=== PATIENT | male | born 1945 | race Caucasian/White ===

== ENCOUNTER 2016-12-30 13:45 | Inpatient (IN) | payer MEDICARE, BC ==
[2016-12-30] MEDS ORDERED: DILTIAZEM 5 MG/ML 5 ML VIAL IVP STA (14:12)
--- NOTE | 2016-12-30 14:12 | ED ---
Arrhythmia/Palpitations HPI - General Chief Complaint: Arrhythmia/Palpitations Stated Complaint: Chest Pain Time Seen by Provider: 12/30/16 13:45 Source: patient, EMS, RN notes reviewed Mode of arrival: EMS Limitations: no limitations - History of Present Illness Initial Comments: This is a 71-year-old male who was brought in by aunt was from a local outpatient surgical center after being in diagnosed with a new onset atrial fibrillation. The patient was to have an endoscopy done is found have A. fib with RVR. He does state he gets occasionally dizzy he states he 69 for the past 3 weeks hence the scope. He does have history diabetes gout and hypertension. No prior history of A. fib history of [place]. No history of thyroid disorders no recent fevers chills nausea vomiting sweats or other symptoms. MD Complaint: rapid heart beat, palpitations - Related Data Home Medications Medication Instructions Recorded Confirmed Allopurinol [Zyloprim] 300 mg PO BID 11/27/15 12/30/16 Atenolol 25 mg PO DAILY 11/27/15 12/30/16 Carbidopa-Levodopa 25-100 mg 1 tab PO BID 11/27/15 12/30/16 [Sinemet 25-100 mg] Cholecalciferol [Vitamin D3] 1,000 units PO DAILY 11/27/15 12/30/16 Cyanocobalamin [Vitamin B-12] 1,000 mcg PO DAILY 11/27/15 12/30/16 Glimepiride [Amaryl] 8 mg PO DAILY 11/27/15 12/30/16 Hydrochlorothiazide 25 mg PO DAILY 11/27/15 12/30/16 sitaGLIPtin [Januvia] 12.5 mg PO BID 12/28/16 12/30/16 Omeprazole 20 mg PO DAILY 12/30/16 12/30/16 Triamcinolone 0.1% Lotion [Kenalog 1 applic TOPICAL BID PRN 12/30/16 12/30/16 0.1% Lotion] Allergies Allergy/AdvReac Type Severity Reaction Status Date / Time Penicillins Allergy Unknown Verified 12/30/16 14:16 Review of Systems ROS Statement: Those systems with pertinent positive or pertinent negative responses have been documented in the HPI. ROS Other: All systems not noted in ROS Statement are negative. Past Medical History Past Medical History: Diabetes Mellitus, GERD/Reflux, Hypertension, Renal Disease Additional Past Medical History / Comment(s): KIDNEY DISEASE- LEVEL 3 (DR WEST) , HAYFEVER, RLS, BACK PAIN , GOUT, FREQUENT DIARRHEA, PROBLEM SWALLOWING - CHOKES AND HAS NOT TAKEN ANY OF MEDS IN WEEKS. History of Any Multi-Drug Resistant Organisms: None Reported Past Surgical History: Hernia Repair Additional Past Surgical History / Comment(s): had lense replacement on B eyes, and cataract on B eyes Past Anesthesia/Blood Transfusion Reactions: No Reported Reaction Past Psychological History: No Psychological Hx Reported Smoking Status: Former smoker Past Alcohol Use History: Occasional Past Drug Use History: None Reported - Past Family History Mother Family Medical History: No Reported History General Exam - General Exam Comments Initial Comments: This is a well-developed well-nourished awake alert oriented 3 male Limitations: no limitations General appearance: alert, in no apparent distress Head exam: Present: atraumatic, normocephalic, normal inspection Eye exam: Present: normal appearance, PERRL, EOMI. Absent: scleral icterus, conjunctival injection, periorbital swelling ENT exam: Present: normal exam, mucous membranes moist Neck exam: Present: normal inspection. Absent: tenderness, meningismus, lymphadenopathy Respiratory exam: Present: normal lung sounds bilaterally. Absent: respiratory distress, wheezes, rales, rhonchi, stridor Cardiovascular Exam: Present: tachycardia, irregular rhythm. Absent: systolic murmur, diastolic murmur, rubs, gallop, clicks GI/Abdominal exam: Present: soft, normal bowel sounds. Absent: distended, tenderness, guarding, rebound, rigid Extremities exam: Present: normal inspection, full ROM, normal capillary refill. Absent: tenderness, pedal edema, joint swelling, calf tenderness Back exam: Present: normal inspection Neurological exam: Present: alert, oriented X3, CN II-XII intact Psychiatric exam: Present: normal affect, normal mood Skin exam: Present: warm, dry, intact, normal color. Absent: rash Course Vital Signs 12/30/16 12/30/16 12/30/16 13:51 13:59 14:46 Temperature 97.2 F L Pulse Rate 126 H 133 H Pulse Rate [ 126 H Inspector Outside Steam Distribution ] Respiratory 18 16 Rate Blood Pressure 123/63 129/63 O2 Sat by Pulse 100 100 Oximetry 12/30/16 12/30/16 12/30/16 14:52 15:17 15:34 Temperature Pulse Rate 112 H 106 H 108 H Pulse Rate [ Inspector Outside Steam Distribution ] Respiratory 16 16 16 Rate Blood Pressure 110/58 103/61 102/65 O2 Sat by Pulse 100 100 98 Oximetry 12/30/16 12/30/16 15:52 16:02 Temperature Pulse Rate 110 H 106 H Pulse Rate [ Inspector Outside Steam Distribution ] Respiratory 16 16 Rate Blood Pressure 101/61 112/70 O2 Sat by Pulse 98 100 Oximetry - Reevaluation(s) Reevaluation #1: 12/30/16 16:35 Reevaluation patient reveals the rate to be controlled better with the heart rate in the low 100s he still nature fibrillation. He will be admitted for evaluation by cardiology for new onset A. fib. 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 and minimal voltage criteria for LVH) Medical Decision Making - Lab Data Result diagrams: 12/30/16 14:10 12/30/16 14:10 Lab Results 12/30/16 12/30/16 12/30/16 Range/Units 14:10 14:10 14:10 WBC 13.1 H (3.8-10.6) k/uL RBC 4.37 (4.30-5.90) m/uL Hgb 14.2 (13.0-17.5) gm/dL Hct 41.2 (39.0-53.0) % MCV 94.3 (80.0-100.0) fL MCH 32.5 (25.0-35.0) pg MCHC 34.5 (31.0-37.0) g/dL RDW 14.6 (11.5-15.5) % Plt Count 335 (150-450) k/uL Neutrophils % 82 % Lymphocytes % 10 % Monocytes % 5 % Eosinophils % 1 % Basophils % 0 % Neutrophils # 10.7 H (1.3-7.7) k/uL Lymphocytes # 1.3 (1.0-4.8) k/uL Monocytes # 0.7 (0-1.0) k/uL Eosinophils # 0.2 (0-0.7) k/uL Basophils # 0.0 (0-0.2) k/uL Sodium 137 (137-145) mmol/L Potassium 4.2 (3.5-5.1) mmol/L Chloride 104 (98-107) mmol/L Carbon Dioxide 19 L (22-30) mmol/L Anion Gap 14 mmol/L BUN 61 H (9-20) mg/dL Creatinine 2.40 H (0.66-1.25) mg/dL Est GFR (MDRD) Af Amer 32 (>60 ml/min/1.73 sqM) Est GFR (MDRD) Non-Af 27 (>60 ml/min/1.73 sqM) Glucose 145 H (74-99) mg/dL Calcium 10.0 (8.4-10.2) mg/dL Magnesium 1.3 L (1.6-2.3) mg/dL Total Bilirubin 0.5 (0.2-1.3) mg/dL AST 18 (17-59) U/L ALT 32 (21-72) U/L Alkaline Phosphatase 78 (38-126) U/L Total Creatine Kinase 98 (55-170) U/L CK-MB (CK-2) 2.8 H* (0.0-2.4) ng/mL CK-MB (CK-2) Rel Index 2.9 Troponin I 0.023 (0.000-0.034) ng/mL Total Protein 6.5 (6.3-8.2) g/dL Albumin 4.1 (3.5-5.0) g/dL Critical Care Time Critical Care Time: Yes Critical Care Time: 31 minutes of critical care time which includes initial presentation with history physical labs x-rays reevaluation the patient response to therapy. Discussed with the patient and family regarding findings discussed with the main physician admission orders and documentation of the above Disposition Clinical Impression: Rapid atrial fibrillation Disposition: ADMITTED IP TO THIS [facility] Condition: Stable Referrals: Deloris Draper III, MD [Primary Care Provider] - 1-2 days
[2016-12-30 14:21] LABS: Basophils % (A) 0 %; CH 32.7; CHCM 34.9; Eosinophils # (A) 0.2 k/uL (0-0.7); Eosinophils % (A) 1 %; HCT 41.2 % (39.0-53.0); HDW 2.77; HGB 14.2 gm/dL (13.0-17.5); Luc # (Auto) 0.18; Luc % (Auto) 1; Lymphocytes # (A) 1.3 k/uL (1.0-4.8); Lymphocytes % (A) 10 %; MCH 32.5 pg (25.0-35.0); MCHC 34.5 g/dL (31.0-37.0); MCV 94.3 fL (80.0-100.0); Mean Platelet Volume 6.6; Monocytes # (A) 0.7 k/uL (0-1.0); Monocytes % (A) 5 %; Neutrophils # (A) 10.7 k/uL (1.3-7.7); Neutrophils % (A) 82 %; RBC 4.37 m/uL (4.30-5.90); RDW 14.6 % (11.5-15.5); WBC 13.1 k/uL (3.8-10.6); WBC (Perox) 13.27
[2016-12-30 14:34] LABS: Magnesium 1.3 mg/dL (1.6-2.3); Potassium 4.2 mmol/L (3.5-5.1); Total Bilirubin 0.5 mg/dL (0.2-1.3); Total Protein 6.5 g/dL (6.3-8.2)
[2016-12-30] MEDS: DILTIAZEM 125 MG in SODIUM CHLORIDE 0.9% 100 ML IV STA (14:40)
--- NOTE | 2016-12-30 14:48 | XR ---
EXAMINATION TYPE: XR chest 2V DATE OF EXAM: 12/30/2016 COMPARISON: NONE TECHNIQUE: PA and lateral views submitted. HISTORY: Dysrhythmia FINDINGS: The lungs are clear and there is no pneumothorax, pleural effusion, or focal pneumonia. Marked defo rmity of the left humeral head and neck appears chronic. Correlate for previous trauma. Hypertrophic change of the spine noted. IMPRESSION: 1. No acute process.
[2016-12-30 14:55] LABS: INR 1.1 (<1.1); Partial Thromboplastin Time 26.5 sec (22.0-30.0); Prothrombin Time 11.2 sec (9.0-12.0)
[2016-12-30 15:01] LABS: Troponin I 0.023 ng/mL (0.000-0.034)
[2016-12-30 15:06] LABS: Creatine Kinase MB 2.8 ng/mL (0.0-2.4)
[2016-12-30] MEDS ORDERED: MAGNESIUM SULFATE-D5W PMX 1 GM in DEXTROSE/WATER 1 100ML.BAG IVPB ONE (15:13)
[2016-12-30] MEDS ORDERED: NALOXONE 0.4 MG/ML 1 ML VIAL IV PRN (16:37)
[2016-12-30] MEDS ORDERED: TRIAMCINOLONE 0.1% CREAM 80 GM TUBE TOPICAL PRN (16:38)
[2016-12-30] MEDS ORDERED: SODIUM CHLORIDE 0.9% 1,000 ML IV SCH (16:45)
--- NOTE | 2016-12-30 17:30 | P.HPIM ---
History of Present Illness 71-year-old male who was brought in by aunt was from a local outpatient surgical center after being in diagnosed with a new onset atrial fibrillation. The patient was to have an endoscopy done is found have A. fib with RVR. Denied any lightheadedness, palpations, chest pain. Patient has dysphagia started about 3 weeks ago started with the solids for which patient is supposed to undergo upper GI endoscopy. Patient was started on Cardizem with fairly controlled heart rate now we are obtaining an echocardiogram patient will be admitted with be started on IV heparin patient is on atenolol at home which will be restarted back. He does have history diabetes gout and hypertension. No prior history of A. fib history of [place]. No history of thyroid disorders no recent fevers chills nausea vomiting sweats or other symptoms. Review of Systems REVIEW OF SYSTEMS: CONSTITUTIONAL: No fever, no malaise, no fatigue. HEENT: No recent visual problems or hearing problems. Denied any sore throat. CARDIOVASCULAR: No chest pain, orthopnea, PND, no palpitations, no syncope. PULMONARY: No shortness of breath, no cough, no hemoptysis. GASTROINTESTINAL: No diarrhea, no nausea, no vomiting, no abdominal pain. Normoactive bowel sounds. NEUROLOGICAL: No headaches, no weakness, no numbness. HEMATOLOGICAL: Denies any bleeding or petechiae. GENITOURINARY: Denies any burning micturition, frequency, or urgency. MUSCULOSKELETAL/RHEUMATOLOGICAL: Denies any joint pain, swelling, or any muscle pain. ENDOCRINE: Denies any polyuria or polydipsia. The rest of the 14-point review of systems is negative. Past Medical History Past Medical History: Diabetes Mellitus, GERD/Reflux, Hypertension, Renal Disease Additional Past Medical History / Comment(s): KIDNEY DISEASE- LEVEL 3 (DR WEST) , HAYFEVER, RLS, BACK PAIN , GOUT, FREQUENT DIARRHEA, PROBLEM SWALLOWING - CHOKES AND HAS NOT TAKEN ANY OF MEDS IN WEEKS. History of Any Multi-Drug Resistant Organisms: None Reported Past Surgical History: Hernia Repair Additional Past Surgical History / Comment(s): had lense replacement on B eyes, and cataract on B eyes Past Anesthesia/Blood Transfusion Reactions: No Reported Reaction Past Psychological History: No Psychological Hx Reported Smoking Status: Former smoker Past Alcohol Use History: Occasional Past Drug Use History: None Reported - Past Family History Mother Family Medical History: No Reported History Medications and Allergies Home Medications Medication Instructions Recorded Confirmed Type Allopurinol [Zyloprim] 300 mg PO BID 11/27/15 12/30/16 History Atenolol 25 mg PO DAILY 11/27/15 12/30/16 History Carbidopa-Levodopa 25-100 mg 1 tab PO BID 11/27/15 12/30/16 History [Sinemet 25-100 mg] Cholecalciferol [Vitamin D3] 1,000 units PO DAILY 11/27/15 12/30/16 History Cyanocobalamin [Vitamin B-12] 1,000 mcg PO DAILY 11/27/15 12/30/16 History Glimepiride [Amaryl] 8 mg PO DAILY 11/27/15 12/30/16 History Hydrochlorothiazide 25 mg PO DAILY 11/27/15 12/30/16 History sitaGLIPtin [Januvia] 12.5 mg PO BID 12/28/16 12/30/16 History Omeprazole 20 mg PO DAILY 12/30/16 12/30/16 History Triamcinolone 0.1% Lotion [Kenalog 1 applic TOPICAL BID PRN 12/30/16 12/30/16 History 0.1% Lotion] Allergies Allergy/AdvReac Type Severity Reaction Status Date / Time Penicillins Allergy Unknown Verified 12/30/16 14:16 Physical Exam Vitals: Vital Signs Temp Pulse Pulse Resp BP Pulse Ox 12/30/16 16:59 98 F 103 H 16 108/66 96 12/30/16 16:02 106 H 16 112/70 100 12/30/16 15:52 110 H 16 101/61 98 12/30/16 15:34 108 H 16 102/65 98 12/30/16 15:17 106 H 16 103/61 100 12/30/16 14:52 112 H 16 110/58 100 12/30/16 14:46 133 H 16 129/63 100 12/30/16 13:59 126 H 12/30/16 13:51 97.2 F L 126 H 18 123/63 100 Intake and Output 12/30/16 12/30/16 12/30/16 06:59 14:59 22:59 Other: Weight 99.79 kg Patient Weight 12/31/16 06:59 Weight 99.79 kg PHYSICAL EXAMINATION: GENERAL: The patient is alert and oriented x3, not in any acute distress. Well developed, well nourished. HEENT: Pupils are round and equally reacting to light. EOMI. No scleral icterus. No conjunctival pallor. Normocephalic, atraumatic. No pharyngeal erythema. No thyromegaly. CARDIOVASCULAR: S1 and S2 present. No murmurs, rubs, or gallops. PULMONARY: Chest is clear to auscultation, no wheezing or crackles. ABDOMEN: Soft, nontender, nondistended, normoactive bowel sounds. No palpable organomegaly. MUSCULOSKELETAL: No joint swelling or deformity. EXTREMITIES: No cyanosis, clubbing, or pedal edema. NEUROLOGICAL: Gross neurological examination did not reveal any focal deficits. SKIN: No rashes. Results CBC & Chem 7: 12/30/16 14:10 12/30/16 14:10 Labs: Abnormal Lab Results - Last 24 Hours (Table) 12/30/16 12/30/16 12/30/16 Range/Units 14:10 14:10 14:10 WBC 13.1 H (3.8-10.6) k/uL Neutrophils # 10.7 H (1.3-7.7) k/uL Carbon Dioxide 19 L (22-30) mmol/L BUN 61 H (9-20) mg/dL Creatinine 2.40 H (0.66-1.25) mg/dL Glucose 145 H (74-99) mg/dL Magnesium 1.3 L (1.6-2.3) mg/dL CK-MB (CK-2) 2.8 H* (0.0-2.4) ng/mL Assessment and Plan Plan: 1 atrial fibrillation with rapid ventricular rate new onset: Patient was started on Cardizem, patient will initiate back on metoprolol patient may benefit from metoprolol probably. mostly has diffuse tachycardia and A. fib from not taking atenolol due to his dysphagia. Patient was also started on IV heparin. 10 echocardiogram 2 dysphagia: Need to rule out esophageal cancer with his symptomatology, we'll consult gastroenterology to see if they can do upper GI endoscopy once his heart rate is controlled. 3 diabetes mellitus type 2 patient was started on sliding scale insulin, hold off oral hypoglycemic agents 4 hypertension #5 gastric esophageal reflux disease.
[2016-12-30] MEDS: INSULIN LISPRO (humaLOG) 300 UNIT/3 ML VIAL SQ SCH ×2 (18:15→21:10)
[2016-12-30 20:16] LABS: Hemoglobin A1C 6.5 % (4.2-6.1)
[2016-12-30] MEDS: SODIUM CHLORIDE 0.9% 1,000 ML IV SCH (21:04)
[2016-12-30 21:09] LABS: Glucose,Whole Blood 131 mg/dL (75-99)
[2016-12-30] MEDS: CARBIDOPA-LEVODOPA 25-100 MG 1 EACH TAB PO SCH (21:10)
[2016-12-30] MEDS: ALLOPURINOL 300 MG TAB PO SCH (21:10)
[2016-12-30] MEDS ORDERED: HEPARIN SODIUM,PORCINE 5,000 UNIT/ML 1 ML VIAL IV PRN (21:55)
[2016-12-30] MEDS ORDERED: HEPARIN SODIUM,PORCINE 5,000 UNIT/ML 1 ML VIAL IV ONE (21:55)
[2016-12-30] MEDS: HEPARIN SODIUM,PORCINE/D5W PMX 25,000 UNIT in DEXTROSE/WATER 1 500ML.BAG IV SCH (23:14)
[2016-12-31 06:05] LABS: Glucose,Whole Blood 123 mg/dL (75-99)
[2016-12-31] MEDS: PANTOPRAZOLE 40 MG TABLET PO SCH (06:10)
[2016-12-31] MEDS: INSULIN LISPRO (humaLOG) 300 UNIT/3 ML VIAL SQ SCH ×4 (06:10→22:12)
[2016-12-31 06:32] LABS: Basophils % (A) 0 %; CH 32.6; CHCM 34.7; Eosinophils # (A) 0.4 k/uL (0-0.7); Eosinophils % (A) 3 %; HCT 36.3 % (39.0-53.0); HDW 2.73; HGB 12.5 gm/dL (13.0-17.5); Luc # (Auto) 0.16; Luc % (Auto) 1; Lymphocytes # (A) 1.6 k/uL (1.0-4.8); Lymphocytes % (A) 12 %; MCH 32.7 pg (25.0-35.0); MCHC 34.5 g/dL (31.0-37.0); MCV 94.6 fL (80.0-100.0); Mean Platelet Volume 6.7; Monocytes # (A) 0.8 k/uL (0-1.0); Monocytes % (A) 6 %; Neutrophils # (A) 10.2 k/uL (1.3-7.7); Neutrophils % (A) 78 %; RBC 3.84 m/uL (4.30-5.90); RDW 14.9 % (11.5-15.5); WBC 13.1 k/uL (3.8-10.6); WBC (Perox) 13.32
[2016-12-31 06:51] LABS: Calcium 9.2 mg/dL (8.4-10.2); Potassium 4.2 mmol/L (3.5-5.1)
[2016-12-31] MEDS ORDERED: ATENOLOL 25 MG TAB PO SCH (09:00)
[2016-12-31] MEDS ORDERED: HYDROCHLOROTHIAZIDE 25 MG TAB PO SCH (09:00)
[2016-12-31] MEDS ORDERED: GLIMEPIRIDE 4 MG TAB PO SCH (09:00)
--- NOTE | 2016-12-31 09:36 | P.CRDCN ---
History of Present Illness Consult date: 12/31/16 Reason for Consult (text): New onset atrial fibrillation Chief complaint: Dysphagia History of present illness: This is a pleasant 71-year-old gentleman with a history of diabetes, hypertension, gout, GERD, renal failure, restless leg syndrome, ex-smoker. He presented to the emergency department with new onset atrial fibrillation. He was scheduled yesterday to undergo an EGD due to history of dysphagia since October and was found to be in atrial fibrillation with rapid ventricular response. EMS was called and patient was sent to the emergency department. Apparently patient has not been taking any medications for the last 3 weeks due to severe dysphagia and choking on anything except liquids. He was on atenolol 25 mg daily at home for hypertension. Denies history of atrial fibrillation. EKG shows patient to be in atrial fibrillation with rapid ventricular response. Patient was started on Cardizem IV and heparin drip. Lab x-ray values showed a BUN of 56 and creatinine 2.15, magnesium 1.5 and a troponin of 0.023. Patient denies any complaints of palpitations, feeling a rapid heart beat, shortness of breath, significant dizziness, chest discomfort or edema. Past Medical History Past Medical History: Diabetes Mellitus, GERD/Reflux, Hypertension, Renal Disease Additional Past Medical History / Comment(s): KIDNEY DISEASE- LEVEL 3 (DR MCKEON) , HAYFEVER, RLS, BACK PAIN , GOUT, FREQUENT DIARRHEA, PROBLEM SWALLOWING - CHOKES AND HAS NOT TAKEN ANY OF MEDS IN WEEKS. History of Any Multi-Drug Resistant Organisms: None Reported Past Surgical History: Hernia Repair Additional Past Surgical History / Comment(s): had lense replacement on B eyes, and cataract on B eyes Past Anesthesia/Blood Transfusion Reactions: No Reported Reaction Past Psychological History: No Psychological Hx Reported Smoking Status: Former smoker Past Alcohol Use History: Occasional Past Drug Use History: None Reported - Past Family History Mother Family Medical History: No Reported History Medications and Allergies Home Medications Medication Instructions Recorded Confirmed Type Allopurinol [Zyloprim] 300 mg PO BID 11/27/15 12/30/16 History Atenolol 25 mg PO DAILY 11/27/15 12/30/16 History Carbidopa-Levodopa 25-100 mg 1 tab PO BID 11/27/15 12/30/16 History [Sinemet 25-100 mg] Cholecalciferol [Vitamin D3] 1,000 units PO DAILY 11/27/15 12/30/16 History Cyanocobalamin [Vitamin B-12] 1,000 mcg PO DAILY 11/27/15 12/30/16 History Glimepiride [Amaryl] 8 mg PO DAILY 11/27/15 12/30/16 History Hydrochlorothiazide 25 mg PO DAILY 11/27/15 12/30/16 History sitaGLIPtin [Januvia] 12.5 mg PO BID 12/28/16 12/30/16 History Omeprazole 20 mg PO DAILY 12/30/16 12/30/16 History Triamcinolone 0.1% Lotion [Kenalog 1 applic TOPICAL BID PRN 12/30/16 12/30/16 History 0.1% Lotion] Allergies Allergy/AdvReac Type Severity Reaction Status Date / Time Penicillins Allergy Unknown Verified 12/30/16 14:16 Physical Exam Vitals: Vital Signs Temp Pulse Pulse Pulse Resp BP BP 12/31/16 04:00 81 16 104/57 12/30/16 23:40 100 84 17 108/56 12/30/16 20:00 96.3 F L 100 18 12/30/16 17:15 97.7 F 100 18 116/75 12/30/16 16:59 98 F 103 H 16 108/66 12/30/16 16:02 106 H 16 112/70 12/30/16 15:52 110 H 16 101/61 12/30/16 15:34 108 H 16 102/65 12/30/16 15:17 106 H 16 103/61 12/30/16 14:52 112 H 16 110/58 12/30/16 14:46 133 H 16 129/63 12/30/16 13:59 126 H 12/30/16 13:51 97.2 F L 126 H 18 123/63 Pulse Ox 12/31/16 04:00 98 12/30/16 23:40 99 12/30/16 20:00 12/30/16 17:15 100 12/30/16 16:59 96 12/30/16 16:02 100 12/30/16 15:52 98 12/30/16 15:34 98 12/30/16 15:17 100 12/30/16 14:52 100 12/30/16 14:46 100 12/30/16 13:59 12/30/16 13:51 100 Intake and Output 12/30/16 12/31/16 12/31/16 22:59 06:59 14:59 Intake Total 1260 372.58 Balance 1260 372.58 Intake: IV 60 Diltiazem 125 mg In 60 Sodium Chloride 0.9% 100 ml @ 5 MG/HR 5 mls/hr IV .Q24H STA Rx#:[id number] Intake, IV Titration 1200 172.58 Amount Heparin Sodium,Porcine/ 172.58 D5w Pmx 25,000 unit In Dextrose/Water 1 500ml. bag @ 9.85 UNITS/KG/HR 19 .99 mls/hr IV .Q24H RENÉE Rx#:[id number] Sodium Chloride 0.9% 1, 1200 000 ml @ 100 mls/hr IV . Q10H RENÉE Rx#:[id number] Oral 200 Other: # Voids 2 1 Weight 101.5 kg 100.9 kg PHYSICAL EXAMINATION: HEENT: Head is atraumatic, normocephalic. Pupils equal, round. Neck is supple. There is no elevated jugular venous pressure. HEART EXAMINATION: Heart sounds irregularly irregular, S1 and S2 normal. No murmur or gallop heard. CHEST EXAMINATION: Lungs are clear to auscultation and precussion. No chest wall tenderness is noted on palpation or with deep breathing. ABDOMEN: Soft, nontender. Bowel sounds are heard. No organomegaly noted. EXTREMITIES: 2+ peripheral pulses with no evidence of peripheral edema and no calf tenderness noted. NEUROLOGIC patient is awake, alert and oriented x3. . Results 12/31/16 05:52 12/31/16 05:52 Cardiac Enzymes 12/30/16 12/30/16 Range/Units 14:10 14:10 AST 18 (17-59) U/L CK-MB (CK-2) 2.8 H* (0.0-2.4) ng/mL Troponin I 0.023 (0.000-0.034) ng/mL Coagulation 12/30/16 12/31/16 Range/Units 14:10 05:52 PT 11.2 (9.0-12.0) sec APTT 26.5 65.4 H (22.0-30.0) sec CBC 12/30/16 12/31/16 Range/Units 14:10 05:52 WBC 13.1 H 13.1 H (3.8-10.6) k/uL RBC 4.37 3.84 L (4.30-5.90) m/uL Hgb 14.2 12.5 L (13.0-17.5) gm/dL Hct 41.2 36.3 L (39.0-53.0) % Plt Count 335 271 (150-450) k/uL Comprehensive Metabolic Panel 12/30/16 12/31/16 Range/Units 14:10 05:52 Sodium 137 135 L (137-145) mmol/L Potassium 4.2 4.2 (3.5-5.1) mmol/L Chloride 104 104 (98-107) mmol/L Carbon Dioxide 19 L 21 L (22-30) mmol/L BUN 61 H 56 H (9-20) mg/dL Creatinine 2.40 H 2.15 H (0.66-1.25) mg/dL Glucose 145 H 131 H (74-99) mg/dL Calcium 10.0 9.2 (8.4-10.2) mg/dL AST 18 (17-59) U/L ALT 32 (21-72) U/L Alkaline Phosphatase 78 (38-126) U/L Total Protein 6.5 (6.3-8.2) g/dL Albumin 4.1 (3.5-5.0) g/dL Current Medications Generic Name Dose Route Start Last Admin Trade Name Freq PRN Reason Stop Dose Admin Allopurinol 300 mg 12/30/16 21:00 12/30/16 21:10 Zyloprim PO Not Given BID [facility] Atenolol 25 mg 12/31/16 09:00 Tenormin PO DAILY [facility] Carbidopa/Levodopa 1 each 12/30/16 21:00 12/30/16 21:10 Sinemet 25-100 PO Not Given BID [facility] Cholecalciferol 1,000 unit 12/31/16 12:00 Vitamin D3 PO 1200 [facility] Heparin Sodium (Porcine) 0 unit 12/30/16 21:55 Heparin IV PER PROTOCOL PRN Low PTT Protocol Diltiazem HCl 125 mg/ Sodium 125 mls @ 5 mls/hr 12/30/16 14:08 12/30/16 14:40 Chloride IV 12/31/16 14:07 5 mg/hr .Q24H STA 5 mls/hr Protocol Administration 5 MG/HR Sodium Chloride 1,000 mls @ 20 mls/hr 12/30/16 16:45 12/30/16 17:02 Saline 0.9% IV 20 mls/hr .Q24H RENÉE Administration Sodium Chloride 1,000 mls @ 100 mls/hr 12/30/16 17:45 12/30/16 21:04 Saline 0.9% IV 100 mls/hr .Q10H RENÉE Administration Heparin Sodium/Dextrose 25,000 500 mls @ 19.99 mls/hr 12/30/16 22:00 07:52 unit/ IV Solution IV 12 units/kg/hr .Q24H RENÉE 24.36 mls/hr Protocol Titration 9.85 UNITS/KG/HR Insulin Human Lispro 0 unit 12/30/16 17:30 12/31/16 06:10 Humalog SQ Not Given ACHS [facility] Protocol Linagliptin 5 mg 12/31/16 09:00 Tradjenta PO DAILY [facility] Naloxone HCl 0.2 mg 12/30/16 16:37 Narcan IV Q2M PRN Opioid Reversal Pantoprazole Sodium 40 mg 12/31/16 07:30 12/31/16 06:10 Protonix PO Not Given AC-BRKFST [facility] Triamcinolone Acetonide 1 applic 12/30/16 16:38 Kenalog TOPICAL BID PRN Rash Intake and Output 12/30/16 12/31/16 12/31/16 22:59 06:59 14:59 Intake Total 1260 372.58 Balance 1260 372.58 Intake: IV 60 Diltiazem 125 mg In 60 Sodium Chloride 0.9% 100 ml @ 5 MG/HR 5 mls/hr IV .Q24H [facility] Rx#:[id number] Intake, IV Titration 1200 172.58 Amount Heparin Sodium,Porcine/ 172.58 D5w Pmx 25,000 unit In Dextrose/Water 1 500ml. bag @ 9.85 UNITS/KG/HR 19 .99 mls/hr IV .Q24H [facility] Rx#:[id number] Sodium Chloride 0.9% 1, 1200 000 ml @ 100 mls/hr IV . Q10H [facility]E Rx#:[id number] Oral 200 Other: # Voids 2 1 Weight 101.5 kg 100.9 kg 12/31/16 05:52 12/31/16 05:52 EKG Interpretations (text) Atrial fibrillation with rapid ventricular response and PVCs Assessment and Plan Plan: Assessment and plan #1 new onset atrial fibrillation with rapid ventricular response, duration unknown at this time #2 hypertension #3 severe dysphagia, awaiting EGD to rule out malignancy and/or stricture #4 diabetes #5 renal failure, follows with Dr. Mckeon #6 hypomagnesemia #7 GERD #8 restless leg syndrome, on Sinemet Cardiology's perspective, we'll obtain a 2-D echo with Doppler to assess LV function. We'll obtain TSH to rule out thyroid disorder. We will increase Cardizem drip to obtain better heart rate control. Continue IV heparin. From our stand point, patient may proceed with EGD tomorrow morning, hold heparin for 4 hours prior. We will address treatment for atrial fibrillation after EGD. Further recommendations to follow. HOME OFFICE CLAIM SPECIALIST note has been reviewed, I agree with a documented findings and plan of care. Patient was seen and examined.
--- NOTE | 2016-12-31 09:39 | P.CONS ---
History of Present Illness - Reason for Consult Consult date: 12/31/16 dysphagia Requesting physician: Breezy Aguilar - History of Present Illness 71-year-old male admitted with new onset atrial fibrillation. PMH diabetes rest of leg syndrome, chronic kidney disease, GERD, and hypertension. Reports history of upper esophageal dysphagia 2 months ( early October) with solids and medications but without liquids. Denies odynophagia. He was scheduled to have an outpatient EGD the other day and procedure was canceled secondary to arrhythmia. 20 pound weight loss over the last few months. Denies hematemesis hematochezia melena. No choking coughing or emesis. No fever. No history of dysphagia. History of long-standing GERD without EGD evaluation. No difficulty initiating a swallow. No drooling. No history of neuromuscular disorders. Currently receiving intravenous heparin. Hemoglobin 12.5. INR 1.1. PTT 65.4. BUN 56. Creatinine 2.1. Chest X-ray no acute process. Review of Systems Constitutional: Denies fever, chills, sweats, weight gain, or loss. HEENT: Negative for migraines, blurred vision or loss, earaches, drainage, tinnitus, oral mucosal lesions, dysphagia, or odynophagia. Cardiac: Hypertension. Negative for chest pain, arrhythmias, or palpitation. Respiratory: Negative for shortness of breath, hemoptysis, cough, or sputum production. Gastrointestinal: See HPI for pertinent findings. Genitourinary: Negative for hematuria, urgency, frequency, polyuria, dysuria, or penile discharge. Musculoskeletal: Negative for muscle aches, swelling, arthritis, and arthralgias. Neurologic: RLS. Negative for stroke or TIA. Endocrine: Diabetes. Negative for thyroid problems. Skin: Negative for rash or itching. Psychiatric: Negative history for depression and anxiety All systems: negative (See HPI) Past Medical History Past Medical History: Diabetes Mellitus, GERD/Reflux, Hypertension, Renal Disease Additional Past Medical History / Comment(s): KIDNEY DISEASE- LEVEL 3 (DR WEST) , HAYFEVER, RLS, BACK PAIN , GOUT, FREQUENT DIARRHEA, PROBLEM SWALLOWING - CHOKES AND HAS NOT TAKEN ANY OF MEDS IN WEEKS. History of Any Multi-Drug Resistant Organisms: None Reported Past Surgical History: Hernia Repair Additional Past Surgical History / Comment(s): had lense replacement on B eyes, and cataract on B eyes Past Anesthesia/Blood Transfusion Reactions: No Reported Reaction Past Psychological History: No Psychological Hx Reported Smoking Status: Former smoker Past Alcohol Use History: Occasional Past Drug Use History: None Reported - Past Family History Mother Family Medical History: No Reported History Medications and Allergies Home Medications Medication Instructions Recorded Confirmed Type Allopurinol [Zyloprim] 300 mg PO BID 11/27/15 12/30/16 History Atenolol 25 mg PO DAILY 11/27/15 12/30/16 History Carbidopa-Levodopa 25-100 mg 1 tab PO BID 11/27/15 12/30/16 History [Sinemet 25-100 mg] Cholecalciferol [Vitamin D3] 1,000 units PO DAILY 11/27/15 12/30/16 History Cyanocobalamin [Vitamin B-12] 1,000 mcg PO DAILY 11/27/15 12/30/16 History Glimepiride [Amaryl] 8 mg PO DAILY 11/27/15 12/30/16 History Hydrochlorothiazide 25 mg PO DAILY 11/27/15 12/30/16 History sitaGLIPtin [Januvia] 12.5 mg PO BID 12/28/16 12/30/16 History Omeprazole 20 mg PO DAILY 12/30/16 12/30/16 History Triamcinolone 0.1% Lotion [Kenalog 1 applic TOPICAL BID PRN 12/30/16 12/30/16 History 0.1% Lotion] Allergies Allergy/AdvReac Type Severity Reaction Status Date / Time Penicillins Allergy Unknown Verified 12/30/16 14:16 Physical Exam Vitals: Vital Signs Temp Pulse Pulse Pulse Resp BP BP 12/31/16 04:00 81 16 104/57 12/30/16 23:40 100 84 17 108/56 12/30/16 20:00 96.3 F L 100 18 12/30/16 17:15 97.7 F 100 18 116/75 12/30/16 16:59 98 F 103 H 16 108/66 12/30/16 16:02 106 H 16 112/70 12/30/16 15:52 110 H 16 101/61 12/30/16 15:34 108 H 16 102/65 12/30/16 15:17 106 H 16 103/61 12/30/16 14:52 112 H 16 110/58 12/30/16 14:46 133 H 16 129/63 12/30/16 13:59 126 H 12/30/16 13:51 97.2 F L 126 H 18 123/63 Pulse Ox 12/31/16 04:00 98 12/30/16 23:40 99 12/30/16 20:00 12/30/16 17:15 100 12/30/16 16:59 96 12/30/16 16:02 100 12/30/16 15:52 98 12/30/16 15:34 98 12/30/16 15:17 100 12/30/16 14:52 100 12/30/16 14:46 100 12/30/16 13:59 12/30/16 13:51 100 Intake and Output 12/30/16 12/31/16 12/31/16 22:59 06:59 14:59 Intake Total 1260 372.58 Balance 1260 372.58 Intake: IV 60 Diltiazem 125 mg In 60 Sodium Chloride 0.9% 100 ml @ 5 MG/HR 5 mls/hr IV .Q24H STA Rx#:[id number] Intake, IV Titration 1200 172.58 Amount Heparin Sodium,Porcine/ 172.58 D5w Pmx 25,000 unit In Dextrose/Water 1 500ml. bag @ 9.85 UNITS/KG/HR 19 .99 mls/hr IV .Q24H RENÉE Rx#:[id number] Sodium Chloride 0.9% 1, 1200 000 ml @ 100 mls/hr IV . Q10H RENÉE Rx#:[id number] Oral 200 Other: # Voids 2 1 Weight 101.5 kg 100.9 kg General appearance: The patient is alert, oriented, in no acute distress. HET: Head is normocephalic and atraumatic. Pupils are equal and reactive. Oropharynx is clear without lesions. Neck: Supple without lymphadenopathy. Trachea midline. Heart: S1 S2. Lungs: No crackles or wheezes are heard. Abdomen: Soft, nontender, nondistended with bowel sounds. No peritoneal signs. No palpable organomegaly or masses. Extremities: Normal skin color and turgor. No cyanosis, rash, ulceration, clubbing, or edema. Radial and pedal pulses are 2/4 bilaterally. Neurological: No focal deficits. Strength and sensation are grossly intact. Results CBC & Chem 7: 12/31/16 05:52 12/31/16 05:52 Labs: Abnormal Lab Results - Last 24 Hours (Table) 12/30/16 12/30/16 12/30/16 Range/Units 14:10 14:10 14:10 WBC 13.1 H (3.8-10.6) k/uL RBC (4.30-5.90) m/uL Hgb (13.0-17.5) gm/dL Hct (39.0-53.0) % Neutrophils # 10.7 H (1.3-7.7) k/uL APTT (22.0-30.0) sec Sodium (137-145) mmol/L Carbon Dioxide 19 L (22-30) mmol/L BUN 61 H (9-20) mg/dL Creatinine 2.40 H (0.66-1.25) mg/dL Glucose 145 H (74-99) mg/dL POC Glucose (mg/dL) (75-99) mg/dL Hemoglobin A1c (4.2-6.1) % Magnesium 1.3 L (1.6-2.3) mg/dL CK-MB (CK-2) 2.8 H* (0.0-2.4) ng/mL 12/30/16 12/30/16 12/31/16 Range/Units 14:10 21:07 05:52 WBC 13.1 H (3.8-10.6) k/uL RBC 3.84 L (4.30-5.90) m/uL Hgb 12.5 L (13.0-17.5) gm/dL Hct 36.3 L (39.0-53.0) % Neutrophils # 10.2 H (1.3-7.7) k/uL APTT (22.0-30.0) sec Sodium (137-145) mmol/L Carbon Dioxide (22-30) mmol/L BUN (9-20) mg/dL Creatinine (0.66-1.25) mg/dL Glucose (74-99) mg/dL POC Glucose (mg/dL) 131 H (75-99) mg/dL Hemoglobin A1c 6.5 H (4.2-6.1) % Magnesium (1.6-2.3) mg/dL CK-MB (CK-2) (0.0-2.4) ng/mL 12/31/16 12/31/16 12/31/16 Range/Units 05:52 05:52 05:52 WBC (3.8-10.6) k/uL RBC (4.30-5.90) m/uL Hgb (13.0-17.5) gm/dL Hct (39.0-53.0) % Neutrophils # (1.3-7.7) k/uL APTT 65.4 H (22.0-30.0) sec Sodium 135 L (137-145) mmol/L Carbon Dioxide 21 L (22-30) mmol/L BUN 56 H (9-20) mg/dL Creatinine 2.15 H (0.66-1.25) mg/dL Glucose 131 H (74-99) mg/dL POC Glucose (mg/dL) (75-99) mg/dL Hemoglobin A1c (4.2-6.1) % Magnesium 1.5 L (1.6-2.3) mg/dL CK-MB (CK-2) (0.0-2.4) ng/mL 12/31/16 Range/Units 06:04 WBC (3.8-10.6) k/uL RBC (4.30-5.90) m/uL Hgb (13.0-17.5) gm/dL Hct (39.0-53.0) % Neutrophils # (1.3-7.7) k/uL APTT (22.0-30.0) sec Sodium (137-145) mmol/L Carbon Dioxide (22-30) mmol/L BUN (9-20) mg/dL Creatinine (0.66-1.25) mg/dL Glucose (74-99) mg/dL POC Glucose (mg/dL) 123 H (75-99) mg/dL Hemoglobin A1c (4.2-6.1) % Magnesium (1.6-2.3) mg/dL CK-MB (CK-2) (0.0-2.4) ng/mL Assessment and Plan Plan: Impression: 1. Dysphagia upper esophageal region with solids and medications 2 months with unintentional weight loss. Possible stricture disease possible Zenker's diverticulum. 2. New onset atrial fibrillation. 3. History of restless leg syndrome. 4. History of GERD. 5. History of diabetes mellitus. Recommendations: 1. EGD evaluation once cleared by cardiology. Continue GI prophylaxis. Full liquid diet as tolerated. The supervisor tank storage has discussed the risks, benefits and alternative therapies for the above-mentioned procedure and for both sedation/analgesia as well as necessary blood product administration, if indicated, as they pertain to this patient. The patient has indicated understanding and acceptance of the risks and procedures discussed. Thank you for this kind referral and the opportunity to participate in the care of your patient. This consultation was discussed with Dr. Christianson. The impression and plan of care have been directed as dictated.
[2016-12-31] MEDS: DILTIAZEM 125 MG in SODIUM CHLORIDE 0.9% 100 ML IV STA (10:04)
[2016-12-31] MEDS: LINAGLIPTIN 5 MG TABLET PO SCH (10:10)
[2016-12-31] MEDS: CARBIDOPA-LEVODOPA 25-100 MG 1 EACH TAB PO SCH ×2 (10:10→22:11)
[2016-12-31] MEDS: SODIUM CHLORIDE 0.9% 1,000 ML IV SCH ×3 (10:10→17:32)
[2016-12-31] MEDS: ALLOPURINOL 300 MG TAB PO SCH ×2 (10:10→22:11)
[2016-12-31] MEDS: CHOLECALCIFEROL 1,000 UNIT TAB PO SCH (10:23)
[2016-12-31 11:54] LABS: Glucose,Whole Blood 140 mg/dL (75-99)
--- NOTE | 2016-12-31 12:31 | CDI ---
In responding to this query, please exercise your independent professional judgment. The [facility] Coding Staff and Clinical Documentation Specialists appreciate your assistance in clarifying documentation, maintaining compliance with coding guidelines, accurately documenting patients condition and capturing severity of illness. The fact that a question is asked does not imply that any particular answer is desired or expected. Communication forms are a method of clarifying documentation and are not made part of the Legal Health Record. Thank you in advance for your clarification. Last Revision, April 2015 Edgardo Acosta [address] [place] [address] Documentation Clarification Form Date: 12/31/2016 12:11:00 PM From: Mariluz Wong RN, CDS Admit Date: 12/30/2016 4:37:00 PM Patient Name: Coy Buitrago Visit Number: [id number] Dr. Radha Lainez, 71 year old patient admitted for new onset A-fib found when preparing for an outpatient endoscopy. Patients home medications, which are ordered but not given due to difficulty swallowing, include Sinemet 25-100 BID. Patient history/risk factors 71 year old, DM, Gout, CKD3, HTN Clinical Indicators:: Sinemet 25-100 home medication ordered but held due to difficulty swallowing, Falls risk score: 35, Stand by assist for activities of daily living Treatment: Sinemet 25-100 ordered, GI consult for EGD, swallow eval done In your professional opinion, can you please clarify which diagnosis, after study, accounted for home medication of Sinemet 25-100? - Parkinsons Disease - Other (please specify) - Unable to determine Please document in your progress notes and discharge summary in order to capture severity of illness and risk of mortality. Include clinical findings that support your diagnosis. FYI: Press F11 to launch patient chart. Place X here if this finding has no clinical significance, is not applicable or if you are not able to provide any additional documentation. MTDD
[2016-12-31] MEDS ORDERED: DILTIAZEM 5 MG/ML 5 ML VIAL IVP STA (12:51)
[2016-12-31] MEDS: MAGNESIUM SULFATE-D5W PMX 1 GM in DEXTROSE/WATER 1 100ML.BAG IVPB SCH ×2 (13:44→15:03)
[2016-12-31] MEDS: DILTIAZEM 125 MG in SODIUM CHLORIDE 0.9% 100 ML IV SCH (14:13)
[2016-12-31 16:51] LABS: Glucose,Whole Blood 128 mg/dL (75-99)
[2016-12-31] MEDS: HEPARIN SODIUM,PORCINE/D5W PMX 25,000 UNIT in DEXTROSE/WATER 1 500ML.BAG IV SCH (17:32)
--- NOTE | 2016-12-31 18:37 | P.PN ---
Subjective Date of service 12/31/2016. Progress note being dictated for Dr. Lainez. Interval history: This a 71-year-old gentleman admitted with new onset atrial fibrillation with RVR, dysphagia and multiple other medical issues. Maintained on heparin and Cardizem drips. Telemetry atrial fibrillation with controlled ventricular rate. Denies coughing, nausea, or emesis;denies hemoptysis.hemoglobin 12.5. Evaluated by GI and EGD scheduled for tomorrow pending cardiology clearance. Continues on IV fluid hydration with Renal function improving. Denies any chest pain, palpitations or increasing shortness of breath. Objective - Vital Signs Vital signs: Vital Signs Temp 97.7 F 12/31/16 16:00 Pulse 86 12/31/16 16:00 Resp 16 12/31/16 17:17 BP 121/76 12/31/16 16:00 Pulse Ox 99 12/31/16 16:00 Intake & Output 12/30/16 12/31/16 12/31/16 18:59 06:59 18:59 Intake Total 1260 1861.06 Balance 1260 1861.06 Weight 101.5 kg 100.9 kg Intake: IV 60 200 Diltiazem 125 mg In 60 40 Sodium Chloride 0.9% 100 ml @ 10 MG/HR 10 mls/hr IV .[id number] STA Rx#: [id number] Heparin Sodium,Porcine/ 160 D5w Pmx 25,000 unit In Dextrose/Water 1 500ml. bag @ 9.85 UNITS/KG/HR 19 .99 mls/hr IV .Q24H RENÉE Rx#:[id number] Intake, IV Titration 1200 705.06 Amount Diltiazem 125 mg In 97 Sodium Chloride 0.9% 100 ml @ 10 MG/HR 10 mls/hr IV .[id number] STA Rx#: [id number] Heparin Sodium,Porcine/ 408.06 D5w Pmx 25,000 unit In Dextrose/Water 1 500ml. bag @ 9.85 UNITS/KG/HR 19 .99 mls/hr IV .Q24H RENÉE Rx#:[id number] Magnesium Sulfate-D5w Pmx 200 1 gm In Dextrose/Water 1 100ml.bag @ 100 mls/hr IVPB Q1H RENÉE Rx#: [id number] Sodium Chloride 0.9% 1, 1200 000 ml @ 100 mls/hr IV . Q10H RENÉE Rx#:[id number] Oral 956 Other: # Voids 1 2 2 - Exam GENERAL: Sitting up in chair ,alert and oriented x3, no acute distress. Well developed, well nourished. HEENT: Pupils are round and equally reacting to light. EOMI. No scleral icterus. No conjunctival pallor. Normocephalic, atraumatic. No pharyngeal erythema. Trachea midline. CARDIOVASCULAR: S1 and S2 present. No murmurs, rubs, or gallops. PULMONARY: Chest is clear to auscultation, no wheezing or crackles. ABDOMEN: Soft, nontender, nondistended, normoactive bowel sounds. No palpable organomegaly. MUSCULOSKELETAL: No joint swelling or deformity. EXTREMITIES: No cyanosis, clubbing, or pedal edema. NEUROLOGICAL: Gross neurological examination did not reveal any focal deficits. SKIN: No rashes. - Labs CBC & Chem 7: 12/31/16 05:52 12/31/16 05:52 Labs: Abnormal Lab Results - Last 24 Hours (Table) 12/30/16 12/30/16 12/31/16 Range/Units 14:10 21:07 05:52 WBC 13.1 H (3.8-10.6) k/uL RBC 3.84 L (4.30-5.90) m/uL Hgb 12.5 L (13.0-17.5) gm/dL Hct 36.3 L (39.0-53.0) % Neutrophils # 10.2 H (1.3-7.7) k/uL APTT (22.0-30.0) sec Sodium (137-145) mmol/L Carbon Dioxide (22-30) mmol/L BUN (9-20) mg/dL Creatinine (0.66-1.25) mg/dL Glucose (74-99) mg/dL POC Glucose (mg/dL) 131 H (75-99) mg/dL Hemoglobin A1c 6.5 H (4.2-6.1) % Magnesium (1.6-2.3) mg/dL 12/31/16 12/31/16 12/31/16 Range/Units 05:52 05:52 05:52 WBC (3.8-10.6) k/uL RBC (4.30-5.90) m/uL Hgb (13.0-17.5) gm/dL Hct (39.0-53.0) % Neutrophils # (1.3-7.7) k/uL APTT 65.4 H (22.0-30.0) sec Sodium 135 L (137-145) mmol/L Carbon Dioxide 21 L (22-30) mmol/L BUN 56 H (9-20) mg/dL Creatinine 2.15 H (0.66-1.25) mg/dL Glucose 131 H (74-99) mg/dL POC Glucose (mg/dL) (75-99) mg/dL Hemoglobin A1c (4.2-6.1) % Magnesium 1.5 L (1.6-2.3) mg/dL 12/31/16 12/31/16 12/31/16 Range/Units 06:04 11:49 16:49 WBC (3.8-10.6) k/uL RBC (4.30-5.90) m/uL Hgb (13.0-17.5) gm/dL Hct (39.0-53.0) % Neutrophils # (1.3-7.7) k/uL APTT (22.0-30.0) sec Sodium (137-145) mmol/L Carbon Dioxide (22-30) mmol/L BUN (9-20) mg/dL Creatinine (0.66-1.25) mg/dL Glucose (74-99) mg/dL POC Glucose (mg/dL) 123 H 140 H 128 H (75-99) mg/dL Hemoglobin A1c (4.2-6.1) % Magnesium (1.6-2.3) mg/dL Assessment and Plan Plan: 1 new-onset atrial fibrillation with rapid ventricular rate, currently controlled ventricular rate 2 dysphagia, rule out esophageal cancer with his symptomatology, EGD pending 3 diabetes mellitus type 2 4 hypertension #5 gastric esophageal reflux disease. #6 acute renal failure, improving with IV fluid hydration Plan: Continue on current medication regime , PPI, beta filemon, monitoring and symptomatic treatment. Maintain on both heparin and Cardizem drips. Continue IV fluid hydration. As mentioned above scheduled for EGD in a.m. close monitoring of renal function, electrolytes and CBC with repeat labs ordered for a.m. further recommendations to follow. The impression and plan of care has been dictated as directed. : I performed a H&P examination of this patient and discussed the same with the dictator. I agree with the dictator's note. Any additional findings/opinions/ etc. will be noted.
[2016-12-31 21:33] LABS: Glucose,Whole Blood 144 mg/dL (75-99)
[2017-01-01] MEDS: DILTIAZEM 125 MG in SODIUM CHLORIDE 0.9% 100 ML IV SCH (02:45)
[2017-01-01 06:40] LABS: Glucose,Whole Blood 144 mg/dL (75-99)
[2017-01-01 06:57] LABS: Basophils % (A) 0 %; CH 32.4; CHCM 33.4; Eosinophils # (A) 0.4 k/uL (0-0.7); Eosinophils % (A) 3 %; HCT 37.7 % (39.0-53.0); HDW 2.67; HGB 12.4 gm/dL (13.0-17.5); Luc # (Auto) 0.17; Luc % (Auto) 1; Lymphocytes # (A) 1.7 k/uL (1.0-4.8); Lymphocytes % (A) 14 %; MCH 32.2 pg (25.0-35.0); MCV 97.5 fL (80.0-100.0); Mean Platelet Volume 6.8; Monocytes # (A) 0.6 k/uL (0-1.0); Monocytes % (A) 5 %; Neutrophils # (A) 9.3 k/uL (1.3-7.7); Neutrophils % (A) 76 %; RBC 3.87 m/uL (4.30-5.90); RDW 14.8 % (11.5-15.5); WBC 12.2 k/uL (3.8-10.6); WBC (Perox) 12.13
[2017-01-01 07:26] LABS: Calcium 8.9 mg/dL (8.4-10.2); Magnesium 1.7 mg/dL (1.6-2.3); Potassium 4.3 mmol/L (3.5-5.1)
[2017-01-01] MEDS ORDERED: PROPOFOL 10 MG/ML 20 ML VIAL IV ONE (08:06)
[2017-01-01] MEDS ORDERED: IV FLUID CONTINUATION 900 ML IV ONE (08:07)
--- NOTE | 2017-01-01 08:49 | P.PCN ---
Date of Procedure: 01/01/17 Preoperative Diagnosis: Postoperative Diagnosis: Procedure(s) Performed: Procedure: Esophagogastroduodenoscopy. Preoperative diagnosis: Dysphagia. Postoperative diagnosis hiatal hernia with no obvious esophagitis, obstructing stricture, mass or Brian's esophagus. Duodenitis with no spontaneous bleeding or gastric outlet obstruction. No biopsies were obtained. Preparation and sedation: Were provided by anesthesia. Brief clinical history: The patient is a 71-year-old male admitted with new onset atrial fibrillation. PMH diabetes, RLS, chronic kidney disease, GERD, and hypertension. He was scheduled to have an outpatient EGD with me on for dysphagia of 2 months duration but the procedure was canceled because of finding of arrhythmia which apparently was new and he was directed to the emergency room for evaluation. He gave history of esophageal dysphagia 2 months with solids and medications but not liquids liquids. Has stopped taking his medications, including ranitidine because of this difficulty. Denies odynophagia. He had 20 pound weight loss over the last few months. Denies hematemesis, hematochezia or melena. No choking, coughing or emesis. No fever. History of long-standing GERD without EGD evaluation. No difficulty initiating a swallow. No drooling. No history of neuromuscular disorders. The details are summarized in the history and physical and dictated consultation. Procedure: With the patient on his left lateral decubitus position and after informed consent and adequate sedation, I passed the Olympus-GIF 160 video upper endoscope through the cricopharyngeus down the esophagus. GE junction was around 41 cm from the incisors and there was a small sliding hiatal hernia. The distal esophagus did not show any definite erosions or ulcers and there were no masses or any complete obstructing strictures. There was the appearance of an early incomplete stricture but that did not interfere with the advancement of the endoscope. The stomach was insufflated with air and inspected in detail including the retroflex view in the cardia. No obvious abnormalities were seen. Pyloric channel did not show any ulcers. Duodenal bulb showed some mottling and erythema but no ulcers. Post bulbar area and descending duodenum showed several scattered erosions and superficial ulcerations with no spontaneous bleeding and there was surrounding edema and erythema of the mucosa consistent with duodenitis. No biopsies were obtained. The patient tolerated the procedure well. Plan: The patient was reassured. He would be started back on regular diet. His heparin can be resumed. We will continue H2 blockers or other acid suppressive therapy for his duodenitis. I will see him as outpatient in the future and consider esophageal motility study and further evaluation of his dysphagia especially if he continues to lose weight. Implants: Indications for Procedure: Operative Findings: Description of Procedure:
[2017-01-01] MEDS: INSULIN LISPRO (humaLOG) 300 UNIT/3 ML VIAL SQ SCH ×4 (08:54→22:26)
[2017-01-01 11:50] LABS: Glucose,Whole Blood 143 mg/dL (75-99)
[2017-01-01] MEDS: CHOLECALCIFEROL 1,000 UNIT TAB PO SCH (12:43)
[2017-01-01] MEDS: LINAGLIPTIN 5 MG TABLET PO SCH (12:43)
[2017-01-01] MEDS: PANTOPRAZOLE 40 MG TABLET PO SCH (12:43)
[2017-01-01] MEDS: CARBIDOPA-LEVODOPA 25-100 MG 1 EACH TAB PO SCH ×2 (12:44→22:26)
[2017-01-01] MEDS: ALLOPURINOL 300 MG TAB PO SCH ×2 (12:44→22:26)
[2017-01-01] MEDS: ATENOLOL 25 MG TAB PO SCH ×2 (12:45→22:26)
--- NOTE | 2017-01-01 12:58 | P.PN ---
Subjective This a 71-year-old gentleman admitted with new onset atrial fibrillation with RVR, dysphagia and multiple other medical issues. Maintained on heparin and Cardizem drips which was switched to beta filemon. Still been afebrile fairly controlled heart rate. Denies coughing, nausea, or emesis;denies hemoptysis.hemoglobin 12.5. EGD did not show any mass but did show gastritis and hiatal hernia. Continues on IV fluid hydration with Renal function improving. Denies any chest pain, palpitations or increasing shortness of breath. Objective - Vital Signs Vital signs: Vital Signs Temp 97.7 F 01/01/17 12:00 Pulse 74 01/01/17 12:00 Resp 16 01/01/17 12:00 BP 98/59 01/01/17 12:00 Pulse Ox 99 01/01/17 12:00 Intake & Output 12/31/16 01/01/17 01/01/17 18:59 06:59 18:59 Intake Total 1861.06 125 100 Balance 1861.06 125 100 Weight 103.5 kg Intake: IV 200 100 Diltiazem 125 mg In 40 Sodium Chloride 0.9% 100 ml @ 10 MG/HR 10 mls/hr IV .[id number] STA Rx#: [id number] Heparin Sodium,Porcine/ 160 D5w Pmx 25,000 unit In Dextrose/Water 1 500ml. bag @ 9.85 UNITS/KG/HR 19 .99 mls/hr IV .Q24H RENÉE Rx#:[id number] Intake, IV Titration 705.06 125 Amount Diltiazem 125 mg In 125 Sodium Chloride 0.9% 100 ml @ 10 MG/HR 10 mls/hr IV .[id number] RENÉE Rx#: [id number] Diltiazem 125 mg In 97 Sodium Chloride 0.9% 100 ml @ 10 MG/HR 10 mls/hr IV .[id number] STA Rx#: [id number] Heparin Sodium,Porcine/ 408.06 D5w Pmx 25,000 unit In Dextrose/Water 1 500ml. bag @ 9.85 UNITS/KG/HR 19 .99 mls/hr IV .Q24H RENÉE Rx#:[id number] Magnesium Sulfate-D5w Pmx 200 1 gm In Dextrose/Water 1 100ml.bag @ 100 mls/hr IVPB Q1H RENÉE Rx#: [id number] Oral 956 Other: Voiding Method Toilet # Voids 2 2 1 # Bowel Movements 3 - Exam PHYSICAL EXAMINATION: GENERAL: The patient is alert and oriented x3, not in any acute distress. Well developed, well nourished. HEENT: Pupils are round and equally reacting to light. EOMI. No scleral icterus. No conjunctival pallor. Normocephalic, atraumatic. No pharyngeal erythema. No thyromegaly. CARDIOVASCULAR: S1 and S2 present. No murmurs, rubs, or gallops. PULMONARY: Chest is clear to auscultation, no wheezing or crackles. ABDOMEN: Soft, nontender, nondistended, normoactive bowel sounds. No palpable organomegaly. MUSCULOSKELETAL: No joint swelling or deformity. EXTREMITIES: No cyanosis, clubbing, or pedal edema. NEUROLOGICAL: Gross neurological examination did not reveal any focal deficits. SKIN: No rashes. - Labs CBC & Chem 7: 01/01/17 06:00 01/01/17 06:00 Labs: Abnormal Lab Results - Last 24 Hours (Table) 12/31/16 12/31/16 01/01/17 Range/Units 16:49 21:29 06:00 WBC 12.2 H (3.8-10.6) k/uL RBC 3.87 L (4.30-5.90) m/uL Hgb 12.4 L (13.0-17.5) gm/dL Hct 37.7 L (39.0-53.0) % Neutrophils # 9.3 H (1.3-7.7) k/uL APTT (22.0-30.0) sec Sodium (137-145) mmol/L Carbon Dioxide (22-30) mmol/L BUN (9-20) mg/dL Creatinine (0.66-1.25) mg/dL Glucose (74-99) mg/dL POC Glucose (mg/dL) 128 H 144 H (75-99) mg/dL 01/01/17 01/01/17 01/01/17 Range/Units 06:00 06:00 06:31 WBC (3.8-10.6) k/uL RBC (4.30-5.90) m/uL Hgb (13.0-17.5) gm/dL Hct (39.0-53.0) % Neutrophils # (1.3-7.7) k/uL APTT 47.5 H (22.0-30.0) sec Sodium 135 L (137-145) mmol/L Carbon Dioxide 20 L (22-30) mmol/L BUN 40 H (9-20) mg/dL Creatinine 1.88 H (0.66-1.25) mg/dL Glucose 122 H (74-99) mg/dL POC Glucose (mg/dL) 144 H (75-99) mg/dL 01/01/17 Range/Units 11:48 WBC (3.8-10.6) k/uL RBC (4.30-5.90) m/uL Hgb (13.0-17.5) gm/dL Hct (39.0-53.0) % Neutrophils # (1.3-7.7) k/uL APTT (22.0-30.0) sec Sodium (137-145) mmol/L Carbon Dioxide (22-30) mmol/L BUN (9-20) mg/dL Creatinine (0.66-1.25) mg/dL Glucose (74-99) mg/dL POC Glucose (mg/dL) 143 H (75-99) mg/dL Assessment and Plan Plan: 1 new-onset atrial fibrillation with rapid ventricular rate, currently controlled ventricular rate 2 dysphagia, ruled out esophageal cancer, patient does have gastritis patient was started on proton ump inhibitor 3 diabetes mellitus type 2 4 hypertension #5 gastric esophageal reflux disease. #6 acute renal failure, improving with IV fluid hydration Plan: Continue on current medication regime , PPI, beta filemon, monitoring and symptomatic treatment. Maintain on both heparin and Cardizem drips will be switched to oral beta filemon. Continue IV fluid hydration. As mentioned above scheduled for EGD in a.m. close monitoring of renal function, electrolytes and CBC with repeat labs ordered for a.m.
--- NOTE | 2017-01-01 13:47 | PN ---
This gentleman has developed new onset atrial fibrillation, also had dysphagia. Dr. Christianson performed endoscopy which revealed no evidence of any explanation for dysphagia. He does not have any significant esophagitis or stricture. He has some duodenitis. He is now eating his food normally. He is in atrial fibrillation, has mild renal dysfunction. Creatine in the range of 1.8. I am recommending that we initiate him on Coumadin, resume atenolol 25 mg b.i.d. for rate control. We will do rate control, initiate anticoagulation and hope to discharge him in the next 24 to 48 hours. Vital signs are stable, S1, S2 heard normally with irregular rhythm. Lungs reveal improved air entry. Abdomen and lower extremity exam unchanged. I discussed my thoughts in detail with the patient. KEN
[2017-01-01] MEDS: SODIUM CHLORIDE 0.9% 1,000 ML IV SCH ×3 (16:15→17:55)
[2017-01-01 16:48] LABS: Glucose,Whole Blood 133 mg/dL (75-99)
[2017-01-01] MEDS ORDERED: WARFARIN 5 MG TAB PO SCH (18:00)
[2017-01-01 21:05] LABS: Glucose,Whole Blood 120 mg/dL (75-99)
[2017-01-02] MEDS: HEPARIN SODIUM,PORCINE/D5W PMX 25,000 UNIT in DEXTROSE/WATER 1 500ML.BAG IV SCH ×2 (00:49→16:07)
[2017-01-02 05:59] LABS: Glucose,Whole Blood 117 mg/dL (75-99)
[2017-01-02] MEDS: INSULIN LISPRO (humaLOG) 300 UNIT/3 ML VIAL SQ SCH ×4 (06:56→20:51)
[2017-01-02] MEDS: PANTOPRAZOLE 40 MG TABLET PO SCH (06:57)
[2017-01-02 07:36] LABS: Basophils % (A) 0 %; CH 32.6; CHCM 32.8; Eosinophils # (A) 0.4 k/uL (0-0.7); Eosinophils % (A) 3 %; HCT 36.6 % (39.0-53.0); HDW 2.64; HGB 11.7 gm/dL (13.0-17.5); Luc # (Auto) 0.15; Luc % (Auto) 1; Lymphocytes # (A) 1.4 k/uL (1.0-4.8); Lymphocytes % (A) 12 %; MCH 31.9 pg (25.0-35.0); MCHC 31.9 g/dL (31.0-37.0); Macrocytosis Slight; Mean Platelet Volume 6.5; Monocytes # (A) 0.6 k/uL (0-1.0); Monocytes % (A) 5 %; Neutrophils # (A) 9.1 k/uL (1.3-7.7); Neutrophils % (A) 78 %; RBC 3.66 m/uL (4.30-5.90); RDW 15.1 % (11.5-15.5); WBC 11.7 k/uL (3.8-10.6); WBC (Perox) 11.26
[2017-01-02 07:45] LABS: Calcium 8.8 mg/dL (8.4-10.2); Potassium 3.8 mmol/L (3.5-5.1)
[2017-01-02 07:54] LABS: INR 1.2 (<1.2); Partial Thromboplastin Time 81.9 sec (22.0-30.0); Prothrombin Time 11.8 sec (9.0-12.0)
[2017-01-02] MEDS: ATENOLOL 25 MG TAB PO SCH ×2 (08:09→20:53)
[2017-01-02] MEDS: CHOLECALCIFEROL 1,000 UNIT TAB PO SCH (08:09)
[2017-01-02] MEDS: LINAGLIPTIN 5 MG TABLET PO SCH (08:10)
[2017-01-02] MEDS: CARBIDOPA-LEVODOPA 25-100 MG 1 EACH TAB PO SCH ×2 (08:10→20:53)
[2017-01-02] MEDS: ALLOPURINOL 300 MG TAB PO SCH ×2 (08:10→20:53)
[2017-01-02] MEDS ORDERED: WARFARIN 7.5 MG TAB PO STA (10:36)
[2017-01-02 11:38] LABS: Glucose,Whole Blood 117 mg/dL (75-99)
--- NOTE | 2017-01-02 14:57 | P.PN ---
Subjective This a 71-year-old gentleman admitted with new onset atrial fibrillation with RVR, dysphagia and multiple other medical issues. Still been afebrile fairly controlled heart rate. Denies coughing, nausea, or emesis;denies hemoptysis.hemoglobin 12.5. EGD did not show any mass but did show gastritis and hiatal hernia. Continues on IV fluid hydration with Renal function improving. Denies any chest pain, palpitations or increasing shortness of breath. His rate controlled and is on atenolol but blood pressures on the low normal side. And the patient is subdermal taken INR because of its cardio ALLERGIES according bridging but patient is not approved for Lovenox because of which we will keep him here until tomorrow and cardiology is recommending to discharge the patient when his INR is above 1.5 on Coumadin. Objective - Vital Signs Vital signs: Vital Signs Temp 97.0 F L 01/02/17 11:19 Pulse 89 01/02/17 12:00 Resp 16 01/02/17 11:19 BP 86/50 01/02/17 11:19 Pulse Ox 98 01/02/17 11:19 Intake & Output 01/01/17 01/02/17 01/02/17 18:59 06:59 18:59 Intake Total 800 200 991.352 Balance 800 200 991.352 Weight 104.3 kg Intake: IV 100 79.96 Heparin Sodium,Porcine/ 79.96 D5w Pmx 25,000 unit In Dextrose/Water 1 500ml. bag @ 9.85 UNITS/KG/HR 19 .99 mls/hr IV .Q24H RENÉE Rx#:[id number] Intake, IV Titration 500 175.392 Amount Heparin Sodium,Porcine/ 500 175.392 D5w Pmx 25,000 unit In Dextrose/Water 1 500ml. bag @ 9.85 UNITS/KG/HR 19 .99 mls/hr IV .Q24H RENÉE Rx#:[id number] Oral 200 200 736 Other: Voiding Method Toilet # Voids 1 2 # Bowel Movements 3 - Exam PHYSICAL EXAMINATION: GENERAL: The patient is alert and oriented x3, not in any acute distress. Well developed, well nourished. HEENT: Pupils are round and equally reacting to light. EOMI. No scleral icterus. No conjunctival pallor. Normocephalic, atraumatic. No pharyngeal erythema. No thyromegaly. CARDIOVASCULAR: S1 and S2 present. No murmurs, rubs, or gallops. PULMONARY: Chest is clear to auscultation, no wheezing or crackles. ABDOMEN: Soft, nontender, nondistended, normoactive bowel sounds. No palpable organomegaly. MUSCULOSKELETAL: No joint swelling or deformity. EXTREMITIES: No cyanosis, clubbing, or pedal edema. NEUROLOGICAL: Gross neurological examination did not reveal any focal deficits. SKIN: No rashes. - Labs CBC & Chem 7: 01/02/17 06:45 01/02/17 06:45 Labs: Abnormal Lab Results - Last 24 Hours (Table) 01/01/17 01/01/17 01/01/17 Range/Units 16:15 16:45 21:02 WBC (3.8-10.6) k/uL RBC (4.30-5.90) m/uL Hgb (13.0-17.5) gm/dL Hct (39.0-53.0) % Neutrophils # (1.3-7.7) k/uL INR (<1.2) APTT 57.8 H (22.0-30.0) sec Sodium (137-145) mmol/L Chloride (98-107) mmol/L Carbon Dioxide (22-30) mmol/L BUN (9-20) mg/dL Creatinine (0.66-1.25) mg/dL Glucose (74-99) mg/dL POC Glucose (mg/dL) 133 H 120 H (75-99) mg/dL 01/02/17 01/02/17 01/02/17 Range/Units 05:52 06:45 06:45 WBC 11.7 H (3.8-10.6) k/uL RBC 3.66 L (4.30-5.90) m/uL Hgb 11.7 L (13.0-17.5) gm/dL Hct 36.6 L (39.0-53.0) % Neutrophils # 9.1 H (1.3-7.7) k/uL INR (<1.2) APTT (22.0-30.0) sec Sodium 135 L (137-145) mmol/L Chloride 108 H (98-107) mmol/L Carbon Dioxide 15 L (22-30) mmol/L BUN 31 H (9-20) mg/dL Creatinine 1.77 H (0.66-1.25) mg/dL Glucose 113 H (74-99) mg/dL POC Glucose (mg/dL) 117 H (75-99) mg/dL 01/02/17 01/02/17 01/02/17 Range/Units 06:45 11:32 14:20 WBC (3.8-10.6) k/uL RBC (4.30-5.90) m/uL Hgb (13.0-17.5) gm/dL Hct (39.0-53.0) % Neutrophils # (1.3-7.7) k/uL INR 1.2 H (<1.2) APTT 81.9 H 58.3 H (22.0-30.0) sec Sodium (137-145) mmol/L Chloride (98-107) mmol/L Carbon Dioxide (22-30) mmol/L BUN (9-20) mg/dL Creatinine (0.66-1.25) mg/dL Glucose (74-99) mg/dL POC Glucose (mg/dL) 117 H (75-99) mg/dL Assessment and Plan Plan: 1 new-onset atrial fibrillation with rapid ventricular rate, currently controlled ventricular rate, oral beta filemon, Coumadin and bridging heparin 2 dysphagia, ruled out esophageal cancer, patient does have gastritis patient is on on proton ump inhibitor significantly improved dysphagia 3 diabetes mellitus type 2 4 hypertension #5 gastric esophageal reflux disease. #6 acute renal failure, improving with IV fluid hydration Plan: Continue on current medication regime , PPI, beta filemon, monitoring and symptomatic treatment. Maintain on both heparin As mentioned above scheduled for EGD in a.m. close monitoring of renal function, electrolytes and CBC, INR with repeat labs ordered for a.m.
[2017-01-02 17:03] LABS: Glucose,Whole Blood 117 mg/dL (75-99)
[2017-01-02] MEDS: SODIUM CHLORIDE 0.9% 1,000 ML IV SCH (17:06)
--- NOTE | 2017-01-02 17:32 | PN ---
Mr. Buitrago remains in a. fib, rate control is fairly decent. Blood pressure is at the low end of normal. I am recommending that we increase oral fluids, continue atenolol. Await the INR to come up to at least 1.5 prior to discharge. Will give a 7.5 Coumadin now. S1/S2 are normal. Irregular rate and rhythm noted. Lungs reveal decent air entry. Abdomen and lower extremity exam is unchanged. I am recommending that we continue heparin, give additional Coumadin, continue atenolol, increase activity. Plan for discharge if INR is more than 1.5 tomorrow. MTDD
[2017-01-02 20:52] LABS: Glucose,Whole Blood 125 mg/dL (75-99)
[2017-01-03 05:49] LABS: Glucose,Whole Blood 111 mg/dL (75-99)
[2017-01-03] MEDS: INSULIN LISPRO (humaLOG) 300 UNIT/3 ML VIAL SQ SCH ×3 (06:06→17:17)
[2017-01-03 06:39] LABS: Basophils % (A) 0 %; CH 32.3; CHCM 32.5; Eosinophils # (A) 0.4 k/uL (0-0.7); Eosinophils % (A) 4 %; HCT 34.2 % (39.0-53.0); HDW 2.68; Luc # (Auto) 0.14; Luc % (Auto) 1; Lymphocytes # (A) 1.6 k/uL (1.0-4.8); Lymphocytes % (A) 16 %; MCH 32.1 pg (25.0-35.0); MCV 100.3 fL (80.0-100.0); Macrocytosis Slight; Mean Platelet Volume 6.5; Monocytes # (A) 0.6 k/uL (0-1.0); Monocytes % (A) 6 %; Neutrophils # (A) 7.1 k/uL (1.3-7.7); Neutrophils % (A) 72 %; RBC 3.41 m/uL (4.30-5.90); RDW 15.3 % (11.5-15.5); WBC 9.8 k/uL (3.8-10.6)
[2017-01-03] MEDS: PANTOPRAZOLE 40 MG TABLET PO SCH (06:44)
[2017-01-03 09:28] VITALS: BMI 38.8
[2017-01-03 09:34] LABS: INR 1.4 (<1.2); Prothrombin Time 13.9 sec (9.0-12.0)
[2017-01-03] MEDS: ALLOPURINOL 300 MG TAB PO SCH (09:37)
[2017-01-03] MEDS: LINAGLIPTIN 5 MG TABLET PO SCH (09:38)
[2017-01-03] MEDS: CARBIDOPA-LEVODOPA 25-100 MG 1 EACH TAB PO SCH (09:38)
[2017-01-03] MEDS: ATENOLOL 25 MG TAB PO SCH (09:39)
[2017-01-03] MEDS: CHOLECALCIFEROL 1,000 UNIT TAB PO SCH (09:39)
[2017-01-03 11:34] LABS: Glucose,Whole Blood 95 mg/dL (75-99)
--- NOTE | 2017-01-03 12:05 | ECHOF ---
Referral Reason:New onset a.fib MEASUREMENTS -------- HEIGHT: 165.1 cm WEIGHT: 100.7 kg BP: 104/57 RVIDd: 2.7 cm (< 3.3) IVSd: 1.3 cm (0.6 - 1.1) LVIDd: 4.1 cm (3.9 - 5.3) LVPWd: 1.3 cm (0.6 - 1.1) IVSs: 1.7 cm LVIDs: 2.8 cm LVPWs: 1.5 cm LA Diam: 3.4 cm (2.7 - 3.8) LAESV Index (A-L): 29.30 ml/m Ao Diam: 3.7 cm (2.0 - 3.7) AV Cusp: 2.2 cm (1.5 - 2.6) MV EXCURSION: 18.395 mm (> 18.000) MV EF SLOPE: 81 mm/s (70 - 150) EPSS: 0.3 cm RAP: 5.00 mmHg RVSP: 34.88 mmHg FINDINGS -------- Atrial fibrillation. This was a technically adequate study. The left ventricular size is normal. There is mild concentric left ventricular hypertrophy. Overall left ventricular systolic function is low-normal with, an EF between 50 - 55 %. The right ventricle is normal in size. LA is midly dilated 29-33ml/m2. The right atrium is normal in size. There is mild aortic valve sclerosis. The mitral valve leaflets are mildly thickened. Mild mitral annular calcification present. Mild mitral regurgitation is present. Mild tricuspid regurgitation present. There is mild pulmonary hypertension. The right ventricular systolic pressure, as measured by Doppler, is 34.88mmHg. There is no pulmonic regurgitation present. The aortic root is dilated measuring 3.7cm. Normal inferior vena cava with normal inspiratory collapse consistent with estimated right atrial pressure of 5 mmHg. There is no pericardial effusion. CONCLUSIONS -------- 1. Atrial fibrillation. 2. Mild tricuspid regurgitation present. 3. There is mild pulmonary hypertension. 4. There is no pulmonic regurgitation present. 5. The aortic root is dilated measuring 3.7cm. 6. Normal inferior vena cava with normal inspiratory collapse consistent with estimated right atrial pressure of 5 mmHg. 7. There is no pericardial effusion. 8. This was a technically adequate study. 9. There is mild concentric left ventricular hypertrophy. 10. Overall left ventricular systolic function is low-normal with, an EF between 50 - 55 %. 11. LA is midly dilated 29-33ml/m2. 12. There is mild aortic valve sclerosis. 13. The mitral valve leaflets are mildly thickened. 14. Mild mitral annular calcification present. 15. Mild mitral regurgitation is present. PRINT DEVELOPER: Mariella Garrison RDCS
[2017-01-03] MEDS ORDERED: WARFARIN 7.5 MG TAB PO ONE (13:30)
--- NOTE | 2017-01-03 14:55 | P.DS ---
Providers Date of admission: 12/30/16 16:37 Expected date of discharge: 01/03/17 Attending physician: Radha Lainez Consults: 12/30/16 16:37 Consult Physician Routine Consulting Provider: Rita Garcia Consult Reason/Comments: New-onset A. fib Do you want consulting provider notified?: Yes 12/30/16 17:05 Consult Physician Routine Consulting Provider: Marcelo Christianson Consult Reason/Comments: Dysphagia Do you want consulting provider notified?: Yes Primary care physician: Deloris Enrique [facility] Hospital Course: Final Diagnoses: 1 new-onset atrial fibrillation with rapid ventricular rate, currently controlled ventricular rate, 2 dysphagia, ruled out esophageal cancer; status post EGD- patient does have gastritis patient is on on proton ump inhibitor significantly improved dysphagia 3 diabetes mellitus type 2 4 hypertension #5 gastric esophageal reflux disease. #6 acute renal failure, improving with IV fluid hydration Hospital course:This a 71-year-old gentleman admitted with new onset atrial fibrillation with RVR, dysphagia and multiple other medical issues. Evaluated by both cardiology and GI. EGD did not show any mass but did show gastritis and hiatal hernia. Renal function improving on IV fluid hydration. Maintained on PPI, beta filemon and Coumadin. Mild hypotension-beta filemon being adjusted as per cardiology. Remains atrial fibrillation with controlled ventricular rate. Hemoglobin 11. Significant clinical improvement. Patient has been cleared by both consults. Patient is being discharged home in a stable condition with guarded prognosis. The impression and plan of care has been dictated as directed as a scribe. : I performed a H&P examination of this patient and discussed the same with the dictator. I agree with the dictator's note. Any additional findings/opinions/ etc. will be noted. Patient Condition at Discharge: Stable Plan - Discharge Summary New Discharge Prescriptions: New Warfarin Sodium [Coumadin] 4 mg PO DAILY #30 tablet Continue Cholecalciferol [Vitamin D3] 1,000 units PO DAILY Cyanocobalamin [Vitamin B-12 Injection] 1,000 mcg PO DAILY Hydrochlorothiazide 25 mg PO DAILY Carbidopa-Levodopa 25-100 mg [Sinemet 25-100 mg] 1 tab PO BID Allopurinol [Zyloprim] 300 mg PO BID sitaGLIPtin [Januvia] 12.5 mg PO BID Triamcinolone 0.1% Lotion [Kenalog 0.1% Lotion] 1 applic TOPICAL BID PRN PRN Reason: Rash Omeprazole 20 mg PO DAILY Discontinued Glimepiride [Amaryl] 8 mg PO DAILY Atenolol 25 mg PO DAILY Discharge Medication List Allopurinol [Zyloprim] 300 mg PO BID 11/27/15 [History] Carbidopa-Levodopa 25-100 mg [Sinemet 25-100 mg] 1 tab PO BID 11/27/15 [History] Cholecalciferol [Vitamin D3] 1,000 units PO DAILY 11/27/15 [History] Cyanocobalamin [Vitamin B-12 Injection] 1,000 mcg PO DAILY 11/27/15 [History] Hydrochlorothiazide 25 mg PO DAILY 11/27/15 [History] sitaGLIPtin [Januvia] 12.5 mg PO BID 12/28/16 [History] Omeprazole 20 mg PO DAILY 12/30/16 [History] Triamcinolone 0.1% Lotion [Kenalog 0.1% Lotion] 1 applic TOPICAL BID PRN [History] Warfarin Sodium [Coumadin] 4 mg PO DAILY #30 tablet 01/03/17 [Rx] Follow up Appointment(s)/Referral(s): Deloris Draper III, MD [Primary Care Provider] - 3 Days Ambulatory/Diagnostic Orders: Prothrombin Time INR [LAB.AMB] Time Frame: 01/06/17, Location: Determined By Patient Activity/Diet/Wound Care/Special Instructions: Beta filemon/DOse as per cardiology. Confirm cardiology follow-up appointment prior to discharge. Diet: Consistent carb, cardiac, Maintain log of Accu-Cheks before meals and at bedtime, take to follow-up visit with PCP for further recommendations. Activity: Limited till follow up Discharge Disposition: HOME WITH HOME HEALTH SERVICES
[2017-01-03 15:09] VITALS: BP 98/61
[2017-01-03 16:24] LABS: Glucose,Whole Blood 122 mg/dL (75-99)
[2017-01-03] MEDS ORDERED: ENOXAPARIN 100 MG/ML SYRINGE SQ ONE (17:00)
[2017-01-03 17:42] VITALS: PULSE 83; RESP 18; TEMP 97.5
--- NOTE | 2017-01-03 18:07 | PN ---
This is a gentleman with new onset atrial fibrillation. He remains in A. fib. Rate control is very good. He is on atenolol 25 mg b.i.d. PT/INR is 1.4. I am recommending that we hold IV heparin, give 7.5 mg of Coumadin now, at 5 p.m. give 100 mg of Lovenox, discharge him on 4 mg daily. I will check a PT/INR in the office this and see him in two weeks. He is resting comfortably without symptoms, denies any chest pains, swallowing issue is not there. Vital signs are stable. S1, S2 heard normally. Irregular rhythm noted. Lungs revealed diminished air entry. Abdomen and lower extremity exam is unremarkable. MTDD
[2017-01-04] MEDS ORDERED: WARFARIN 2 MG TAB PO SCH (18:00)
== END 2017-01-03 18:48 | disposition home health service (06) | DRG 309 ==
LOC: EC 13:45 → 6SEL 16:37
PROVIDERS: ADMIT Internal Medicine; ATTEND Internal Medicine
PROC: 0DJ08ZZ Inspection of Upper Intestinal Tract, Via Natural or Artificial Opening Endoscopic (ICD-10-PCS; principal; 2017-01-01 08:00)
DX: I48.91 Unspecified atrial fibrillation (principal); N17.9 Acute kidney failure, unspecified; E11.22 Type 2 diabetes mellitus with diabetic chronic kidney disease; I95.9 Hypotension, unspecified; E83.42 Hypomagnesemia; R13.10 Dysphagia, unspecified; N18.3 Chronic kidney disease, stage 3 (moderate); G25.81 Restless legs syndrome; I12.9 Hypertensive chronic kidney disease with stage 1 through stage 4 chronic kidney disease, or unspecified chronic kidney disease; K21.9 Gastro-esophageal reflux disease without esophagitis; K29.70 Gastritis, unspecified, without bleeding; K29.80 Duodenitis without bleeding; K44.9 Diaphragmatic hernia without obstruction or gangrene; M10.9 Gout, unspecified; Z79.84 Long term (current) use of oral hypoglycemic drugs; Z79.899 Other long term (current) drug therapy; Z87.891 Personal history of nicotine dependence; Z88.0 Allergy status to penicillin
CPT/HCPCS: 36415; 43235; 71020; 80048; 80053; 82550; 82553; 83036; 83605; 83735; 84443; 84484; 85025; 85610; 85730; 93005; 93306; 96365; 96366; 96367; 96376; 99291

== ENCOUNTER 2019-05-03 07:03 | Day surgery (SDC) | payer BC, MEDICARE ==
[2019-05-01 11:38] VITALS: BMI 42.5
[~2019-05-03 07:03] MED LIST: LACTATED RINGERS 1,000 ML IV SCH; LIDOCAINE 1% 20 ML VIAL (10MG/ML) FOR IV START INTRADERMA PRN
[2019-05-03 07:26] VITALS: TEMP 97.9
[2019-05-03] MEDS ORDERED: PROPOFOL 10 MG/ML 20 ML VIAL IV ONE (07:32)
[2019-05-03 07:46] LABS: Glucose,Whole Blood 185 mg/dL (75-99)
--- NOTE | 2019-05-03 08:13 | P.PCN ---
Date of Procedure: 05/03/19 Description of Procedure: BRIEF HISTORY: Patient is a 74-year-old pleasant male scheduled for an elective colonoscopy as a part of positive testing with colon guard. Denies any change in bowel habits, blood per rectum or abdominal pain. No family history of colon cancer. PROCEDURE PERFORMED: Colonoscopy with polypectomy. PREOPERATIVE DIAGNOSIS: Positive cologard, Last colonoscopy approximately 11 years. ESTIMATED BLOOD LOSS: Minimal. IV sedation per Anesthesia. PROCEDURE: After informed consent was obtained, the patient, was brought into the endoscopy unit. IV sedation was administered by Anesthesia under continuous monitoring. Digital rectal examination was normal. Initially the Olympus CF-190 flexible video colonoscope was then inserted in the rectum, gradually advanced into the cecum without any difficulty. Careful examination was performed as the scope was gradually being withdrawn. Ileocecal valve and the appendiceal orifice were visualized and appeared normal. Prep was excellent. Mucosa of the cecum, ascending colon, transverse colon, descending colon, sigmoid colon, and rectum appeared normal. Diminutive polyps measuring 2 mm from the ascending colon, 3 mm from the descending colon and 2 mm from the sigmoid colon removed with cold forcep polypectomy. Multiple small mouth diverticula noted in the left colon. Retroflexion was performed in the rectum and no lesions were seen, moderate internal hemorrhoids noted. The patient tolerated the procedure well. IMPRESSION: 3 diminutive polyps were removed from the ascending colon, descending colon and sigmoid colon with cold for polypectomy. Left-sided diverticulosis. Moderate internal hemorrhoids. RECOMMENDATIONS: Findings of this examination were discussed with the patient and his . Okay to resume diet. Okay to resume medications. Anticoagulation okay to resume today. Follow-up on pathology from polypectomies.
[2019-05-03 08:14] VITALS: RESP 16
[2019-05-03 08:44] VITALS: BP 146/72; PULSE 56
== END 2019-05-03 09:01 | disposition home or self-care (01) ==
LOC: ORWHC2ENDO 07:03
PROVIDERS: ATTEND Internal Medicine
DX: K63.5 Polyp of colon (principal); K57.30 Diverticulosis of large intestine without perforation or abscess without bleeding; K64.8 Other hemorrhoids; I48.91 Unspecified atrial fibrillation; I10 Essential (primary) hypertension; E78.5 Hyperlipidemia, unspecified; E11.9 Type 2 diabetes mellitus without complications; M10.9 Gout, unspecified; K21.9 Gastro-esophageal reflux disease without esophagitis; Z88.0 Allergy status to penicillin; Z79.01 Long term (current) use of anticoagulants; Z79.82 Long term (current) use of aspirin; Z79.84 Long term (current) use of oral hypoglycemic drugs; Z79.899 Other long term (current) drug therapy; Z87.891 Personal history of nicotine dependence; Z98.890 Other specified postprocedural states; Z98.41 Cataract extraction status, right eye; Z98.42 Cataract extraction status, left eye
CPT/HCPCS: 88305; 45380; J2704

== ENCOUNTER 2020-02-13 19:03 | Emergency (ER) | payer MEDICARE ==
[2020-02-13 19:12] VITALS: TEMP 98.3
[2020-02-13 19:54] LABS: Basophils % (A) 0 %; Eosinophils # (A) 0.4 k/uL (0-0.7); Eosinophils % (A) 2 %; HCT 40.7 % (39.0-53.0); HGB 13.1 gm/dL (13.0-17.5); Lymphocytes # (A) 1.1 k/uL (1.0-4.8); Lymphocytes % (A) 7 %; MCH 31.9 pg (25.0-35.0); MCHC 32.3 g/dL (31.0-37.0); MCV 98.8 fL (80.0-100.0); Macrocytosis Slight; Mean Platelet Volume 7.3; Monocytes # (A) 0.8 k/uL (0-1.0); Monocytes % (A) 5 %; Neutrophils # (A) 12.9 k/uL (1.3-7.7); Neutrophils % (A) 83 %; Platelet Count 199 k/uL (150-450); RBC 4.12 m/uL (4.30-5.90); RDW 14.7 % (11.5-15.5); WBC 15.5 k/uL (3.8-10.6)
[2020-02-13 20:06] LABS: Albumin 3.8 g/dL (3.5-5.0); Potassium 4.1 mmol/L (3.5-5.1); Total Bilirubin 0.7 mg/dL (0.2-1.3); Total Protein 6.6 g/dL (6.3-8.2)
--- NOTE | 2020-02-13 20:19 | XR ---
EXAMINATION TYPE: XR tibia fibula RT DATE OF EXAM: 02/13/2020 COMPARISON: None HISTORY: Lower extremity swelling TECHNIQUE: 2 view tibia and fibula. FINDINGS: No acute fractures or dislocations are evident. Vascular calcification is evident. Diffuse soft tissue swelling is present. No clear cutaneous air is identified. IMPRESSION: 1. Diffuse soft tissue swelling right subcutaneous air is not evident. 2. No acute osseous abnormality.
[2020-02-13] MEDS ORDERED: cefTRIAXone IN SWFI 1,000 MG/10 ML SYRINGE IVP STA (20:24)
--- NOTE | 2020-02-13 20:24 | ED ---
Extremity Problem HPI - General Chief complaint: Extremity Problem,Nontraumatic Stated complaint: leg redness/swelling Time Seen by Provider: 02/13/20 19:20 Source: patient Mode of arrival: ambulatory Limitations: no limitations - History of Present Illness Initial comments: Dina external male who's extensive past medical history currently on warfarin presenting to the emergency department today for chief complaint of right leg swelling more redness. Patient states that he has right leg swelling warmth and redness they noticed over the past 2 days. Patient denies any fever or chills general malaise he states he feels normal and has some slight discomfort of the extremity. Patient states he is compliant with his warfarin. He denies any bruising. patient denies blistering of the skin but states he does have dry skin of the leg with chronic swelling. Patient denies chest pain, SOB, or history of DVT. He states he has had cellulitis in the past and these symptoms feel identical. Patient endorses history of DM but no history of MRSA known to patient. Patietn appears well nontoxic in no distress on arrival. - Related Data Home Medications Medication Instructions Recorded Confirmed Carbidopa-Levodopa 25-100 mg 1 tab PO BID 11/27/15 05/03/19 [Sinemet 25-100 mg] Cholecalciferol [Vitamin D3 (25 1,000 units PO DAILY 11/27/15 05/03/19 Mcg = 1000 Iu)] allopurinoL [Zyloprim] 300 mg PO DAILY 11/27/15 05/03/19 Ascorbic Acid [Vitamin C] 500 mg PO DAILY 05/01/19 05/03/19 Aspirin [Adult Low Dose Aspirin EC] 81 mg PO DAILY 05/01/19 05/03/19 Atorvastatin [Lipitor] 20 mg PO DAILY 05/01/19 05/03/19 Escitalopram [Lexapro] 10 mg PO DAILY 05/01/19 05/03/19 Ferrous Sulfate [Iron] 325 mg PO DAILY 05/01/19 05/03/19 Glimepiride [Amaryl] 8 mg PO [id number] 05/01/19 05/03/19 Magnesium 400 mg PO DAILY 05/01/19 05/03/19 Warfarin Sodium 6 mg PO SUMOWEFR 05/01/19 05/03/19 Warfarin Sodium [Coumadin] 4 mg PO TUTHSA 05/01/19 05/03/19 atenoloL [Tenormin] 1.5 tab PO DAILY 05/01/19 05/03/19 calcitrioL [Calcitriol] 0.25 mcg PO TELLO 05/01/19 05/03/19 raNITIdine HCL [Zantac] 150 mg PO BID 05/01/19 05/03/19 sitaGLIPtin [Januvia] 50 mg PO DAILY 05/01/19 05/03/19 Previous Rx's Medication Instructions Recorded Cephalexin [Keflex] 500 mg PO Q6HR 7 Days #28 cap 02/13/20 Sulfamethox-Tmp 800-160Mg [Bactrim 1 tab PO Q12HR 7 Days #14 tab 02/13/20 DS 800-160 mg] Allergies Allergy/AdvReac Type Severity Reaction Status Date / Time Penicillins Allergy Unknown Verified 02/13/20 19:12 Review of Systems ROS Statement: Those systems with pertinent positive or pertinent negative responses have been documented in the HPI. ROS Other: All systems not noted in ROS Statement are negative. Past Medical History Past Medical History: Atrial Fibrillation, Diabetes Mellitus, GERD/Reflux, Hyperlipidemia, Hypertension, Renal Disease Additional Past Medical History / Comment(s): states positive cologaurd, KIDNEY DISEASE- GOUT, past hx PROBLEM SWALLOWING History of Any Multi-Drug Resistant Organisms: None Reported Past Surgical History: Hernia Repair Additional Past Surgical History / Comment(s): cataract kaila with lens implant Past Anesthesia/Blood Transfusion Reactions: No Reported Reaction Past Psychological History: Anxiety Smoking Status: Former smoker Past Alcohol Use History: Occasional Past Drug Use History: None Reported - Past Family History Mother Family Medical History: No Reported History General Exam - General Exam Comments Initial Comments: General: The patient is awake and alert, in no distress, and does not appear acutely ill. Eye: Pupils are equal, round and reactive to light, extra-ocular movements are intact. No nystagmus. There is normal conjunctiva bilaterally. No signs of icterus. Cardiovascular: There is a regular rate and rhythm. No murmur, rub or gallop is appreciated. Respiratory: Lungs are clear to auscultation, respirations are non-labored, breath sounds are equal. No wheezes, stridor, rales, or rhonchi. Musculoskeletal: Normal ROM, no tenderness. Strength 5/5. Sensation intact. DP pulses equal bilaterally 2+. Neurological: A&O x 3. CN II-XII intact, There are no obvious motor or sensory deficits. Coordination appears grossly intact. Speech is normal. Skin: Skin is warm and dry and no rashes. erythema of the right lower extremity that it extends towards the knee and end 5 inches below knee, mostly anterior no circumferential there is mild redness of the right foot with dry skin. no R vesicles are noted this to palpation of the skin mild pain to palpation no pain out of proportion.no calf pain both extremities appear equal in appearance sligh tly swollen. Psychiatric: Cooperative, appropriate mood & affect, normal judgment. Limitations: no limitations Course Vital Signs 02/13/20 02/13/20 19:10 20:49 Temperature 98.3 F Pulse Rate 91 85 Respiratory 20 18 Rate Blood Pressure 116/75 136/93 O2 Sat by Pulse 96 99 Oximetry Medical Decision Making - Medical Decision Making nontoxic-appearing diabetic presenting for right leg redness. Physical examinations consistent with a cellulitis. I feel most likely From a break in the skin from dryness. Patient is not currently on antibiotics. He does not appear septic. He does have leukocytosis. I discussed inpatient versus outpatient treatment he states he prefers to try outpatient oral antibiotics patient was given starter packs to initiate immediately in the emergency department. Patient is to follow up closely with his primary care provider return for extension outside the lines which were drawn around the area of redness. He is also to return for fevers or general malaise. Patient verbalized understanding of the importance of return parameters and follow-up. Patient case discussed with attending Dr. Akhtar who is agreeable to discharger and care plan. - Lab Data Result diagrams: 02/13/20 19:31 02/13/20 19:31 Lab Results 02/13/20 02/13/20 Range/Units 19:31 19:31 WBC 15.5 H (3.8-10.6) k/uL RBC 4.12 L (4.30-5.90) m/uL Hgb 13.1 (13.0-17.5) gm/dL Hct 40.7 (39.0-53.0) % MCV 98.8 (80.0-100.0) fL MCH 31.9 (25.0-35.0) pg MCHC 32.3 (31.0-37.0) g/dL RDW 14.7 (11.5-15.5) % Plt Count 199 (150-450) k/uL Neutrophils % 83 % Lymphocytes % 7 % Monocytes % 5 % Eosinophils % 2 % Basophils % 0 % Neutrophils # 12.9 H (1.3-7.7) k/uL Lymphocytes # 1.1 (1.0-4.8) k/uL Monocytes # 0.8 (0-1.0) k/uL Eosinophils # 0.4 (0-0.7) k/uL Basophils # 0.0 (0-0.2) k/uL Macrocytosis Slight Sodium 133 L (137-145) mmol/L Potassium 4.1 (3.5-5.1) mmol/L Chloride 100 (98-107) mmol/L Carbon Dioxide 24 (22-30) mmol/L Anion Gap 9 mmol/L BUN 37 H (9-20) mg/dL Creatinine 1.90 H (0.66-1.25) mg/dL Est GFR (CKD-EPI)AfAm 39 (>60 ml/min/1.73 sqM) Est GFR (CKD-EPI)NonAf 34 (>60 ml/min/1.73 sqM) Glucose 144 H (74-99) mg/dL Calcium 9.0 (8.4-10.2) mg/dL Total Bilirubin 0.7 (0.2-1.3) mg/dL AST 20 (17-59) U/L ALT 8 (4-49) U/L Alkaline Phosphatase 64 (38-126) U/L Total Protein 6.6 (6.3-8.2) g/dL Albumin 3.8 (3.5-5.0) g/dL Disposition Clinical Impression: Cellulitis of right leg, Leukocytosis Disposition: HOME SELF-CARE Condition: Good Additional Instructions: Please use medication as discussed. Please follow-up with family doctor in the next 2 days. Please return to emergency room if the symptoms increase or worsen or for any other concerns. Prescriptions: Sulfamethox-Tmp 800-160Mg [Bactrim DS 800-160 mg] 1 tab PO Q12HR 7 Days #14 tab Cephalexin [Keflex] 500 mg PO Q6HR 7 Days #28 cap Is patient prescribed a controlled substance at d/c from ED?: No Referrals: Deloris Draper III, MD [Primary Care Provider] - 1-2 days Time of Disposition: 20:24
[2020-02-13] MEDS ORDERED: SULFAMETH-TMP DS STARTER PACK 2 TAB BTL PO STA (20:28)
[2020-02-13] MEDS ORDERED: CEPHALEXIN 500MG STARTER PACK 4 CAP BTL PO STA (20:28)
[2020-02-13 20:50] VITALS: BP 136/93; PULSE 85; RESP 18
== END 2020-02-13 20:51 | disposition home or self-care (01) ==
LOC: EC 19:03
DX: L03.115 Cellulitis of right lower limb (principal); D72.829 Elevated white blood cell count, unspecified; I48.91 Unspecified atrial fibrillation; E11.9 Type 2 diabetes mellitus without complications; E78.5 Hyperlipidemia, unspecified; F41.9 Anxiety disorder, unspecified; I10 Essential (primary) hypertension; Z79.01 Long term (current) use of anticoagulants; Z79.82 Long term (current) use of aspirin; Z79.84 Long term (current) use of oral hypoglycemic drugs; Z79.899 Other long term (current) drug therapy; Z88.0 Allergy status to penicillin; Z87.891 Personal history of nicotine dependence; Z96.1 Presence of intraocular lens; Z98.42 Cataract extraction status, left eye; Z98.41 Cataract extraction status, right eye
CPT/HCPCS: 36415; 80053; 85025; 99283

== ENCOUNTER → 2021-08-06 | Outpatient (CLI) | payer MEDICARE ==
--- NOTE | 2021-08-06 09:56 | US ---
EXAMINATION TYPE: US kidneys/renal and bladder DATE OF EXAM: 08/06/2021 COMPARISON: NONE CLINICAL HISTORY: 76-year-old male N18.32 chronic kidney stage 3. CKD, HTN, DM TECHNIQUE: Multiple sonographic images of the kidneys and bladder are obtained. FINDINGS: EXAM MEASUREMENTS: Right Kidney: 10.4 x 5.5 x 4.6 cm Left Kidney: 11.6 x 5.4 x 5.3 cm Right Kidney: No hydronephrosis or masses seen Left Kidney: No hydronephrosis or masses seen Bladder: Not seen due to large body habitus Bilateral Jets seen: Not seen Aquatic Physiotherapist notes: Patient was unable to hold urine in bladder for exam IMPRESSION: No hydronephrosis. Unable to adequately visualize the bladder due to large body habitus and patient's inability to hold urine during the exam.
== END | disposition home or self-care (01) ==
LOC: RADUSWWP 08:54
PROVIDERS: ATTEND Internal Medicine Nephrology
DX: I12.9 Hypertensive chronic kidney disease with stage 1 through stage 4 chronic kidney disease, or unspecified chronic kidney disease (principal); N18.30 Chronic kidney disease, stage 3 unspecified; E11.9 Type 2 diabetes mellitus without complications
CPT/HCPCS: 76770

== ENCOUNTER 2022-09-23 22:14 | Inpatient (IN) | payer MEDICARE ==
[2022-09-23] MEDS ORDERED: FUROSEMIDE 10 MG/ML 4 ML VIAL IV STA (22:25)
--- NOTE | 2022-09-23 22:31 | ED ---
General Adult HPI - General Chief complaint: Shortness of Breath Stated complaint: SOB Time Seen by Provider: 09/23/22 22:15 Source: patient, EMS Mode of arrival: EMS Limitations: physical limitation - History of Present Illness Initial comments: Dictation was produced using [employer] dictation software. please excuse any grammatical, word or spelling errors. Chief Complaint: 77-year-old male multiple comorbid is presents to ER for one day shortness of breath History of Present Illness: Is 77-year-old male brought in by EMS from home. EMS was called for chief complaint of shortness of breath. EMS states that patient was tripoding. He is placed on BiPAP giving breathing treatment. His symptoms improved. Given updraft along with Solu-Medrol for suspected bronchoconstriction. They state that en route to the emergency department his symptoms improved. Patient denies any history of COPD. He however does have a history of smoking. Patient does have a history of H fibrillation and kidney disease. Denies any fever. No chest pain he does report having had suffered URI symptoms for several months. The ROS documented in this emergency department record has been reviewed and confirmed by me. Those systems with pertinent positive or negative responses have been documented in the HPI. All other systems are other negative and/or noncontributory. PHYSICAL EXAM: General Impression: Dyspneic, BiPAP in place HEENT: Normocephalic atraumatic, extra-ocular movements intact, pupils equal and reactive to light bilaterally, mucous membranes moist. Cardiovascular: Heart regular rate and rhythm Chest: Mild belly breathing, diffuse crackles Abdomen: abdomen soft, non-tender, non-distended, no organomegaly Musculoskeletal: Pulses present and equal in all extremities, 1+ pitting edema Motor: no focal deficits noted Neurological: CN II-XII grossly intact, no focal motor or sensory deficits noted Skin: Intact with no visualized rashes Psych: Normal affect and mood ED course: 77-year-old male brought to the emergency department for several hours of acute dyspnea. Patient has multiple cardiac pulmonary comorbidities. Ends upon arrival shows respiratory rate of 32, 90% on BiPAP. Blood pressures 122/99. Point of care ultrasound was performed showing findings to support diagnosis of heart failure with curly B lines artifacts in both upper lung walker. Patient has a chronic stable history of H fibrillation. Chart review was performed. Previous history physical and part results were reviewed showing patient was admitted several years ago for new onset atrial fibrillation. Nursing notes and chart review was performed EKG interpreted by me: Ventricular rate 92, A. fib, right bundle branch block, QRS 137, QTc 467. No IN prolongation, no QTC prolongation, no ST or T-wave changes noted. EKG compared to 12/30/2016 showing no changes. Overall, this EKG is unremarkable Was pt. sent in by a medical professional or institution (, PA, FAMILY AND CONSUMER SCIENCE PROFESSOR, urgent care, hospital, or skilled nursing...) When possible be specific @ -No Did you speak to anyone other than the patient for history (EMS, parent, family, police, friend...)? What history was obtained from this source @ -EMS Did you review nursing and triage notes (agree or disagree)? Why? @ -I reviewed and agree with nursing and triage notes Were old charts reviewed (outside hosp., previous admission, EMS record, old EKG, old radiological studies, urgent care reports/EKG's, skilled nursing records)? Report findings @ -Prior chart was reviewed including cardiology consultation echocardiogram from 2017. Patient at that time had normal systolic function. Cardiology consultation notes shows the patient had new-onset A. fib at that time. Differential Diagnosis (chest pain, altered mental status, abdominal pain women, abdominal pain men, vaginal bleeding, musculoskeletal, weakness, fever, dyspnea, syncope, headache, dizziness, GI bleed, back pain, seizure, CVA, palpatations, mental health)? @ -Differential Dyspnea: Coronary syndrome, arrhythmia, tamponade, asthma, COPD, pulmonary embolism, pneumonia, pneumothorax, pulmonary effusion, anaphylaxis, diabetic ketoacidosis, flailed chest, pulmonary contusion, diaphragmatic rupture, anemia, neur omuscular, this is not meant to be an all-inclusive list. EKG interpreted by me (3pts min.). @ -See above X-rays interpreted by me (1pt min.). @ -Nonacute CT interpreted by me (1pt min.). @ -None done U/S interpreted by me (1pt. min.). @ -None done What testing was considered but not performed or refused? (CT, X-rays, U/S, lab s)? Why? @ -None What meds were considered but not given or refused? Why? @ -None Did you discuss the management of the patient with other professionals (professionals i.e. , PA, FAMILY AND CONSUMER SCIENCE PROFESSOR, lab, RT, psych nurse, long term care social worker, barrel drainer, teacher, correctional officer chief, disease case manager)? Give summary @ -Discussed with [facility] for hospital admission Was smoking cessation discussed for >3mins.? @ -No Was critical care preformed (if so, how long)? @ -yes, 33 minutes Were there social determinants of health that impacted care today? How? (Homelessness, low income, unemployed, alcoholism, drug addiction, transportation, low edu. Level, literacy, decrease access to med. care, detention, rehab)? @ -No Was there de-escalation of care discussed even if they declined (Discuss DNR or withdrawal of care, Hospice)? DNR status @ -No What co-morbidities impacted this encounter? (DM, HTN, Smoking, COPD, CAD, Cancer, CVA, ARF, Chemo, Hep., AIDS, mental health diagnosis, sleep apnea, morbid obesity)? @ -Multiple cardio pulmonary comorbidities Was patient admitted / discharged? Hospital course, mention meds given and route, prescriptions, significant lab abnormalities, going to OR and other pertinent info. @ -77-year-old male with multiple comorbidities presents to this emergency Department for acute respiratory failure. Patient was given treatment by prehospital providers which largely improved his symptoms. Patient continued on BiPAP. Laboratory evaluation obtained. Leukocytosis 16.2 all-inclusive significance. Suspect that perhaps patient may have a underlying lung infection despite having normal x-ray. INR is 4.7. No concern for pulmonary embolism at this time given that patient is prophylactically anticoagulated. He does have elevated renal function which is slightly above his baseline. Prematurity peptide does not support the diagnosis of acute heart failure. Troponin is ne gative. While testing is negative. Patient reevaluated at bedside at 12:30 AM. He does appear to be improved from respiratory standpoint. We will trial patient with BiPAP discontinued. He will be admitted for medical monitoring and pulmonary evaluation. Undiagnosed new problem with uncertain prognosis? @ -No Drug Therapy requiring intensive monitoring for toxicity (Heparin, Nitro, Insulin, Cardizem)? @ -No Were any procedures done? @ -No Diagnosis/symptom? Acute, or Chronic, or Acute on Chronic? Uncomplicated (without systemic symptoms) or Complicated (systemic symptoms)? @ -1. Acute respiratory failure, no obvious source Side effects of treatment? @ -No Exacerbation, Progression, or Severe Exacerbation? @ -No Poses a threat to life or bodily function? How? (Chest pain, [place], [place], pneumonia, PE, COPD, DKA, ARF, appy, cholecystitis, CVA, Diverticulitis, Homicidal, Suicidal, threat to staff... and all critical care pts) @ -No - Related Data Home Medications Medication Instructions Recorded Confirmed Carbidopa-Levodopa 25-100 mg 1 tab PO BID 11/27/15 05/03/19 [Sinemet 25-100 mg] Cholecalciferol [Vitamin D3 (25 1,000 units PO DAILY 11/27/15 05/03/19 Mcg = 1000 Iu)] allopurinoL [Zyloprim] 300 mg PO DAILY 11/27/15 05/03/19 Ascorbic Acid [Vitamin C] 500 mg PO DAILY 05/01/19 05/03/19 Aspirin [Adult Low Dose Aspirin EC] 81 mg PO DAILY 05/01/19 05/03/19 Atorvastatin [Lipitor] 20 mg PO DAILY 05/01/19 05/03/19 Escitalopram [Lexapro] 10 mg PO DAILY 05/01/19 05/03/19 Ferrous Sulfate [Iron] 325 mg PO DAILY 05/01/19 05/03/19 Glimepiride [Amaryl] 8 mg PO AC-BRKFST 05/01/19 05/03/19 Magnesium 400 mg PO DAILY 05/01/19 05/03/19 Warfarin Sodium 6 mg PO SUMOWEFR 05/01/19 05/03/19 Warfarin Sodium [Coumadin] 4 mg PO TUTHSA 05/01/19 05/03/19 atenoloL [Tenormin] 1.5 tab PO DAILY 05/01/19 05/03/19 calcitrioL [Calcitriol] 0.25 mcg PO TELLO 05/01/19 05/03/19 raNITIdine HCL [Zantac] 150 mg PO BID 05/01/19 05/03/19 sitaGLIPtin [Januvia] 50 mg PO DAILY 05/01/19 05/03/19 Previous Rx's Medication Instructions Recorded Cephalexin [Keflex] 500 mg PO Q6HR 7 Days #28 cap 02/13/20 Sulfamethox-Tmp 800-160Mg [Bactrim 1 tab PO Q12HR 7 Days #14 tab 02/13/20 DS 800-160 mg] Allergies Allergy/AdvReac Type Severity Reaction Status Date / Time Penicillins Allergy Unknown Verified 09/23/22 22:20 Review of Systems ROS Statement: Those systems with pertinent positive or pertinent negative responses have been documented in the HPI. ROS Other: All systems not noted in ROS Statement are negative. Past Medical History Past Medical History: Atrial Fibrillation, Diabetes Mellitus, GERD/Reflux, Hyperlipidemia, Hypertension, Renal Disease Additional Past Medical History / Comment(s): states positive cologaurd, KIDNEY DISEASE- GOUT, past hx PROBLEM SWALLOWING History of Any Multi-Drug Resistant Organisms: None Reported Past Surgical History: Hernia Repair Additional Past Surgical History / Comment(s): cataract kaila with lens implant Past Anesthesia/Blood Transfusion Reactions: No Reported Reaction Past Psychological History: Anxiety Smoking Status: Former smoker Past Alcohol Use History: Occasional Past Drug Use History: None Reported - Past Family History Mother Family Medical History: No Reported History General Exam Limitations: physical limitation Course Vital Signs 09/23/22 09/23/22 09/23/22 22:16 22:46 22:54 Temperature 97.6 F Pulse Rate 82 89 Respiratory 32 H 30 H Rate Blood Pressure 122/99 145/126 O2 Sat by Pulse 90 L 100 Oximetry Fraction of 75 Inspired Oxygen (FIO2) 09/23/22 09/23/22 09/23/22 23:20 23:23 23:27 Temperature Pulse Rate 101 H Respiratory 28 H 32 H Rate Blood Pressure 147/87 O2 Sat by Pulse 100 Oximetry Fraction of 50 Inspired Oxygen (FIO2) 09/24/22 00:12 Temperature Pulse Rate 84 Respiratory 32 H Rate Blood Pressure 151/72 O2 Sat by Pulse 97 Oximetry Fraction of Inspired Oxygen (FIO2) Medical Decision Making - Lab Data Result diagrams: 09/23/22 22:28 09/23/22 22:28 Lab Results 09/23/22 09/23/22 09/23/22 Range/Units 22:28 22:28 22:28 WBC 16.2 H (3.8-10.6) k/uL RBC 4.81 (4.30-5.90) m/uL Hgb 14.5 (13.0-17.5) gm/dL Hct 46.4 (39.0-53.0) % MCV 96.6 (80.0-100.0) fL MCH 30.1 (25.0-35.0) pg MCHC 31.2 (31.0-37.0) g/dL RDW 14.4 (11.5-15.5) % Plt Count 375 (150-450) k/uL MPV 6.6 Neutrophils % 83 % Lymphocytes % 7 % Monocytes % 5 % Eosinophils % 4 % Basophils % 0 % Neutrophils # 13.5 H (1.3-7.7) k/uL Lymphocytes # 1.2 (1.0-4.8) k/uL Monocytes # 0.8 (0-1.0) k/uL Eosinophils # 0.6 (0-0.7) k/uL Basophils # 0.0 (0-0.2) k/uL PT 45.9 H (9.0-12.0) sec INR 4.7 H (<1.2) APTT 44.1 H (22.0-30.0) sec Sodium 138 (137-145) mmol/L Potassium 4.6 (3.5-5.1) mmol/L Chloride 100 (98-107) mmol/L Carbon Dioxide 30 (22-30) mmol/L Anion Gap 8 mmol/L BUN 29 H (9-20) mg/dL Creatinine 2.20 H (0.66-1.25) mg/dL Est GFR (CKD-EPI)AfAm 32 (>60 ml/min/1.73 sqM) Est GFR (CKD-EPI)NonAf 28 (>60 ml/min/1.73 sqM) Glucose 196 H (74-99) mg/dL Plasma Lactic Acid Jasper (0.7-2.0) mmol/L Calcium 8.8 (8.4-10.2) mg/dL Magnesium 1.4 L (1.6-2.3) mg/dL Total Bilirubin 0.8 (0.2-1.3) mg/dL AST 18 (17-59) U/L ALT 9 (4-49) U/L Alkaline Phosphatase 84 (38-126) U/L Troponin I (0.000-0.034) ng/mL NT-Pro-B Natriuret Pep pg/mL Total Protein 7.3 (6.3-8.2) g/dL Albumin 4.0 (3.5-5.0) g/dL Influenza Type A (PCR) (Not Detectd) Influenza Type B (PCR) (Not Detectd) RSV (PCR) (Not Detectd) SARS-CoV-2 (PCR) (Not Detectd) 09/23/22 09/23/22 09/23/22 Range/Units 22:28 22:28 22:28 WBC (3.8-10.6) k/uL RBC (4.30-5.90) m/uL Hgb (13.0-17.5) gm/dL Hct (39.0-53.0) % MCV (80.0-100.0) fL MCH (25.0-35.0) pg MCHC (31.0-37.0) g/dL RDW (11.5-15.5) % Plt Count (150-450) k/uL MPV Neutrophils % % Lymphocytes % % Monocytes % % Eosinophils % % Basophils % % Neutrophils # (1.3-7.7) k/uL Lymphocytes # (1.0-4.8) k/uL Monocytes # (0-1.0) k/uL Eosinophils # (0-0.7) k/uL Basophils # (0-0.2) k/uL PT (9.0-12.0) sec INR (<1.2) APTT (22.0-30.0) sec Sodium (137-145) mmol/L Potassium (3.5-5.1) mmol/L Chloride (98-107) mmol/L Carbon Dioxide (22-30) mmol/L Anion Gap mmol/L BUN (9-20) mg/dL Creatinine (0.66-1.25) mg/dL Est GFR (CKD-EPI)AfAm (>60 ml/min/1.73 sqM) Est GFR (CKD-EPI)NonAf (>60 ml/min/1.73 sqM) Glucose (74-99) mg/dL Plasma Lactic Acid Jasper 1.2 (0.7-2.0) mmol/L Calcium (8.4-10.2) mg/dL Magnesium (1.6-2.3) mg/dL Total Bilirubin (0.2-1.3) mg/dL AST (17-59) U/L ALT (4-49) U/L Alkaline Phosphatase (38-126) U/L Troponin I <0.012 (0.000-0.034) ng/mL NT-Pro-B Natriuret Pep 776 pg/mL Total Protein (6.3-8.2) g/dL Albumin (3.5-5.0) g/dL Influenza Type A (PCR) (Not Detectd) Influenza Type B (PCR) (Not Detectd) RSV (PCR) (Not Detectd) SARS-CoV-2 (PCR) (Not Detectd) 09/23/22 Range/Units 22:32 WBC (3.8-10.6) k/uL RBC (4.30-5.90) m/uL Hgb (13.0-17.5) gm/dL Hct (39.0-53.0) % MCV (80.0-100.0) fL MCH (25.0-35.0) pg MCHC (31.0-37.0) g/dL RDW (11.5-15.5) % Plt Count (150-450) k/uL MPV Neutrophils % % Lymphocytes % % Monocytes % % Eosinophils % % Basophils % % Neutrophils # (1.3-7.7) k/uL Lymphocytes # (1.0-4.8) k/uL Monocytes # (0-1.0) k/uL Eosinophils # (0-0.7) k/uL Basophils # (0-0.2) k/uL PT (9.0-12.0) sec INR (<1.2) APTT (22.0-30.0) sec Sodium (137-145) mmol/L Potassium (3.5-5.1) mmol/L Chloride (98-107) mmol/L Carbon Dioxide (22-30) mmol/L Anion Gap mmol/L BUN (9-20) mg/dL Creatinine (0.66-1.25) mg/dL Est GFR (CKD-EPI)AfAm (>60 ml/min/1.73 sqM) Est GFR (CKD-EPI)NonAf (>60 ml/min/1.73 sqM) Glucose (74-99) mg/dL Plasma Lactic Acid Jasper (0.7-2.0) mmol/L Calcium (8.4-10.2) mg/dL Magnesium (1.6-2.3) mg/dL Total Bilirubin (0.2-1.3) mg/dL AST (17-59) U/L ALT (4-49) U/L Alkaline Phosphatase (38-126) U/L Troponin I (0.000-0.034) ng/mL NT-Pro-B Natriuret Pep pg/mL Total Protein (6.3-8.2) g/dL Albumin (3.5-5.0) g/dL Influenza Type A (PCR) Not Detected (Not Detectd) Influenza Type B (PCR) Not Detected (Not Detectd) RSV (PCR) Not Detected (Not Detectd) SARS-CoV-2 (PCR) Not Detected (Not Detectd) Disposition Clinical Impression: Respiratory failure Disposition: ADMITTED IP TO THIS HOSP Condition: Fair Referrals: None,Stated [REFERRING] - 1-2 days Decision Time: 00:20
[2022-09-23 22:39] LABS: Basophils % (A) 0 %; Eosinophils # (A) 0.6 k/uL (0-0.7); Eosinophils % (A) 4 %; HCT 46.4 % (39.0-53.0); HGB 14.5 gm/dL (13.0-17.5); Lymphocytes # (A) 1.2 k/uL (1.0-4.8); Lymphocytes % (A) 7 %; MCH 30.1 pg (25.0-35.0); MCHC 31.2 g/dL (31.0-37.0); MCV 96.6 fL (80.0-100.0); Mean Platelet Volume 6.6; Monocytes # (A) 0.8 k/uL (0-1.0); Monocytes % (A) 5 %; Neutrophils # (A) 13.5 k/uL (1.3-7.7); Neutrophils % (A) 83 %; Platelet Count 375 k/uL (150-450); RBC 4.81 m/uL (4.30-5.90); RDW 14.4 % (11.5-15.5); WBC 16.2 k/uL (3.8-10.6)
[2022-09-23 22:45] LABS: INR 4.7 (<1.2); Partial Thromboplastin Time 44.1 sec (22.0-30.0); Prothrombin Time 45.9 sec (9.0-12.0)
[2022-09-23 22:50] LABS: Calcium 8.8 mg/dL (8.4-10.2); Potassium 4.6 mmol/L (3.5-5.1); Total Bilirubin 0.8 mg/dL (0.2-1.3); Total Protein 7.3 g/dL (6.3-8.2)
[2022-09-23 23:05] LABS: Magnesium 1.4 mg/dL (1.6-2.3)
--- NOTE | 2022-09-24 00:10 | XR ---
EXAM: XR Chest, 1 View CLINICAL HISTORY: ITS.REASON XR Reason: dyspnea TECHNIQUE: Frontal view of the chest. COMPARISON: No relevant prior studies available. FINDINGS: Lungs: Unremarkable. No consolidation. Pleural space: Unremarkable. No pneumothorax. Heart: Mild cardiomegaly. Mediastinum: Unremarkable. Bones/joints: Unremarkable. IMPRESSION: No acute findings in the chest.
[2022-09-24] MEDS ORDERED: DEXAMETHASONE SOD PHOSPHATE 10 MG/ML 1 ML VIAL IV STA (00:17)
[2022-09-24] MEDS ORDERED: IPRATROPIUM-ALBUTEROL 3 ML NEB INHALATION STA (00:18)
[2022-09-24] MEDS ORDERED: NALOXONE 0.4 MG/ML 1 ML VIAL IV PRN (00:22)
[2022-09-24] MEDS: SODIUM CHLORIDE 0.9% 1,000 ML IV SCH (00:57)
[2022-09-24] MEDS ORDERED: ALBUTEROL NEBULIZED 2.5 MG/3 ML INHALATION PRN (10:15)
[2022-09-24] MEDS ORDERED: NON FORMULARY DRUG (Warfarin Sodium [Coumadin] 4 MG Tablet) PO SCH (10:15)
[2022-09-24] MEDS ORDERED: FAMOTIDINE 20 MG TAB PO PRN (10:15)
[2022-09-24] MEDS ORDERED: IPRATROPIUM 0.5 MG/2.5 ML NEBU INHALATION PRN (10:31)
--- NOTE | 2022-09-24 11:55 | P.CRDCN ---
History of Present Illness Consult date: 09/24/22 Consult reason: congestive heart failure History of present illness: History of present illness: This is a 77 year old male patient of Dr. Ivette Morley with past medical history of persistent atrial fibrillation on warfarin, diabetes mellitus, hypertension, hyperlipidemia, chronic kidney disease, obesity, remote history of tobacco use. Patient presented to the hospital due to shortness of breath sudden onset. Patient presented to the emergency center and was given updraft, IV Lasix and IV Solu-Medrol with improvement of his symptoms. Patient denies having any chest pain, no fever or chills. EKG atrial fibrillation Chest x-ray: No acute findings on chest x-ray WBC 16.2, hemoglobin 14.5, platelet count 375. INR 4.7. Electrolytes are normal, BUN 29 creatinine 2.2. Blood sugar 196. Magnesium 1.4. Liver function tests are normal. Troponin negative 1. ProBNP negative at 776. Influenza A, influenza B, RSV, Covid 19 not detected Home cardiac medications: Atenolol 25 mg daily, atorvastatin 20 mg at bedtime, magnesium 500 mg at bedtime, Coumadin 4 mg Tuesday through Tuesday and 6 mg on Tuesday. Echocardiogram 02/2022 revealed EF 55%, mild to moderate MR and TR, RVSP 54 Lexiscan stress test 08/2020 EF 60%, no ischemia Review Of Systems: At the time of my evaluation: Constitutional: No fever, no chills. No weakness, fatigue or lethargy. EENT: No headache. No dizziness. Lungs: Reported shortness of breath, cough, no sputum production. No wheezing. Cardiovascular: No chest pain, no lower extremity edema. No palpitations. No paroxysmal nocturnal dyspnea. No orthopnea. No lightheadedness or dizziness. No syncopal episodes. Abdominal: No abdominal pain. No nausea, vomiting. No diarrhea. No constipation. No bloody or tarry stools. Genitourinary: No dysuria.. No urinary retention. Musculoskeletal: No myalgias. No muscle weakness, no frequent falls. No back pain. No neck pain. Integumentary: No wounds. No rash. No unusual bruising. Neurologic: No aphasia. No facial droop. No change in mentation. No head injury. No headache. Physical examination: Gen: This is a 77-year-old obese male. He is resting in bed and appears to be comfortable and in no acute distress VS: reviewed HEENT: Head is atraumatic, normocephalic. Pupils equal, round. Sclerae is anicteric. NECK: Supple. No JVD. . LUNGS: Diminished breath sounds No intercostal retractions. HEART: Regular rate and rhythm. No murmur. ABDOMEN: Soft No tenderness. EXTREMITIES: Trace bilateral pedal edema. No calf tenderness. NEUROLOGICAL: Patient is awake, alert and oriented x3. Assessment: Chronic diastolic dysfunction without heart failure, proBNP within normal limits and negative chest x-ray for heart failure Hypercoagulopathy secondary to Coumadin COPD exacerbation Diabetes Coronary artery disease Pulmonary hypertension Hypertension Dyslipidemia Plan: Continue patient on Lasix 40 mg IV 2 and then switched to oral starting tomorrow Obtain BMP tomorrow morning Hold Coumadin today and recheck INR, pharmacy dosing Further recommendations to follow based upon clinical course Thank you kindly for this consultation. Nurse practitioner note has been reviewed, I agree with documented findings and plan of care. Patient was seen and examined. Past Medical History Past Medical History: Atrial Fibrillation, Diabetes Mellitus, GERD/Reflux, Hyperlipidemia, Hypertension, Renal Disease Additional Past Medical History / Comment(s): states positive cologaurd, KIDNEY DISEASE- GOUT, past hx PROBLEM SWALLOWING History of Any Multi-Drug Resistant Organisms: None Reported Past Surgical History: Hernia Repair Additional Past Surgical History / Comment(s): cataract kaila with lens implant Past Anesthesia/Blood Transfusion Reactions: No Reported Reaction Past Psychological History: Anxiety Smoking Status: Former smoker Past Alcohol Use History: Occasional Past Drug Use History: None Reported - Past Family History Mother Family Medical History: No Reported History Medications and Allergies Home Medications Medication Instructions Recorded Confirmed Type Carbidopa-Levodopa 25-100 mg 1 tab PO QAM 11/27/15 09/24/22 History [Sinemet 25-100 mg] allopurinoL [Zyloprim] 300 mg PO HS 11/27/15 09/24/22 History Atorvastatin [Lipitor] 20 mg PO HS 05/01/19 09/24/22 History Escitalopram [Lexapro] 10 mg PO DAILY 05/01/19 09/24/22 History Glimepiride [Amaryl] 8 mg PO AC-BRKFST 05/01/19 09/24/22 History Warfarin Sodium 6 mg PO TU 05/01/19 09/24/22 History Warfarin Sodium [Coumadin] 4 mg PO SUMOWETHFR05/01/19 09/24/22 History atenoloL [Tenormin] 25 tab PO DAILY 05/01/19 09/24/22 History calcitrioL [Calcitriol] 0.25 mcg PO TU 05/01/19 09/24/22 History sitaGLIPtin [Januvia] 50 mg PO 05/01/19 09/24/22 History Carbidopa-Levodopa 25-100 mg 1 tab PO HS 09/24/22 09/24/22 History [Sinemet 25-100] Cholecalciferol (Vitamin D3) 75 mcg PO DAILY 09/24/22 09/24/22 History [Vitamin D3 (3000 Iu)] Famotidine [Pepcid] 20 mg PO PRN 09/24/22 09/24/22 History Magnesium Oxide [Magnesium] 500 mg PO HS 09/24/22 09/24/22 History Allergies Allergy/AdvReac Type Severity Reaction Status Date / Time Penicillins Allergy Unknown Verified 09/24/22 08:07 Physical Exam Vitals: Vital Signs Temp Pulse Pulse Resp BP BP Pulse Ox 09/24/22 08:27 97.9 F 73 22 154/78 98 09/24/22 08:11 83 16 138/83 97 09/24/22 07:35 99 09/24/22 06:17 76 22 138/92 99 09/24/22 05:17 75 26 H 143/91 98 09/24/22 03:20 80 24 148/95 99 09/24/22 02:28 86 26 H 130/88 97 09/24/22 01:35 89 28 H 160/99 97 09/24/22 01:00 81 26 H 146/108 95 09/24/22 00:56 78 09/24/22 00:47 77 09/24/22 00:12 84 32 H 151/72 97 09/23/22 23:27 09/23/22 23:23 32 H 09/23/22 23:20 101 H 28 H 147/87 100 09/23/22 22:54 09/23/22 22:46 89 30 H 145/126 100 09/23/22 22:16 97.6 F 82 32 H 122/99 90 L FiO2 09/24/22 08:27 09/24/22 08:11 09/24/22 07:35 09/24/22 06:17 09/24/22 05:17 09/24/22 03:20 09/24/22 02:28 09/24/22 01:35 09/24/22 01:00 09/24/22 00:56 09/24/22 00:47 09/24/22 00:12 09/23/22 23:27 50 09/23/22 23:23 09/23/22 23:20 09/23/22 22:54 75 09/23/22 22:46 09/23/22 22:16 Intake and Output 09/23/22 09/24/22 09/24/22 22:59 06:59 14:59 Other: Weight 113.398 kg Results 09/23/22 22:28 09/23/22 22:28 Cardiac Enzymes 09/23/22 09/23/22 Range/Units 22:28 22:28 AST 18 (17-59) U/L Troponin I <0.012 (0.000-0.034) ng/mL Coagulation 09/23/22 Range/Units 22:28 PT 45.9 H (9.0-12.0) sec APTT 44.1 H (22.0-30.0) sec CBC 09/23/22 Range/Units 22:28 WBC 16.2 H (3.8-10.6) k/uL RBC 4.81 (4.30-5.90) m/uL Hgb 14.5 (13.0-17.5) gm/dL Hct 46.4 (39.0-53.0) % Plt Count 375 (150-450) k/uL Comprehensive Metabolic Panel 09/23/22 Range/Units 22:28 Sodium 138 (137-145) mmol/L Potassium 4.6 (3.5-5.1) mmol/L Chloride 100 (98-107) mmol/L Carbon Dioxide 30 (22-30) mmol/L BUN 29 H (9-20) mg/dL Creatinine 2.20 H (0.66-1.25) mg/dL Glucose 196 H (74-99) mg/dL Calcium 8.8 (8.4-10.2) mg/dL AST 18 (17-59) U/L ALT 9 (4-49) U/L Alkaline Phosphatase 84 (38-126) U/L Total Protein 7.3 (6.3-8.2) g/dL Albumin 4.0 (3.5-5.0) g/dL Current Medications Generic Name Dose Route Start Last Admin Trade Name Freq PRN Reason Stop Dose Admin Budesonide/Formoterol Fumarate 2 puff 09/24/22 20:00 Symbicort 160-4.5 Mcg Inhaler INHALATION RT-BID RENÉE Sodium Chloride 1,000 mls @ 20 mls/hr 09/24/22 00:30 09/24/22 00:57 Saline 0.9% IV 20 mls/hr .Q24H RENÉE Administration Naloxone HCl 0.2 mg 09/24/22 00:22 Naloxone 0.4 Mg/Ml 1 Ml Vial IV Q2M PRN Opioid Reversal Intake and Output 09/23/22 09/24/22 09/24/22 22:59 06:59 14:59 Other: Weight 113.398 kg 09/23/22 22:28 09/23/22 22:28
[2022-09-24] MEDS: FUROSEMIDE 10 MG/ML 4 ML VIAL IV SCH ×2 (12:01→21:09)
[2022-09-24 12:06] LABS: Glucose,Whole Blood 213 mg/dL (70-110)
[2022-09-24] MEDS: ALBUTEROL NEBULIZED 2.5 MG/3 ML INHALATION SCH ×2 (12:20→19:53)
[2022-09-24] MEDS: IPRATROPIUM 0.5 MG/2.5 ML NEBU INHALATION SCH ×2 (12:20→19:54)
[2022-09-24 12:36] LABS: INR 4.8 (<1.2); Prothrombin Time 47.7 sec (9.0-12.0)
--- NOTE | 2022-09-24 12:59 | P.CNPUL ---
History of Present Illness Consult date: 09/24/22 Requesting physician: Breezy Aguilar Reason for consult: dyspnea, COPD Chief complaint: Shortness of breath, cough, congestion History of present illness: This a pleasant 77-year-old male patient with a history of hypertension, hyperlipidemia, diabetes mellitus, atrial fibrillation anticoagulated with warfarin, depression, gout, chronic kidney disease, former smoker and quit 40 years ago. He is not on oxygen at home. He is not on inhalers at home. He a 3 month history of cold like symptoms with shortness of breath, cough, congestion and yellow phlegm. Stating it started in his sinuses and went to his lungs. He had not been seen by his PCP feeling that it would just resolve on its own. He presented here to the emergency room yesterday for the same. He initially required BiPAP support / and 75% FiO2 and was transitioned to 4 L nasal cannula. He is seen today in consultation on the regular medical floor. He is a 30 feeling quite a bit better. No worsening shortness of breath. He has a loose congested cough. No fever or chills. Chest x-ray reveals no acute pulmonary process. White count 16.2. Hemoglobin 14.5. INR 4.8. Sodium 138. Potassium 4.6. Bicarb 30. BUN 29. Creatinine 2.20. Glucose 196. ProBNP 776. Troponin negative 1. Influenza screen negative. RSV screen negative. COVID- 19 screen negative. His been initiated on Symbicort, albuterol, IV diuretics. Normal saline at KVO. Review of Systems REVIEW OF SYSTEMS: CONSTITUTIONAL: Denies any recent significant weight loss or weight gain. EYES: Denies change in vision. EARS, NOSE, MOUTH, THROAT: Denies headaches, denies sore throat. CARDIOVASCULAR: Denies chest pain, palpitations or syncopal episodes. RESPIRATORY: Positive for shortness of breath, cough, congestion no hemoptysis. GASTROINTESTINAL: Denies change in appetite, denies abdominal pain GENITOURINARY: Denies hematuria, denies infections. MUSKULOSKELETAL: Denies pain, denies swelling. INTEGUMENTARY: Denies rash, denies eczema. NEUROLOGICAL: Denies recent memory loss, no recent seizure activity. PSYCHIATRIC: Denies anxiety, denies depression. HEMATOLOGIC/LYMPHATIC: Denies anemia, denies enlarged lymph nodes. Past Medical History Past Medical History: Atrial Fibrillation, Diabetes Mellitus, GERD/Reflux, Hyperlipidemia, Hypertension, Renal Disease Additional Past Medical History / Comment(s): states positive cologaurd, KIDNEY DISEASE- GOUT, past hx PROBLEM SWALLOWING History of Any Multi-Drug Resistant Organisms: None Reported Past Surgical History: Hernia Repair Additional Past Surgical History / Comment(s): cataract kaila with lens implant Past Anesthesia/Blood Transfusion Reactions: No Reported Reaction Past Psychological History: Anxiety Smoking Status: Former smoker Past Alcohol Use History: Occasional Past Drug Use History: None Reported - Past Family History Mother Family Medical History: No Reported History Medications and Allergies Home Medications Medication Instructions Recorded Confirmed Type Carbidopa-Levodopa 25-100 mg 1 tab PO QAM 11/27/15 09/24/22 History [Sinemet 25-100 mg] allopurinoL [Zyloprim] 300 mg PO HS 11/27/15 09/24/22 History Atorvastatin [Lipitor] 20 mg PO 05/01/19 09/24/22 History Escitalopram [Lexapro] 10 mg PO DAILY 05/01/19 09/24/22 History Glimepiride [Amaryl] 8 mg PO [id number] 05/01/19 09/24/22 History Warfarin Sodium 6 mg PO TU 05/01/19 09/24/22 History [facility]farin S[facility]] [facility] 09/24/22 History atenoloL [Tenormin] 25 tab PO DAILY 05/01/19 09/24/22 History calcitrioL [Calcitriol] 0.25 mcg PO TUSA 05/01/19 09/24/22 History sitaGLIPtin [Januvia] 50 mg PO 05/01/19 09/24/22 History Carbidopa-Levodopa 25-100 mg 1 tab PO HS 09/24/22 09/24/22 History [Sinemet 25-100] Cholecalciferol (Vitamin D3) 75 mcg PO DAILY 09/24/22 09/24/22 History [Vitamin D3 (3000 Iu)] Famotidine [Pepcid] 20 mg PO HS PRN 09/24/22 09/24/22 History Magnesium Oxide [Magnesium] 500 mg PO HS 09/24/22 09/24/22 History Allergies Allergy/AdvReac Type Severity Reaction Status Date / Time Penicillins Allergy Unknown Verified 09/24/22 08:07 Physical Exam Vitals: Vital Signs Temp Pulse Pulse Resp BP BP Pulse Ox 09/24/22 12:35 76 09/24/22 12:22 75 09/24/22 11:44 97.7 F 81 20 135/75 98 09/24/22 08:27 97.9 F 73 22 154/78 98 09/24/22 08:11 83 16 138/83 97 09/24/22 07:35 99 09/24/22 06:17 76 22 138/92 99 09/24/22 05:17 75 26 H 143/91 98 09/24/22 03:20 80 24 148/95 99 09/24/22 02:28 86 26 H 130/88 97 09/24/22 01:35 89 28 H 160/99 97 09/24/22 01:00 81 26 H 146/108 95 09/24/22 00:56 78 09/24/22 00:47 77 09/24/22 00:12 84 32 H 151/72 97 09/23/22 23:27 09/23/22 23:23 32 H 09/23/22 23:20 101 H 28 H 147/87 100 09/23/22 22:54 09/23/22 22:46 89 30 H 145/126 100 09/23/22 22:16 97.6 F 82 32 H 122/99 90 L FiO2 09/24/22 12:35 09/24/22 12:22 09/24/22 11:44 09/24/22 08:27 09/24/22 08:11 09/24/22 07:35 09/24/22 06:17 09/24/22 05:17 09/24/22 03:20 09/24/22 02:28 09/24/22 01:35 09/24/22 01:00 09/24/22 00:56 09/24/22 00:47 09/24/22 00:12 09/23/22 23:27 50 09/23/22 23:23 09/23/22 23:20 09/23/22 22:54 75 09/23/22 22:46 09/23/22 22:16 Intake and Output 09/23/22 09/24/22 09/24/22 22:59 06:59 14:59 Other: Voiding Method Indwelling Catheter Weight 113.398 kg 113.398 kg GENERAL EXAM: Alert, pleasant 77-year-old male, on 4 L nasal cannula, comfortable in no apparent distress. HEAD: Normocephalic. EYES: Normal reaction of pupils, equal size. NOSE: Clear with pink turbinates. THROAT: No erythema or exudates. NECK: No masses, no JVD. CHEST: No chest wall deformity. LUNGS: Equal air entry with no crackles, wheeze, rhonchi or dullness. CVS: S1 and S2 normal with no audible murmur, regular rhythm. ABDOMEN: No hepatosplenomegaly, normal bowel sounds, no guarding or rigidity. SPINE: No scoliosis or deformity SKIN: No rashes CENTRAL NERVOUS SYSTEM: No focal deficits, tone is normal in all 4 extremities. EXTREMITIES: There is no peripheral edema. No clubbing, no cyanosis. Peripheral pulses are intact. Results - Laboratory Findings CBC and BMP: 09/23/22 22:28 09/23/22 22:28 PT/INR, D-dimer PT 47.7 sec (9.0-12.0) H 09/24/22 11:41 INR 4.8 (<1.2) H 09/24/22 11:41 Abnormal lab findings: Abnormal Labs 09/23/22 09/23/22 09/23/22 22:28 22:28 22:28 WBC 16.2 H Neutrophils # 13.5 H PT 45.9 H INR 4.7 H APTT 44.1 H BUN 29 H Creatinine 2.20 H Glucose 196 H POC Glucose (mg/dL) Magnesium 1.4 L 09/24/22 09/24/22 11:41 12:05 WBC Neutrophils # PT 47.7 H INR 4.8 H APTT BUN Creatinine Glucose POC Glucose (mg/dL) 213 H Magnesium - Diagnostic Findings Chest x-ray: image reviewed Assessment and Plan Assessment: Acute hypoxemic respiratory failure suspect secondary to diastolic versus systolic congestive heart failure. Chest x-ray shows no acute pulmonary process. Pro-calcitonin pending. Echocardiogram pending. Former smoker however quit 40 years ago. On no inhalers or oxygen at home History of atrial fibrillation anticoagulated with warfarin, supra therapeutic Acute on chronic kidney disease Diabetes mellitus Hypertension Hyperlipidemia History of gout Plan: The patient was seen and evaluated Chest x-ray, labs and medications reviewed Titrate down the FiO2 as tolerated Continue diuretics Continue bronchodilators Echocardiogram pending Progress toward impending We will continue to follow and make further recommendations based on his clinical status I have personally seen and examined the patient, performed the documentation and the assessment and plan as written. Number of minutes spent on the visit: 20.
--- NOTE | 2022-09-24 14:04 | HP ---
HISTORY AND PHYSICAL CHIEF COMPLAINT: Shortness of breath. HISTORY OF PRESENT ILLNESS: This is a 77-year-old gentleman with a past medical history of atrial fibrillation, diabetes mellitus, hypertension, hyperlipidemia, presents with significant shortness of breath. The patient does not have any documented COPD. The patient is a former smoker. Chest x-ray showed minimal increased perihilar markings. There is no history of any fever, rigors, or chills at this time. PAST MEDICAL HISTORY: Atrial fibrillation, diabetes, rest of the history and rest of the chart is also reviewed. HOME MEDICATIONS: Reviewed include vitamin D3, doses and rest of medications noted. ALLERGIES: Penicillin. FAMILY HISTORY: No history of heart disease or strokes in the family. SOCIAL HISTORY: Previous history of smoking. REVIEW OF SYSTEMS: A 14-point review is negative except as mentioned earlier. PHYSICAL EXAMINATION: VITAL SIGNS: Pulse 83, blood pressure 130/80, respirations 16. HEENT: Conjunctivae normal. NECK: No jugular venous distention. CARDIOVASCULAR: S1, S2 muffled. RESPIRATIONS: Few bilateral scattered rhonchi and crackles. ABDOMEN: Soft. LEGS: No edema, no swelling. NERVOUS SYSTEM: No focal deficits. SKIN: No ulcer, rash, bleeding. JOINTS: No active deforming arthropathy. LABORATORY DATA: Reviewed. ASSESSMENT: 1. Chronic obstructive pulmonary disease acute exacerbation. 2. Rule out congestive heart failure. 3. Chronic kidney disease, stage 3. 4. Atrial fibrillation. 5. Diabetes mellitus, type 2. 6. Hypertension. 7. Hyperlipidemia. RECOMMENDATIONS: Recommended to continue current management, continue symptomatic treatment. Otherwise at this time, I would also recommend D-dimer and if it is positive, a V/Q scan, otherwise follow with Pulmonary and bronchodilators. Cardiology consultation. BNP and troponins are acceptable. Guarded prognosis. Further recommendations to follow. MMODL / IJN: [id number] /
[2022-09-24 17:18] LABS: Glucose,Whole Blood 239 mg/dL (70-110)
[2022-09-24] MEDS ORDERED: DEXTROSE 50% SYRINGE 50 ML IVP PRN ×2 (17:46)
[2022-09-24] MEDS ORDERED: WARFARIN 0.5 MG TAB PO ONE (18:00)
[2022-09-24] MEDS: INSULIN ASPART (NovoLOG) 100 UNIT/ML VIAL SQ SCH ×2 (18:05→21:10)
[2022-09-24] MEDS: SYMBICORT 160-4.5 MCG INHALER INHALATION SCH (19:54)
[2022-09-24 20:46] LABS: Glucose,Whole Blood 186 mg/dL (70-110)
[2022-09-24] MEDS: allopurinoL 300 MG TAB PO SCH (21:09)
[2022-09-24] MEDS: ATORVASTATIN 20 MG TAB PO SCH (21:09)
[2022-09-24] MEDS: MAGNESIUM OXIDE 400 MG TAB PO SCH (21:09)
[2022-09-24] MEDS: LINAGLIPTIN 5 MG TABLET PO SCH (21:09)
[2022-09-24] MEDS: CARBIDOPA-LEVODOPA 25-100 MG 1 EACH TAB PO SCH (21:09)
[2022-09-25] MEDS: SODIUM CHLORIDE 0.9% 1,000 ML IV SCH (04:14)
[2022-09-25 07:05] LABS: INR 3.8 (<1.2); Prothrombin Time 36.9 sec (9.0-12.0)
[2022-09-25 07:07] LABS: Glucose,Whole Blood 143 mg/dL (70-110)
[2022-09-25] MEDS: SYMBICORT 160-4.5 MCG INHALER INHALATION SCH ×2 (08:32→20:36)
[2022-09-25] MEDS: ALBUTEROL NEBULIZED 2.5 MG/3 ML INHALATION SCH ×3 (08:32→20:36)
[2022-09-25] MEDS: IPRATROPIUM 0.5 MG/2.5 ML NEBU INHALATION SCH ×3 (08:32→20:36)
[2022-09-25] MEDS: INSULIN ASPART (NovoLOG) 100 UNIT/ML VIAL SQ SCH ×4 (09:53→20:27)
[2022-09-25] MEDS: CHOLECALCIFEROL 25 MCG (1000 IU) TABLET PO SCH (09:56)
[2022-09-25] MEDS: CARBIDOPA-LEVODOPA 25-100 MG 1 EACH TAB PO SCH ×2 (09:56→20:27)
[2022-09-25] MEDS: atenoloL 25 MG TAB PO SCH (09:56)
[2022-09-25] MEDS: FUROSEMIDE 40 MG TAB PO SCH (09:56)
[2022-09-25] MEDS: ESCITALOPRAM 10 MG TAB PO SCH (09:57)
[2022-09-25] MEDS: GLIMEPIRIDE 4 MG TAB PO SCH (09:57)
--- NOTE | 2022-09-25 11:50 | P.PN ---
Subjective Progress Note Date: 09/25/22 Patient seen today resting comfortably in the bedside chair in no signs of acute distress. Patient is on 2-3 L of oxygen nasal cannula states he does not wear oxygen at home. He denies increased shortness of breath or chest pain. He remains in atrial fibrillation on the monitor with a controlled ventricular rate in the 80s. He is on Coumadin for anticoagulation which is currently on hold INR today was 3.8, pharmacy is dosing. BNP did increase from 776 to 3190. Awaiting BMP results. BUN was 29 creatinine was 2.2 yesterday. Lasix has been transitioned to oral. Will continue to follow kidney function and BNP. Objective - Vital Signs Vital signs: Vital Signs Temp 98.1 F 09/25/22 07:11 Pulse 84 09/25/22 08:55 Resp 19 09/25/22 08:00 BP 113/77 09/25/22 07:11 Pulse Ox 94 L 09/25/22 08:32 FiO2 50 09/23/22 23:27 Intake & Output 09/24/22 09/25/22 09/25/22 18:59 06:59 18:59 Output Total 300 Balance -300 Weight 113.398 kg 103.646 kg Output: Urine 300 Other: Voiding Method Indwelling Catheter Indwelling Catheter Indwelling Catheter # Voids 6 2 # Bowel Movements 1 - Exam Gen: This is a 77-year-old obese male. He is resting in bed and appears to be comfortable and in no acute distress VS: reviewed HEENT: Head is atraumatic, normocephalic. Pupils equal, round. Sclerae is anicteric. NECK: Supple. No JVD. . LUNGS: Diminished breath sounds No intercostal retractions. HEART: Regular rate and rhythm. No murmur. ABDOMEN: Soft No tenderness. EXTREMITIES: Trace bilateral pedal edema. No calf tenderness. NEUROLOGICAL: Patient is awake, alert and oriented x3. - Labs CBC & Chem 7: 09/23/22 22:28 09/23/22 22:28 Labs: Abnormal Lab Results - Last 24 Hours (Table) 09/24/22 09/24/22 09/24/22 Range/Units 09:19 11:41 11:41 PT 47.7 H (9.0-12.0) sec INR 4.8 H (<1.2) POC Glucose (mg/dL) (70-110) mg/dL Hemoglobin A1c 7.0 H (0.0-6.0) % Procalcitonin 0.53 H (0.02-0.09) ng/mL 09/24/22 09/24/22 09/24/22 Range/Units 12:05 17:08 20:44 PT (9.0-12.0) sec INR (<1.2) POC Glucose (mg/dL) 213 H 239 H 186 H (70-110) mg/dL Hemoglobin A1c (0.0-6.0) % Procalcitonin (0.02-0.09) ng/mL 09/25/22 09/25/22 Range/Units 05:49 07:06 PT 36.9 H (9.0-12.0) sec INR 3.8 H (<1.2) POC Glucose (mg/dL) 143 H (70-110) mg/dL Hemoglobin A1c (0.0-6.0) % Procalcitonin (0.02-0.09) ng/mL Assessment and Plan Assessment: Chronic diastolic dysfunction without heart failure, proBNP within normal limits and negative chest x-ray for heart failure Hypercoagulopathy secondary to Coumadin Atrial fibrillation COPD exacerbation Diabetes Coronary artery disease Pulmonary hypertension Hypertension Dyslipidemia Plan: Titrate oxygen down as tolerated Continue with oral Lasix BMP pending today Obtain BMP tomorrow morning Hold Coumadin today and recheck INR, pharmacy dosing Continue with telemetry monitoring Further recommendations to follow based upon clinical course Thank you kindly for this consultation. Nurse practitioner note has been reviewed, I agree with documented findings and plan of care. Patient was seen and examined.
--- NOTE | 2022-09-25 12:21 | CA ---
Transthoracic Echo Report Name: Coy Buitrago Age: 77 Gender: M : 1945 Exam Date: 09/24/2022 16:32 Exam Location: [place] [facility] Ht (in): 67 Wt (lb): 250 Ordering Physician: Mariluz Pineda Attending/Referring Phys: Edwin Mcgraw;[id number] [employer] Mariella Garrison RDCS Procedure CPT: Indications: chf Cardiac Hx: Technical Quality: Good Contrast 1: Total Dose (mL): Contrast 2: Total Dose (mL): MEASUREMENTS (Male / Female) Normal Values 2D ECHO LV Diastolic Diameter PLAX 4.7 cm 4.2 - 5.9 / 3.9 - 5.3 cm LV Systolic Diameter PLAX 3.3 cm IVS Diastolic Thickness 1.6 cm 0.6 - 1.0 / 0.6 - 0.9 cm LVPW Diastolic Thickness 1.6 cm 0.6 - 1.0 / 0.6 - 0.9 cm LV Relative Wall Thickness 0.7 RV Internal Dim ED PLAX 3.3 cm LVOT Diameter 2.3 cm LA Systolic Diameter LX 3.7 cm 3.0 - 4.0 / 2.7 - 3.8 cm LV Diastolic Volume MOD BP 58.9 cm??? 67 - 155 / 56 - 104 cm??? LV Systolic Volume MOD BP 35.5 cm??? 22 - 58 / 19 - 49 cm??? LV Ejection Fraction MOD BP 39.7 % >= 55 % LV Diastolic Volume MOD 4C 77.0 cm??? LV Systolic Volume MOD 4C 44.2 cm??? LV Ejection Fraction MOD 4C 42.6 % LV Diastolic Length 4C 7.3 cm LV Systolic Length 4C 6.1 cm LV Diastolic Volume MOD 2C 44.7 cm??? LV Systolic Volume MOD 2C 28.1 cm??? LV Ejection Fraction MOD 2C 37.1 % LV Diastolic Length 2C 6.9 cm LV Systolic Length 2C 5.7 cm LA Volume 63.7 cm??? 18 - 58 / 22 - 52 cm??? M-MODE Aortic Root Diameter MM 3.9 cm MV E Point Septal Separation 1.1 cm AV Cusp Separation MM 1.4 cm DOPPLER AV Peak Velocity 232.6 cm/s AV Peak Gradient 21.6 mmHg AV Mean Velocity 160.6 cm/s AV Mean Gradient 11.6 mmHg AV Velocity Time Integral 46.3 cm LVOT Peak Velocity 108.1 cm/s LVOT Peak Gradient 4.7 mmHg AV Area Cont Eq pk 1.9 cm??? MV Area PHT 4.3 cm??? MV Deceleration Time 199.6 ms TR Peak Velocity 296.7 cm/s TR Peak Gradient 35.2 mmHg Right Ventricular Systolic Press 39.7 mmHg FINDINGS Left Ventricle Left ventricular ejection fraction is estimated at 40-45 %. Moderately increased septal wall thickness. Moderately decreased left ventricular ejection fraction. Moderate concentric left ventricular hypertrophy. Right Ventricle Mild right ventricular dilatation. Mild pulmonary hypertension. Mildly reduced right ventricular global systolic function. Right Atrium Normal right atrial size. Left Atrium Mildly increased left atrial volume. Mildly increased left atrial area. Mitral Valve Mitral valve thickened. Mild mitral annular calcification. Aortic Valve Trileaflet aortic valve. Aortic valve sclerosis. Mild aortic stenosis with a peak gradient of 22 mmHg and a mean gradient of 11 mmHg. Tricuspid Valve Structurally normal tricuspid valve. Mild tricuspid regurgitation. Pulmonic Valve Structurally normal pulmonic valve. No pulmonic regurgitation. Pericardium Normal pericardium. No pericardial effusion. Aorta Mild aortic dilatation at the level of the sinuses of valsalva 39 mm CONCLUSIONS LV systolic dysfunction with an ejection fraction of 45% Mild aortic stenosis Dilated aortic root measuring 3.9 cm Previewed by: Dr. Luis M Stoddard MD (Electronically Signed) Final Date: 25 September 2022 12:20
[2022-09-25 12:37] LABS: African American GFR (CKD) 32 (>60 ml/min/1.73 sqM); Anion Gap 11 mmol/L; Blood Urea Nitrogen 43 mg/dL (9-20); Calcium 9.1 mg/dL (8.4-10.2); Carbon Dioxide 30 mmol/L (22-30); Chloride 95 mmol/L (98-107); Glucose 225 mg/dL (74-99); Non-African American GFR(CKD) 28 (>60 ml/min/1.73 sqM); Potassium 3.9 mmol/L (3.5-5.1); Sodium 136 mmol/L (137-145)
[2022-09-25 12:38] LABS: Glucose,Whole Blood 205 mg/dL (70-110)
--- NOTE | 2022-09-25 12:51 | P.PN ---
Subjective Progress Note Date: 09/25/22 This a pleasant 77-year-old male patient with a history of hypertension, hyperlipidemia, diabetes mellitus, atrial fibrillation anticoagulated with warfarin, depression, gout, chronic kidney disease, former smoker and quit 40 years ago. He is not on oxygen at home. He is not on inhalers at home. He a 3 month history of cold like symptoms with shortness of breath, cough, congestion and yellow phlegm. Stating it started in his sinuses and went to his lungs. He had not been seen by his PCP feeling that it would just resolve on its own. He presented here to the emergency room yesterday for the same. He initially required BiPAP support / and 75% FiO2 and was transitioned to 4 L nasal cannula. He is seen today in consultation on the regular medical floor. He is a 30 feeling quite a bit better. No worsening shortness of breath. He has a loose congested cough. No fever or chills. Chest x-ray reveals no acute pulmonary process. White count 16.2. Hemoglobin 14.5. INR 4.8. Sodium 138. Potassium 4.6. Bicarb 30. BUN 29. Creatinine 2.20. Glucose 196. ProBNP 776. Troponin negative 1. Influenza screen negative. RSV screen negative. COVID- 19 screen negative. His been initiated on Symbicort, albuterol, IV diuretics. Normal saline at [facility]. The patient is seen today 09/25/2022 in follow-up on the regular medical floor. He is currently in a chair at the bedside. Awake and alert in no acute distress. He is breathing easier today compared to yesterday. Still some faint crackles in the posterior bases. Maintaining O2 saturations in the 90s on 3 L/m per nasal cannula. Afebrile. Hemodynamically stable. Echocardiogram reveals impaired left ventricular systolic function with ejection fraction 40-45%. Mild aortic stenosis. He is continued on oral diuretics. Anticoagulated with warfarin. Sodium 136. Potassium 3.9. Bicarb 30. BUN 43. Creatinine 2.20. INR 3.8. ProBNP 3190. Objective - Vital Signs Vital signs: Vital Signs Temp 98.1 F 09/25/22 07:11 Pulse 84 09/25/22 08:55 Resp 19 09/25/22 08:00 BP 113/77 09/25/22 07:11 Pulse Ox 94 L 09/25/22 08:32 FiO2 50 09/23/22 23:27 Intake & Output 09/24/22 09/25/22 09/25/22 18:59 06:59 18:59 Output Total 300 Balance -300 Weight 113.398 kg 103.646 kg Output: Urine 300 Other: Voiding Method Indwelling Catheter Indwelling Catheter Indwelling Catheter # Voids 6 2 # Bowel Movements 1 - Exam GENERAL EXAM: Alert, pleasant 77-year-old male, up in a chair at the bedside, on 3 L nasal cannula, comfortable in no apparent distress. HEAD: Normocephalic. EYES: Normal reaction of pupils, equal size. NOSE: Clear with pink turbinates. THROAT: No erythema or exudates. NECK: No masses, no JVD. CHEST: No chest wall deformity. LUNGS: Equal air entry with crackles in the posterior bases. CVS: S1 and S2 normal with no audible murmur, regular rhythm. ABDOMEN: No hepatosplenomegaly, normal bowel sounds, no guarding or rigidity. SPINE: No scoliosis or deformity SKIN: No rashes CENTRAL NERVOUS SYSTEM: No focal deficits, tone is normal in all 4 extremities. EXTREMITIES: There is no peripheral edema. No clubbing, no cyanosis. Peripheral pulses are intact. - Labs CBC & Chem 7: 09/23/22 22:28 09/25/22 11:52 Labs: Abnormal Lab Results - Last 24 Hours (Table) 09/24/22 09/24/22 09/24/22 Range/Units 09:19 11:41 11:41 PT 47.7 H (9.0-12.0) sec INR 4.8 H (<1.2) Sodium (137-145) mmol/L Chloride (98-107) mmol/L BUN (9-20) mg/dL Creatinine (0.66-1.25) mg/dL Glucose (74-99) mg/dL POC Glucose (mg/dL) (70-110) mg/dL Hemoglobin A1c 7.0 H (0.0-6.0) % Procalcitonin 0.53 H (0.02-0.09) ng/mL 09/24/22 09/24/22 09/25/22 Range/Units 17:08 20:44 05:49 PT 36.9 H (9.0-12.0) sec INR 3.8 H (<1.2) Sodium (137-145) mmol/L Chloride (98-107) mmol/L BUN (9-20) mg/dL Creatinine (0.66-1.25) mg/dL Glucose (74-99) mg/dL POC Glucose (mg/dL) 239 H 186 H (70-110) mg/dL Hemoglobin A1c (0.0-6.0) % Procalcitonin (0.02-0.09) ng/mL 09/25/22 09/25/22 09/25/22 Range/Units 07:06 11:52 12:37 PT (9.0-12.0) sec INR (<1.2) Sodium 136 L (137-145) mmol/L Chloride 95 L (98-107) mmol/L BUN 43 H (9-20) mg/dL Creatinine 2.20 H (0.66-1.25) mg/dL Glucose 225 H (74-99) mg/dL POC Glucose (mg/dL) 143 H 205 H (70-110) mg/dL Hemoglobin A1c (0.0-6.0) % Procalcitonin (0.02-0.09) ng/mL Assessment and Plan Assessment: Acute hypoxemic respiratory failure secondary to systolic congestive heart failure. Echocardiogram reveals impaired left ventricular systolic function with ejection fraction 40-45% Former smoker however quit 40 years ago. On no inhalers or oxygen at home History of atrial fibrillation anticoagulated with warfarin, supra therapeutic Acute on chronic kidney disease Diabetes mellitus Hypertension Hyperlipidemia History of gout Plan: The patient was seen and evaluated Echocardiogram, labs and medications reviewed Titrate down the FiO2 as tolerated Continue diuretics Continue bronchodilators Home once cleared by cardiology I have personally seen and examined the patient, performed the documentation and the assessment and plan as written. Number of minutes spent on the visit: 10.
--- NOTE | 2022-09-25 13:04 | XR ---
EXAMINATION TYPE: XR chest 1V portable DATE OF EXAM: 09/25/2022 COMPARISON: 09/23/2022 HISTORY: CHF. TECHNIQUE: Single frontal view of the chest is obtained. FINDINGS: There is no focal air space opacity, pleural effusion, or pneumothorax seen. The cardiac silhouette size is within normal limits. The osseous structures are intact. IMPRESSION: No acute process.
--- NOTE | 2022-09-25 14:26 | PN ---
PROGRESS NOTE DATE OF SERVICE: 09/25/2022 SUBJECTIVE: This 77-year-old gentleman was admitted with COPD exacerbation, also being evaluated for CHF. The patient was closely monitored, the patient on bronchodilators and INR 3.8, and blood sugar is also being monitored. PAST MEDICAL HISTORY: Reviewed. REVIEW OF SYSTEMS: A 14-point review is negative except as mentioned earlier. OBJECTIVE: VITAL SIGNS: Pulse is 72, blood pressure 130/70, respirations 19. HEENT: Conjunctivae normal. CARDIOVASCULAR: S1, S2. RESPIRATIONS: Few scattered rhonchi. ABDOMEN: Soft. NERVOUS SYSTEM: No focal deficits. LABORATORY DATA: Noted. Chest x-ray reviewed personally. ASSESSMENT: 1. Chronic obstructive pulmonary disease acute exacerbation. 2. Possible congestive heart failure acute exacerbation. 3. Chronic kidney disease stage 3. 4. Atrial fibrillation. 5. Diabetes mellitus, type 2. 6. Multiple medical issues. RECOMMENDATIONS: Recommended to continue current management, continue symptomatic treatment, continue with bronchodilators. The patient has also received Lasix. The overall prognosis is extremely guarded. The patient is on intensive bronchodilator treatment. Please change to full admit because the patient will require intensive treatment for more than 24 hours in the hospital. Prognosis guarded. See orders for further details. We will repeat a chest x-ray today. MMODL / IJN: [id number] /
[2022-09-25 17:22] LABS: Glucose,Whole Blood 71 mg/dL (70-110)
[2022-09-25] MEDS ORDERED: WARFARIN 0.5 MG TAB PO ONE (18:00)
[2022-09-25 20:03] LABS: Glucose,Whole Blood 97 mg/dL (70-110)
[2022-09-25] MEDS: ATORVASTATIN 20 MG TAB PO SCH (20:27)
[2022-09-25] MEDS: LINAGLIPTIN 5 MG TABLET PO SCH (20:27)
[2022-09-25] MEDS: allopurinoL 300 MG TAB PO SCH (20:27)
[2022-09-25] MEDS: MAGNESIUM OXIDE 400 MG TAB PO SCH (20:27)
[2022-09-26] MEDS: SODIUM CHLORIDE 0.9% 1,000 ML IV SCH ×2 (04:35→20:30)
[2022-09-26 06:34] LABS: INR 2.9 (<1.2); Prothrombin Time 28.1 sec (9.0-12.0)
[2022-09-26 07:35] LABS: Glucose,Whole Blood 64 mg/dL (70-110)
[2022-09-26 07:40] LABS: Glucose,Whole Blood 76 mg/dL (70-110)
[2022-09-26] MEDS: INSULIN ASPART (NovoLOG) 100 UNIT/ML VIAL SQ SCH ×4 (07:47→20:25)
[2022-09-26] MEDS: ALBUTEROL NEBULIZED 2.5 MG/3 ML INHALATION SCH ×3 (08:13→19:55)
[2022-09-26] MEDS: IPRATROPIUM 0.5 MG/2.5 ML NEBU INHALATION SCH ×3 (08:14→19:56)
[2022-09-26] MEDS: SYMBICORT 160-4.5 MCG INHALER INHALATION SCH ×2 (08:14→19:56)
[2022-09-26] MEDS: CHOLECALCIFEROL 25 MCG (1000 IU) TABLET PO SCH (08:22)
[2022-09-26] MEDS: FUROSEMIDE 40 MG TAB PO SCH (08:23)
[2022-09-26] MEDS: CARBIDOPA-LEVODOPA 25-100 MG 1 EACH TAB PO SCH ×2 (08:23→20:29)
[2022-09-26] MEDS: GLIMEPIRIDE 4 MG TAB PO SCH (08:23)
[2022-09-26] MEDS: ESCITALOPRAM 10 MG TAB PO SCH (08:23)
[2022-09-26] MEDS: atenoloL 25 MG TAB PO SCH (08:23)
--- NOTE | 2022-09-26 10:57 | P.PN ---
Subjective Progress Note Date: 09/26/22 This a pleasant 77-year-old male patient with a history of hypertension, hyperlipidemia, diabetes mellitus, atrial fibrillation anticoagulated with warfarin, depression, gout, chronic kidney disease, former smoker and quit 40 years ago. He is not on oxygen at home. He is not on inhalers at home. He a 3 month history of cold like symptoms with shortness of breath, cough, congestion and yellow phlegm. Stating it started in his sinuses and went to his lungs. He had not been seen by his PCP feeling that it would just resolve on its own. He presented here to the emergency room yesterday for the same. He initially required BiPAP support / and 75% FiO2 and was transitioned to 4 L nasal cannula. He is seen today in consultation on the regular medical floor. He is a 30 feeling quite a bit better. No worsening shortness of breath. He has a loose congested cough. No fever or chills. Chest x-ray reveals no acute pulmonary process. White count 16.2. Hemoglobin 14.5. INR 4.8. Sodium 138. Potassium 4.6. Bicarb 30. BUN 29. Creatinine 2.20. Glucose 196. ProBNP 776. Troponin negative 1. Influenza screen negative. RSV screen negative. COVID- 19 screen negative. His been initiated on Symbicort, albuterol, IV diuretics. Normal saline at [facility]. The patient is seen today 09/25/2022 in follow-up on the regular medical floor. He is currently in a chair at the bedside. Awake and alert in no acute distress. He is breathing easier today compared to yesterday. Still some faint crackles in the posterior bases. Maintaining O2 saturations in the 90s on 3 L/m per nasal cannula. Afebrile. Hemodynamically stable. Echocardiogram reveals impaired left ventricular systolic function with ejection fraction 40-45%. Mild aortic stenosis. He is continued on oral diuretics. Anticoagulated with warfarin. Sodium 136. Potassium 3.9. Bicarb 30. BUN 43. Creatinine 2.20. INR 3.8. ProBNP 3190. Medication seen today 09/26/2022 in follow-up on the regular medical floor. Currently sitting up in chair at the bedside. Awake and alert in no acute distress. He is feeling better today compared to yesterday. Continue O2 saturations up to 99% on 2 L nasal cannula. Afebrile. Follow-up chest x-ray reveals no acute process. INR 2.9. Glucose 76. He remains on Symbicort, a lbuterol, Atrovent. Warfarin per pharmacy dosing. He remains on oral diuretics. Objective - Vital Signs Vital signs: Vital Signs Temp 97.5 F L 09/26/22 07:16 Pulse 70 09/26/22 07:16 Resp 16 09/26/22 07:16 BP 143/88 09/26/22 07:16 Pulse Ox 99 09/26/22 08:14 FiO2 50 09/23/22 23:27 Intake & Output 09/25/22 09/26/22 09/26/22 18:59 06:59 18:59 Output Total 300 Balance -300 Weight 103.476 kg Output: Urine 300 Other: Voiding Method Indwelling Catheter Indwelling Catheter # Voids 3 3 - Exam GENERAL EXAM: Alert, pleasant 77-year-old male, up in a chair, on 2 L nasal cannula, comfortable in no apparent distress. HEAD: Normocephalic. EYES: Normal reaction of pupils, equal size. NOSE: Clear with pink turbinates. THROAT: No erythema or exudates. NECK: No masses, no JVD. CHEST: No chest wall deformity. LUNGS: Equal air entry with no crackles, wheeze or rhonchi. CVS: S1 and S2 normal with no audible murmur, regular rhythm. ABDOMEN: No hepatosplenomegaly, normal bowel sounds, no guarding or rigidity. SPINE: No scoliosis or deformity SKIN: No rashes CENTRAL NERVOUS SYSTEM: No focal deficits, tone is normal in all 4 extremities. EXTREMITIES: There is no peripheral edema. No clubbing, no cyanosis. Peripheral pulses are intact. - Labs CBC & Chem 7: 09/23/22 22:28 09/25/22 11:52 Labs: Abnormal Lab Results - Last 24 Hours (Table) 09/25/22 09/25/22 09/26/22 Range/Units 11:52 12:37 06:00 PT 28.1 H (9.0-12.0) sec INR 2.9 H (<1.2) Sodium 136 L (137-145) mmol/L Chloride 95 L (98-107) mmol/L BUN 43 H (9-20) mg/dL Creatinine 2.20 H (0.66-1.25) mg/dL Glucose 225 H (74-99) mg/dL POC Glucose (mg/dL) 205 H (70-110) mg/dL 09/26/22 Range/Units 07:14 PT (9.0-12.0) sec INR (<1.2) Sodium (137-145) mmol/L Chloride (98-107) mmol/L BUN (9-20) mg/dL Creatinine (0.66-1.25) mg/dL Glucose (74-99) mg/dL POC Glucose (mg/dL) 64 L (70-110) mg/dL Assessment and Plan Assessment: Acute hypoxemic respiratory failure secondary to systolic congestive heart failure. Echocardiogram reveals impaired left ventricular systolic function with ejection fraction 40-45% Former smoker however quit 40 years ago. On no inhalers or oxygen at home History of atrial fibrillation anticoagulated with warfarin, supra therapeutic INR, improved and currently 2.9 Acute on chronic kidney disease Diabetes mellitus Hypertension Hyperlipidemia History of gout Plan: The patient was seen and evaluated Labs and medications reviewed Titrate down the FiO2 as tolerated Evaluate for possible home oxygen Continue diuretics Continue bronchodilators Home once cleared by cardiology I have personally seen and examined the patient, performed the documentation and the assessment and plan as written. Number of minutes spent on the visit: 10.
--- NOTE | 2022-09-26 12:03 | P.PN ---
Subjective Progress Note Date: 09/26/22 This pleasant 77-year-old man is seen today resting comfortably in the chair in no signs of acute distress. He denies increased shortness of breath or chest pain/pressure. He remains on 2 L oxygen nasal cannula and does not wear any oxygen at home. He is again titrated down on his oxygen. Hopefully he'll be transitioned to room air today. He remains in atrial fibrillation on the monitor. INR was 2.9. He is on Coumadin. Pharmacy is dosing. Anticipating possible discharge in the next 24 hours. Objective - Vital Signs Vital signs: Vital Signs Temp 97.5 F L 09/26/22 07:16 Pulse 70 09/26/22 07:16 Resp 16 09/26/22 07:16 BP 143/88 09/26/22 07:16 Pulse Ox 99 09/26/22 08:14 FiO2 50 09/23/22 23:27 Intake & Output 09/25/22 09/26/22 09/26/22 18:59 06:59 18:59 Output Total 300 Balance -300 Weight 103.476 kg Output: Urine 300 Other: Voiding Method Indwelling Catheter Indwelling Catheter # Voids 3 3 - Exam Gen: This is a 77-year-old obese male. He is resting in bed and appears to be comfortable and in no acute distress VS: reviewed HEENT: Head is atraumatic, normocephalic. Pupils equal, round. Sclerae is an icteric. NECK: Supple. No JVD. . LUNGS: Diminished breath sounds No intercostal retractions. HEART: Regular rate and rhythm. No murmur. ABDOMEN: Soft No tenderness. EXTREMITIES: Trace bilateral pedal edema. No calf tenderness. NEUROLOGICAL: Patient is awake, alert and oriented x3. - Labs CBC & Chem 7: 09/23/22 22:28 09/25/22 11:52 Labs: Abnormal Lab Results - Last 24 Hours (Table) 09/25/22 09/25/22 09/26/22 Range/Units 11:52 12:37 06:00 PT 28.1 H (9.0-12.0) sec INR 2.9 H (<1.2) Sodium 136 L (137-145) mmol/L Chloride 95 L (98-107) mmol/L BUN 43 H (9-20) mg/dL Creatinine 2.20 H (0.66-1.25) mg/dL Glucose 225 H (74-99) mg/dL POC Glucose (mg/dL) 205 H (70-110) mg/dL 09/26/22 Range/Units 07:14 PT (9.0-12.0) sec INR (<1.2) Sodium (137-145) mmol/L Chloride (98-107) mmol/L BUN (9-20) mg/dL Creatinine (0.66-1.25) mg/dL Glucose (74-99) mg/dL POC Glucose (mg/dL) 64 L (70-110) mg/dL Assessment and Plan Assessment: Chronic diastolic dysfunction without heart failure, proBNP within normal limits and negative chest x-ray for heart failure Hypercoagulopathy secondary to Coumadin Atrial fibrillation COPD exacerbation Diabetes Coronary artery disease Pulmonary hypertension Hypertension Dyslipidemia Plan: Titrate oxygen down as tolerated to room air Continue with oral Lasix On Coumadin, pharmacy dosing Continue with telemetry monitoring Possible discharge in the next 24 hours Further recommendations to follow based upon clinical course Thank you kindly for this consultation. Nurse practitioner note has been reviewed, I agree with documented findings and plan of care. Patient was seen and examined.
[2022-09-26 12:13] LABS: Glucose,Whole Blood 134 mg/dL (70-110)
[2022-09-26 17:27] LABS: Glucose,Whole Blood 160 mg/dL (70-110)
[2022-09-26] MEDS ORDERED: WARFARIN 3 MG TAB PO ONE (18:00)
[2022-09-26 20:18] LABS: Glucose,Whole Blood 147 mg/dL (70-110)
[2022-09-26] MEDS: ATORVASTATIN 20 MG TAB PO SCH (20:26)
[2022-09-26] MEDS: allopurinoL 300 MG TAB PO SCH (20:26)
[2022-09-26] MEDS: MAGNESIUM OXIDE 400 MG TAB PO SCH (20:26)
[2022-09-26] MEDS: LINAGLIPTIN 5 MG TABLET PO SCH (20:26)
--- NOTE | 2022-09-27 03:15 | PN ---
PROGRESS NOTE DATE OF SERVICE: 09/25/2022 SUBJECTIVE: This is a 77-year-old gentleman, who was admitted with COPD acute exacerbation as well as possible CHF acute exacerbation, is being closely monitored at this time. The most recent chest x-ray was reviewed personally by me. No chest pain. No palpitation. OBJECTIVE: VITAL SIGNS: Pulse 70, blood pressure 143/80, respirations 16. CHEST: A few scattered rhonchi. ABDOMEN: Soft. NERVOUS SYSTEM: Nonfocal. LABORATORY DATA: Reviewed. ASSESSMENT: 1. Chronic obstructive pulmonary disease acute exacerbation. 2. Possible congestive heart failure acute exacerbation. 3. Chronic kidney disease, stage 3. 4. Atrial fibrillation. 5. Diabetes mellitus, type 2. 6. Multiple medical issues. RECOMMENDATIONS: In this 77-year-old gentleman who presented with multiple complex medical issues. Continue the current medications, continue with intensive bronchodilator treatment and as well as continue with diuretics. Repeat labs. This patient needs more than 2 days hospitalization to optimize medical treatment. I put order for inpatient admission yesterday. At some point, the patient is still in observation, please note. MMODL / IJN: [id number] /
[2022-09-27 06:51] LABS: INR 2.2 (<1.2); Prothrombin Time 21.1 sec (9.0-12.0)
[2022-09-27 07:05] LABS: Glucose,Whole Blood 62 mg/dL (70-110)
[2022-09-27 07:20] VITALS: RESP 18
[2022-09-27] MEDS: INSULIN ASPART (NovoLOG) 100 UNIT/ML VIAL SQ SCH ×2 (07:24→12:31)
[2022-09-27 07:27] LABS: Glucose,Whole Blood 56 mg/dL (70-110)
[2022-09-27] MEDS: IPRATROPIUM 0.5 MG/2.5 ML NEBU INHALATION SCH ×2 (07:52→11:03)
[2022-09-27] MEDS: ALBUTEROL NEBULIZED 2.5 MG/3 ML INHALATION SCH ×2 (07:54→11:03)
[2022-09-27 07:55] LABS: Glucose,Whole Blood 66 mg/dL (70-110)
[2022-09-27] MEDS: SYMBICORT 160-4.5 MCG INHALER INHALATION SCH (08:03)
[2022-09-27 08:12] LABS: Glucose,Whole Blood 78 mg/dL (70-110)
[2022-09-27] MEDS: atenoloL 25 MG TAB PO SCH (08:57)
[2022-09-27] MEDS: CARBIDOPA-LEVODOPA 25-100 MG 1 EACH TAB PO SCH (08:57)
[2022-09-27] MEDS: GLIMEPIRIDE 4 MG TAB PO SCH (08:57)
[2022-09-27] MEDS: FUROSEMIDE 40 MG TAB PO SCH (08:57)
[2022-09-27] MEDS: ESCITALOPRAM 10 MG TAB PO SCH (08:57)
[2022-09-27] MEDS: CHOLECALCIFEROL 25 MCG (1000 IU) TABLET PO SCH (08:57)
--- NOTE | 2022-09-27 09:06 | P.PN ---
Subjective Progress Note Date: 09/27/22 HISTORY OF PRESENT ILLNESS: Patient examined this morning. Patient is sitting up in the chair. Patient denies chest pain or pressure. He denies shortness of breath. He remains on oral Lasix. INR is therapeutic. PHYSICAL EXAM: VITAL SIGNS: Reviewed. GENERAL: Well-developed in no acute distress. NECK: Supple. No JVD or thyromegaly LUNGS: Respirations even and unlabored. Lungs essentially clear to auscultation bilaterally. HEART: Irregular rate and rhythm. S1 and S2 heard. EXTREMITIES: Normal range of motion. No clubbing or cyanosis. Peripheral pul ses intact. No lower extremity edema ASSESSMENT: Chronic heart failure with preserved ejection fraction, currently euvolemic Coumadin coagulopathy, resolved Persistent atrial fibrillation, rate controlled Acute COPD exacerbation Coronary artery disease Pulmonary hypertension Hypertension Hyperlipidemia Diabetes PLAN: Continue current cardiac medications Continue anticoagulation with Coumadin Discontinue telemetry monitoring Patient is stable from a cardiac standpoint He is to follow up on an outpatient basis with Dr. Wilson We will sign off. Please reconsult if needed. Nurse practitioner note has been reviewed by physician. Signing provider agrees with the documented findings, assessment, and plan of care. Objective - Vital Signs Vital signs: Vital Signs Temp 97.5 F L 09/27/22 07:00 Pulse 64 09/27/22 07:00 Resp 18 09/27/22 07:00 BP 113/74 09/27/22 07:00 Pulse Ox 97 09/27/22 07:56 FiO2 21 09/27/22 07:56 Intake & Output 09/26/22 09/27/22 09/27/22 18:59 06:59 18:59 Intake Total 710 Balance 710 Weight 106.5 kg Intake: Oral 710 Other: Voiding Method Indwelling Catheter Indwelling Catheter # Voids 2 1 - Labs CBC & Chem 7: 09/23/22 22:28 09/25/22 11:52 Labs: Abnormal Lab Results - Last 24 Hours (Table) 09/26/22 09/26/22 09/26/22 Range/Units 12:12 17:25 20:17 PT (9.0-12.0) sec INR (<1.2) POC Glucose (mg/dL) 134 H 160 H 147 H (70-110) mg/dL 09/27/22 09/27/22 09/27/22 Range/Units 05:47 07:04 07:26 PT 21.1 H (9.0-12.0) sec INR 2.2 H (<1.2) POC Glucose (mg/dL) 62 L 56 L (70-110) mg/dL 09/27/22 Range/Units 07:53 PT (9.0-12.0) sec INR (<1.2) POC Glucose (mg/dL) 66 L (70-110) mg/dL
[2022-09-27 11:04] LABS: Glucose,Whole Blood 166 mg/dL (70-110)
--- NOTE | 2022-09-27 11:45 | P.PN ---
Subjective Progress Note Date: 09/27/22 This a pleasant 77-year-old male patient with a history of hypertension, hyperlipidemia, diabetes mellitus, atrial fibrillation anticoagulated with warfarin, depression, gout, chronic kidney disease, former smoker and quit 40 years ago. He is not on oxygen at home. He is not on inhalers at home. He a 3 month history of cold like symptoms with shortness of breath, cough, congestion and yellow phlegm. Stating it started in his sinuses and went to his lungs. He had not been seen by his PCP feeling that it would just resolve on its own. He presented here to the emergency room yesterday for the same. He initially required BiPAP support / and 75% FiO2 and was transitioned to 4 L nasal cannula. He is seen today in consultation on the regular medical floor. He is a 30 feeling quite a bit better. No worsening shortness of breath. He has a loose congested cough. No fever or chills. Chest x-ray reveals no acute pulmonary process. White count 16.2. Hemoglobin 14.5. INR 4.8. Sodium 138. Potassium 4.6. Bicarb 30. BUN 29. Creatinine 2.20. Glucose 196. ProBNP 776. Troponin negative 1. Influenza screen negative. RSV screen negative. COVID- 19 screen negative. His been initiated on Symbicort, albuterol, IV diuretics. Normal saline at [facility]. The patient is seen today 09/25/2022 in follow-up on the regular medical floor. He is currently in a chair at the bedside. Awake and alert in no acute distress. He is breathing easier today compared to yesterday. Still some faint crackles in the posterior bases. Maintaining O2 saturations in the 90s on 3 L/m per nasal cannula. Afebrile. Hemodynamically stable. Echocardiogram reveals impaired left ventricular systolic function with ejection fraction 40-45%. Mild aortic stenosis. He is continued on oral diuretics. Anticoagulated with warfarin. Sodium 136. Potassium 3.9. Bicarb 30. BUN 43. Creatinine 2.20. INR 3.8. ProBNP 3190. Medication seen today 09/26/2022 in follow-up on the regular medical floor. Currently sitting up in chair at the bedside. Awake and alert in no acute distress. He is feeling better today compared to yesterday. Continue O2 saturations up to 99% on 2 L nasal cannula. Afebrile. Follow-up chest x-ray reveals no acute process. INR 2.9. Glucose 76. He remains on Symbicort, a lbuterol, Atrovent. Warfarin per pharmacy dosing. He remains on oral diuretics. The patient is seen today 09/27/2022 in follow-up on the regular medical floor. Sitting up in the chair having breakfast. Awake and alert in no acute distress. Maintaining good O2 saturations in the 90s on room air. No IV fluids. He is continued on Symbicort, albuterol, Atrovent. Anticoagulated with warfarin. Remains on oral diuretics. Blood sugar 166. Objective - Vital Signs Vital signs: Vital Signs Temp 97.5 F L 09/27/22 07:00 Pulse 76 09/27/22 11:16 Resp 18 09/27/22 07:00 BP 113/74 09/27/22 07:00 Pulse Ox 96 09/27/22 10:21 FiO2 21 09/27/22 07:56 Intake & Output 09/26/22 09/27/22 09/27/22 18:59 06:59 18:59 Intake Total 710 Balance 710 Weight 106.5 kg Intake: Oral 710 Other: Voiding Method Indwelling Catheter Indwelling Catheter # Voids 2 1 - Exam GENERAL EXAM: Alert, pleasant 77-year-old male, up in a chair, on room air, comfortable in no apparent distress. HEAD: Normocephalic. EYES: Normal reaction of pupils, equal size. NOSE: Clear with pink turbinates. THROAT: No erythema or exudates. NECK: No masses, no JVD. CHEST: No chest wall deformity. LUNGS: Equal air entry with no crackles, wheeze or rhonchi. CVS: S1 and S2 normal with no audible murmur, regular rhythm. ABDOMEN: No hepatosplenomegaly, normal bowel sounds, no guarding or rigidity. SPINE: No scoliosis or deformity SKIN: No rashes CENTRAL NERVOUS SYSTEM: No focal deficits, tone is normal in all 4 extremities. EXTREMITIES: There is no peripheral edema. No clubbing, no cyanosis. Peripheral pulses are intact. - Labs CBC & Chem 7: 09/23/22 22:28 09/25/22 11:52 Labs: Abnormal Lab Results - Last 24 Hours (Table) 09/26/22 09/26/22 09/26/22 Range/Units 12:12 17:25 20:17 PT (9.0-12.0) sec INR (<1.2) POC Glucose (mg/dL) 134 H 160 H 147 H (70-110) mg/dL 09/27/22 09/27/22 09/27/22 Range/Units 05:47 07:04 07:26 PT 21.1 H (9.0-12.0) sec INR 2.2 H (<1.2) POC Glucose (mg/dL) 62 L 56 L (70-110) mg/dL 09/27/22 09/27/22 Range/Units 07:53 11:02 PT (9.0-12.0) sec INR (<1.2) POC Glucose (mg/dL) 66 L 166 H (70-110) mg/dL Assessment and Plan Assessment: Acute hypoxemic respiratory failure secondary to systolic congestive heart failure. Echocardiogram reveals impaired left ventricular systolic function with ejection fraction 40-45% Former smoker however quit 40 years ago. On no inhalers or oxygen at home History of atrial fibrillation anticoagulated with warfarin, supra therapeutic INR, improved and currently 2.2 Acute on chronic kidney disease Diabetes mellitus Hypertension Hyperlipidemia History of gout Plan: The patient was seen and evaluated Labs and medications reviewed Stable and on room air Continue diuretics Continue bronchodilators Home once cleared by cardiology I have personally seen and examined the patient, performed the documentation and the assessment and plan as written. Number of minutes spent on the visit: 10.
[2022-09-27 11:59] VITALS: BP 100/69; PULSE 67; TEMP 97.6
[2022-09-27] MEDS ORDERED: WARFARIN 3 MG TAB PO ONE (18:00)
[2022-09-28] MEDS ORDERED: NON FORMULARY DRUG (Warfarin Sodium [Warfarin Sodium] 4 MG Tablet) PO SCH (10:15)
--- NOTE | 2022-10-01 19:15 | P.DS ---
Providers Date of admission: 09/24/22 00:23 Expected date of discharge: 09/27/22 Attending physician: Breezy Aguilar Consults: 09/24/22 00:22 Consult Physician Routine Consulting Provider: Antonio Hudson Consult Reason/Comments: respiratory failure Do you want consulting provider notified?: Yes Primary care physician: Deloris Draper [facility] Course: Final diagnosis Chronic obstructive pulmonary disease acute exacerbation Acute hypoxic respiratory failure secondary to above Chronic congestive heart failure acute exacerbation Chronic kidney disease, stage III persistent Atrial fibrillation Diabetes mellitus, type II Obesity with a BMI of 36.8 Discharge disposition Patient is being discharged in a stable condition with guarded prognosis to home. Patient will follow-up with Dr. Draper in the outpatient setting upon discharge. Patient is to follow-up with pulmonary and cardiology in the outpatient setting as scheduled. Total time taken is greater than 35 minutes. Hospital course This is a 77-year-old male who was recently admitted with shortness of breath with acute exacerbation of COPD and being closely monitored with pulmonary and cardiology. Adjustments to medications have been made and patient will also be requiring 2 L of oxygen on discharge to manage his COPD. Patient has been cleared by consultations for discharge and will need close outpatient follow-up. Please refer to consultation notes for further HPI. Currently no reports of chest pain, shortness of breath, or palpitations. Patient is afebrile. No reports of nausea or vomiting and patient is tolerating diet. Patient will be discharged home today. Guarded prognosis. Physical exam: Gen: This is 77-year-old male who is awake, alert and oriented 3, well- developed, well-nourished, obese HEENT: Head is atraumatic, normocephalic. Pupils equal, round. Sclerae is anicteric. NECK: Supple. No JVD. No lymphadenopathy. No thyromegaly. LUNGS: Diminished breath sounds bilaterally with some faint crackles and rhonchi noted. No intercostal retractions. HEART: S1, S2 are muffled, irregular ABDOMEN: Soft. Bowel sounds are present. No masses. No tenderness. EXTREMITIES: No pedal edema. No calf tenderness. NEUROLOGICAL: Patient is awake, alert and oriented x3. Cranial nerves 2 through 12 are grossly intact. Please refer to medication reconciliation sheet for a list of medications. The impression and plan of care has been dictated by Henna Burden, Nurse Practitioner as directed. Dr. Emerson MD I have performed a history and examination and MDM of this patient, discussed the same with the dictator, and agree with the dictator's assessment and plan as written ,documented as a scribe. Based on total visit time, I have performed more than 50% of the visit. Patient Condition at Discharge: Fair Plan - Discharge Summary Discharge Rx Participant: Yes New Discharge Prescriptions: New Furosemide [Lasix] 40 mg PO DAILY #30 tab Ipratropium Nebulized [Atrovent Nebulized 0.2 MG/ML] 0.5 mg INHALATION RT-TID #90 each Ipratropium Nebulized [Atrovent Nebulized 0.2 MG/ML] 0.5 mg INHALATION RT-TID PRN ml PRN Reason: Shortness Of Breath Or Wheezing Budesonide-Formot 160-4.5 Mcg [Symbicort 160-4.5 Mcg Inhaler] 2 puff INHALATION RT-BID #1 each Albuterol Nebulized [Ventolin Nebulized] 2.5 mg INHALATION RT-TID PRN #60 each PRN Reason: Shortness Of Breath Or Wheezing Continue Carbidopa-Levodopa 25-100 mg [Sinemet 25-100 mg] 1 tab PO QAM allopurinoL [Zyloprim] 300 mg PO HS Glimepiride [Amaryl] 8 mg PO AC-BRKFST Escitalopram [Lexapro] 10 mg PO DAILY Atorvastatin [Lipitor] 20 mg PO HS sitaGLIPtin [Januvia] 50 mg PO HS Warfarin Sodium [Coumadin] 4 mg PO SUMOWETHFRSA Warfarin Sodium 6 mg PO TU calcitrioL [Calcitriol] 0.25 mcg PO TUSA atenoloL [Tenormin] 25 tab PO DAILY Magnesium Oxide [Magnesium] 500 mg PO HS Famotidine [Pepcid] 20 mg PO HS PRN PRN Reason: gerd Carbidopa-Levodopa 25-100 mg [Sinemet 25-100 mg] 1 tab PO HS Cholecalciferol (Vitamin D3) [Vitamin D3 (3000 Iu)] 75 mcg PO DAILY Discharge Medication List Carbidopa-Levodopa 25-100 mg [Sinemet 25-100 mg] 1 tab PO QAM 11/27/15 [History] allopurinoL [Zyloprim] 300 mg PO HS 11/27/15 [History] Atorvastatin [Lipitor] 20 mg PO HS 11/12/19 [History] Escitalopram [Lexapro] 10 mg PO DAILY 05/01/19 [History] Glimepiride [Amaryl] 8 mg PO AC-BRKFST 05/01/19 [History] Warfarin Sodium 6 mg PO TU 05/01/19 [History] Warfarin Sodium [Coumadin] 4 mg PO SUMOWE05/01/19 [History] atenoloL [Tenormin] 25 tab PO DAILY 05/01/19 [History] calcitrioL [Calcitriol] 0.25 mcg PO 05/01/19 [History] sitaGLIPtin [Januvia] 50 mg PO HS 05/01/19 [History] Carbidopa-Levodopa 25-100 mg [Sinemet 25-100 mg] 1 tab PO HS 09/24/22 [History] Cholecalciferol (Vitamin D3) [Vitamin D3 (3000 Iu)] 75 mcg PO DAILY 09/24/22 [History] Famotidine [Pepcid] 20 mg PO HS PRN 09/24/22 [History] Magnesium Oxide [Magnesium] 500 mg PO HS 09/24/22 [History] Albuterol Nebulized [Ventolin Nebulized] 2.5 mg INHALATION RT-TID PRN #60 each 09/27/22 [Rx] Budesonide-Formot 160-4.5 Mcg [Symbicort 160-4.5 Mcg Inhaler] 2 puff INHALATION RT-BID #1 each 09/27/22 [Rx] Furosemide [Lasix] 40 mg PO DAILY #30 tab 09/27/22 [Rx] Ipratropium Nebulized [Atrovent Nebulized 0.2 MG/ML] 0.5 mg INHALATION RT-TID #90 each 09/27/22 [Rx] Ipratropium Nebulized [Atrovent Nebulized 0.2 MG/ML] 0.5 mg INHALATION RT-TID PRN ml 09/27/22 [Rx] Follow up Appointment(s)/Referral(s): Antonio Hudson MD [STAFF PHYSICIAN] - 10/20/22 9:00 am () Edna Wilson MD [STAFF PHYSICIAN] - 10/05/22 2:00 pm (You will be seen at the [facility] on [address] Deloris Draper III, MD [Primary Care Provider] - 1 Week Ambulatory/Diagnostic Orders: Basic Metabolic Panel [LAB.AMB] Time Frame: 3 Days, Location: None Selected Patient Instructions/Handouts: Furosemide (By mouth), Albuterol (By breathing), Budesonide/Formoterol (By breathing), COPD (Chronic Obstructive Pulmonary Disease) (DC) Activity/Diet/Wound Care/Special Instructions: Activity is limited until follow-up Follow-up with pulmonary outpatient Follow-up with maintenance service dispatcher outpatient in 1-2 weeks Continue taking medications as prescribed Recommend repeat labs in the next few days Discharge Disposition: HOME SELF-CARE
== END 2022-09-27 14:03 | disposition home or self-care (01) | DRG 291 ==
LOC: EC 22:14 → 3SCARD 09-24 00:23 → OBSVTOIN 09-24 00:23 → 5NMEDONC 09-24 07:40
PROVIDERS: ADMIT Hospitalist; ATTEND Hospitalist
PROC: 5A09357 Assistance with Respiratory Ventilation, Less than 24 Consecutive Hours, Continuous Positive Airway Pressure (ICD-10-PCS; principal; 2022-09-24)
DX: I13.0 Hypertensive heart and chronic kidney disease with heart failure and stage 1 through stage 4 chronic kidney disease, or unspecified chronic kidney disease (principal); J96.01 Acute respiratory failure with hypoxia; I48.19 Other persistent atrial fibrillation; I50.42 Chronic combined systolic (congestive) and diastolic (congestive) heart failure; N17.9 Acute kidney failure, unspecified; J44.1 Chronic obstructive pulmonary disease with (acute) exacerbation; F41.9 Anxiety disorder, unspecified; M10.9 Gout, unspecified; I27.20 Pulmonary hypertension, unspecified; I45.10 Unspecified right bundle-branch block; E11.22 Type 2 diabetes mellitus with diabetic chronic kidney disease; I25.10 Atherosclerotic heart disease of native coronary artery without angina pectoris; N18.30 Chronic kidney disease, stage 3 unspecified; Z20.822 Contact with and (suspected) exposure to COVID-19; T45.515A Adverse effect of anticoagulants, initial encounter; R79.1 Abnormal coagulation profile; Z79.01 Long term (current) use of anticoagulants; Z79.82 Long term (current) use of aspirin; Z79.84 Long term (current) use of oral hypoglycemic drugs; Z79.899 Other long term (current) drug therapy; Z87.891 Personal history of nicotine dependence; Z88.0 Allergy status to penicillin
CPT/HCPCS: 36415; 71045; 80048; 80053; 83036; 83605; 83735; 83880; 84145; 84484; 85025; 85379; 85610; 85730; 87636; 93005; 93306; 94640; 94660; 94760; 96374; 96375; 99291

== ENCOUNTER 2022-10-08 02:31 | Observation (INO) | payer MEDICARE ==
[2022-10-08 02:37] LABS: Glucose,Whole Blood 72 mg/dL (70-110)
[2022-10-08 03:32] LABS: Basophils % (A) 0 %; Eosinophils # (A) 0.2 k/uL (0-0.7); Eosinophils % (A) 1 %; HCT 44.5 % (39.0-53.0); HGB 14.1 gm/dL (13.0-17.5); Lymphocytes # (A) 0.6 k/uL (1.0-4.8); Lymphocytes % (A) 5 %; MCH 30.1 pg (25.0-35.0); MCHC 31.8 g/dL (31.0-37.0); MCV 94.5 fL (80.0-100.0); Mean Platelet Volume 6.7; Monocytes # (A) 0.5 k/uL (0-1.0); Monocytes % (A) 4 %; Neutrophils # (A) 10.3 k/uL (1.3-7.7); Neutrophils % (A) 88 %; Platelet Count 401 k/uL (150-450); RDW 14.7 % (11.5-15.5); WBC 11.6 k/uL (3.8-10.6)
--- NOTE | 2022-10-08 03:35 | ED ---
General Adult HPI - General Chief complaint: Fall Stated complaint: Hypoglycemia Time Seen by Provider: 10/08/22 02:33 Source: patient, RN notes reviewed, old records reviewed Mode of arrival: EMS Limitations: no limitations - History of Present Illness Initial comments: Patient is a 77-year-old male with past medical history remarkable for diabetes, congestive heart failure, A. fib on Coumadin, hypertension who presents to the emergency department after being found down at home. Apparently patient rolled out of bed last night. Recently did stop taking Coumadin. Was found on the ground with a blood sugar in the 30s. EMS initially attempted to administer oral glucose but then they placed in IO in the left humerus as they were unable to obtain IV access. The patient with an amp of D50 and patient did improve in terms of his mental status. He is now alert and oriented 4. States he remembers going to bed last night but nothing else. His no other acute complaints at this time. Denies headache, blurry vision, shortness of breath, chest pain, abdominal pain, nausea, vomiting. Presents for further evaluation at this time. - Related Data Home Medications Medication Instructions Recorded Confirmed Carbidopa-Levodopa 25-100 mg 1 tab PO QAM 11/27/15 10/08/22 [Sinemet 25-100 mg] allopurinoL [Zyloprim] 300 mg PO HS 11/27/15 10/08/22 Atorvastatin [Lipitor] 20 mg PO HS 05/01/19 10/08/22 Escitalopram [Lexapro] 10 mg PO DAILY 05/01/19 10/08/22 Glimepiride [Amaryl] 8 mg PO AC-BRKFST 05/01/19 10/08/22 calcitrioL [Calcitriol] 0.25 mcg PO TUSA 05/01/19 10/08/22 sitaGLIPtin [Januvia] 50 mg PO HS 05/01/19 10/08/22 Carbidopa-Levodopa 25-100 mg 1 tab PO HS 09/24/22 10/08/22 [Sinemet 25-100 mg] Cholecalciferol (Vitamin D3) 75 mcg PO DAILY 09/24/22 10/08/22 [Vitamin D3 (3000 Iu)] Famotidine [Pepcid] 20 mg PO HS PRN 09/24/22 10/08/22 Magnesium Oxide [Magnesium] 500 mg PO HS 09/24/22 10/08/22 Amiodarone [Cordarone] 200 mg PO DAILY 10/08/22 10/08/22 Metoprolol Tartrate [Lopressor] 50 mg PO BID 10/08/22 10/08/22 Rivaroxaban [Xarelto] 20 mg PO DAILY 10/08/22 10/08/22 Previous Rx's Medication Instructions Recorded Albuterol Nebulized [Ventolin 2.5 mg INHALATION RT-TID PRN #60 09/27/22 Nebulized] each Budesonide-Formot 160-4.5 Mcg 2 puff INHALATION RT-BID #1 each 09/27/22 [Symbicort 160-4.5 Mcg Inhaler] Furosemide [Lasix] 40 mg PO DAILY #30 tab 09/27/22 Ipratropium Nebulized [Atrovent 0.5 mg INHALATION RT-TID #90 each 09/27/22 Nebulized 0.2 MG/ML] Ipratropium Nebulized [Atrovent 0.5 mg INHALATION RT-TID PRN ml 09/27/22 Nebulized 0.2 MG/ML] Allergies Allergy/AdvReac Type Severity Reaction Status Date / Time Penicillins Allergy Unknown Verified 10/08/22 03:01 Review of Systems ROS Statement: Those systems with pertinent positive or pertinent negative responses have been documented in the HPI. Review of Systems: CONST: Denies fever EYES: Denies blurry vision ENT: Denies nasal congestion C/V: Denies Chest pain RESP: Denies shortness of breath GI: Denies abdominal pain : Denies dysuria SKIN: Denies rash. MSK: Denies joint pain. NEURO: Denies headache ROS Other: All systems not noted in ROS Statement are negative. Past Medical History Past Medical History: Atrial Fibrillation, Diabetes Mellitus, GERD/Reflux, Hyperlipidemia, Hypertension, Renal Disease Additional Past Medical History / Comment(s): states positive cologaurd, KIDNEY DISEASE- GOUT, past hx PROBLEM SWALLOWING History of Any Multi-Drug Resistant Organisms: None Reported Past Surgical History: No Surgical Hx Reported, Hernia Repair Additional Past Surgical History / Comment(s): cataract kaila with lens implant Past Anesthesia/Blood Transfusion Reactions: No Reported Reaction Past Psychological History: Anxiety Smoking Status: Former smoker Past Alcohol Use History: Occasional Past Drug Use History: None Reported - Past Family History Mother Family Medical History: No Reported History General Exam - General Exam Comments Initial Comments: General: Appears in no acute distress. HEAD: Normal with no signs of head trauma. Negative negrete sign. Negative raccoon eyes. EYES: PERRLA, EOMI, conjunctiva normal, no discharge. Pupils are 3 mm equal bilaterally. ENT: Hearing grossly intact, normal oropharynx. RESPIRATORY: Clear breath sounds bilaterally. No wheezes, rales, or rhonchi. C/V: Regular rate and rhythm. S1 and S2 auscultated, mild bilateral lower extremity pitting edema which is significantly improved per patient., peripheral pulses 2+ and intact throughout ABD: Abd is soft, nontender, nondistended EXT: Normal range of motion, no obvious deformity. Pelvis is stable. No midline cervical, thoracic, lumbar spine tenderness to palpation. SKIN: Patient has a left humeral IO line. NEURO: Alert and oriented x 4. Cranial nerves II-XII intact. No focal sensory or strength deficits. Limitations: no limitations Course Vital Signs 10/08/22 10/08/22 10/08/22 02:40 05:00 07:00 Temperature 96.8 F L Pulse Rate 86 73 80 Respiratory 16 16 16 Rate Blood Pressure 122/75 121/82 114/82 O2 Sat by Pulse 93 L 95 97 Oximetry 10/08/22 07:52 Temperature Pulse Rate 77 Respiratory 18 Rate Blood Pressure 111/75 O2 Sat by Pulse 98 Oximetry Medical Decision Making - Medical Decision Making Was pt. sent in by a medical professional or institution (, PA, WAIT STAFF, urgent care, hospital, or shelter...) When possible be specific @ -No Did you speak to anyone other than the patient for history (EMS, parent, family, police, friend...)? What history was obtained from this source @ -No Did you review nursing and triage notes (agree or disagree)? Why? @ -I reviewed and agree with nursing and triage notes Were old charts reviewed (outside hosp., previous admission, EMS record, old EKG, old radiological studies, urgent care reports/EKG's, shelter records)? Report findings @ -Old charts, EKG reviewed from September 2022 Differential Diagnosis (chest pain, altered mental status, abdominal pain women, abdominal pain men, vaginal bleeding, weakness, fever, dyspnea, syncope, headache, dizziness, GI bleed, back pain, seizure, CVA, palpatations, mental health, musculoskeletal)? @ -Differential Altered Mental Status: Hypoglycemia, DKA, hypercapnia, ETOH, overdose, CO poisoning, trauma, myxedema coma, HTN encephalopathy, infection, encephalitis, psychosis, intercranial hemorrhage, hepatic encephalopathy, meningitis, CVA, this is not meant to be an all-inclusive list EKG interpreted by me (3pts min.). @ -As above X-rays interpreted by me (1pt min.). @ -Chest x-ray reveals no obvious acute pulmonary process. CT interpreted by me (1pt min.). @ -CT brain reveals no obvious acute intracranial injury. U/S interpreted by me (1pt. min.). @ -None done What testing was considered but not performed or refused? (CT, X-rays, U/S, labs)? Why? @ -None What meds were considered but not given or refused? Why? @ -None Did you discuss the management of the patient with other professionals (professionals i.e. , PA, WAIT STAFF, lab, RT, psych nurse, director social welfare, car sales consultant, teacher, electorate officer, casework supervisor)? Give summary @ -Discussed with ZACHARY Pugh of [facility] who accepted the patient. Was smoking cessation discussed for >3mins.? @ -No Was critical care preformed (if so, how long)? @ -No Were there social determinants of health that impacted care today? How? (H omelessness, low income, unemployed, alcoholism, drug addiction, transportation, low edu. Level, literacy, decrease access to med. care, nursing home, rehab)? @ -No Was there de-escalation of care discussed even if they declined (Discuss DNR or withdrawal of care, Hospice)? DNR status @ -No What co-morbidities impacted this encounter? (DM, HTN, Smoking, COPD, CAD, Cancer, CVA, ARF, Chemo, Hep., AIDS, mental health diagnosis, sleep apnea, morbid obesity)? @ -Diabetes Was patient admitted / discharged? Hospital course, mention meds given and route, prescriptions, significant lab abnormalities, going to OR and other pertinent info. @ -Based on the patient's presentation and physical exam, appears he had a altered mental status episode at home as well as a fall potentially on thinners. Altered mental status likely secondary to hypoglycemic episode. Patient is not on sulfonylureas. Did recover once given an amp of D50. We will obtain altered mental status labs, monitor his blood sugar, as well as obtain a CT brain, a cardiac screening labs including EKG, chest x-ray. He was in agreement with this plan. Vital signs within acceptable limits. Patient does not meet criteria for trauma activation as he was not a fall above ground-level with questionable blood thinners. Altered mental status was secondary to the hypoglycemia which is now resolved. Patient's imaging is unremarkable. EKG within acceptable limits. Patient has a supratherapeutic INR of 6.9. Mild leukocytosis of 11.6. History of CK D within his normal baseline range. Repeat Accu-Chek show adequate blood glucose levels. Remainder of the workup is unremarkable. At this time I did discuss the findings with the patient. He is feeling improved. Remains alert and oriented. I believe it is best to admit him to the hospital, considering he is on blood thinners with a supratherapeutic INR and is a fall risk considering he had the hypoglycemic episode at home. He was in agreement this plan. Patient currently has no evidence of bleeding at this time and therefore we'll not treat his supratherapeutic INR. We will hold his Coumadin. I did speak with the admitting team, Lexy STERN accepted the patient. Patient admitted in stable condition. Undiagnosed new problem with uncertain prognosis? @ -No Drug Therapy requiring intensive monitoring for toxicity (Heparin, Nitro, Insulin, Cardizem)? @ -No Were any procedures done? @ -No Diagnosis/symptom? @ -Hypoglycemic episode, supratherapeutic INR in the setting of Coumadin use Acute, or Chronic, or Acute on Chronic? @ -Acute Uncomplicated (without systemic symptoms) or Complicated (systemic symptoms)? @ -Uncomplicated Side effects of treatment? @ -none Exacerbation, Progression, or Severe Exacerbation] @ -no Poses a threat to life or bodily function? @ -Potentially Diagnosis/symptom? @ -Fall secondary to hypoglycemia Acute, or Chronic, or Acute on Chronic? @ -Acute Uncomplicated (without systemic symptoms) or Complicated (systemic symptoms)? @ -Uncomplicated Side effects of treatment? @ -none Exacerbation, Progression, or Severe Exacerbation] @ -no Poses a threat to life or bodily function? @ -no - Lab Data Result diagrams: 10/08/22 01:30 10/08/22 01:30 Lab Results 10/08/22 10/08/22 10/08/22 Range/Units 01:30 01:30 01:30 WBC 11.6 H (3.8-10.6) k/uL RBC 4.70 (4.30-5.90) m/uL Hgb 14.1 (13.0-17.5) gm/dL Hct 44.5 (39.0-53.0) % MCV 94.5 (80.0-100.0) fL MCH 30.1 (25.0-35.0) pg MCHC 31.8 (31.0-37.0) g/dL RDW 14.7 (11.5-15.5) % Plt Count 401 (150-450) k/uL MPV 6.7 Neutrophils % 88 % Lymphocytes % 5 % Monocytes % 4 % Eosinophils % 1 % Basophils % 0 % Neutrophils # 10.3 H (1.3-7.7) k/uL Lymphocytes # 0.6 L (1.0-4.8) k/uL Monocytes # 0.5 (0-1.0) k/uL Eosinophils # 0.2 (0-0.7) k/uL Basophils # 0.0 (0-0.2) k/uL PT 68.8 H (9.0-12.0) sec INR 6.9 H* (<1.2) APTT 61.4 H (22.0-30.0) sec Sodium 140 (137-145) mmol/L Potassium 3.8 (3.5-5.1) mmol/L Chloride 101 (98-107) mmol/L Carbon Dioxide 29 (22-30) mmol/L Anion Gap 10 mmol/L BUN 40 H (9-20) mg/dL Creatinine 2.11 H (0.66-1.25) mg/dL Est GFR (CKD-EPI)AfAm 33 (>60 ml/min/1.73 sqM) Est GFR (CKD-EPI)NonAf 29 (>60 ml/min/1.73 sqM) Glucose 87 (74-99) mg/dL POC Glucose (mg/dL) (70-110) mg/dL POC Glu [employer] ID Calcium 8.9 (8.4-10.2) mg/dL Total Bilirubin 0.9 (0.2-1.3) mg/dL AST 22 (17-59) U/L ALT 8 (4-49) U/L Alkaline Phosphatase 122 (38-126) U/L Troponin I (0.000-0.034) ng/mL Total Protein 7.1 (6.3-8.2) g/dL Albumin 3.6 (3.5-5.0) g/dL 10/08/22 10/08/22 10/08/22 Range/Units 01:30 02:35 05:18 WBC (3.8-10.6) k/uL RBC (4.30-5.90) m/uL Hgb (13.0-17.5) gm/dL Hct (39.0-53.0) % MCV (80.0-100.0) fL MCH (25.0-35.0) pg MCHC (31.0-37.0) g/dL RDW (11.5-15.5) % Plt Count (150-450) k/uL MPV Neutrophils % % Lymphocytes % % Monocytes % % Eosinophils % % Basophils % % Neutrophils # (1.3-7.7) k/uL Lymphocytes # (1.0-4.8) k/uL Monocytes # (0-1.0) k/uL Eosinophils # (0-0.7) k/uL Basophils # (0-0.2) k/uL PT (9.0-12.0) sec INR (<1.2) APTT (22.0-30.0) sec Sodium (137-145) mmol/L Potassium (3.5-5.1) mmol/L Chloride (98-107) mmol/L Carbon Dioxide (22-30) mmol/L Anion Gap mmol/L BUN (9-20) mg/dL Creatinine (0.66-1.25) mg/dL Est GFR (CKD-EPI)AfAm (>60 ml/min/1.73 sqM) Est GFR (CKD-EPI)NonAf (>60 ml/min/1.73 sqM) Glucose (74-99) mg/dL POC Glucose (mg/dL) 72 104 (70-110) mg/dL POC Glu [employer] ID [facility] [place] Angela Calcium (8.4-10.2) mg/dL Total Bilirubin (0.2-1.3) mg/dL AST (17-59) U/L ALT (4-49) U/L Alkaline Phosphatase (38-126) U/L Troponin I <0.012 (0.000-0.034) ng/mL Total Protein (6.3-8.2) g/dL Albumin (3.5-5.0) g/dL - EKG Data -: EKG Interpreted by Me EKG Comments: 12-lead Electrocardiogram Interpretation Note EKG was reviewed and interpreted by myself. 12-lead ECG performed at 0342 is interpreted by me as revealing atrial fibrillation at a rate of 85 beats per minute. Left axis deviation. QRS duration is 146 ms, QTc is 488 ms.. There were no ST or T wave abnormalities to suggest myocardial ischemia or injury. R wave progression across the precordium was delayed. By my interpretation this EKG is non-diagnostic for acute ischemia. When compared with EKG from September 23, 2022, no significant change Disposition Clinical Impression: Fall, Hypoglycemia, Supratherapeutic INR Disposition: ADMITTED IP TO THIS HOSP Condition: Stable Time of Disposition: 05:25
[2022-10-08 03:43] LABS: Prothrombin Time 68.8 sec (9.0-12.0)
[2022-10-08 03:44] LABS: Albumin 3.6 g/dL (3.5-5.0)
[2022-10-08 04:08] LABS: INR 6.9 (<1.2); Partial Thromboplastin Time 61.4 sec (22.0-30.0)
[2022-10-08 04:13] LABS: Calcium 8.9 mg/dL (8.4-10.2); Potassium 3.8 mmol/L (3.5-5.1); Total Bilirubin 0.9 mg/dL (0.2-1.3); Total Protein 7.1 g/dL (6.3-8.2)
--- NOTE | 2022-10-08 04:44 | CT ---
EXAM: CT Head Without Intravenous Contrast CLINICAL HISTORY: ITS.REASON CT Reason: Altered mental status TECHNIQUE: Axial computed tomography images of the head/brain without intravenous contrast. CTDI is 49.1 mGy and DLP is 1166.4 mGy-cm. This CT exam was performed using one or more of the following dose reduction techniques: automated exposure control, adjustment of the mA and/or kV according to patient size, and/or use of iterative reconstruction technique. COMPARISON: No relevant prior studies available. FINDINGS: Brain: No hemorrhage or mass effect. Ventricles: No hydrocephalus. Bones/joints: Unremarkable. Soft tissues: Unremarkable. Sinuses: No air fluid level. Mastoid air cells: Clear. IMPRESSION: No acute hemorrhage, hydrocephalus, or mass effect.
[2022-10-08 05:19] LABS: Glucose,Whole Blood 104 mg/dL (70-110)
[2022-10-08] MEDS ORDERED: NALOXONE 0.4 MG/ML 1 ML VIAL IV PRN (05:51)
[2022-10-08] MEDS ORDERED: ACETAMINOPHEN TAB 325 MG TAB PO PRN (05:51)
[2022-10-08] MEDS ORDERED: ONDANSETRON 4 MG/2 ML VIAL IVP PRN (05:51)
--- NOTE | 2022-10-08 06:09 | XR ---
EXAMINATION TYPE: XR chest 2V DATE OF EXAM: 10/08/2022 COMPARISON: Chest x-ray September 25, 2022 HISTORY: Altered mental status and weakness. TECHNIQUE: Frontal and lateral views of the chest are obtained. FINDINGS: There is patchy left basilar opacity. Right lung is clear. The cardiac silhouette size re keily enlarged. The osseous structures are intact. IMPRESSION: Cardiomegaly with patchy left basilar opacity favoring atelectasis.
[2022-10-08] MEDS ORDERED: ALBUTEROL NEBULIZED 2.5 MG/3 ML INHALATION PRN (07:16)
[2022-10-08] MEDS ORDERED: FAMOTIDINE 20 MG TAB PO PRN (07:16)
[2022-10-08 07:52] LABS: Glucose,Whole Blood 59 mg/dL (70-110)
[2022-10-08 08:08] LABS: Glucose,Whole Blood 68 mg/dL (70-110)
[2022-10-08] MEDS: SYMBICORT 160-4.5 MCG INHALER INHALATION SCH ×2 (08:31→21:04)
[2022-10-08] MEDS ORDERED: atenoloL 25 MG TAB PO SCH (09:00)
[2022-10-08 10:07] LABS: Glucose,Whole Blood 118 mg/dL (70-110)
[2022-10-08] MEDS: CARBIDOPA-LEVODOPA 25-100 MG 1 EACH TAB PO SCH (10:47)
[2022-10-08] MEDS: METOPROLOL TARTRATE 50 MG TAB PO SCH ×2 (10:47→20:09)
[2022-10-08] MEDS: FUROSEMIDE 40 MG TAB PO SCH (10:47)
[2022-10-08] MEDS: ESCITALOPRAM 10 MG TAB PO SCH (10:47)
[2022-10-08] MEDS: CHOLECALCIFEROL 25 MCG (1000 IU) TABLET PO SCH (10:53)
[2022-10-08 11:37] LABS: Glucose,Whole Blood 128 mg/dL (70-110)
[2022-10-08] MEDS ORDERED: IPRATROPIUM 0.5 MG/2.5 ML NEBU INHALATION PRN (12:03)
--- NOTE | 2022-10-08 12:15 | P.HPIM ---
History of Present Illness Patient is a pleasant 68-year-old male came in with syncopal episode patient does have history of atrial fibrillation but also found to have extremely low blood sugars which was believed to the cause of syncope. Patient was recently hospitalized here and was discharged on September 27. Patient has history of condition or failure systolic function of around 40-45% along with diastolic dysfunction, atrial fibrillation was on Coumadin with sputum and cannot was recently switched resolved in spite of which his INR stayed at around 6.9. Patient doesn't have any blood in the stools dark stools or any other bleeding including hematuria. Patient doesn't have any fever chills patient lightheadedness resolved at this time. Patient blood pressure is slightly on the low side on admission with systolics 90s positive orthostatic vitals although patient clinically appears to be euvolemic patient's creatinine is around 2.1 which is his baseline. Patient's blood sugars are better at this time. REVIEW OF SYSTEMS: CONSTITUTIONAL: No fever, no malaise, no fatigue. HEENT: No recent visual problems or hearing problems. Denied any sore throat. CARDIOVASCULAR: No chest pain, orthopnea, PND, no palpitations. PULMONARY: No shortness of breath, no cough, no hemoptysis. GASTROINTESTINAL: No diarrhea, no nausea, no vomiting, no abdominal pain. NEUROLOGICAL: No headaches, no weakness, no numbness. HEMATOLOGICAL: Denies any bleeding or petechiae. GENITOURINARY: Denies any burning micturition, frequency, or urgency. MUSCULOSKELETAL/RHEUMATOLOGICAL: Denies any joint pain, swelling, or any muscle pain. ENDOCRINE: Denies any polyuria or polydipsia. The rest of the 14-point review of systems is negative. PHYSICAL EXAMINATION: GENERAL: The patient is alert and oriented x3, not in any acute distress. Well developed, well nourished. HEENT: Pupils are round and equally reacting to light. EOMI. No scleral icterus. No conjunctival pallor. Normocephalic, atraumatic. No pharyngeal erythema. No thyromegaly. CARDIOVASCULAR: S1 and S2 present. No murmurs, rubs, or gallops. PULMONARY: Chest is clear to auscultation, no wheezing or crackles. ABDOMEN: Soft, nontender, nondistended, normoactive bowel sounds. No palpable organomegaly. MUSCULOSKELETAL: No joint swelling or deformity. EXTREMITIES: No cyanosis, clubbing, or pedal edema. NEUROLOGICAL: Gross neurological examination did not reveal any focal deficits. SKIN: No rashes. Assessment and plan -Syncope most probably secondary to hyperglycemia rather than hypervolemia. Hold off for his diabetic medications monitor the blood sugars. -Congestive heart failure chronic systolic as well as diastolic dysfunction without any acute exacerbation patient will be resumed on Lasix patient blood pressure is fair at this time. -Chronic atrial fibrillation patient is presently rate controlled was will be resumed on metoprolol holding of anti-correlation because of suprapubic cannot of 6.9. Patient will be started on L echo was upon discharge. -Hyperlipidemia -Hypertension -Chronic kidney disease stage IV patient says and creatinine is at his baseline -COPD with mild acute exacerbation, patient was started on inhaled steroids inhalational treatments -Leukocytosis reactive in nature -Generalized deconditioning due to multiple medical problems physical therapy therapy evaluation DVT prophylaxis: Patient's INR is Past Medical History Past Medical History: Atrial Fibrillation, Diabetes Mellitus, GERD/Reflux, Hyp erlipidemia, Hypertension, Renal Disease Additional Past Medical History / Comment(s): states positive cologaurd, KIDNEY DISEASE- GOUT, past hx PROBLEM SWALLOWING History of Any Multi-Drug Resistant Organisms: None Reported Past Surgical History: No Surgical Hx Reported, Hernia Repair Additional Past Surgical History / Comment(s): cataract kaila with lens implant Past Anesthesia/Blood Transfusion Reactions: No Reported Reaction Past Psychological History: Anxiety Smoking Status: Former smoker Past Alcohol Use History: Occasional Past Drug Use History: None Reported - Past Family History Mother Family Medical History: No Reported History Medications and Allergies Home Medications Medication Instructions Recorded Confirmed Type Carbidopa-Levodopa 25-100 mg 1 tab PO QAM 11/27/15 10/08/22 History [Sinemet 25-100 mg] allopurinoL [Zyloprim] 300 mg PO HS 11/27/15 10/08/22 History Atorvastatin [Lipitor] 20 mg PO HS 05/01/19 10/08/22 History Escitalopram [Lexapro] 10 mg PO DAILY 05/01/19 10/08/22 History Glimepiride [Amaryl] 8 mg PO AC-BRKFST 05/01/19 10/08/22 History calcitrioL [Calcitriol] 0.25 mcg PO TUSA 05/01/19 10/08/22 History sitaGLIPtin [Januvia] 50 mg PO HS 05/01/19 10/08/22 History Carbidopa-Levodopa 25-100 mg 1 tab PO HS 09/24/22 10/08/22 History [Sinemet 25-100 mg] Cholecalciferol (Vitamin D3) 75 mcg PO DAILY 09/24/22 10/08/22 History [Vitamin D3 (3000 Iu)] Famotidine [Pepcid] 20 mg PO HS PRN 09/24/22 10/08/22 History Magnesium Oxide [Magnesium] 500 mg PO HS 09/24/22 10/08/22 History Albuterol Nebulized [Ventolin 2.5 mg INHALATION RT-TID PRN #60 09/27/22 10/08/22 Rx Nebulized] each Budesonide-Formot 160-4.5 Mcg 2 puff INHALATION RT-BID #1 each 09/27/22 10/08/22 Rx [Symbicort 160-4.5 Mcg Inhaler] Furosemide [Lasix] 40 mg PO DAILY #30 tab 09/27/22 10/08/22 Rx Ipratropium Nebulized [Atrovent 0.5 mg INHALATION RT-TID #90 each 09/27/22 10/08/22 Rx Nebulized 0.2 MG/ML] Ipratropium Nebulized [Atrovent 0.5 mg INHALATION RT-TID PRN ml 09/27/22 10/08/22 Rx Nebulized 0.2 MG/ML] Amiodarone [Cordarone] 200 mg PO DAILY 10/08/22 10/08/22 History Metoprolol Tartrate [Lopressor] 50 mg PO BID 10/08/22 10/08/22 History Rivaroxaban [Xarelto] 20 mg PO DAILY 10/08/22 10/08/22 History Allergies Allergy/AdvReac Type Severity Reaction Status Date / Time Penicillins Allergy Unknown Verified 10/08/22 03:01 Physical Exam Vitals: Vital Signs Temp Pulse Pulse Resp BP BP Pulse Ox 10/08/22 09:00 97.6 F 81 22 94/63 90 L 10/08/22 08:47 82 10/08/22 08:33 76 100 10/08/22 07:52 77 18 111/75 98 10/08/22 07:00 80 16 114/82 97 10/08/22 05:00 73 16 121/82 95 10/08/22 02:40 96.8 F L 86 16 122/75 93 L Intake and Output 10/07/22 10/08/22 10/08/22 22:59 06:59 14:59 Other: Weight 105.687 kg Results CBC & Chem 7: 10/08/22 01:30 10/08/22 01:30 Labs: Abnormal Lab Results - Last 24 Hours (Table) 10/08/22 10/08/22 10/08/22 Range/Units 01:30 01:30 01:30 WBC 11.6 H (3.8-10.6) k/uL Neutrophils # 10.3 H (1.3-7.7) k/uL Lymphocytes # 0.6 L (1.0-4.8) k/uL PT 68.8 H (9.0-12.0) sec INR 6.9 H* (<1.2) APTT 61.4 H (22.0-30.0) sec BUN 40 H (9-20) mg/dL Creatinine 2.11 H (0.66-1.25) mg/dL POC Glucose (mg/dL) (70-110) mg/dL 10/08/22 10/08/22 10/08/22 Range/Units 07:46 08:07 10:05 WBC (3.8-10.6) k/uL Neutrophils # (1.3-7.7) k/uL Lymphocytes # (1.0-4.8) k/uL PT (9.0-12.0) sec INR (<1.2) APTT (22.0-30.0) sec BUN (9-20) mg/dL Creatinine (0.66-1.25) mg/dL POC Glucose (mg/dL) 59 L 68 L 118 H (70-110) mg/dL 10/08/22 Range/Units 11:35 WBC (3.8-10.6) k/uL Neutrophils # (1.3-7.7) k/uL Lymphocytes # (1.0-4.8) k/uL PT (9.0-12.0) sec INR (<1.2) APTT (22.0-30.0) sec BUN (9-20) mg/dL Creatinine (0.66-1.25) mg/dL POC Glucose (mg/dL) 128 H (70-110) mg/dL Thrombosis Risk Factor Assmnt - Choose All That Apply Each Risk Factor Represents 3 Points: Age 75 years or older Thrombosis Risk Factor Assessment Total Risk Factor Score: 3 Thrombosis Risk Factor Assessment Level: Moderate Risk
[2022-10-08 16:24] LABS: Glucose,Whole Blood 120 mg/dL (70-110)
[2022-10-08 20:20] LABS: Glucose,Whole Blood 137 mg/dL (70-110)
[2022-10-08] MEDS ORDERED: CARBIDOPA-LEVODOPA 25-100 MG 1 EACH TAB PO SCH (21:00)
[2022-10-08] MEDS ORDERED: ATORVASTATIN 20 MG TAB PO SCH (21:00)
[2022-10-08] MEDS ORDERED: allopurinoL 300 MG TAB PO SCH (21:00)
[2022-10-09 02:32] LABS: Glucose,Whole Blood 92 mg/dL (70-110)
[2022-10-09 06:27] LABS: Glucose,Whole Blood 102 mg/dL (70-110)
[2022-10-09 08:48] LABS: Basophils % (A) 0 %; Eosinophils # (A) 0.3 k/uL (0-0.7); Eosinophils % (A) 3 %; HCT 41.5 % (39.0-53.0); Lymphocytes # (A) 1.2 k/uL (1.0-4.8); Lymphocytes % (A) 13 %; MCH 30.2 pg (25.0-35.0); MCHC 31.2 g/dL (31.0-37.0); MCV 96.7 fL (80.0-100.0); Mean Platelet Volume 6.7; Monocytes # (A) 0.6 k/uL (0-1.0); Monocytes % (A) 6 %; Neutrophils # (A) 7.4 k/uL (1.3-7.7); Neutrophils % (A) 77 %; Platelet Count 401 k/uL (150-450); RDW 14.6 % (11.5-15.5); WBC 9.6 k/uL (3.8-10.6)
[2022-10-09] MEDS: SYMBICORT 160-4.5 MCG INHALER INHALATION SCH (08:48)
[2022-10-09] MEDS: FUROSEMIDE 40 MG TAB PO SCH (08:57)
[2022-10-09] MEDS: CARBIDOPA-LEVODOPA 25-100 MG 1 EACH TAB PO SCH (08:57)
[2022-10-09] MEDS: CHOLECALCIFEROL 25 MCG (1000 IU) TABLET PO SCH (08:57)
[2022-10-09] MEDS: METOPROLOL TARTRATE 50 MG TAB PO SCH (08:57)
[2022-10-09] MEDS: ESCITALOPRAM 10 MG TAB PO SCH (08:57)
[2022-10-09] MEDS ORDERED: AMIODARONE 200 MG TAB PO SCH (09:00)
[2022-10-09 09:01] LABS: Prothrombin Time 70.2 sec (9.0-12.0)
[2022-10-09 11:35] LABS: Glucose,Whole Blood 202 mg/dL (70-110)
[2022-10-09 12:20] VITALS: BP 122/80; PULSE 71; RESP 18; TEMP 98.2
[2022-10-09] MEDS ORDERED: PHYTONADIONE ORAL 5 MG/5 ML ORAL.SYRG PO STA ×2 (12:52→12:53)
[2022-10-09 13:57] LABS: Calcium 8.6 mg/dL (8.4-10.2); Magnesium 1.5 mg/dL (1.6-2.3); Potassium 4.3 mmol/L (3.5-5.1)
--- NOTE | 2022-10-10 23:28 | P.DS ---
Providers Date of admission: 10/08/22 05:53 Attending physician: Breezy Aguilar Primary care physician: Deloris Enrique [facility] Course: Final Diagnosis -Syncope most probably secondary to hypoglycemia rather than hypovolemia. -Congestive heart failure chronic systolic as well as diastolic dysfunction without any acute exacerbation -Chronic atrial fibrillation patient is presently rate controlled -Supratherapeutic INR 6.9 on admission patient is anticoagulated with warfarin. -Hyperlipidemia -Hypertension -Chronic kidney disease stage IV patient creatinine is at his baseline -COPD with mild acute exacerbation, patient was started on inhaled steroids inhalational treatments -Leukocytosis reactive in nature -Generalized deconditioning due to multiple medical problems Full Code Discharge Disposition Patient is stable for discharge. Patient received 10 mg of vitamin K prior to discharge. He is instructed to not begin xarelto secondary to his renal function. Patient instructed to check INR Tuesday and if less than 2 resume anticoagulation. He has been started on eliquis twice a day which has been renal dose adjusted to 2.5 mg PO BID. Follow up with cardiology closely recommend to see Dr. MADISON Wilson within the week. Continue to check blood glucose and monitor for hypoglycemia. Amaryl has been discontinued and januvia has been decreased to 25 mg daily. Hospital Course Patient is a pleasant 68-year-old male came in with syncopal episode patient does have history of atrial fibrillation but also found to have extremely low blood sugars which was believed to the cause of syncope. Patient was recently hospitalized here and was discharged on September 27. Patient has history of congestive failure systolic function of around 40-45% along with diastolic dysfunction, atrial fibrillation was on Coumadin and was recently changed to xarelto by his experimental physicist. INR found to be 6.9 on admission. Patient doesn't have any blood in the stools dark stools or any other bleeding including hematuria. Patient doesn't have any fever chills patient lightheadedness resolved at this time. Patient blood pressure is slightly on the low side on admission with systolics 90s. Patient did have initial positive orthostatic vitals although patient clinically appears to be euvolemic. Patient's creatinine is around 2.1 which is his baseline. Patient's blood sugars are better at this time. Medications were adjusted as above and blood glucose in the 100s. Creatinine is down to 1.73. Magnesium 1.5 patient received IV magnesium. Patient given vitamin K 10 mg instructed to check his INR tuesday. IF less than 2 recommend to begin 2.5 mg of eliquis twice a day. Patient verbalizes understanding. He is cleared for discharge he has been ambulating in the hallway no further reports of dizziness or lightheadedness. Blood pressure 122/80. Please see medication reconciliation for a list of current medication. Thank you for allowing us to participate in the care of this patient. The impression and plan of care has been dictated by Kendra Edwards, Nurse Practitioner as directed. Dr. Migel MD I have performed a history and physical examination and medical decision making of this patient, discussed the same with the dictator, and agree with the dictators assessment and plan as written, documented as a scribe. Based on total visit time, I have performed more than 50% of this visit. Patient Condition at Discharge: Stable Plan - Discharge Summary New Discharge Prescriptions: New Apixaban [Eliquis] 2.5 mg PO BID #60 tab sitaGLIPtin [Januvia] 25 mg PO DAILY #30 tablet Continue Carbidopa-Levodopa 25-100 mg [Sinemet 25-100 mg] 1 tab PO QAM allopurinoL [Zyloprim] 300 mg PO HS Escitalopram [Lexapro] 10 mg PO DAILY Atorvastatin [Lipitor] 20 mg PO HS calcitrioL [Calcitriol] 0.25 mcg PO TUSA Magnesium Oxide [Magnesium] 500 mg PO HS Famotidine [Pepcid] 20 mg PO HS PRN PRN Reason: gerd Furosemide [Lasix] 40 mg PO DAILY #30 tab Metoprolol Tartrate [Lopressor] 50 mg PO BID Amiodarone [Cordarone] 200 mg PO DAILY Carbidopa-Levodopa 25-100 mg [Sinemet 25-100 mg] 1 tab PO HS Cholecalciferol (Vitamin D3) [Vitamin D3 (3000 Iu)] 75 mcg PO DAILY Ipratropium Nebulized [Atrovent Nebulized 0.2 MG/ML] 0.5 mg INHALATION RT-TID #90 each Ipratropium Nebulized [Atrovent Nebulized 0.2 MG/ML] 0.5 mg INHALATION RT-TID PRN ml PRN Reason: Shortness Of Breath Or Wheezing Budesonide-Formot 160-4.5 Mcg [Symbicort 160-4.5 Mcg Inhaler] 2 puff INHALATION RT-BID #1 each Albuterol Nebulized [Ventolin Nebulized] 2.5 mg INHALATION RT-TID PRN #60 each PRN Reason: Shortness Of Breath Or Wheezing Discontinued Glimepiride [Amaryl] 8 mg PO AC-BRKFST sitaGLIPtin [Januvia] 50 mg PO HS Rivaroxaban [Xarelto] 20 mg PO DAILY Discharge Medication List Carbidopa-Levodopa 25-100 mg [Sinemet 25-100 mg] 1 tab PO QAM 11/27/15 [History] allopurinoL [Zyloprim] 300 mg PO HS 11/27/15 [History] Atorvastatin [Lipitor] 20 mg PO HS 05/01/19 [History] Escitalopram [Lexapro] 10 mg PO DAILY 05/01/19 [History] calcitrioL [Calcitriol] 0.25 mcg PO TUSA 05/01/19 [History] Carbidopa-Levodopa 25-100 mg [Sinemet 25-100 mg] 1 tab PO HS 09/24/22 [History] Cholecalciferol (Vitamin D3) [Vitamin D3 (3000 Iu)] 75 mcg PO DAILY 09/24/22 [History] Famotidine [Pepcid] 20 mg PO HS PRN 09/24/22 [History] Magnesium Oxide [Magnesium] 500 mg PO HS 09/24/22 [History] Albuterol Nebulized [Ventolin Nebulized] 2.5 mg INHALATION RT-TID PRN #60 each 09/27/22 [Rx] Budesonide-Formot 160-4.5 Mcg [Symbicort 160-4.5 Mcg Inhaler] 2 puff INHALATION RT-BID #1 each 09/27/22 [Rx] Furosemide [Lasix] 40 mg PO DAILY #30 tab 09/27/22 [Rx] Ipratropium Nebulized [Atrovent Nebulized 0.2 MG/ML] 0.5 mg INHALATION RT-TID #90 each 09/27/22 [Rx] Ipratropium Nebulized [Atrovent Nebulized 0.2 MG/ML] 0.5 mg INHALATION RT-TID PRN ml 09/27/22 [Rx] Amiodarone [Cordarone] 200 mg PO DAILY 10/08/22 [History] Metoprolol Tartrate [Lopressor] 50 mg PO BID 10/08/22 [History] Apixaban [Eliquis] 2.5 mg PO BID #60 tab 10/09/22 [Rx] sitaGLIPtin [Januvia] 25 mg PO DAILY #30 tablet 10/09/22 [Rx] Follow up Appointment(s)/Referral(s): Edna Wilson MD [STAFF PHYSICIAN] - 10/11/22 10:00 am (Keep your original appointment scheduled for Wednesday 10/11 ) Deloris Draper III, MD [Primary Care Provider] - 1-2 days (Office is closed. Please call to schedule follow up appointment. ) [facility], [NON-STAFF] - 1-2 Days Ambulatory/Diagnostic Orders: Prothrombin Time INR [LAB.AMB] Time Frame: 10/11/22, Location: None Selected Patient Instructions/Handouts: A-fib (Atrial Fibrillation) (DC), Safe Use of Anticoagulants (DC) Activity/Diet/Wound Care/Special Instructions: Check INR Tuesday and if less than 2 resume anticoagulation. Do not begin taking Xarelto, Begin eliquis 2.5 mg twice a day. Follow up with your PCP in 1 to 2 days. Follow up with cardiology closely recommend to see Dr. MADISON Wilson within the week. Continue to check blood glucose and monitor for hypoglycemia. Discharge Disposition: HOME WITH HOME HEALTH SERVICES
== END 2022-10-09 15:51 | disposition home health service (06) ==
LOC: EC 02:31 → 3SCARD 05:53
PROVIDERS: ADMIT Hospitalist; ATTEND Hospitalist
DX: R55 Syncope and collapse (principal); E11.649 Type 2 diabetes mellitus with hypoglycemia without coma; R79.1 Abnormal coagulation profile; J44.1 Chronic obstructive pulmonary disease with (acute) exacerbation; I13.0 Hypertensive heart and chronic kidney disease with heart failure and stage 1 through stage 4 chronic kidney disease, or unspecified chronic kidney disease; I50.42 Chronic combined systolic (congestive) and diastolic (congestive) heart failure; I48.20 Chronic atrial fibrillation, unspecified; N18.4 Chronic kidney disease, stage 4 (severe); E11.22 Type 2 diabetes mellitus with diabetic chronic kidney disease; D72.829 Elevated white blood cell count, unspecified; E78.5 Hyperlipidemia, unspecified; K21.9 Gastro-esophageal reflux disease without esophagitis; M10.9 Gout, unspecified; F41.9 Anxiety disorder, unspecified; W06.XXXA Fall from bed, initial encounter; Y92.009 Unspecified place in unspecified non-institutional (private) residence as the place of occurrence of the external cause; Z79.51 Long term (current) use of inhaled steroids; Z79.01 Long term (current) use of anticoagulants; Z79.84 Long term (current) use of oral hypoglycemic drugs; Z79.899 Other long term (current) drug therapy; Z88.0 Allergy status to penicillin; Z98.42 Cataract extraction status, left eye; Z98.41 Cataract extraction status, right eye; Z96.1 Presence of intraocular lens; Z98.890 Other specified postprocedural states; Z87.891 Personal history of nicotine dependence
CPT/HCPCS: 99285; 36415; 94640 ×3; 94760 ×2; 93005; 97162; 97166; 80053; 80048; 83735 ×2; 84484; 85025 ×2; 85610 ×2; 85730; 71046; 70450; G0378 ×2

== ENCOUNTER → 2022-10-11 | Outpatient (CLI) | payer MEDICARE ==
[2022-10-11 15:46] LABS: INR 1.19 (0.90-1.11); Prothrombin Time 13.4 sec (9.9-11.9)
== END | disposition home or self-care (01) ==
LOC: LABWHC1 09:19
PROVIDERS: ATTEND Nurse Practitioner Family
DX: Z51.81 Encounter for therapeutic drug level monitoring (principal); Z79.01 Long term (current) use of anticoagulants; R79.1 Abnormal coagulation profile
CPT/HCPCS: 36415; 85610

== ENCOUNTER 2022-11-16 09:58 | Day surgery (SDC) | payer MEDICARE ==
[2022-11-16 10:51] VITALS: TEMP 97
[2022-11-16] MEDS ORDERED: LACTATED RINGERS 1,000 ML IV ONE (11:03)
[2022-11-16 11:16] LABS: Glucose,Whole Blood 99 mg/dL (70-110)
[2022-11-16] MEDS ORDERED: PROPOFOL 10 MG/ML 20 ML VIAL IV ONE (11:28)
[2022-11-16 12:49] VITALS: RESP 16
[2022-11-16 13:23] VITALS: BP 147/86
[2022-11-16 13:25] VITALS: PULSE 55
--- NOTE | 2022-11-16 15:01 | CE ---
CARDIAC ELECTROPHYSIOLOGY REPORT DATE OF SERVICE: 11/16/2022. PROCEDURE PERFORMED: Electrical cardioversion. INDICATION: Persistent atrial fibrillation. CLINICAL INFORMATION: Mr. Buitrago is a gentleman with 77 years of age with recent onset but persistent atrial fibrillation, unresponsive to pharmacological efforts. He was brought in for elective cardioversion after placing him on Eliquis 5 mg b.i.d. PROCEDURE NOTE: Under the influence of [id number] intravenous anesthetic agent with the attendance of the anesthesiologist, a single shock was delivered to the chest wall with anterior and posterior patches of 120 joules. The patient converted to sinus rhythm and remained hemodynamically stable and neurologically intact. He was slightly bradycardic. I will reduce the metoprolol to 50 mg b.i.d., continue amiodarone and Eliquis as before. Once he is awake, alert, ambulatory, and has eaten something, he will be discharged. Details were discussed with the patient's friend who was here with him and who brought him to the hospital. MMODL / LILLIEN: [id number] /
== END 2022-11-16 13:55 | disposition home or self-care (01) ==
LOC: OR 09:58
PROVIDERS: ATTEND Internal Medicine Interventional Cardiology
DX: I48.19 Other persistent atrial fibrillation (principal); E78.5 Hyperlipidemia, unspecified; I12.9 Hypertensive chronic kidney disease with stage 1 through stage 4 chronic kidney disease, or unspecified chronic kidney disease; E11.22 Type 2 diabetes mellitus with diabetic chronic kidney disease; N18.9 Chronic kidney disease, unspecified; F41.9 Anxiety disorder, unspecified; G20 Parkinson's disease; K21.9 Gastro-esophageal reflux disease without esophagitis; Z87.891 Personal history of nicotine dependence; Z88.0 Allergy status to penicillin; Z79.84 Long term (current) use of oral hypoglycemic drugs; Z79.899 Other long term (current) drug therapy
CPT/HCPCS: 93005; 92960; J2704

== ENCOUNTER 2024-09-10 14:55 | Inpatient (IN) | payer MEDICARE, OTHER ==
--- NOTE | 2024-09-10 15:32 | ED ---
General Adult HPI - General Source: patient, RN notes reviewed Mode of arrival: ambulatory Limitations: no limitations <Porsha Juares - Last Filed: 09/10/24 15:31> - General Source: patient, RN notes reviewed, old records reviewed Mode of arrival: ambulatory Limitations: no limitations - History of Present Illness -: days(s) Consistency: constant Improves with: none Associated Symptoms: syncope Treatments Prior to Arrival: none <Ralph Glass - Last Filed: 09/17/24 16:07> - General Chief complaint: Shortness of Breath Stated complaint: MAURO Time Seen by Provider: 09/10/24 15:10 - History of Present Illness Initial comments: Quick [id number] male presenting to emergency department for complaint of difficulty breathing over the past few days. Endorses URI symptoms with associated congestion, rhinorrhea, cough, congestion. Denies chest pain. (Porsha Juares) This is a 79-year-old male to the ER for evaluation of severe shortness of breath cannot catch his breath without chest pain. Patient is having congestion runny nose cough without fever. Increasing shortness of breath especially with exertion (Ralph lGass) - Related Data Home Medications Medication Instructions Recorded Confirmed allopurinoL [Zyloprim] 300 mg PO HS 11/27/15 09/11/24 Atorvastatin [Lipitor] 20 mg PO HS 05/01/19 09/11/24 calcitrioL 0.25 mcg PO MOWEFR 05/01/19 09/11/24 Magnesium Oxide [Magnesium] 400 mg PO HS 09/24/22 09/11/24 Cholecalciferol [Vitamin D3 (25 25 mcg PO DAILY 11/12/22 09/11/24 Mcg = 1000 Iu)] Ascorbic Acid [Vitamin C] 500 mg PO DAILY 09/11/24 09/11/24 Escitalopram [Lexapro] 20 mg PO DAILY 09/11/24 09/11/24 Famotidine [Pepcid] 20 mg PO DAILY 09/11/24 09/11/24 Metoprolol Tartrate [Lopressor] 50 mg PO BID-W/MEALS 09/11/24 09/11/24 Warfarin [Coumadin] 2.5 mg PO SUMOWETHSA 09/11/24 09/11/24 Warfarin [Coumadin] 5 mg PO TUFR 09/11/24 09/11/24 rOPINIRole HCL [Requip] 1 mg PO TID PRN 09/11/24 09/11/24 sitaGLIPtin [Januvia] 50 mg PO DAILY 09/11/24 09/11/24 Previous Rx's Medication Instructions Recorded Furosemide [Lasix] 40 mg PO BID@0900,1600 30 Days #60 09/14/24 tab Allergies Allergy/AdvReac Type Severity Reaction Status Date / Time Penicillins Allergy Unknown Verified 09/11/24 11:05 Review of Systems ROS Other: All systems not noted in ROS Statement are negative. <Porsha Juares - Last Filed: 09/10/24 15:31> ROS Other: All systems not noted in ROS Statement are negative. <Ralph Glass - Last Filed: 09/17/24 16:07> ROS Statement: Those systems with pertinent positive or pertinent negative responses have been documented in the HPI. Past Medical History Past Medical History: Atrial Fibrillation, Cancer, Diabetes Mellitus, GERD/Reflux, Hyperlipidemia, Hypertension, Osteoarthritis (OA), Renal Disease Additional Past Medical History / Comment(s): KIDNEY DISEASE stage 3, GOUT, past hx PROBLEM SWALLOWING , low Blood sugar admit 10/08/22resp failure admit 09/24/22. skin cancer, restless leg syndrome, rash on rt leg for years . History of Any Multi-Drug Resistant Organisms: None Reported Past Surgical History: Hernia Repair Additional Past Surgical History / Comment(s): cataract kaila with lens implant, colonoscopy, inguinal hernia repair, skin cancer removed Past Anesthesia/Blood Transfusion Reactions: No Reported Reaction Past Psychological History: Anxiety Smoking Status: Former smoker Past Alcohol Use History: None Reported Past Drug Use History: None Reported - Past Family History Mother Family Medical History: No Reported History <Porsha Juares - Last Filed: 09/10/24 15:31> General Exam Limitations: no limitations <Porsha Juares - Last Filed: 09/10/24 15:31> General appearance: alert, in no apparent distress, anxious Head exam: Present: atraumatic, normocephalic, normal inspection Eye exam: Present: normal appearance, PERRL, EOMI. Absent: scleral icterus, conjunctival injection, periorbital swelling ENT exam: Present: normal exam, mucous membranes moist Neck exam: Present: normal inspection. Absent: tenderness, meningismus, lymphadenopathy Respiratory exam: Present: respiratory distress, wheezes, accessory muscle use, decreased breath sounds, prolonged expiratory. Absent: rales, rhonchi, stridor Cardiovascular Exam: Present: regular rate, normal rhythm, normal heart sounds. Absent: systolic murmur, diastolic murmur, rubs, gallop, clicks GI/Abdominal exam: Present: soft, normal bowel sounds. Absent: distended, tenderness, guarding, rebound, rigid Extremities exam: Present: normal inspection, full ROM, normal capillary refill. Absent: tenderness, pedal edema, joint swelling, calf tenderness Back exam: Present: normal inspection Neurological exam: Present: alert, oriented X3, CN II-XII intact Psychiatric exam: Present: normal affect, normal mood Skin exam: Present: warm, dry, intact, normal color. Absent: rash <Ralph Glass - Last Filed: 09/17/24 16:07> - General Exam Comments Initial Comments: Visual Physical Exam Vital signs reviewed General: Well-appearing, nontoxic, no acute distress. Head: Normocephalic, atraumatic Eyes: PERRLA, EOMI ENT: Airway patent Chest: Nonlabored breathing Skin: No visual rash, normal skin tone Neuro: Alert and oriented 3 Musculoskeletal: No gross abnormalities (Stieler,Porsha) Course <Ralph Glass - Last Filed: 09/17/24 16:07> Vital Signs 09/10/24 09/10/24 09/10/24 15:27 19:57 23:17 Temperature 97.4 F L 97.5 F L Pulse Rate 75 75 76 Respiratory 20 20 18 Rate Blood Pressure 160/85 171/91 158/94 O2 Sat by Pulse 91 L 100 97 Oximetry 09/11/24 09/11/24 09/11/24 02:39 06:00 08:55 Temperature 98 F Pulse Rate 79 76 76 Respiratory 18 16 18 Rate Blood Pressure 149/95 145/83 152/68 O2 Sat by Pulse 97 100 100 Oximetry 09/11/24 09/11/24 09:02 12:45 Temperature Pulse Rate 76 Respiratory 18 Rate Blood Pressure 149/99 O2 Sat by Pulse 99 98 Oximetry - Reevaluation(s) Reevaluation #1: 09/11/24 00:35 Medical records reviewed (Ralph Glass) Reevaluation #2: 09/11/24 00:36 Patient symptoms unimproved here in the ER (Ralph Glass) Reevaluation #3: 09/11/24 00:36 Patient informed of results questions answered (Ralph Glass) Reevaluation #4: Was pt. sent in by a medical professional or institution (, [facility], DISPLAY ARTIST, urgent care, hospital, or alf...) When possible be specific @ -no Did you speak to anyone other than the patient for history (EMS, parent, family, police, friend...)? What history was obtained from this source @ -no Did you review nursing and triage notes (agree or disagree)? Why? @ -agree Are old charts reviewed (outside hosp., previous admission, EMS record, old EKG, old radiological studies, urgent care reports/EKG's, alf records)? Report findings @ -yes Differential Diagnosis (chest pain, altered mental status, abdominal pain women, abdominal pain men, vaginal bleeding, weakness, fever, dyspnea, syncope, headache, dizziness, GI bleed, back pain, seizure, CVA, palpatations, mental health, musculoskeletal)? @ -prior EKG interpreted by me (3pts min.). @ -yes X-rays interpreted by me (1pt min.). @ -yes positive for CHF CT interpreted by me (1pt min.). @ -no U/S interpreted by me (1pt. min.). @ -no What testing was considered but not performed or refused? (CT, X-rays, U/S, labs)? Why? @ -none What meds were considered but not given or refused? Why? @ -none Did you discuss the management of the patient with other professionals (professionals i.e. VAL[facility] Neil, DISPLAY ARTIST, lab, RT, psych nurse, elementary school social worker, tightening machine operator, teacher, engineering officer, caseworker protective services)? Give summary @ -no Was smoking cessation discussed for >3mins.? @ -no Was critical care preformed (if so, how long)? @ -yes31 Were there social determinants of health that impacted care today? How? (Homelessness, low income, unemployed, alcoholism, drug addiction, transportation, low edu. Level, literacy, decrease access to med. care, [place] [facility], rehab)? @ -none Was there de-escalation of care discussed even if they declined (Discuss DNR or withdrawal of care, Hospice)? DNR status @ -no What co-morbidities impacted this encounter? (DM, HTN, Smoking, COPD, CAD, Cancer, CVA, ARF, Chemo, Hep., AIDS, mental health diagnosis, sleep apnea, morbid obesity)? @ -none Was patient admitted / discharged? Hospital course, mention meds given and route, prescriptions, significant lab abnormalities, going to OR and other pertinent info. @ - 79 male to ER for COPD bronchitis exacerbation with CHF and elevated troponin non-ST elevated NH will admit for cardiology evaluation Admitted Undiagnosed new problem with uncertain prognosis? @ -no Drug Therapy requiring intensive monitoring for toxicity (Heparin, Nitro, Insulin, Cardizem)? @ -no Were any procedures done? @ -no Diagnosis/symptom? @ -CHF COPD non-STEMI Acute, or Chronic, or Acute on Chronic? @ -Acute Uncomplicated (without systemic symptoms) or Complicated (systemic symptoms)? @ -Complicated Side effects of treatment? @ -no Exacerbation, Progression, or Severe Exacerbation? @ -exacerbation Poses a threat to life or bodily function? How? (Chest pain, USA, NH, pneumonia, PE, COPD, DKA, ARF, appy, cholecystitis, CVA, Diverticulitis, Homicidal, Suicidal, threat to staff... and all critical care pts) @ -yes for respiratory failure (Ralph Glass) Reevaluation #5: Differential Dyspnea: Coronary syndrome, arrhythmia, tamponade, asthma, COPD, pulmonary embolism, pneumonia, pneumothorax, pulmonary effusion, anaphylaxis, diabetic ketoacidosis, flailed chest, pulmonary contusion, diaphragmatic rupture, anemia, neuromuscular, this is not meant to be an all-inclusive list. (Ralph Glass) - Consultations Consultation #1: Spoke with [facility] who agrees to admit this patient (Ralph Glass) EKG Findings - EKG Comments: EKG Findings:: EKG is a flutter with 74 QRS 144 QTc 467 - EKG Results: EKG: interpreted by ERMD EKG shows: atrial fibrillation <Ralph Glass - Last Filed: 09/17/24 16:07> Medical Decision Making <Porsha Juares - Last Filed: 09/10/24 15:31> - Lab Data Result diagrams: 09/14/24 07:01 09/14/24 07:01 - Radiology Data Radiology results: report reviewed (Chest x-ray is negative for acute disease), image reviewed <Ralph Glass - Last Filed: 09/17/24 16:07> - Medical Decision Making I completed the quick note portion of this chart signed Porsha Juares PA-C (Porsha Juares) 79 male to ER for COPD bronchitis exacerbation with CHF and elevated troponin non-ST elevated NH will admit for cardiology evaluation (Ralph Glass) - Lab Data Lab Results 09/10/24 09/10/24 09/10/24 Range/Units 18:27 18:27 18:27 WBC 18.0 H (3.8-10.6) k/uL RBC 4.86 (4.30-5.90) m/uL Hgb 15.6 (13.0-17.5) gm/dL Hct 49.9 (39.0-53.0) % MCV 102.7 H (80.0-100.0) fL MCH 32.1 (25.0-35.0) pg MCHC 31.3 (31.0-37.0) g/dL RDW 15.2 (11.5-15.5) % Plt Count 239 (150-450) k/uL MPV 7.4 Neutrophils % 84 % Lymphocytes % 6 % Monocytes % 3 % Eosinophils % 5 % Basophils % 0 % Neutrophils # 15.1 H (1.3-7.7) k/uL Lymphocytes # 1.1 (1.0-4.8) k/uL Monocytes # 0.6 (0-1.0) k/uL Eosinophils # 1.0 H (0-0.7) k/uL Basophils # 0.0 (0-0.2) k/uL Macrocytosis Slight PT 23.0 H (10.0-12.5) sec INR 2.3 H (<1.2) APTT 34.8 H (22.0-30.0) sec Sodium 138 (137-145) mmol/L Potassium 4.7 (3.5-5.1) mmol/L Chloride 100 (98-107) mmol/L Carbon Dioxide 28 (22-30) mmol/L Anion Gap 10 mmol/L BUN 33 H (9-20) mg/dL Creatinine 1.89 H (0.66-1.25) mg/dL Est GFR (CKD-EPI)AfAm 38 (>60 ml/min/1.73 sqM) Est GFR (CKD-EPI)NonAf 33 (>60 ml/min/1.73 sqM) Glucose 129 H (74-99) mg/dL Calcium 9.5 (8.4-10.2) mg/dL Magnesium 1.5 L (1.6-2.3) mg/dL Total Bilirubin 0.8 (0.2-1.3) mg/dL AST 26 (17-59) U/L ALT 22 (4-49) U/L Alkaline Phosphatase 106 (38-126) U/L Troponin I (0.000-0.034) ng/mL NT-Pro-B Natriuret Pep 890 pg/mL Total Protein 7.7 (6.3-8.2) g/dL Albumin 4.3 (3.5-5.0) g/dL Influenza Type A (PCR) (Not Detectd) Influenza Type B (PCR) (Not Detectd) RSV (PCR) (Not Detectd) SARS-CoV-2 (PCR) (Not Detectd) 09/10/24 09/10/24 Range/Units 18:27 18:27 WBC (3.8-10.6) k/uL RBC (4.30-5.90) m/uL Hgb (13.0-17.5) gm/dL Hct (39.0-53.0) % MCV (80.0-100.0) fL MCH (25.0-35.0) pg MCHC (31.0-37.0) g/dL RDW (11.5-15.5) % Plt Count (150-450) k/uL MPV Neutrophils % % Lymphocytes % % Monocytes % % Eosinophils % % Basophils % % Neutrophils # (1.3-7.7) k/uL Lymphocytes # (1.0-4.8) k/uL Monocytes # (0-1.0) k/uL Eosinophils # (0-0.7) k/uL Basophils # (0-0.2) k/uL Macrocytosis PT (10.0-12.5) sec INR (<1.2) APTT (22.0-30.0) sec Sodium (137-145) mmol/L Potassium (3.5-5.1) mmol/L Chloride (98-107) mmol/L Carbon Dioxide (22-30) mmol/L Anion Gap mmol/L BUN (9-20) mg/dL Creatinine (0.66-1.25) mg/dL Est GFR (CKD-EPI)AfAm (>60 ml/min/1.73 sqM) Est GFR (CKD-EPI)NonAf (>60 ml/min/1.73 sqM) Glucose (74-99) mg/dL Calcium (8.4-10.2) mg/dL Magnesium (1.6-2.3) mg/dL Total Bilirubin (0.2-1.3) mg/dL AST (17-59) U/L ALT (4-49) U/L Alkaline Phosphatase (38-126) U/L Troponin I 0.043 H* (0.000-0.034) ng/mL NT-Pro-B Natriuret Pep pg/mL Total Protein (6.3-8.2) g/dL Albumin (3.5-5.0) g/dL Influenza Type A (PCR) Not Detected (Not Detectd) Influenza Type B (PCR) Not Detected (Not Detectd) RSV (PCR) Not Detected (Not Detectd) SARS-CoV-2 (PCR) Not Detected (Not Detectd) Critical Care Time Critical Care Time: Yes Total Critical Care Time: 31 <Ralph Glass - Last Filed: 09/17/24 16:07> Disposition <Porsha Juares - Last Filed: 09/10/24 15:31> Is patient prescribed a controlled substance at d/c from ED?: No Time of Disposition: 21:00 <Ralph Glass - Last Filed: 09/17/24 16:07> Clinical Impression: COPD exacerbation, Asthma with acute exacerbation, NSTEMI (non-ST elevated myocardial infarction), Dyspnea, Hypertension Disposition: ADMITTED IP TO THIS HOSP Condition: Stable
--- NOTE | 2024-09-10 16:53 | XR ---
EXAMINATION TYPE: XR chest 2V DATE OF EXAM: 09/10/2024 4:43 PM COMPARISON: Chest radiographs from 10/08/2022 CLINICAL INDICATION: Male, 79 years old with history of difficulty breathing; [facility] TECHNIQUE: XR chest 2V Frontal and lateral views of the chest. FINDINGS: Lungs/Pleura: There is no evidence of pleural effusion, focal consolidation, or pneumothorax. Pulmonary vascularity: Unremarkable. Heart/mediastinum: Cardiomediastinal silhouette is unremarkable. Musculoskeletal: No acute osseous pathology. Other findings: None IMPRESSION: No acute cardiopulmonary disease/process. [facility], , 09/10/2024 4:51 PM
[2024-09-10 18:42] LABS: Basophils % (A) 0 %; Eosinophils % (A) 5 %; HCT 49.9 % (39.0-53.0); HGB 15.6 gm/dL (13.0-17.5); Lymphocytes # (A) 1.1 k/uL (1.0-4.8); Lymphocytes % (A) 6 %; MCH 32.1 pg (25.0-35.0); MCHC 31.3 g/dL (31.0-37.0); MCV 102.7 fL (80.0-100.0); Macrocytosis Slight; Mean Platelet Volume 7.4; Monocytes # (A) 0.6 k/uL (0-1.0); Monocytes % (A) 3 %; Neutrophils # (A) 15.1 k/uL (1.3-7.7); Neutrophils % (A) 84 %; Platelet Count 239 k/uL (150-450); RBC 4.86 m/uL (4.30-5.90); RDW 15.2 % (11.5-15.5)
[2024-09-10 18:55] LABS: ALT 22 U/L (4-49); AST 26 U/L (17-59); African American GFR (CKD) 38 (>60 ml/min/1.73 sqM); Albumin 4.3 g/dL (3.5-5.0); Alkaline Phosphatase 106 U/L (38-126); Anion Gap 10 mmol/L; Blood Urea Nitrogen 33 mg/dL (9-20); Calcium 9.5 mg/dL (8.4-10.2); Carbon Dioxide 28 mmol/L (22-30); Chloride 100 mmol/L (98-107); Glucose 129 mg/dL (74-99); Magnesium 1.5 mg/dL (1.6-2.3); Non-African American GFR(CKD) 33 (>60 ml/min/1.73 sqM); Potassium 4.7 mmol/L (3.5-5.1); Sodium 138 mmol/L (137-145); Total Bilirubin 0.8 mg/dL (0.2-1.3); Total Protein 7.7 g/dL (6.3-8.2)
[2024-09-10 19:02] LABS: NT-Pro-B-Type Natriuretic Pept 890 pg/mL
[2024-09-10 19:15] LABS: Influenza A Not Detected (Not Detectd); Influenza B Not Detected (Not Detectd); RSV Not Detected (Not Detectd)
[2024-09-10 19:51] LABS: INR 2.3 (<1.2); Partial Thromboplastin Time 34.8 sec (22.0-30.0)
[2024-09-10] MEDS: MAGNESIUM OXIDE 400 MG TAB PO STA ×2 (20:41)
[2024-09-10] MEDS ORDERED: NALOXONE 0.4 MG/ML 1 ML VIAL IV PRN (21:20)
[2024-09-10] MEDS ORDERED: ONDANSETRON 4 MG/2 ML VIAL IVP PRN (21:20)
[2024-09-10] MEDS ORDERED: MORPHINE SULFATE 4 MG/ML SYRINGE IV PRN (21:20)
[2024-09-10] MEDS: SODIUM CHLORIDE 0.9% 1,000 ML IV SCH (21:54)
[2024-09-11] MEDS ORDERED: HEPARIN SODIUM 1,000 UN/ML (10ML VL) IV PRN (08:24)
--- NOTE | 2024-09-11 08:25 | P.CRDCN ---
History of Present Illness Consult date: 09/11/24 History of present illness: The patient is a pleasant 79-year-old gentleman with a past medical history significant for permanent atrial fibrillation as well as overweight and heart failure and cardiomyopathy as well as multiple comorbid conditions. He presented to the emergency department with progressive exertional dyspnea associated with weight gain and bilateral lower extremities edema but no symptoms of chest pain or chest discomfort or dizziness or lightheadedness or any feeling of heart racing or fluttering or presyncope or syncope. He underwent further workup including EKG showing atrial fibrillation with diffuse nonspecific ST and T wave abnormalities and also chest x-ray showed finding consistent with heart failure as well as NT proBNP came to be around 900. Troponin came to be also mildly elevated.. The patient was on Coumadin as an outpatient and currently he is off Coumadin. INR was 2.2 when he presented to the hospital. The physical examination is remarkable for irregular rhythm with a systolic murmur at the right upper sternal border with diminished breathing sounds bilaterally and bilateral lower extremities edema noted Assessment Heart failure secondary to HFrEF Evidence of myocardial injury with no evidence of ischemia History of cardiomyopathy Permanent atrial fibrillation with controlled heart rate Multiple comorbid conditions Plan Continue hold the Coumadin at this point Start the patient on heparin IV Obtain an echocardiogram with Doppler Restart the patient on the home medications Start the patient on Lasix IV Follow-up with the patient Past Medical History Past Medical History: Atrial Fibrillation, Cancer, Diabetes Mellitus, GERD/Reflux, Hyperlipidemia, Hypertension, Osteoarthritis (OA), Renal Disease Additional Past Medical History / Comment(s): KIDNEY DISEASE stage 3, GOUT, past hx PROBLEM SWALLOWING , low Blood sugar admit 10/08/22resp failure admit 09/24/22. skin cancer, restless leg syndrome, rash on rt leg for years . History of Any Multi-Drug Resistant Organisms: None Reported Past Surgical History: Hernia Repair Additional Past Surgical History / Comment(s): cataract kaila with lens implant, colonoscopy, inguinal hernia repair, skin cancer removed Past Anesthesia/Blood Transfusion Reactions: No Reported Reaction Past Psychological History: Anxiety Smoking Status: Former smoker Past Alcohol Use History: None Reported Past Drug Use History: None Reported - Past Family History Mother Family Medical History: No Reported History Medications and Allergies Home Medications Medication Instructions Recorded Confirmed Type Carbidopa-Levodopa 25-100 mg 1 tab PO QAM 11/27/15 11/16/22 History [Sinemet 25-100 mg] allopurinoL [Zyloprim] 300 mg PO HS 11/27/15 11/16/22 History Atorvastatin [Lipitor] 20 mg PO HS 05/01/19 11/16/22 History Escitalopram [Lexapro] 10 mg PO DAILY 05/01/19 11/16/22 History calcitrioL 0.25 mcg PO TUSA 05/01/19 11/16/22 History Carbidopa-Levodopa 25-100 mg 2 tab PO HS 09/24/22 11/16/22 History [Sinemet 25-100 mg] Magnesium Oxide [Magnesium] 400 mg PO HS 09/24/22 11/16/22 History Furosemide [Lasix] 40 mg PO DAILY #30 tab 09/27/22 11/16/22 Rx Amiodarone [Cordarone] 200 mg PO DAILY 10/08/22 11/16/22 History Metoprolol Tartrate [Lopressor] 50 mg PO TID 10/08/22 11/16/22 History Cholecalciferol [Vitamin D3 (25 25 mcg PO DAILY 11/12/22 11/16/22 History Mcg = 1000 Iu)] Glimepiride [Amaryl] 8 mg PO [id number] 11/12/22 11/16/22 History Rivaroxaban [Xarelto] 20 mg PO HS 11/12/22 11/16/22 History Warfarin Sodium 4 mg PO [id number] 11/12/22 11/16/22 History Warfarin Sodium 6 mg PO MO 11/12/22 11/16/22 History sitaGLIPtin [Januvia] 50 mg PO DAILY 11/12/22 11/16/22 History Allergies Allergy/AdvReac Type Severity Reaction Status Date / Time Penicillins Allergy Unknown Verified 09/10/24 15:30 Physical Exam Vitals: Vital Signs Temp Pulse Resp BP Pulse Ox 09/11/24 06:00 76 16 145/83 100 09/11/24 02:39 79 18 149/95 97 09/10/24 23:17 76 18 158/94 97 09/10/24 19:57 97.5 F L 75 20 171/91 100 09/10/24 15:27 97.4 F L 75 20 160/85 91 L Intake and Output 09/10/24 09/11/24 09/11/24 22:59 06:59 14:59 Other: Weight 113.398 kg Results 09/10/24 18:27 09/10/24 18:27 Cardiac Enzymes 09/10/24 09/10/24 09/11/24 Range/Units 18:27 18:27 01:12 AST 26 (17-59) U/L Troponin I 0.043 H* 0.055 H* (0.000-0.034) ng/mL Coagulation 09/10/24 Range/Units 18:27 PT 23.0 H (10.0-12.5) sec APTT 34.8 H (22.0-30.0) sec CBC 09/10/24 Range/Units 18:27 WBC 18.0 H (3.8-10.6) k/uL RBC 4.86 (4.30-5.90) m/uL Hgb 15.6 (13.0-17.5) gm/dL Hct 49.9 (39.0-53.0) % Plt Count 239 (150-450) k/uL Comprehensive Metabolic Panel 09/10/24 Range/Units 18:27 Sodium 138 (137-145) mmol/L Potassium 4.7 (3.5-5.1) mmol/L Chloride 100 (98-107) mmol/L Carbon Dioxide 28 (22-30) mmol/L BUN 33 H (9-20) mg/dL Creatinine 1.89 H (0.66-1.25) mg/dL Glucose 129 H (74-99) mg/dL Calcium 9.5 (8.4-10.2) mg/dL AST 26 (17-59) U/L ALT 22 (4-49) U/L Alkaline Phosphatase 106 (38-126) U/L Total Protein 7.7 (6.3-8.2) g/dL Albumin 4.3 (3.5-5.0) g/dL Current Medications Generic Name Dose Route Start Last Admin Trade Name Freq PRN Reason Stop Dose Admin Sodium Chloride 1,000 mls @ 75 mls/hr 09/10/24 21:30 09/10/24 21:54 Saline 0.9% IV 75 mls/hr .[id number] RENÉE Administration Morphine Sulfate 4 mg 09/10/24 21:20 Morphine Sulfate 4 Mg/Ml Syringe IV Q4HR PRN Severe Pain (Scale 7 to 10) Naloxone HCl 0.2 mg 09/10/24 21:20 Naloxone 0.4 Mg/Ml 1 Ml Vial IV Q2M PRN Opioid Reversal Ondansetron HCl 4 mg 09/10/24 21:20 Ondansetron 4 Mg/2 Ml Vial IVP Q8HR PRN Nausea And Vomiting Intake and Output 09/10/24 09/11/24 09/11/24 22:59 06:59 14:59 Other: Weight 113.398 kg 09/10/24 18:27 09/10/24 18:27
[2024-09-11 08:42] LABS: Basophils % (A) 0 %; Eosinophils # (A) 1.2 k/uL (0-0.7); Eosinophils % (A) 8 %; HCT 45.3 % (39.0-53.0); Hypochromasia Slight; Lymphocytes # (A) 1.3 k/uL (1.0-4.8); Lymphocytes % (A) 8 %; MCH 31.3 pg (25.0-35.0); MCV 101.1 fL (80.0-100.0); Macrocytosis Slight; Mean Platelet Volume 7.4; Monocytes # (A) 0.6 k/uL (0-1.0); Monocytes % (A) 4 %; Neutrophils # (A) 12.4 k/uL (1.3-7.7); Neutrophils % (A) 80 %; Platelet Count 246 k/uL (150-450); RBC 4.48 m/uL (4.30-5.90); RDW 14.9 % (11.5-15.5); WBC 15.6 k/uL (3.8-10.6)
[2024-09-11] MEDS: FUROSEMIDE 10 MG/ML 2 ML VIAL IV SCH (08:48)
[2024-09-11 09:06] LABS: ALT 19 U/L (4-49); AST 24 U/L (17-59); African American GFR (CKD) 42 (>60 ml/min/1.73 sqM); Albumin 3.9 g/dL (3.5-5.0); Alkaline Phosphatase 83 U/L (38-126); Anion Gap 8 mmol/L; Blood Urea Nitrogen 32 mg/dL (9-20); Calcium 9.1 mg/dL (8.4-10.2); Carbon Dioxide 29 mmol/L (22-30); Chloride 102 mmol/L (98-107); Glucose 152 mg/dL (74-99); INR 2.7 (<1.2); Magnesium 1.7 mg/dL (1.6-2.3); Non-African American GFR(CKD) 36 (>60 ml/min/1.73 sqM); Partial Thromboplastin Time 38.9 sec (22.0-30.0); Phosphorus 3.9 mg/dL (2.5-4.5); Potassium 4.7 mmol/L (3.5-5.1); Prothrombin Time 26.5 sec (10.0-12.5); Sodium 139 mmol/L (137-145); Total Bilirubin 0.9 mg/dL (0.2-1.3)
[2024-09-11] MEDS ORDERED: DEXTROSE 50% SYRINGE 50 ML IVP PRN ×2 (09:10)
[2024-09-11] MEDS: HEPARIN SOD,PORK IN 0.45% NACL 25,000 UNIT in 0.45% NACL 1 250ML.BAG IV SCH (10:34)
[2024-09-11] MEDS: HEPARIN SODIUM 1,000 UN/ML (10ML VL) MISCELLANE ONE (10:36)
--- NOTE | 2024-09-11 11:44 | CA ---
Transthoracic Echo Report Name: Coy Buitrago Age: 79 Gender: M : 1945 Exam Date: 09/11/2024 09:04 Exam Location: [facility] Ht (in): 67 Wt (lb): 250 Ordering Physician: Derrick Devries MD ([id number]) Attending/Referring Phys: Swing Manager Mariella Garrison RDCS Procedure CPT: Indications: Heart failure Cardiac Hx: Technical Quality: Technically difficult study Contrast 1: Definity Total Dose (mL): 2 Contrast 2: Total Dose (mL): MEASUREMENTS (Male / Female) Normal Values 2D ECHO LV Diastolic Diameter PLAX 4.7 cm 4.2 - 5.9 / 3.9 - 5.3 cm LV Systolic Diameter PLAX 3.1 cm IVS Diastolic Thickness 1.3 cm 0.6 - 1.0 / 0.6 - 0.9 cm LVPW Diastolic Thickness 1.1 cm 0.6 - 1.0 / 0.6 - 0.9 cm LV Relative Wall Thickness 0.5 RV Internal Dim ED PLAX 3.8 cm LVOT Diameter 2.5 cm LA Systolic Diameter LX 4.0 cm 3.0 - 4.0 / 2.7 - 3.8 cm LV Diastolic Volume MOD BP 81.4 cm??? 67 - 155 / 56 - 104 cm??? LV Systolic Volume MOD BP 38.3 cm??? 22 - 58 / 19 - 49 cm??? LV Ejection Fraction MOD BP 53.0 % >= 55 % LV Cardiac Index MOD BP 1438.7 cm???/min???m??? LV Diastolic Volume MOD 4C 78.9 cm??? LV Systolic Volume MOD 4C 30.0 cm??? LV Ejection Fraction MOD 4C 62.0 % LV Cardiac Index MOD 4C 1631.9 cm???/min???m??? LV Diastolic Length 4C 7.1 cm LV Systolic Length 4C 6.0 cm LV Diastolic Volume MOD 2C 84.1 cm??? LV Systolic Volume MOD 2C 45.2 cm??? LV Ejection Fraction MOD 2C 46.2 % LV Cardiac Index MOD 2C 1296.1 cm???/min???m??? LV Diastolic Length 2C 7.1 cm LV Systolic Length 2C 6.6 cm M-MODE Aortic Root Diameter MM 3.8 cm DOPPLER AV Peak Velocity 230.8 cm/s AV Peak Gradient 21.3 mmHg AV Mean Velocity 157.8 cm/s AV Mean Gradient 11.3 mmHg AV Velocity Time Integral 49.5 cm LVOT Peak Velocity 73.3 cm/s LVOT Peak Gradient 2.2 mmHg LVOT Velocity Time Integral 16.3 cm LVOT Stroke Volume 83.4 cm??? LVOT Stroke Volume Index 37.5 ml/m??? LVOT Cardiac Index 2782.0 cm???/min???m??? AV Area Cont Eq vti 1.7 cm??? AV Area Cont Eq pk 1.6 cm??? TR Peak Velocity 314.7 cm/s TR Peak Gradient 39.6 mmHg Right Ventricular Systolic Press 49.6 mmHg FINDINGS Left Ventricle Left ventricular ejection fraction is estimated at 40-45 %. Left ventricular cavity size normal. Mildly increased septal wall thickness. Mildly decreased left ventricular ejection fraction. Right Ventricle Moderate right ventricular dilatation. Moderate pulmonary hypertension. Right ventricular systolic pressure estimated at 50 mm hg. Right Atrium Severe right atrial dilatation. Left Atrium Mild left atrial dilatation. No left atrial thrombus or mass present. Mitral Valve Mitral valve thickened. Mitral annular calcification. Mild mitral regurgitation. Aortic Valve Aortic valve sclerosis. Mild aortic stenosis with a peak gradient of 21 mmHg and a mean gradient of 11 mmHg. Tricuspid Valve Structurally normal tricuspid valve. Mild tricuspid regurgitation. Pulmonic Valve Pulmonic valve not well visualized. Pericardium No pericardial effusion. Aorta Mild aortic dilatation at the level of the sinuses of valsalva 38 mm CONCLUSIONS Moderate LV systolic dysfunction with an ejection fraction of 40 to 45% Moderate pulmonary hypertension with moderate dilatation of the right ventricle Mild aortic stenosis Mild mitral and tricuspid regurgitation Previewed by: Dr. Luis M Stoddard MD (Electronically Signed) Final Date: 11 September 2024 11:43
[2024-09-11] MEDS ORDERED: ACETAMINOPHEN TAB 500 MG TAB PO PRN (11:47)
--- NOTE | 2024-09-11 11:47 | P.HPIM ---
History of Present Illness H&P Date: 09/11/24 Coy Buitrago is a 79-year-old male patient of Dr. Segura who presented with complaints of shortness of breath that has been increasing over the past few days. Patient also complaining of upper respiratory symptoms including congestion and cough. Patient has a past medical history of atrial fibrillation in which she is maintained on Coumadin, diabetes mellitus, GERD, hyperlipidemia, chronic kidney disease stage III, essential hypertension and diabetes mellitus. Chest x-ray completed showing no acute cardiopulmonary disease. Lab work completed showing white blood cell 18.0, hemoglobin 15.6, INR 2.3, creatinine 1.89 bun 33 this does appear patient's baseline. Troponins positive at 0.043, 0.055 and 0.053. Patient negative for influenza RSV and COVID-19. BNP 890. Cardiology services have been consulted patient started on heparin drip and IV Lasix. 2D echocardiogram has been ordered. At this time patient reports improvement with shortness of breath. Patient denies chest pain. Patient denies nausea vomiting or diarrhea. Patient denies any urinary burning or frequency. Current vital signs temp 98.2, heart rate 76, respiratory rate 18, blood pressure 152/68 with a pulse ox of 100% on 3 L. Review of Systems Please refer to HPI otherwise unremarkable Past Medical History Past Medical History: Atrial Fibrillation, Cancer, Diabetes Mellitus, GERD/Reflux, Hyperlipidemia, Hypertension, Osteoarthritis (OA), Renal Disease Additional Past Medical History / Comment(s): KIDNEY DISEASE stage 3, GOUT, past hx PROBLEM SWALLOWING , low Blood sugar admit 10/08/22resp failure admit . skin cancer, restless leg syndrome, rash on rt leg for years . History of Any Multi-Drug Resistant Organisms: None Reported Past Surgical History: Hernia Repair Additional Past Surgical History / Comment(s): cataract kaila with lens implant, colonoscopy, inguinal hernia repair, skin cancer removed Past Anesthesia/Blood Transfusion Reactions: No Reported Reaction Past Psychological History: Anxiety Smoking Status: Former smoker Past Alcohol Use History: None Reported Past Drug Use History: None Reported - Past Family History Mother Family Medical History: No Reported History Medications and Allergies Home Medications Medication Instructions Recorded Confirmed Type RX: allopurinoL [Zyloprim] 300 mg PO HS 11/27/15 09/11/24 History RX: Atorvastatin [Lipitor] 20 mg PO HS 05/01/19 09/11/24 History RX: calcitrioL 0.25 mcg PO MOWEFR 05/01/19 09/11/24 History RX: Magnesium Oxide [Magnesium] 400 mg PO HS 09/24/22 09/11/24 History RX: Furosemide [Lasix] 40 mg PO DAILY #30 tab 09/27/22 09/11/24 Rx Cholecalciferol [Vitamin D3 (25 25 mcg PO DAILY 11/12/22 09/11/24 History Mcg = 1000 Iu)] Ascorbic Acid [Vitamin C] 500 mg PO DAILY 09/11/24 09/11/24 History Escitalopram [Lexapro] 20 mg PO DAILY 09/11/24 09/11/24 History Famotidine [Pepcid] 20 mg PO DAILY 09/11/24 09/11/24 History Metoprolol Tartrate [Lopressor] 50 mg PO BID-W/MEALS 09/11/24 09/11/24 History Warfarin [Coumadin] 2.5 mg PO SUMOWETHSA 09/11/24 09/11/24 History Warfarin [Coumadin] 5 mg PO TUFR 09/11/24 09/11/24 History rOPINIRole HCL [Requip] 1 mg PO TID PRN 09/11/24 09/11/24 History sitaGLIPtin [Januvia] 50 mg PO DAILY 09/11/24 09/11/24 History Allergies Allergy/AdvReac Type Severity Reaction Status Date / Time Penicillins Allergy Unknown Verified 09/11/24 11:05 Physical Exam Vitals: Vital Signs Temp Pulse Resp BP Pulse Ox 09/11/24 09:02 99 09/11/24 08:55 98 F 76 18 152/68 100 09/11/24 06:00 76 16 145/83 100 09/11/24 02:39 79 18 149/95 97 09/10/24 23:17 76 18 158/94 97 09/10/24 19:57 97.5 F L 75 20 171/91 100 09/10/24 15:27 97.4 F L 75 20 160/85 91 L Intake and Output 09/10/24 09/11/24 09/11/24 22:59 06:59 14:59 Other: Weight 113.398 kg Head normocephalic Neck supple Lungs clear to auscultation bilaterally no wheezing or crackles Heart regular rate and rhythm S1-S2, no rub or gallop Abdomen is soft nontender nondistended positive bowel sounds no hepatosplenomegaly Extremities no edema Neuro alert and orientated to 3 Results CBC & Chem 7: 09/11/24 08:30 09/11/24 08:30 Labs: Abnormal Lab Results - Last 24 Hours (Table) 09/10/24 09/10/24 09/10/24 Range/Units 18:27 18:27 18:27 WBC 18.0 H (3.8-10.6) k/uL MCV 102.7 H (80.0-100.0) fL Neutrophils # 15.1 H (1.3-7.7) k/uL Eosinophils # 1.0 H (0-0.7) k/uL PT 23.0 H (10.0-12.5) sec INR 2.3 H (<1.2) APTT 34.8 H (22.0-30.0) sec BUN 33 H (9-20) mg/dL Creatinine 1.89 H (0.66-1.25) mg/dL Glucose 129 H (74-99) mg/dL Magnesium 1.5 L (1.6-2.3) mg/dL Troponin I (0.000-0.034) ng/mL 09/10/24 09/11/24 09/11/24 Range/Units 18:27 01:12 08:30 WBC (3.8-10.6) k/uL MCV (80.0-100.0) fL Neutrophils # (1.3-7.7) k/uL Eosinophils # (0-0.7) k/uL PT (10.0-12.5) sec INR (<1.2) APTT (22.0-30.0) sec BUN (9-20) mg/dL Creatinine (0.66-1.25) mg/dL Glucose (74-99) mg/dL Magnesium (1.6-2.3) mg/dL Troponin I 0.043 H* 0.055 H* 0.053 H* (0.000-0.034) ng/mL 09/11/24 09/11/24 09/11/24 Range/Units 08:30 08:30 08:30 WBC 15.6 H (3.8-10.6) k/uL MCV 101.1 H (80.0-100.0) fL Neutrophils # 12.4 H (1.3-7.7) k/uL Eosinophils # 1.2 H (0-0.7) k/uL PT 26.5 H (10.0-12.5) sec INR 2.7 H (<1.2) APTT 38.9 H (22.0-30.0) sec BUN 32 H (9-20) mg/dL Creatinine 1.74 H (0.66-1.25) mg/dL Glucose 152 H (74-99) mg/dL Magnesium (1.6-2.3) mg/dL Troponin I (0.000-0.034) ng/mL Assessment and Plan Assessment: 1. Acute on chronic diastolic congestive heart failure. Patient started on IV Lasix 2. Elevated troponins patient started on IV heparin 3. Chronic kidney disease stage III patient at baseline 4. Recent upper respiratory infection 5. Chronic atrial fibrillation patient maintained on Coumadin. Coumadin currently on hold patient on IV heparin drip 6. History of diabetes mellitus type 2 sliding scale coverage ordered 7. History of hyperlipidemia 8. History of essential hypertension DVT prophylaxis heparin drip. GI prophylaxis Pepcid Cardiology services consulted Patient maintained on IV heparin drip Patient maintained on IV Lasix 2D echo ordered Repeat labs ordered Time with Patient: Greater than 30 (Greater than 60% of the total time spent in counseling and coordination of care)
[2024-09-11 12:04] LABS: Glucose,Whole Blood 122 mg/dL (70-110)
[2024-09-11] MEDS: INSULIN LISPRO (HumaLOG) 100 UNIT/ML 10 mL VL SQ SCH (12:20)
[2024-09-11 15:38] LABS: Glucose,Whole Blood 116 mg/dL (70-110)
[2024-09-11] MEDS: METOPROLOL TARTRATE 50 MG TAB PO SCH (18:07)
[2024-09-11 20:09] LABS: Glucose,Whole Blood 153 mg/dL (70-110)
[2024-09-11] MEDS: ATORVASTATIN 20 MG TAB PO SCH (20:48)
[2024-09-11] MEDS: MAGNESIUM OXIDE 400 MG TAB PO SCH (20:48)
[2024-09-11] MEDS: allopurinoL 300 MG TAB PO SCH (22:11)
[2024-09-12 06:06] LABS: Basophils % (A) 0 %; Eosinophils # (A) 1.9 k/uL (0-0.7); Eosinophils % (A) 19 %; HCT 43.9 % (39.0-53.0); HGB 13.9 gm/dL (13.0-17.5); Hypochromasia Slight; Lymphocytes # (A) 1.8 k/uL (1.0-4.8); Lymphocytes % (A) 19 %; MCHC 31.6 g/dL (31.0-37.0); MCV 101.2 fL (80.0-100.0); Macrocytosis Slight; Mean Platelet Volume 7.2; Monocytes # (A) 0.6 k/uL (0-1.0); Monocytes % (A) 6 %; Neutrophils # (A) 5.1 k/uL (1.3-7.7); Neutrophils % (A) 53 %; Platelet Count 225 k/uL (150-450); RBC 4.34 m/uL (4.30-5.90); WBC 9.5 k/uL (3.8-10.6)
[2024-09-12 06:20] LABS: ALT 18 U/L (4-49); AST 27 U/L (17-59); African American GFR (CKD) 42 (>60 ml/min/1.73 sqM); Albumin 3.4 g/dL (3.5-5.0); Alkaline Phosphatase 88 U/L (38-126); Anion Gap 6 mmol/L; Blood Urea Nitrogen 32 mg/dL (9-20); Calcium 8.8 mg/dL (8.4-10.2); Carbon Dioxide 29 mmol/L (22-30); Chloride 98 mmol/L (98-107); Glucose 127 mg/dL (74-99); Non-African American GFR(CKD) 37 (>60 ml/min/1.73 sqM); Sodium 133 mmol/L (137-145); Total Bilirubin 0.7 mg/dL (0.2-1.3); Total Protein 6.2 g/dL (6.3-8.2)
--- NOTE | 2024-09-12 06:48 | P.PN ---
Subjective Progress Note Date: 09/12/24 The patient is a pleasant 79-year-old gentleman with a past medical history significant for permanent atrial fibrillation as well as overweight and heart failure and cardiomyopathy as well as multiple comorbid conditions. He presented to the emergency department with progressive exertional dyspnea associ ated with weight gain and bilateral lower extremities edema but no symptoms of chest pain or chest discomfort or dizziness or lightheadedness or any feeling of heart racing or fluttering or presyncope or syncope. He underwent further workup including EKG showing atrial fibrillation with diffuse nonspecific ST and T wave abnormalities and also chest x-ray showed finding consistent with heart failure as well as NT proBNP came to be around 900. Troponin came to be also mildly elevated.. The patient was on Coumadin as an outpatient and currently he is off Coumadin. INR was 2.2 when he presented to the hospital. The physical examination is remarkable for irregular rhythm with a systolic murmur at the right upper sternal border with diminished breathing sounds bilaterally and bilateral lower extremities edema noted September 12, 2024 The patient was seen and evaluated this morning. He is feeling slightly better in terms of shortness of breath but he still have wheezing on examination. No symptoms of chest pain or chest discomfort. The echo showed impaired LV function with EF between 40 to 45% with mild aortic stenosis and moderate pulmonary hypertension. I will obtain a copy of the previous echocardiogram from the office to compare the previous echo to the recent echo. Troponin is mildly elevated but appears to be flat across the board. Kidney function is stable. He has been tolerating the current dose of Lasix IV and has been diuresing well on it. The physical examination is remarkable for irregular rhythm with a systolic murmur at the right upper sternal and left upper sternal border with bilateral expiratory wheezing and bilateral lower extremities edema Assessment Heart failure secondary to HFrEF Evidence of myocardial injury with no evidence of ischemia History of cardiomyopathy Permanent atrial fibrillation with controlled heart rate Multiple comorbid conditions Chronic kidney disease Plan Continue the current medical regimen including heparin till we make a decision regarding coronary angiogram Obtain a copy of the last echocardiogram from the office Continue the current dose of Lasix IV for additional 24 hours Continue monitor the kidney function and electrolytes Follow-up with the patient Objective - Vital Signs Vital signs: Vital Signs Temp 98.4 F 09/12/24 04:00 Pulse 69 09/12/24 04:00 Resp 18 09/12/24 04:00 BP 136/88 09/12/24 04:00 Pulse Ox 96 09/12/24 04:00 FiO2 Intake & Output 09/11/24 09/11/24 09/12/24 06:59 18:59 06:59 Intake Total 197.5 Output Total 1000 Balance -802.5 Weight 113.398 kg 114.3 kg Intake: Intake, IV Titration 197.5 Amount Heparin Sod,Pork in 0.45% 197.5 NaCl 25,000 unit In 0.45 % NaCl 1 250ml.bag @ 8. 8185 UNITS/KG/HR 10 mls/ hr IV .Q24H [facility] Rx#: [id number] Output: Urine 1000 Other: Voiding Method External Catheter External Catheter - Labs CBC & Chem 7: 09/12/24 05:26 09/12/24 05:26 Labs: Abnormal Lab Results - Last 24 Hours (Table) 09/11/24 09/11/24 09/11/24 Range/Units 08:30 08:30 08:30 WBC 15.6 H (3.8-10.6) k/uL MCV 101.1 H (80.0-100.0) fL Neutrophils # 12.4 H (1.3-7.7) k/uL Eosinophils # 1.2 H (0-0.7) k/uL PT (10.0-12.5) sec INR (<1.2) APTT (22.0-30.0) sec Sodium (137-145) mmol/L BUN 32 H (9-20) mg/dL Creatinine 1.74 H (0.66-1.25) mg/dL Glucose 152 H (74-99) mg/dL POC Glucose (mg/dL) (70-110) mg/dL Troponin I 0.053 H* (0.000-0.034) ng/mL Total Protein (6.3-8.2) g/dL Albumin (3.5-5.0) g/dL 09/11/24 09/11/24 09/11/24 Range/Units 08:30 12:03 15:36 WBC (3.8-10.6) k/uL MCV (80.0-100.0) fL Neutrophils # (1.3-7.7) k/uL Eosinophils # (0-0.7) k/uL PT 26.5 H (10.0-12.5) sec INR 2.7 H (<1.2) APTT 38.9 H (22.0-30.0) sec Sodium (137-145) mmol/L BUN (9-20) mg/dL Creatinine (0.66-1.25) mg/dL Glucose (74-99) mg/dL POC Glucose (mg/dL) 122 H 116 H (70-110) mg/dL Troponin I (0.000-0.034) ng/mL Total Protein (6.3-8.2) g/dL Albumin (3.5-5.0) g/dL 09/11/24 09/11/24 09/12/24 Range/Units 17:45 20:08 05:26 WBC (3.8-10.6) k/uL MCV (80.0-100.0) fL Neutrophils # (1.3-7.7) k/uL Eosinophils # (0-0.7) k/uL PT (10.0-12.5) sec INR (<1.2) APTT 60.9 H 80.7 H (22.0-30.0) sec Sodium (137-145) mmol/L BUN (9-20) mg/dL Creatinine (0.66-1.25) mg/dL Glucose (74-99) mg/dL POC Glucose (mg/dL) 153 H (70-110) mg/dL Troponin I (0.000-0.034) ng/mL Total Protein (6.3-8.2) g/dL Albumin (3.5-5.0) g/dL 09/12/24 09/12/24 Range/Units 05:26 05:26 WBC (3.8-10.6) k/uL MCV 101.2 H (80.0-100.0) fL Neutrophils # (1.3-7.7) k/uL Eosinophils # 1.9 H (0-0.7) k/uL PT (10.0-12.5) sec INR (<1.2) APTT (22.0-30.0) sec Sodium 133 L (137-145) mmol/L BUN 32 H (9-20) mg/dL Creatinine 1.71 H (0.66-1.25) mg/dL Glucose 127 H (74-99) mg/dL POC Glucose (mg/dL) (70-110) mg/dL Troponin I (0.000-0.034) ng/mL Total Protein 6.2 L (6.3-8.2) g/dL Albumin 3.4 L (3.5-5.0) g/dL
[2024-09-12] MEDS: FAMOTIDINE 20 MG TAB PO SCH (08:23)
[2024-09-12] MEDS: ESCITALOPRAM 20 MG TAB PO SCH (08:23)
[2024-09-12] MEDS: CHOLECALCIFEROL 25 MCG (1000 IU) TABLET PO SCH (08:23)
[2024-09-12] MEDS: ASCORBIC ACID 500 MG TAB PO SCH (08:23)
[2024-09-12] MEDS: LINAGLIPTIN 5 MG TABLET PO SCH (08:23)
--- NOTE | 2024-09-12 09:41 | P.PN ---
Subjective Progress Note Date: 09/12/24 Coy Buitrago is a 79-year-old male patient of Dr. Segura who presented with complaints of shortness of breath that has been increasing over the past few days. Patient also complaining of upper respiratory symptoms including congestion and cough. Patient has a past medical history of atrial fibrillation in which she is maintained on Coumadin, diabetes mellitus, GERD, hyperlipidemia, chronic kidney disease stage III, essential hypertension and diabetes mellitus. Chest x-ray completed showing no acute cardiopulmonary disease. Lab work completed showing white blood cell 18.0, hemoglobin 15.6, INR 2.3, creatinine 1.89 bun 33 this does appear patient's baseline. Troponins positive at 0.043, 0.055 and 0.053. Patient negative for influenza RSV and COVID-19. BNP 890. Cardiology services have been consulted patient started on heparin drip and IV Lasix. 2D echocardiogram has been ordered. At this time patient reports improvement with shortness of breath. Patient denies chest pain. Patient denies nausea vomiting or diarrhea. Patient denies any urinary burning or frequency. Current vital signs temp 98.2, heart rate 76, respiratory rate 18, blood pressure 152/68 with a pulse ox of 100% on 3 L. On 09/12/2024 patient is alert and oriented x 3. Patient currently in ICU as overflow. Patient remains on IV Lasix and heparin drip. Patient does report improvement with shortness of breath. Current vital signs temp 98.4, heart rate 69, respiratory rate 18, blood pressure 136/88 with a pulse ox of 96% on room air. Patient denies chest pain. Patient denies nausea vomiting or diarrhea. Patient denies any urinary burning or frequency. Creatinine 1.71 bun 32 this is improved and patient's chronic kidney disease baseline. Objective - Vital Signs Vital signs: Vital Signs Temp 98.4 F 09/12/24 04:00 Pulse 69 09/12/24 04:00 Resp 18 09/12/24 04:00 BP 136/88 09/12/24 04:00 Pulse Ox 96 09/12/24 04:00 FiO2 Intake & Output 09/11/24 09/12/24 09/12/24 18:59 06:59 18:59 Intake Total 197.5 Output Total 1000 Balance -802.5 Weight 113.398 kg 114.3 kg Intake: Intake, IV Titration 197.5 Amount Heparin Sod,Pork in 0.45% 197.5 NaCl 25,000 unit In 0.45 % NaCl 1 250ml.bag @ 8. 8185 UNITS/KG/HR 10 mls/ hr IV .Q24H [facility] Rx#: [id number] Output: Urine 1000 Other: Voiding Method External Catheter External Catheter - Exam Head normocephalic Neck supple Lungs clear to auscultation bilaterally no wheezing or crackles Heart regular rate and rhythm S1-S2, no rub or gallop Abdomen is soft nontender nondistended positive bowel sounds no hepatosplenomegaly Extremities no edema Neuro alert and orientated to 3 - Labs CBC & Chem 7: 09/12/24 05:26 09/12/24 05:26 Labs: Abnormal Lab Results - Last 24 Hours (Table) 09/11/24 09/11/24 09/11/24 Range/Units 12:03 15:36 17:45 MCV (80.0-100.0) fL Eosinophils # (0-0.7) k/uL APTT 60.9 H (22.0-30.0) sec Sodium (137-145) mmol/L BUN (9-20) mg/dL Creatinine (0.66-1.25) mg/dL Glucose (74-99) mg/dL POC Glucose (mg/dL) 122 H 116 H (70-110) mg/dL Hemoglobin A1c (<=6.0) % Total Protein (6.3-8.2) g/dL Albumin (3.5-5.0) g/dL 09/11/24 09/12/24 09/12/24 Range/Units 20:08 05:26 05:26 MCV (80.0-100.0) fL Eosinophils # (0-0.7) k/uL APTT 80.7 H (22.0-30.0) sec Sodium (137-145) mmol/L BUN (9-20) mg/dL Creatinine (0.66-1.25) mg/dL Glucose (74-99) mg/dL POC Glucose (mg/dL) 153 H (70-110) mg/dL Hemoglobin A1c 7.5 H (<=6.0) % Total Protein (6.3-8.2) g/dL Albumin (3.5-5.0) g/dL 09/12/24 09/12/24 Range/Units 05:26 05:26 MCV 101.2 H (80.0-100.0) fL Eosinophils # 1.9 H (0-0.7) k/uL APTT (22.0-30.0) sec Sodium 133 L (137-145) mmol/L BUN 32 H (9-20) mg/dL Creatinine 1.71 H (0.66-1.25) mg/dL Glucose 127 H (74-99) mg/dL POC Glucose (mg/dL) (70-110) mg/dL Hemoglobin A1c (<=6.0) % Total Protein 6.2 L (6.3-8.2) g/dL Albumin 3.4 L (3.5-5.0) g/dL Assessment and Plan Assessment: 1. Acute on chronic diastolic congestive heart failure. Patient started on IV Lasix 2. Elevated troponins patient started on IV heparin 3. Chronic kidney disease stage III patient at baseline 4. Recent upper respiratory infection 5. Chronic atrial fibrillation patient maintained on Coumadin. Coumadin currently on hold patient on IV heparin drip 6. History of diabetes mellitus type 2 sliding scale coverage ordered 7. History of hyperlipidemia 8. History of essential hypertension DVT prophylaxis heparin drip. GI prophylaxis Pepcid Cardiology services consulted Patient maintained on IV heparin drip Patient maintained on IV Lasix 2D echo ordered Repeat labs ordered
[2024-09-12] MEDS ORDERED: ZOLPIDEM 5 MG TAB PO PRN (09:50)
[2024-09-12] MEDS ORDERED: MAG HYDROX/AL HYDROX/SIMETH 30 ML CUP PO PRN (09:50)
[2024-09-12] MEDS ORDERED: RX INFO: IV CONTRAST WAS GIVEN 1 EACH MISC MISCELLANE PRN (09:50)
[2024-09-12] MEDS ORDERED: ATROPINE SULFATE 0.1 MG/ML 10ML SYRINGE IV PRN (09:50)
[2024-09-12] MEDS ORDERED: NITROGLYCERIN SL TABS 0.4 MG TAB SUBLINGUAL PRN (09:50)
[2024-09-12] MEDS ORDERED: SODIUM CHLORIDE 0.9% 1,000 ML in EMPTY BAG 1 BAG IV SCH (10:00)
[2024-09-12 11:22] LABS: Glucose,Whole Blood 107 mg/dL (70-110)
[2024-09-12 12:04] VITALS: BMI 39.4
--- NOTE | 2024-09-12 12:51 | CDI ---
Documentation Clarification Form Date: 09/12/2024 12:33:06 PM From: Leatha Orta RN, CCDS Phone: [phone] Admit Date: 09/10/2024 09:21:00 PM Patient Name: Coy Buitrago Visit Number: [id number] Discharge Date: ATTENTION: The Clinical Documentation Specialists (CDI) and [facility] Coding Staff appreciate your assistance in clarifying documentation. Please respond to the clarification below the line at the bottom and electronically sign. The CDI & [facility] Coding staff will review the response and follow-up if needed. Please note: Queries are made part of the Legal Health Record. If you have any questions, please contact the author of this message via ITS. Doctor. Donal Granado Conflicting documentation has been found in the medical record. As attending physician, please provide clarification. 09/11 Cardiology consult: Heart failure secondary to HFrEF 09/11 H/P: Acute on chronic diastolic congestive heart 09/11 ECHO: Left ventricular ejection fraction is estimated at 40-45 %. Moderate pulmonary hypertension with moderate dilatation of the right ventricle Mild aortic stenosis Mild mitral and tricuspid regurgitation History/Risk Factors: Atrial Fibrillation, Cancer, Diabetes Mellitus, Hypertension, Clinical Indicators:79-year-old male presenting to ED with URI and difficulty breathing with congestion, rhinorrhea, cough. 160/85 75 20 97.4 91 % WBC 18.0 BUN 33 CR 1.89 BNP 890 Trop 0.043, 0.055, 0.053 CXR: NEG Treatment: panel monitor /Telemetry Lipitor 40 MG HS, Lopressor 50 MG PO BID Lasix 20MG IV Q 12 Please clarify which diagnosis is most appropriate: [xxx ] Acute Heart failure with HFrEF per ECHO 09/11 [ ] Other (please specify) [ ] Unable to determine (Template Last Revised: August 2020) MTDD
[2024-09-12 16:36] LABS: Glucose,Whole Blood 115 mg/dL (70-110)
[2024-09-12 20:10] LABS: Glucose,Whole Blood 123 mg/dL (70-110)
[2024-09-12] MEDS: ATORVASTATIN 40 MG TAB PO SCH (20:13)
[2024-09-12] MEDS ORDERED: METOPROLOL TARTRATE 25 MG TAB PO SCH (21:00)
[2024-09-13 06:00] LABS: Glucose,Whole Blood 126 mg/dL (70-110)
--- NOTE | 2024-09-13 07:46 | P.PN ---
Subjective Progress Note Date: 09/13/24 The patient is a pleasant 79-year-old gentleman with a past medical history significant for permanent atrial fibrillation as well as overweight and heart failure and cardiomyopathy as well as multiple comorbid conditions. He presented to the emergency department with progressive exertional dyspnea associ ated with weight gain and bilateral lower extremities edema but no symptoms of chest pain or chest discomfort or dizziness or lightheadedness or any feeling of heart racing or fluttering or presyncope or syncope. He underwent further workup including EKG showing atrial fibrillation with diffuse nonspecific ST and T wave abnormalities and also chest x-ray showed finding consistent with heart failure as well as NT proBNP came to be around 900. Troponin came to be also mildly elevated.. The patient was on Coumadin as an outpatient and currently he is off Coumadin. INR was 2.2 when he presented to the hospital. The physical examination is remarkable for irregular rhythm with a systolic murmur at the right upper sternal border with diminished breathing sounds bilaterally and bilateral lower extremities edema noted September 12, 2024 The patient was seen and evaluated this morning. He is feeling slightly better in terms of shortness of breath but he still have wheezing on examination. No symptoms of chest pain or chest discomfort. The echo showed impaired LV function with EF between 40 to 45% with mild aortic stenosis and moderate pulmonary hypertension. I will obtain a copy of the previous echocardiogram from the office to compare the previous echo to the recent echo. Troponin is mildly elevated but appears to be flat across the board. Kidney function is stable. He has been tolerating the current dose of Lasix IV and has been diuresing well on it. The physical examination is remarkable for irregular rhythm with a systolic murmur at the right upper sternal and left upper sternal border with bilateral expiratory wheezing and bilateral lower extremities edema September 13, 2024 The patient was seen and evaluated this morning. He is not having any chest pain or chest discomfort but the shortness of breath with exertion has improved but continues to have bilateral lower extremities edema. He is on Lasix IV and the kidney function remains stable. I am going to continue the current medical regimen for additional 24 hours and also restart the patient back on Coumadin orally. The echo showed mild cardiomyopathy which has not changed compared to before with no significant valvular abnormalities. The physical examination is remarkable for bilateral expiratory wheezing and bilateral lower extremities edema as well Assessment Heart failure secondary to HFrEF Evidence of myocardial injury with no evidence of ischemia History of cardiomyopathy Permanent atrial fibrillation with controlled heart rate Multiple comorbid conditions Chronic kidney disease Plan Continue the current medical regimen including heparin till we make a decision regarding coronary angiogram Continue the current dose of Lasix IV Continue monitor the kidney function and electrolytes Restart the patient back on Coumadin Follow-up with the patient Objective - Vital Signs Vital signs: Vital Signs Temp 97.5 F L 09/13/24 05:00 Pulse 69 09/13/24 05:00 Resp 16 09/13/24 05:00 BP 139/71 09/13/24 05:00 Pulse Ox 94 L 09/13/24 05:00 FiO2 Intake & Output 09/12/24 09/13/24 09/13/24 18:59 06:59 18:59 Intake Total 593.867 474 Output Total 750 1700 Balance -156.133 -1226 Weight 114.3 kg Intake: IV 32 Heparin Sod,Pork in 0.45% 32 NaCl 25,000 unit In 0.45 % NaCl 1 250ml.bag @ 8. 8185 UNITS/KG/HR 10 mls/ hr IV .Q24H [facility] Rx#: [id number] Intake, IV Titration 339.867 Amount Heparin Sod,Pork in 0.45% 39.867 NaCl 25,000 unit In 0.45 % NaCl 1 250ml.bag @ 8. 8185 UNITS/KG/HR 10 mls/ hr IV .Q24H [facility] Rx#: [id number] Sodium Chloride 0.9% 1, 300 000 ml @ 75 mls/hr IV . [id number] [facility] Rx#:[id number] Oral 222 474 Output: Urine 750 1700 Other: Voiding Method External Catheter External Catheter # Voids 1 # Bowel Movements 1 1 - Labs CBC & Chem 7: 09/12/24 05:26 09/12/24 05:26 Labs: Abnormal Lab Results - Last 24 Hours (Table) 09/12/24 09/12/24 09/12/24 Range/Units 05:26 12:00 16:34 APTT 56.2 H (22.0-30.0) sec POC Glucose (mg/dL) 115 H (70-110) mg/dL Hemoglobin A1c 7.5 H (<=6.0) % 09/12/24 09/13/24 Range/Units 20:09 05:57 APTT (22.0-30.0) sec POC Glucose (mg/dL) 123 H 126 H (70-110) mg/dL Hemoglobin A1c (<=6.0) %
[2024-09-13 08:57] LABS: INR 1.9 (<1.2); Partial Thromboplastin Time 45.7 sec (22.0-30.0); Prothrombin Time 19.7 sec (10.0-12.5)
[2024-09-13] MEDS ORDERED: CLOPIDOGREL 75 MG TAB PO SCH (09:00)
[2024-09-13] MEDS ORDERED: ASPIRIN 81 MG PO SCH (09:00)
[2024-09-13 09:20] LABS: ALT 18 U/L (4-49); AST 23 U/L (17-59); African American GFR (CKD) 36 (>60 ml/min/1.73 sqM); Albumin 3.5 g/dL (3.5-5.0); Alkaline Phosphatase 83 U/L (38-126); Anion Gap 9 mmol/L; Blood Urea Nitrogen 37 mg/dL (9-20); Calcium 8.6 mg/dL (8.4-10.2); Carbon Dioxide 29 mmol/L (22-30); Chloride 98 mmol/L (98-107); Glucose 215 mg/dL (74-99); Non-African American GFR(CKD) 31 (>60 ml/min/1.73 sqM); Potassium 4.3 mmol/L (3.5-5.1); Sodium 136 mmol/L (137-145); Total Bilirubin 0.7 mg/dL (0.2-1.3); Total Protein 6.5 g/dL (6.3-8.2)
[2024-09-13 09:41] LABS: Basophils % (A) 0 %; Eosinophils # (A) 1.9 k/uL (0-0.7); Eosinophils % (A) 17 %; HCT 44.9 % (39.0-53.0); Lymphocytes # (A) 1.5 k/uL (1.0-4.8); Lymphocytes % (A) 14 %; MCHC 31.1 g/dL (31.0-37.0); MCV 103.1 fL (80.0-100.0); Macrocytosis Slight; Mean Platelet Volume 7.8; Monocytes # (A) 0.5 k/uL (0-1.0); Monocytes % (A) 5 %; Neutrophils % (A) 64 %; Platelet Count 235 k/uL (150-450); RBC 4.36 m/uL (4.30-5.90); RDW 15.1 % (11.5-15.5); WBC 10.9 k/uL (3.8-10.6)
--- NOTE | 2024-09-13 09:50 | P.PN ---
Subjective Progress Note Date: 09/13/24 Coy Buitrago is a 79-year-old male patient of Dr. Segura who presented with complaints of shortness of breath that has been increasing over the past few days. Patient also complaining of upper respiratory symptoms including congestion and cough. Patient has a past medical history of atrial fibrillation in which she is maintained on Coumadin, diabetes mellitus, GERD, hyperlipidemia, chronic kidney disease stage III, essential hypertension and diabetes mellitus. Chest x-ray completed showing no acute cardiopulmonary disease. Lab work completed showing white blood cell 18.0, hemoglobin 15.6, INR 2.3, creatinine 1.89 bun 33 this does appear patient's baseline. Troponins positive at 0.043, 0.055 and 0.053. Patient negative for influenza RSV and COVID-19. BNP 890. Cardiology services have been consulted patient started on heparin drip and IV Lasix. 2D echocardiogram has been ordered. At this time patient reports improvement with shortness of breath. Patient denies chest pain. Patient denies nausea vomiting or diarrhea. Patient denies any urinary burning or frequency. Current vital signs temp 98.2, heart rate 76, respiratory rate 18, blood pressure 152/68 with a pulse ox of 100% on 3 L. On 09/12/2024 patient is alert and oriented x 3. Patient currently in ICU as overflow. Patient remains on IV Lasix and heparin drip. Patient does report improvement with shortness of breath. Current vital signs temp 98.4, heart rate 69, respiratory rate 18, blood pressure 136/88 with a pulse ox of 96% on room air. Patient denies chest pain. Patient denies nausea vomiting or diarrhea. Patient denies any urinary burning or frequency. Creatinine 1.71 bun 32 this is improved and patient's chronic kidney disease baseline. On 09/13/2024 patient is alert and oriented x 3. Patient reports that improvement with shortness of breath. Patient remains on IV Lasix and IV heparin awaiting cardiology plan in regards to potential cardiac cath. Patient denies chest pain or shortness of breath. Patient denies nausea vomiting or diarrhea. Patient denies any urinary burning or frequency Objective - Vital Signs Vital signs: Vital Signs Temp 97.7 F 09/13/24 08:43 Pulse 61 09/13/24 08:43 Resp 17 09/13/24 08:43 BP 121/67 09/13/24 08:43 Pulse Ox 95 09/13/24 08:43 FiO2 Intake & Output 09/12/24 09/13/24 09/13/24 18:59 06:59 18:59 Intake Total 593.867 474 540 Output Total 750 1700 Balance -156.133 -1226 540 Weight 114.3 kg 111.4 kg Intake: IV 32 Heparin Sod,Pork in 0.45% 32 NaCl 25,000 unit In 0.45 % NaCl 1 250ml.bag @ 8. 8185 UNITS/KG/HR 10 mls/ hr IV .Q24H [facility] Rx#: [id number] Intake, IV Titration 339.867 Amount Heparin Sod,Pork in 0.45% 39.867 NaCl 25,000 unit In 0.45 % NaCl 1 250ml.bag @ 8. 8185 UNITS/KG/HR 10 mls/ hr IV .Q24H [facility] Rx#: [id number] Sodium Chloride 0.9% 1, 300 000 ml @ 75 mls/hr IV . [id number] [facility] Rx#:[id number] Oral 222 474 540 Output: Urine 750 1700 Other: Voiding Method External Catheter External Catheter External Catheter # Voids 1 # Bowel Movements 1 1 - Labs CBC & Chem 7: 09/13/24 08:40 09/13/24 08:40 Labs: Abnormal Lab Results - Last 24 Hours (Table) 09/12/24 09/12/24 09/12/24 Range/Units 12:00 16:34 20:09 WBC (3.8-10.6) k/uL MCV (80.0-100.0) fL Eosinophils # (0-0.7) k/uL PT (10.0-12.5) sec INR (<1.2) APTT 56.2 H (22.0-30.0) sec Sodium (137-145) mmol/L BUN (9-20) mg/dL Creatinine (0.66-1.25) mg/dL Glucose (74-99) mg/dL POC Glucose (mg/dL) 115 H 123 H (70-110) mg/dL 09/13/24 09/13/24 09/13/24 Range/Units 05:57 08:40 08:40 WBC (3.8-10.6) k/uL MCV (80.0-100.0) fL Eosinophils # (0-0.7) k/uL PT 19.7 H (10.0-12.5) sec INR 1.9 H (<1.2) APTT 45.7 H (22.0-30.0) sec Sodium 136 L (137-145) mmol/L BUN 37 H (9-20) mg/dL Creatinine 1.97 H (0.66-1.25) mg/dL Glucose 215 H (74-99) mg/dL POC Glucose (mg/dL) 126 H (70-110) mg/dL 09/13/24 Range/Units 08:40 WBC 10.9 H (3.8-10.6) k/uL MCV 103.1 H (80.0-100.0) fL Eosinophils # 1.9 H (0-0.7) k/uL PT (10.0-12.5) sec INR (<1.2) APTT (22.0-30.0) sec Sodium (137-145) mmol/L BUN (9-20) mg/dL Creatinine (0.66-1.25) mg/dL Glucose (74-99) mg/dL POC Glucose (mg/dL) (70-110) mg/dL Assessment and Plan Assessment: 1. Acute on chronic diastolic congestive heart failure. Patient started on IV Lasix 2. Elevated troponins patient started on IV heparin 3. Chronic kidney disease stage III patient at baseline 4. Recent upper respiratory infection 5. Chronic atrial fibrillation patient maintained on Coumadin. Coumadin currently on hold patient on IV heparin drip 6. History of diabetes mellitus type 2 sliding scale coverage ordered 7. History of hyperlipidemia 8. History of essential hypertension DVT prophylaxis heparin drip. GI prophylaxis Pepcid Cardiology services consulted Patient maintained on IV heparin drip Patient maintained on IV Lasix 2D echo ordered Repeat labs ordered
[2024-09-13 11:45] LABS: Glucose,Whole Blood 107 mg/dL (70-110)
[2024-09-13 16:24] LABS: Glucose,Whole Blood 156 mg/dL (70-110)
[2024-09-13] MEDS: WARFARIN 2.5 MG TAB PO ONE (16:52)
[2024-09-13 21:25] LABS: Glucose,Whole Blood 139 mg/dL (70-110)
[2024-09-14 06:14] LABS: Glucose,Whole Blood 132 mg/dL (70-110)
--- NOTE | 2024-09-14 07:31 | P.PN ---
Subjective Progress Note Date: 09/14/24 The patient is a pleasant 79-year-old gentleman with a past medical history significant for permanent atrial fibrillation as well as overweight and heart failure and cardiomyopathy as well as multiple comorbid conditions. He presented to the emergency department with progressive exertional dyspnea associ ated with weight gain and bilateral lower extremities edema but no symptoms of chest pain or chest discomfort or dizziness or lightheadedness or any feeling of heart racing or fluttering or presyncope or syncope. He underwent further workup including EKG showing atrial fibrillation with diffuse nonspecific ST and T wave abnormalities and also chest x-ray showed finding consistent with heart failure as well as NT proBNP came to be around 900. Troponin came to be also mildly elevated.. The patient was on Coumadin as an outpatient and currently he is off Coumadin. INR was 2.2 when he presented to the hospital. The physical examination is remarkable for irregular rhythm with a systolic murmur at the right upper sternal border with diminished breathing sounds bilaterally and bilateral lower extremities edema noted September 12, 2024 The patient was seen and evaluated this morning. He is feeling slightly better in terms of shortness of breath but he still have wheezing on examination. No symptoms of chest pain or chest discomfort. The echo showed impaired LV function with EF between 40 to 45% with mild aortic stenosis and moderate pulmonary hypertension. I will obtain a copy of the previous echocardiogram from the office to compare the previous echo to the recent echo. Troponin is mildly elevated but appears to be flat across the board. Kidney function is stable. He has been tolerating the current dose of Lasix IV and has been diuresing well on it. The physical examination is remarkable for irregular rhythm with a systolic murmur at the right upper sternal and left upper sternal border with bilateral expiratory wheezing and bilateral lower extremities edema September 13, 2024 The patient was seen and evaluated this morning. He is not having any chest pain or chest discomfort but the shortness of breath with exertion has improved but continues to have bilateral lower extremities edema. He is on Lasix IV and the kidney function remains stable. I am going to continue the current medical regimen for additional 24 hours and also restart the patient back on Coumadin orally. The echo showed mild cardiomyopathy which has not changed compared to before with no significant valvular abnormalities. The physical examination is remarkable for bilateral expiratory wheezing and bilateral lower extremities edema as well September 14, 2024 The patient was seen and evaluated this morning. Overall he is feeling better. The shortness of breath has improved and also the lower extremities edema. The physical examination is remarkable for irregular rhythm with mild bilateral expiratory wheezing and mild bilateral lower extremities edema. From a cardiovascular standpoint of view, the patient potentially can be discharged home. Assessment Heart failure secondary to HFrEF Evidence of myocardial injury with no evidence of ischemia History of cardiomyopathy Permanent atrial fibrillation with controlled heart rate Multiple comorbid conditions Chronic kidney disease Plan DC Lasix IV and start the patient on oral Lasix DC heparin IV and continue Coumadin The patient can be discharged home Objective - Vital Signs Vital signs: Vital Signs Temp 98.2 F 09/14/24 03:16 Pulse 50 L 09/14/24 03:16 Resp 16 09/14/24 03:16 BP 107/76 09/14/24 03:16 Pulse Ox 94 L 09/14/24 03:16 FiO2 Intake & Output 09/13/24 09/14/24 09/14/24 18:59 06:59 18:59 Intake Total 1204 Output Total 700 1700 Balance 504 -1700 Weight 110.4 kg Intake: IV 96 Heparin Sod,Pork in 0.45% 96 NaCl 25,000 unit In 0.45 % NaCl 1 250ml.bag @ 8. 8185 UNITS/KG/HR 10 mls/ hr IV .Q24H [facility] Rx#: [id number] Intake, IV Titration 250 Amount Heparin Sod,Pork in 0.45% 250 NaCl 25,000 unit In 0.45 % NaCl 1 250ml.bag @ 8. 8185 UNITS/KG/HR 10 mls/ hr IV .Q24H [facility] Rx#: [id number] Oral 858 Output: Urine 700 1700 Other: Voiding Method External Catheter External Catheter # Bowel Movements 1 - Labs CBC & Chem 7: 09/13/24 08:40 09/13/24 08:40 Labs: Abnormal Lab Results - Last 24 Hours (Table) 09/13/24 09/13/24 09/13/24 Range/Units 08:40 08:40 08:40 WBC 10.9 H (3.8-10.6) k/uL MCV 103.1 H (80.0-100.0) fL Eosinophils # 1.9 H (0-0.7) k/uL PT 19.7 H (10.0-12.5) sec INR 1.9 H (<1.2) APTT 45.7 H (22.0-30.0) sec Sodium 136 L (137-145) mmol/L BUN 37 H (9-20) mg/dL Creatinine 1.97 H (0.66-1.25) mg/dL Glucose 215 H (74-99) mg/dL POC Glucose (mg/dL) (70-110) mg/dL 09/13/24 09/13/24 09/14/24 Range/Units 16:21 21:24 06:13 WBC (3.8-10.6) k/uL MCV (80.0-100.0) fL Eosinophils # (0-0.7) k/uL PT (10.0-12.5) sec INR (<1.2) APTT (22.0-30.0) sec Sodium (137-145) mmol/L BUN (9-20) mg/dL Creatinine (0.66-1.25) mg/dL Glucose (74-99) mg/dL POC Glucose (mg/dL) 156 H 139 H 132 H (70-110) mg/dL
[2024-09-14 08:04] LABS: Basophils % (A) 0 %; Eosinophils % (A) 17 %; HGB 14.8 gm/dL (13.0-17.5); Lymphocytes # (A) 1.5 k/uL (1.0-4.8); Lymphocytes % (A) 12 %; MCH 32.3 pg (25.0-35.0); MCHC 32.3 g/dL (31.0-37.0); MCV 100.2 fL (80.0-100.0); Macrocytosis Slight; Mean Platelet Volume 7.4; Monocytes # (A) 0.8 k/uL (0-1.0); Monocytes % (A) 7 %; Neutrophils # (A) 7.5 k/uL (1.3-7.7); Neutrophils % (A) 62 %; Platelet Count 265 k/uL (150-450); RBC 4.59 m/uL (4.30-5.90); RDW 14.8 % (11.5-15.5); WBC 12.1 k/uL (3.8-10.6)
[2024-09-14 08:13] LABS: INR 1.6 (<1.2); Partial Thromboplastin Time 37.4 sec (22.0-30.0); Prothrombin Time 16.5 sec (10.0-12.5)
[2024-09-14 08:22] LABS: ALT 19 U/L (4-49); AST 22 U/L (17-59); African American GFR (CKD) 31 (>60 ml/min/1.73 sqM); Albumin 3.7 g/dL (3.5-5.0); Alkaline Phosphatase 93 U/L (38-126); Anion Gap 9 mmol/L; Blood Urea Nitrogen 45 mg/dL (9-20); Calcium 9.1 mg/dL (8.4-10.2); Carbon Dioxide 30 mmol/L (22-30); Chloride 96 mmol/L (98-107); Glucose 145 mg/dL (74-99); Non-African American GFR(CKD) 27 (>60 ml/min/1.73 sqM); Potassium 4.6 mmol/L (3.5-5.1); Sodium 135 mmol/L (137-145); Total Bilirubin 0.9 mg/dL (0.2-1.3); Total Protein 6.6 g/dL (6.3-8.2)
[2024-09-14] MEDS: FUROSEMIDE 40 MG TAB PO SCH (08:57)
--- NOTE | 2024-09-14 09:39 | P.DS ---
Providers Date of admission: 09/10/24 21:21 Expected date of discharge: 09/14/24 Attending physician: Donal Granado Consults: 09/10/24 21:20 Consult Physician Routine Consulting Provider: Rita Garcia Consult Reason/Comments: elevTrop Do you want consulting provider notified?: Yes 09/12/24 09:50 Consult Physician Routine Consulting Provider: Cardiology Parminder Consult Reason/Comments: Post Interventional Patient Do you want consulting provider notified?: Already Contacted Primary care physician: Caroline Ballard Hospital Course: Discharge diagnosis 1. Acute on chronic diastolic congestive heart failure. Patient started on IV Lasix 2. Elevated troponins patient started on IV heparin 3. Chronic kidney disease stage III patient at baseline 4. Recent upper respiratory infection 5. Chronic atrial fibrillation patient maintained on Coumadin. Coumadin currently on hold patient on IV heparin drip 6. History of diabetes mellitus type 2 sliding scale coverage ordered 7. History of hyperlipidemia 8. History of essential hypertension Hospital course Coy Buitrago is a 79-year-old male patient of Dr. Segura who presented with co mplaints of shortness of breath that has been increasing over the past few days. Patient also complaining of upper respiratory symptoms including congestion and cough. Patient has a past medical history of atrial fibrillation in which she is maintained on Coumadin, diabetes mellitus, GERD, hyperlipidemia, chronic kidney disease stage III, essential hypertension and diabetes mellitus. Chest x-ray completed showing no acute cardiopulmonary disease. Lab work completed showing white blood cell 18.0, hemoglobin 15.6, INR 2.3, creatinine 1.89 bun 33 this does appear patient's baseline. Troponins positive at 0.043, 0.055 and 0.053. Patient negative for influenza RSV and COVID-19. BNP 890. Cardiology services have been consulted patient started on heparin drip and IV Lasix. 2D echocardiogram has been ordered. At this time patient reports improvement with shortness of breath. Patient denies chest pain. Patient denies nausea vomiting or diarrhea. Patient denies any urinary burning or frequency. Current vital signs temp 98.2, heart rate 76, respiratory rate 18, blood pressure 152/68 with a pulse ox of 100% on 3 L. On 09/12/2024 patient is alert and oriented x 3. Patient currently in ICU as overflow. Patient remains on IV Lasix and heparin drip. Patient does report improvement with shortness of breath. Current vital signs temp 98.4, heart rate 69, respiratory rate 18, blood pressure 136/88 with a pulse ox of 96% on room air. Patient denies chest pain. Patient denies nausea vomiting or diarrhea. Patient denies any urinary burning or frequency. Creatinine 1.71 bun 32 this is improved and patient's chronic kidney disease baseline. On 09/13/2024 patient is alert and oriented x 3. Patient reports that improvement with shortness of breath. Patient remains on IV Lasix and IV heparin awaiting cardiology plan in regards to potential cardiac cath. Patient denies chest pain or shortness of breath. Patient denies nausea vomiting or diarrhea. Patient denies any urinary burning or frequency On 09/14/2024 patient is alert and oriented x 3. Patient reports improvement with shortness of breath. IV Lasix and IV heparin has been DC'd per cardiology and cleared for discharge patient's Lasix dose has been increased to 40 twice daily. Recommend close follow-up outpatient in regards to kidney enzymes. Patient to follow-up with PCP and consulting providers for further management resumed on home Coumadin dose Patient Condition at Discharge: Stable Plan - Discharge Summary Discharge Rx Participant: No New Discharge Prescriptions: New Furosemide [Lasix] 40 mg PO BID@0900,1600 30 Days #60 tab Continue allopurinoL [Zyloprim] 300 mg PO HS Atorvastatin [Lipitor] 20 mg PO HS calcitrioL 0.25 mcg PO MOWEFR Magnesium Oxide [Magnesium] 400 mg PO HS Escitalopram [Lexapro] 20 mg PO DAILY sitaGLIPtin [Januvia] 50 mg PO DAILY Famotidine [Pepcid] 20 mg PO DAILY rOPINIRole HCL [Requip] 1 mg PO TID PRN PRN Reason: restlessness Warfarin [Coumadin] 5 mg PO TUFR Cholecalciferol [Vitamin D3 (25 Mcg = 1000 Iu)] 25 mcg PO DAILY Ascorbic Acid [Vitamin C] 500 mg PO DAILY Metoprolol Tartrate [Lopressor] 50 mg PO BID-W/MEALS Warfarin [Coumadin] 2.5 mg PO SUMOWETHSA Discontinued Furosemide [Lasix] 40 mg PO DAILY #30 tab Discharge Medication List allopurinoL [Zyloprim] 300 mg PO HS 11/27/15 [History] Atorvastatin [Lipitor] 20 mg PO HS 05/01/19 [History] calcitrioL 0.25 mcg PO MOWEFR 05/01/19 [History] Magnesium Oxide [Magnesium] 400 mg PO HS 09/24/22 [History] Cholecalciferol [Vitamin D3 (25 Mcg = 1000 Iu)] 25 mcg PO DAILY 11/12/22 [History] Ascorbic Acid [Vitamin C] 500 mg PO DAILY 09/11/24 [History] Escitalopram [Lexapro] 20 mg PO DAILY 09/11/24 [History] Famotidine [Pepcid] 20 mg PO DAILY 09/11/24 [History] Metoprolol Tartrate [Lopressor] 50 mg PO BID-W/MEALS 09/11/24 [History] Warfarin [Coumadin] 2.5 mg PO SUMOWETHSA 09/11/24 [History] Warfarin [Coumadin] 5 mg PO TUFR 09/11/24 [History] rOPINIRole HCL [Requip] 1 mg PO TID PRN 09/11/24 [History] sitaGLIPtin [Januvia] 50 mg PO DAILY 09/11/24 [History] Furosemide [Lasix] 40 mg PO BID@0900,1600 30 Days #60 tab 09/14/24 [Rx] Follow up Appointment(s)/Referral(s): Rita Garcia MD [STAFF PHYSICIAN] - 1 Week Caroline Ballard MD [Primary Care Provider] - 1-2 days Discharge/Stand Alone Forms: [facility]isted Living Facilities, Community Resources, [employer] Advisor
[2024-09-14 11:19] LABS: Glucose,Whole Blood 151 mg/dL (70-110)
[2024-09-14 11:37] VITALS: BP 107/75; PULSE 61; RESP 17; TEMP 98.1
[2024-09-14] MEDS ORDERED: WARFARIN 5 MG TAB PO ONE (18:00)
== END 2024-09-14 14:05 | disposition home or self-care (01) | DRG 291 ==
LOC: EC 14:55 → OBSVTOIN 21:21 → 3SCARD 21:21 → 2SICU 09-11 14:21 → 3SCARD 09-12 15:17
PROVIDERS: ADMIT Internal Medicine; ATTEND Internal Medicine
DX: I13.0 Hypertensive heart and chronic kidney disease with heart failure and stage 1 through stage 4 chronic kidney disease, or unspecified chronic kidney disease (principal); I50.23 Acute on chronic systolic (congestive) heart failure; J45.901 Unspecified asthma with (acute) exacerbation; I48.21 Permanent atrial fibrillation; I27.20 Pulmonary hypertension, unspecified; Z79.01 Long term (current) use of anticoagulants; I42.9 Cardiomyopathy, unspecified; G25.81 Restless legs syndrome; E11.22 Type 2 diabetes mellitus with diabetic chronic kidney disease; N18.30 Chronic kidney disease, stage 3 unspecified; I35.0 Nonrheumatic aortic (valve) stenosis; Z68.38 Body mass index [BMI] 38.0-38.9, adult; Z11.52 Encounter for screening for COVID-19; E78.5 Hyperlipidemia, unspecified; E66.3 Overweight; F41.9 Anxiety disorder, unspecified; Z79.84 Long term (current) use of oral hypoglycemic drugs; Z79.899 Other long term (current) drug therapy; Z85.828 Personal history of other malignant neoplasm of skin; Z87.891 Personal history of nicotine dependence; Z88.0 Allergy status to penicillin
CPT/HCPCS: 36415; 71046; 80053; 83036; 83735; 83880; 84100; 84484; 85025; 85610; 85730; 87636; 93005; 93306; 96365; 96366; 96375; 99291

== ENCOUNTER 2024-09-29 18:12 | Observation (INO) | payer MEDICARE, OTHER ==
--- NOTE | 2024-09-29 18:27 | ED ---
SOB HPI - General Chief Complaint: Shortness of Breath Stated Complaint: MAURO Time Seen by Provider: 09/29/24 18:20 Source: patient, EMS, RN notes reviewed Mode of arrival: EMS Limitations: no limitations - History of Present Illness Initial Comments: This is an 79-year-old male who presents to the emergency department for shortness of breath. Patient states that it started earlier today. He has a history of CHF and COPD. Denies any chest pain. He was given a DuoNeb breathing treatment by EMS en route which did seem to help a fair amount. He was hypoxic on arrival. Patient does not wear oxygen at home. Reports being compliant with all of his medication. He was discharged from the hospital at the end of last month, which he states was for CHF. States that he did feel better when he was discharged and had been doing well up until today. MD Complaint: shortness of breath - Related Data Home Medications Medication Instructions Recorded Confirmed allopurinoL [Zyloprim] 300 mg PO HS 11/27/15 09/29/24 Atorvastatin [Lipitor] 20 mg PO HS 05/01/19 09/29/24 calcitrioL 0.25 mcg PO MOWEFR 05/01/19 09/29/24 Cholecalciferol [Vitamin D3 (25 25 mcg PO DAILY 11/12/22 09/29/24 Mcg = 1000 Iu)] Ascorbic Acid [Vitamin C] 500 mg PO DAILY 09/11/24 09/29/24 Escitalopram [Lexapro] 20 mg PO DAILY 09/11/24 09/29/24 Famotidine [Pepcid] 20 mg PO DAILY 09/11/24 09/29/24 Metoprolol Tartrate [Lopressor] 50 mg PO BID-W/MEALS 09/11/24 09/29/24 Warfarin [Coumadin] 2.5 mg PO MOWETHSA 09/11/24 09/29/24 Warfarin [Coumadin] 5 mg PO SUTUFR 09/11/24 09/29/24 rOPINIRole HCL [Requip] 1 mg PO TID PRN 09/11/24 09/29/24 sitaGLIPtin [Januvia] 50 mg PO DAILY 09/11/24 09/29/24 Magnesium Oxide [Magox 400] 400 mg PO HS 09/29/24 09/29/24 hydrOXYzine HCL [Atarax] 10 mg PO DIRECTED 09/29/24 09/29/24 Previous Rx's Medication Instructions Recorded Furosemide [Lasix] 40 mg PO BID@0900,1600 30 Days #60 09/14/24 tab Allergies Allergy/AdvReac Type Severity Reaction Status Date / Time Penicillins Allergy Unknown Verified 09/29/24 19:45 Review of Systems ROS Statement: Those systems with pertinent positive or pertinent negative responses have been documented in the HPI. ROS Other: All systems not noted in ROS Statement are negative. Past Medical History Past Medical History: Atrial Fibrillation, Cancer, COPD, Diabetes Mellitus, GERD/Reflux, Hyperlipidemia, Hypertension, Osteoarthritis (OA), Renal Disease Additional Past Medical History / Comment(s): KIDNEY DISEASE stage 3, GOUT, past hx PROBLEM SWALLOWING (not currently 09/11/2024), low Blood sugar admit 10/08 resp failure admit 09/24/22. skin cancer, restless leg syndrome, rash on rt leg for years. History of Any Multi-Drug Resistant Organisms: None Reported Past Surgical History: Hernia Repair Additional Past Surgical History / Comment(s): cataract kaila with lens implant, colonoscopy, inguinal hernia repair, skin cancer removed Past Anesthesia/Blood Transfusion Reactions: No Reported Reaction Past Psychological History: Anxiety Smoking Status: Former smoker Past Alcohol Use History: None Reported Past Drug Use History: None Reported - Past Family History Mother Family Medical History: No Reported History General Exam Limitations: no limitations General appearance: alert, in no apparent distress Head exam: Present: atraumatic, normocephalic, normal inspection Respiratory exam: Present: decreased breath sounds, prolonged expiratory Cardiovascular Exam: Present: regular rate, normal rhythm Neurological exam: Present: alert, oriented X3, CN II-XII intact Psychiatric exam: Present: normal affect, normal mood Skin exam: Present: warm, dry, intact, normal color. Absent: rash Course Vital Signs 09/29/24 09/29/24 09/29/24 18:15 18:19 18:27 Temperature 97.5 F L Pulse Rate 69 Respiratory 20 22 Rate Blood Pressure O2 Sat by Pulse 87 L 96 Oximetry 09/29/24 09/29/24 09/29/24 19:17 19:18 19:28 Temperature Pulse Rate 61 57 L 66 Respiratory 18 Rate Blood Pressure 132/70 O2 Sat by Pulse 98 Oximetry 09/29/24 20:58 Temperature 97.8 F Pulse Rate 55 L Respiratory 18 Rate Blood Pressure 142/71 O2 Sat by Pulse 98 Oximetry Medical Decision Making - Medical Decision Making This is an 79 year old male who presents to the emergency department for shortness of breath. Was pt. sent in by a medical professional or institution? @ -No Did you speak to anyone other than the patient for history? @ -No Did you review nursing and triage notes? @ -Yes, and I agree, it is accurate with regards to the patient's symptoms. Were old charts reviewed? @ -No Differential Diagnosis? @ -Differential Dyspnea: Coronary syndrome, arrhythmia, tamponade, asthma, COPD, pulmonary embolism, pneumonia, pneumothorax, pulmonary effusion, anaphylaxis, diabetic ketoacidosis, flailed chest, pulmonary contusion, diaphragmatic rupture, anemia, neuromuscular, this is not meant to be an all-inclusive list. EKG interpreted by me (3pts min.)? @ -EKG interpreted by me demonstrating the following: Sinus rhythm. Ventricular rate 68 bpm, FL interval 221 ms, QRS duration 146 ms, QTc 415 ms. X-rays interpreted by me (1pt min.)? @ -Chest x-ray obtained, my interpretation identifies no localized consolidations or infiltrates. CT interpreted by me (1pt min.)? @ -Not obtained U/S interpreted by me (1pt. min.)? @ -Not obtained What testing was considered but not performed? (CT, X-rays, U/S, labs)? Why? @ -None What meds were considered but not given? Why? @ -None Did you discuss the management of the patient with other professionals? @ -Yes, Dr. Granado, who accepts the patient for admission Did you reconcile home meds? @ -Yes Was smoking cessation discussed for >3mins.? @ -No Was critical care preformed (if so, how long)? @ -No Were there social determinants of health that impacted care today? How? (Homelessness, low income, unemployed, alcoholism, drug addiction, transportation, low edu. Level, literacy, decrease access to med. care, usp, re hab)? @ -No Was there de-escalation of care discussed even if they declined? (Discuss DNR or withdrawal of care, Hospice)? @ -No What co-morbidities impacted this encounter? (DM, HTN, Smoking, COPD, CAD, Cancer, CVA, Hep., AIDS, mental health diagnosis, sleep apnea, morbid obesity)? @ -COPD, CHF, DM, renal disease Was patient admitted / discharged? @ -Admitted. Lab work demonstrates leukocytosis with a white blood cell count of 19.96. Decreased renal function is stable when compared with prior. BNP is 1420. This is improved when compared with prior admission, but still considered within normal limits for his age. Urinalysis negative for signs of infection. Chest x-ray reveals no acute findings. Patient was hypoxic with an oxygen saturation of 85 to 87% on room air when he arrived and was started on a nasal cannula requiring 3 L a minute. He did seem to have improvement with breathing treatments. When he was evaluated in the emergency department he had decreased aeration, however his lungs were otherwise clear to auscultation. BNP is more elevated when compared with prior, but still considered within normal limits for his age range. It is unclear if his hypoxia is secondary to COPD, CHF, or a component of both. Patient admitted to medicine for acute hypoxic respiratory failure. Scheduled and as needed DuoNebs ordered. Case discussed with ED attending Dr. Akhtar. Cepheid swab seems to have gotten cancelled, repeat swab ordered and pending at admission. Undiagnosed new problem with uncertain prognosis? @ -None Drug Therapy requiring intensive monitoring for toxicity (Heparin, Nitro, Insulin, Cardizem)? @ -None Were any procedures done? @ -None Diagnosis/symptom? @ -Acute hypoxic respiratory failure Acute, or Chronic, or Acute on Chronic? @ -Acute Uncomplicated (without systemic symptoms) or Complicated (systemic symptoms)? @ -Complicated Side effects of treatment? @ -None Exacerbation, Progression, or Severe Exacerbation] @ -Not applicable Poses a threat to life or bodily function? @ -Yes, can lead to - Lab Data Result diagrams: 09/29/24 18:25 09/29/24 18:25 Lab Results 09/29/24 09/29/24 09/29/24 Range/Units 18:25 18:25 18:25 WBC 19.96 H (4.50-10.00) 10*3/uL RBC 4.54 (4.40-5.60) 10*6/uL Hgb 14.8 (13.0-17.0) g/dL Hct 45.0 (39.6-50.0) % MCV 99.1 H (80.0-97.0) fL MCH 32.6 H (27.0-32.0) pg MCHC 32.9 (32.0-37.0) g/dL Plt Count 234 (140-440) 10*3/uL MPV 9.8 (9.5-12.2) fL Immature Gran % (Auto) 0.4 % Neutrophils % 78.0 % Lymphocytes % 6.3 % Monocytes % 4.6 % Eosinophils % 10.4 % Basophils % 0.3 % Immature Gran # 0.08 H (0.00-0.04) 10*3/uL Neutrophils # 15.59 H (1.80-7.70) 10*3/uL Lymphocytes # 1.25 (0.90-5.00) 10*3/uL Monocytes # 0.92 (0.20-1.00) 10*3/uL Eosinophils # 2.07 H (0.04-0.35) 10*3/uL Basophils # 0.05 (0.00-0.10) 10*3/uL Manual Slide Review Performed PT 37.0 H (10.0-12.5) sec INR 3.7 H (<1.2) APTT 36.9 H (22.0-30.0) sec Sodium 140 (137-145) mmol/L Potassium 4.4 (3.5-5.1) mmol/L Chloride 99 (98-107) mmol/L Carbon Dioxide 33 H (22-30) mmol/L Anion Gap 8 mmol/L BUN 52 H (9-20) mg/dL Creatinine 2.51 H (0.66-1.25) mg/dL Est GFR (CKD-EPI)AfAm 27 (>60 ml/min/1.73 sqM) Est GFR (CKD-EPI)NonAf 23 (>60 ml/min/1.73 sqM) Glucose 180 H (74-99) mg/dL Plasma Lactic Acid Jasper (0.7-2.0) mmol/L Calcium 9.6 (8.4-10.2) mg/dL Magnesium 1.8 (1.6-2.3) mg/dL Total Bilirubin 0.5 (0.2-1.3) mg/dL AST 32 (17-59) U/L ALT 27 (4-49) U/L Alkaline Phosphatase 112 (38-126) U/L Troponin I (0.000-0.034) ng/mL NT-Pro-B Natriuret Pep 1420 pg/mL Total Protein 7.4 (6.3-8.2) g/dL Albumin 4.1 (3.5-5.0) g/dL Urine Color Urine Appearance (Clear) Urine pH (5.0-8.0) Ur Specific Maud (1.001-1.035) Urine Protein (Negative) Urine Glucose (UA) (Negative) Urine Ketones (Negative) Urine Blood (Negative) Urine Nitrite (Negative) Urine Bilirubin (Negative) Urine Urobilinogen (<2.0) mg/dL Ur Leukocyte Esterase (Negative) Urine RBC (0-5) /hpf Urine WBC (0-5) /hpf 09/29/24 09/29/24 09/29/24 Range/Units 18:25 18:25 19:43 WBC (4.50-10.00) 10*3/uL RBC (4.40-5.60) 10*6/uL Hgb (13.0-17.0) g/dL Hct (39.6-50.0) % MCV (80.0-97.0) fL MCH (27.0-32.0) pg MCHC (32.0-37.0) g/dL Plt Count (140-440) 10*3/uL MPV (9.5-12.2) fL Immature Gran % (Auto) % Neutrophils % % Lymphocytes % % Monocytes % % Eosinophils % % Basophils % % Immature Gran # (0.00-0.04) 10*3/uL Neutrophils # (1.80-7.70) 10*3/uL Lymphocytes # (0.90-5.00) 10*3/uL Monocytes # (0.20-1.00) 10*3/uL Eosinophils # (0.04-0.35) 10*3/uL Basophils # (0.00-0.10) 10*3/uL Manual Slide Review PT (10.0-12.5) sec INR (<1.2) APTT (22.0-30.0) sec Sodium (137-145) mmol/L Potassium (3.5-5.1) mmol/L Chloride (98-107) mmol/L Carbon Dioxide (22-30) mmol/L Anion Gap mmol/L BUN (9-20) mg/dL Creatinine (0.66-1.25) mg/dL Est GFR (CKD-EPI)AfAm (>60 ml/min/1.73 sqM) Est GFR (CKD-EPI)NonAf (>60 ml/min/1.73 sqM) Glucose (74-99) mg/dL Plasma Lactic Acid Jasper 0.9 (0.7-2.0) mmol/L Calcium (8.4-10.2) mg/dL Magnesium (1.6-2.3) mg/dL Total Bilirubin (0.2-1.3) mg/dL AST (17-59) U/L ALT (4-49) U/L Alkaline Phosphatase (38-126) U/L Troponin I 0.016 (0.000-0.034) ng/mL NT-Pro-B Natriuret Pep pg/mL Total Protein (6.3-8.2) g/dL Albumin (3.5-5.0) g/dL Urine Color Colorless Urine Appearance Clear (Clear) Urine pH 5.5 (5.0-8.0) Ur Specific Maud 1.010 (1.001-1.035) Urine Protein Trace H (Negative) Urine Glucose (UA) Negative (Negative) Urine Ketones Negative (Negative) Urine Blood Trace H (Negative) Urine Nitrite Negative (Negative) Urine Bilirubin Negative (Negative) Urine Urobilinogen <2.0 (<2.0) mg/dL Ur Leukocyte Esterase Negative (Negative) Urine RBC <1 (0-5) /hpf Urine WBC 1 (0-5) /hpf - Radiology Data Radiology results: report reviewed, image reviewed Disposition Clinical Impression: Acute hypoxic respiratory failure, Congestive heart failure, COPD (chronic obstructive pulmonary disease) Disposition: ADMITTED IP TO THIS HOSP
[2024-09-29 18:49] LABS: INR 3.7 (<1.2); Partial Thromboplastin Time 36.9 sec (22.0-30.0)
--- NOTE | 2024-09-29 18:58 | XR ---
EXAMINATION TYPE: XR chest 2V DATE OF EXAM: 09/29/2024 6:50 PM COMPARISON: 09/10/2024 CLINICAL INDICATION: Male, 79 years old with history of difficulty breathing, short of breath, histor y of COPD TECHNIQUE: XR chest 2V view(s) obtained. FINDINGS: The heart size is normal. The pulmonary vasculature is upper limits of normal. The lungs are clear. IMPRESSION: 1. No acute pulmonary process. [facility], , 09/29/2024 6:56 PM
[2024-09-29 19:00] LABS: ALT 27 U/L (4-49); AST 32 U/L (17-59); African American GFR (CKD) 27 (>60 ml/min/1.73 sqM); Albumin 4.1 g/dL (3.5-5.0); Alkaline Phosphatase 112 U/L (38-126); Anion Gap 8 mmol/L; Blood Urea Nitrogen 52 mg/dL (9-20); Calcium 9.6 mg/dL (8.4-10.2); Carbon Dioxide 33 mmol/L (22-30); Chloride 99 mmol/L (98-107); Glucose 180 mg/dL (74-99); Magnesium 1.8 mg/dL (1.6-2.3); Non-African American GFR(CKD) 23 (>60 ml/min/1.73 sqM); Potassium 4.4 mmol/L (3.5-5.1); Sodium 140 mmol/L (137-145); Total Bilirubin 0.5 mg/dL (0.2-1.3); Total Protein 7.4 g/dL (6.3-8.2)
[2024-09-29 19:06] LABS: Basophils # (A) 0.05 10*3/uL (0.00-0.10); Basophils % (A) 0.3 %; Eosinophils # (A) 2.07 10*3/uL (0.04-0.35); Eosinophils % (A) 10.4 %; HGB 14.8 g/dL (13.0-17.0); Lymphocytes # (A) 1.25 10*3/uL (0.90-5.00); Lymphocytes % (A) 6.3 %; MCH 32.6 pg (27.0-32.0); MCHC 32.9 g/dL (32.0-37.0); MCV 99.1 fL (80.0-97.0); Mean Platelet Volume 9.8 fL (9.5-12.2); Monocytes # (A) 0.92 10*3/uL (0.20-1.00); Monocytes % (A) 4.6 %; Neutrophils # (A) 15.59 10*3/uL (1.80-7.70); Platelet Count 234 10*3/uL (140-440); RBC 4.54 10*6/uL (4.40-5.60); RDW 14.5 % (11.5-14.5); WBC 19.96 10*3/uL (4.50-10.00)
[2024-09-29 19:08] LABS: NT-Pro-B-Type Natriuretic Pept 1420 pg/mL
[2024-09-29] MEDS: IPRATROPIUM-ALBUTEROL 3 ML NEB INHALATION STA (19:17)
[2024-09-29] MEDS: FUROSEMIDE 10 MG/ML 4 ML VIAL IV STA (19:37)
[2024-09-29] MEDS ORDERED: HYDROcodone/APAP 5-325MG 1 EACH TAB PO PRN (19:53)
[2024-09-29] MEDS ORDERED: ACETAMINOPHEN TAB 325 MG TAB PO PRN (19:53)
[2024-09-29] MEDS ORDERED: NALOXONE 0.4 MG/ML 1 ML VIAL IV PRN (19:53)
[2024-09-29] MEDS ORDERED: MORPHINE SULFATE 4 MG/ML SYRINGE IV PRN (19:53)
[2024-09-29] MEDS ORDERED: ONDANSETRON 4 MG/2 ML VIAL IVP PRN (19:53)
[2024-09-29 19:59] LABS: Appearance,Urine Clear (Clear); Bilirubin,Urine Negative (Negative); Blood,Urine Trace (Negative); Color,Urine Colorless; Glucose,Urine (UA) Negative (Negative); Ketones,Urine Negative (Negative); Leukocyte Esterase,Urine Negative (Negative); Nitrite,Urine Negative (Negative); PH, Urine 5.5 (5.0-8.0); Protein,Urine Trace (Negative); RBC,Urine <1 /hpf (0-5); Urobilinogen,Urine <2.0 mg/dL (<2.0); WBC,Urine 1 /hpf (0-5)
[2024-09-29] MEDS ORDERED: IPRATROPIUM-ALBUTEROL 3 ML NEB INHALATION PRN (20:08)
[2024-09-29] MEDS: ATORVASTATIN 20 MG TAB PO SCH (20:37)
[2024-09-29] MEDS: MAGNESIUM OXIDE 400 MG TAB PO SCH (20:37)
[2024-09-29] MEDS: allopurinoL 300 MG TAB PO SCH (20:37)
[2024-09-30 01:12] LABS: Influenza A Not Detected (Not Detectd); Influenza B Not Detected (Not Detectd); RSV Not Detected (Not Detectd)
[2024-09-30 05:41] LABS: INR 4.2 (<1.2); Prothrombin Time 41.8 sec (10.0-12.5)
[2024-09-30 06:33] LABS: Glucose,Whole Blood 148 mg/dL (70-110)
[2024-09-30] MEDS: ASCORBIC ACID 500 MG TAB PO SCH (07:31)
[2024-09-30] MEDS: LINAGLIPTIN 5 MG TABLET PO SCH (07:31)
[2024-09-30] MEDS: METOPROLOL TARTRATE 50 MG TAB PO SCH (07:31)
[2024-09-30] MEDS: FUROSEMIDE 40 MG TAB PO SCH (07:31)
[2024-09-30] MEDS: CHOLECALCIFEROL 25 MCG (1000 IU) TABLET PO SCH (07:31)
[2024-09-30] MEDS: ESCITALOPRAM 20 MG TAB PO SCH (07:31)
[2024-09-30] MEDS: FAMOTIDINE 20 MG TAB PO SCH (07:32)
[2024-09-30 07:44] LABS: Basophils # (A) 0.05 10*3/uL (0.00-0.10); Basophils % (A) 0.2 %; Eosinophils # (A) 0.99 10*3/uL (0.04-0.35); Eosinophils % (A) 3.7 %; HCT 42.6 % (39.6-50.0); HGB 13.9 g/dL (13.0-17.0); Lymphocytes # (A) 1.03 10*3/uL (0.90-5.00); Lymphocytes % (A) 3.8 %; MCHC 32.6 g/dL (32.0-37.0); MCV 101.2 fL (80.0-97.0); Mean Platelet Volume 9.4 fL (9.5-12.2); Monocytes # (A) 1.53 10*3/uL (0.20-1.00); Monocytes % (A) 5.7 %; Neutrophils # (A) 23.02 10*3/uL (1.80-7.70); Platelet Count 238 10*3/uL (140-440); RBC 4.21 10*6/uL (4.40-5.60); RDW 14.5 % (11.5-14.5); WBC 26.78 10*3/uL (4.50-10.00)
[2024-09-30] MEDS: WARFARIN 5 MG TAB PO SCH (07:48)
[2024-09-30] MEDS: hydrOXYzine HCL 10 MG TAB PO SCH (07:48)
[2024-09-30 08:32] LABS: ALT 22 U/L (4-49); AST 23 U/L (17-59); African American GFR (CKD) 30 (>60 ml/min/1.73 sqM); Albumin 3.8 g/dL (3.5-5.0); Albumin/Globulin Ratio 1.3; Alkaline Phosphatase 86 U/L (38-126); Anion Gap 7 mmol/L; Blood Urea Nitrogen 46 mg/dL (9-20); Calcium 9.2 mg/dL (8.4-10.2); Carbon Dioxide 33 mmol/L (22-30); Chloride 98 mmol/L (98-107); Globulin 2.9 g/dL; Glucose 203 mg/dL (74-99); Non-African American GFR(CKD) 26 (>60 ml/min/1.73 sqM); Potassium 4.2 mmol/L (3.5-5.1); Sodium 138 mmol/L (137-145); Total Bilirubin 0.8 mg/dL (0.2-1.3); Total Protein 6.7 g/dL (6.3-8.2)
[2024-09-30] MEDS ORDERED: DEXTROSE 50% SYRINGE 50 ML IVP PRN ×2 (08:38)
--- NOTE | 2024-09-30 08:40 | P.HPIM ---
History of Present Illness H&P Date: 09/30/24 Coy Buitrago is an 79-year-old male patient of Dr. Segura who presented to the ER with concerns of increased shortness of breath. Patient was recently here and treated for CHF exacerbation and was doing well at home up until a few days ago when he started to have increased shortness of breath and upper respiratory congestion. Patient has a past medical history of COPD, CHF, atrial fibrillation maintained on Coumadin, kidney disease, diabetes mellitus, hyperlipidemia, hypertension. Chest x-ray completed showing no acute pulmonary process. EKG completed showing sinus rhythm with first-degree AV block. Lab work completed showing a white blood cell count of 26.78, hemoglobin 13.9, creatinine 2.31 bun 46. UA negative influenza RSV and COVID-19 negative. BNP 1420. Vital signs temp 98.0, heart rate 62, respiratory rate 17, blood pressure 119/68 with a pulse ox of 95% on 4 L. INR supratherapeutic at 4.2. Pharmacy to dose Coumadin Coumadin currently on hold. At this time patient will be admitted. Cardiology and pulmonary services will be consulted procalcitonin level has been ordered. Repeat labs ordered. Patient reports improvement with overall shortness of breath. Patient denies chest pain. Patient denies nausea vomiting or diarrhea. Patient denies any urinary burning or frequency. Review of Systems Please refer to HPI otherwise unremarkable Past Medical History Past Medical History: Atrial Fibrillation, Cancer, COPD, Diabetes Mellitus, GERD/Reflux, Hyperlipidemia, Hypertension, Osteoarthritis (OA), Renal Disease Additional Past Medical History / Comment(s): KIDNEY DISEASE stage 3, GOUT, past hx PROBLEM SWALLOWING (not currently 09/11/2024), low Blood sugar admit 10/08/22 resp failure admit 09/24/22. skin cancer, restless leg syndrome, rash on rt leg for years. History of Any Multi-Drug Resistant Organisms: None Reported Past Surgical History: Hernia Repair Additional Past Surgical History / Comment(s): cataract kaila with lens implant, colonoscopy, inguinal hernia repair, skin cancer removed Past Anesthesia/Blood Transfusion Reactions: No Reported Reaction Past Psychological History: Anxiety Smoking Status: Former smoker Past Alcohol Use History: None Reported Past Drug Use History: None Reported - Past Family History Mother Family Medical History: No Reported History Medications and Allergies Home Medications Medication Instructions Recorded Confirmed Type allopurinoL [Zyloprim] 300 mg PO HS 06/09/16 04/12/25 History Atorvastatin [Lipitor] 20 mg PO HS 05/01/19 09/29/24 History calcitrioL 0.25 mcg PO MOWEFR 05/01/19 09/29/24 History Cholecalciferol [Vitamin D3 (25 25 mcg PO DAILY 11/12/22 09/29/24 History Mcg = 1000 Iu)] Ascorbic Acid [Vitamin C] 500 mg PO DAILY 09/11/24 09/29/24 History Escitalopram [Lexapro] 20 mg PO DAILY 09/11/24 09/29/24 History Famotidine [Pepcid] 20 mg PO DAILY 09/11/24 09/29/24 History Metoprolol Tartrate [Lopressor] 50 mg PO BID-W/MEALS 09/11/24 09/29/24 History Warfarin [Coumadin] 2.5 mg PO MOWETHSA 09/11/24 09/29/24 History Warfarin [Coumadin] 5 mg PO SUTUFR 09/11/24 09/29/24 History rOPINIRole HCL [Requip] 1 mg PO TID PRN 09/11/24 09/29/24 History sitaGLIPtin [Januvia] 50 mg PO DAILY 09/11/24 09/29/24 History Furosemide [Lasix] 40 mg PO BID@0900,1600 30 Days #60 09/14/24 09/29/24 Rx tab Magnesium Oxide [Magox 400] 400 mg PO HS 09/29/24 09/29/24 History hydrOXYzine HCL [Atarax] 10 mg PO DIRECTED 09/29/24 09/29/24 History Allergies Allergy/AdvReac Type Severity Reaction Status Date / Time Penicillins Allergy Unknown Verified 09/29/24 19:45 Physical Exam Vitals: Vital Signs Temp Pulse Pulse Resp BP BP Pulse Ox 09/30/24 07:00 98.0 F 62 17 119/68 95 09/30/24 01:27 98 F 60 17 129/63 95 09/29/24 20:58 97.8 F 55 L 18 142/71 98 09/29/24 19:28 66 09/29/24 19:18 57 L 18 132/70 98 09/29/24 19:17 61 09/29/24 18:27 96 09/29/24 18:19 22 09/29/24 18:15 97.5 F L 69 20 87 L Intake and Output 09/29/24 09/30/24 09/30/24 22:59 06:59 14:59 Output Total 500 Balance -500 Output: Urine 500 Other: Voiding Method External Catheter Weight 111.13 kg 109.5 kg Head normocephalic Neck supple Lungs clear to auscultation bilaterally no wheezing or crackles Heart irregular known atrial fibrillation Abdomen is soft nontender nondistended positive bowel sounds no hepatosplenomegaly Extremities +1 lower extremity edema Neuro alert and orientated to 3 Results CBC & Chem 7: 09/30/24 07:17 09/29/24 18:25 Labs: Abnormal Lab Results - Last 24 Hours (Table) 09/29/24 09/29/24 09/29/24 Range/Units 18:25 18:25 18:25 WBC 19.96 H (4.50-10.00) 10*3/uL RBC (4.40-5.60) 10*6/uL MCV 99.1 H (80.0-97.0) fL MCH 32.6 H (27.0-32.0) pg MPV (9.5-12.2) fL Immature Gran # 0.08 H (0.00-0.04) 10*3/uL Neutrophils # 15.59 H (1.80-7.70) 10*3/uL Monocytes # (0.20-1.00) 10*3/uL Eosinophils # 2.07 H (0.04-0.35) 10*3/uL PT 37.0 H (10.0-12.5) sec INR 3.7 H (<1.2) APTT 36.9 H (22.0-30.0) sec Carbon Dioxide 33 H (22-30) mmol/L BUN 52 H (9-20) mg/dL Creatinine 2.51 H (0.66-1.25) mg/dL Glucose 180 H (74-99) mg/dL POC Glucose (mg/dL) (70-110) mg/dL Urine Protein (Negative) Urine Blood (Negative) 09/29/24 09/30/24 09/30/24 Range/Units 19:43 05:03 06:27 WBC (4.50-10.00) 10*3/uL RBC (4.40-5.60) 10*6/uL MCV (80.0-97.0) fL MCH (27.0-32.0) pg MPV (9.5-12.2) fL Immature Gran # (0.00-0.04) 10*3/uL Neutrophils # (1.80-7.70) 10*3/uL Monocytes # (0.20-1.00) 10*3/uL Eosinophils # (0.04-0.35) 10*3/uL PT 41.8 H (10.0-12.5) sec INR 4.2 H (<1.2) APTT (22.0-30.0) sec Carbon Dioxide (22-30) mmol/L BUN (9-20) mg/dL Creatinine (0.66-1.25) mg/dL Glucose (74-99) mg/dL POC Glucose (mg/dL) 148 H (70-110) mg/dL Urine Protein Trace H (Negative) Urine Blood Trace H (Negative) 09/30/24 Range/Units 07:17 WBC 26.78 H (4.50-10.00) 10*3/uL RBC 4.21 L (4.40-5.60) 10*6/uL MCV 101.2 H (80.0-97.0) fL MCH 33.0 H (27.0-32.0) pg MPV 9.4 L (9.5-12.2) fL Immature Gran # 0.16 H (0.00-0.04) 10*3/uL Neutrophils # 23.02 H (1.80-7.70) 10*3/uL Monocytes # 1.53 H (0.20-1.00) 10*3/uL Eosinophils # 0.99 H (0.04-0.35) 10*3/uL PT (10.0-12.5) sec INR (<1.2) APTT (22.0-30.0) sec Carbon Dioxide (22-30) mmol/L BUN (9-20) mg/dL Creatinine (0.66-1.25) mg/dL Glucose (74-99) mg/dL POC Glucose (mg/dL) (70-110) mg/dL Urine Protein (Negative) Urine Blood (Negative) Thrombosis Risk Factor Assmnt - Choose All That Apply Any of the Below Risk Factors Present?: No Other Risk Factors: No Other congenital or acquired thrombophilia - If yes, enter type in comment: No Thrombosis Risk Factor Assessment Level: Very Low Risk Assessment and Plan Assessment: 1. Acute hypoxic respiratory failure secondary to acute CHF and COPD exacerbation 2. Acute on chronic kidney disease 3. Supratherapeutic INR 4. Chronic diastolic congestive heart failure 5. History of chronic kidney disease stage III 6. Chronic atrial fibrillation maintained on Coumadin. Coumadin currently on hold pharmacy to dose due to supratherapeutic INR 7. History of diabetes mellitus type 2 8. History of hyperlipidemia 9. History of essential hypertension DVT prophylaxis Coumadin GI prophylaxis Protonix Pulmonary and cardiology services consulted Repeat labs ordered Procalcitonin level ordered Time with Patient: Greater than 30 (Greater than 60% of the total time spent in counseling and coordination of care)
[2024-09-30] MEDS: IPRATROPIUM-ALBUTEROL 3 ML NEB INHALATION SCH (09:38)
[2024-09-30 11:48] LABS: Glucose,Whole Blood 159 mg/dL (70-110)
[2024-09-30] MEDS: INSULIN LISPRO (HumaLOG) 100 UNIT/ML 10 mL VL SQ SCH (11:56)
--- NOTE | 2024-09-30 11:59 | P.CNPUL ---
History of Present Illness Consult date: 09/30/24 Requesting physician: Donal Granado Reason for consult: dyspnea, hypoxemia Chief complaint: Shortness of breath History of present illness: This is a pleasant 79-year-old male patient with a known history of congestive heart failure, atrial fibrillation, diabetes mellitus, hypertension, hyperlipi demia, chronic kidney disease stage III, gout, remote former smoker. He was discharged from here last month for CHF exacerbation with an ejection fraction of 40 to 45% and had been doing well up until yesterday when he woke up quite short of breath. He presented here to the emergency room for the same. Chest x-ray reveals no acute pulmonary process. EKG reveals sinus mechanism. White count 26.7. Hemoglobin 13.9. Platelets 238. INR 4.2. Sodium 138. Potassium 4.2. Bicarb 33. BUN 46. Creatinine 2.31. Glucose 203. proBNP 1420. Procalcitonin negative at 0.05. Urinalysis clean. Viral screen negative. He is seen today in consultation on the regular medical floor. He is currently sitting up in bed. Awake and alert in no acute distress. States he is breathing better today compared to yesterday. He is maintaining O2 saturations in the 90s on 4 L/min per nasal cannula. He has been afebrile. Hemodynamically stable. Review of Systems REVIEW OF SYSTEMS: CONSTITUTIONAL: Denies any recent significant weight loss or weight gain. EYES: Denies change in vision. EARS, NOSE, MOUTH, THROAT: Denies headaches, denies sore throat. CARDIOVASCULAR: Denies chest pain, palpitations or syncopal episodes. RESPIRATORY: Positive for shortness of breath, no cough, congestion or hemoptysis. GASTROINTESTINAL: Denies change in appetite, denies abdominal pain GENITOURINARY: Denies hematuria, denies infections. MUSKULOSKELETAL: Denies pain, denies swelling. INTEGUMENTARY: Denies rash, denies eczema. NEUROLOGICAL: Denies recent memory loss, no recent seizure activity. PSYCHIATRIC: Denies anxiety, denies depression. HEMATOLOGIC/LYMPHATIC: Denies anemia, denies enlarged lymph nodes. Past Medical History Past Medical History: Atrial Fibrillation, Cancer, COPD, Diabetes Mellitus, GERD/Reflux, Hyperlipidemia, Hypertension, Osteoarthritis (OA), Renal Disease Additional Past Medical History / Comment(s): KIDNEY DISEASE stage 3, GOUT, past hx PROBLEM SWALLOWING (not currently 09/11/2024), low Blood sugar admit 10/08/22 resp failure admit 09/24/22. skin cancer, restless leg syndrome, rash on rt leg for years. History of Any Multi-Drug Resistant Organisms: None Reported Past Surgical History: Hernia Repair Additional Past Surgical History / Comment(s): cataract kaila with lens implant, colonoscopy, inguinal hernia repair, skin cancer removed Past Anesthesia/Blood Transfusion Reactions: No Reported Reaction Past Psychological History: Anxiety Smoking Status: Former smoker Past Alcohol Use History: None Reported Past Drug Use History: None Reported - Past Family History Mother Family Medical History: No Reported History Medications and Allergies Home Medications Medication Instructions Recorded Confirmed Type allopurinoL [Zyloprim] 300 mg PO HS 11/27/15 09/29/24 History Atorvastatin [Lipitor] 20 mg PO HS 05/01/19 09/29/24 History calcitrioL 0.25 mcg PO MOWEFR 05/01/19 09/29/24 History Cholecalciferol [Vitamin D3 (25 25 mcg PO DAILY 11/12/22 09/29/24 History Mcg = 1000 Iu)] Ascorbic Acid [Vitamin C] 500 mg PO DAILY 09/11/24 09/29/24 History Escitalopram [Lexapro] 20 mg PO DAILY 09/11/24 09/29/24 History Famotidine [Pepcid] 20 mg PO DAILY 09/11/24 09/29/24 History Metoprolol Tartrate [Lopressor] 50 mg PO BID-W/MEALS 09/11/24 09/29/24 History Warfarin [Coumadin] 2.5 mg PO MOWETHSA 09/11/24 09/29/24 History Warfarin [Coumadin] 5 mg PO SUTUFR 09/11/24 09/29/24 History rOPINIRole HCL [Requip] 1 mg PO TID PRN 09/11/24 09/29/24 History sitaGLIPtin [Januvia] 50 mg PO DAILY 09/11/24 09/29/24 History Furosemide [Lasix] 40 mg PO BID@0900,1600 30 Days #60 09/14/24 09/29/24 Rx tab Magnesium Oxide [Magox 400] 400 mg PO HS 09/29/24 09/29/24 History hydrOXYzine HCL [Atarax] 10 mg PO DIRECTED 09/29/24 09/29/24 History Allergies Allergy/AdvReac Type Severity Reaction Status Date / Time Penicillins Allergy Unknown Verified 09/29/24 19:45 Physical Exam Vitals: Vital Signs Temp Pulse Pulse Resp BP BP Pulse Ox 09/30/24 09:47 88 16 09/30/24 09:39 88 16 09/30/24 07:00 98.0 F 62 17 119/68 95 09/30/24 01:27 98 F 60 17 129/63 95 09/29/24 20:58 97.8 F 55 L 18 142/71 98 09/29/24 19:28 66 09/29/24 19:18 57 L 18 132/70 98 09/29/24 19:17 61 09/29/24 18:27 96 09/29/24 18:19 22 09/29/24 18:15 97.5 F L 69 20 87 L Intake and Output 09/29/24 09/30/24 09/30/24 22:59 06:59 14:59 Output Total 500 Balance -500 Output: Urine 500 Other: Voiding Method External Catheter Weight 111.13 kg 109.5 kg GENERAL EXAM: Alert, active, pleasant 79-year-old male, on 4 L nasal cannula, fairly comfortable in no apparent distress. HEAD: Normocephalic. EYES: Normal reaction of pupils, equal size. NOSE: Clear with pink turbinates. THROAT: No erythema or exudates. NECK: No masses, no JVD. CHEST: No chest wall deformity. LUNGS: Equal air entry with crackles in the posterior bases. CVS: S1 and S2 normal with no audible murmur, regular rhythm. ABDOMEN: No hepatosplenomegaly, normal bowel sounds, no guarding or rigidity. SPINE: No scoliosis or deformity SKIN: No rashes CENTRAL NERVOUS SYSTEM: No focal deficits, tone is normal in all 4 extremities. EXTREMITIES: There is 1+ peripheral edema. No clubbing, no cyanosis. Peripheral pulses are intact. Results - Laboratory Findings CBC and BMP: 09/30/24 07:17 09/30/24 07:17 PT/INR, D-dimer PT 41.8 sec (10.0-12.5) H 09/30/24 05:03 INR 4.2 (<1.2) H 09/30/24 05:03 Abnormal lab findings: Abnormal Labs 09/29/24 09/29/24 09/29/24 18:25 18:25 18:25 WBC 19.96 H RBC MCV 99.1 H MCH 32.6 H MPV Immature Gran # 0.08 H Neutrophils # 15.59 H Monocytes # Eosinophils # 2.07 H PT 37.0 H INR 3.7 H APTT 36.9 H Carbon Dioxide 33 H BUN 52 H Creatinine 2.51 H Glucose 180 H POC Glucose (mg/dL) Urine Protein Urine Blood 09/29/24 09/30/24 09/30/24 19:43 05:03 06:27 WBC RBC MCV MCH MPV Immature Gran # Neutrophils # Monocytes # Eosinophils # PT 41.8 H INR 4.2 H APTT Carbon Dioxide BUN Creatinine Glucose POC Glucose (mg/dL) 148 H Urine Protein Trace H Urine Blood Trace H 09/30/24 09/30/24 07:17 07:17 WBC 26.78 H RBC 4.21 L MCV 101.2 H MCH 33.0 H MPV 9.4 L Immature Gran # 0.16 H Neutrophils # 23.02 H Monocytes # 1.53 H Eosinophils # 0.99 H PT INR APTT Carbon Dioxide 33 H BUN 46 H Creatinine 2.31 H Glucose 203 H POC Glucose (mg/dL) Urine Protein Urine Blood - Diagnostic Findings Chest x-ray: image reviewed Assessment and Plan Assessment: Acute hypoxic respiratory failure secondary to an acute exacerbation of chronic systolic congestive heart failure Leukocytosis suspect reactive, procalcitonin negative, urinalysis clean Atrial fibrillation anticoagulated with warfarin, currently in sinus mechanism History of congestive heart failure Acute on chronic kidney disease History of gout Hyperlipidemia Hypertension Diabetes mellitus, type II Remote smoking history Plan: The patient was seen and evaluated Chest x-ray, EKG, labs and medications reviewed Procalcitonin negative Currently on 4 L/min per nasal cannula Titrate down the FiO2 as tolerated Continue diuretics Warfarin per pharmacy Resume home medications Increase his activity as tolerated We will continue to follow and make further recommendations based on his clinical status I have personally seen and examined the patient, performed the documentation and the assessment and plan as written. Number of minutes spent on the visit: 20 Dictation was produced using [employer] dictation software. Please excuse any grammatical, word or spelling errors. Time with Patient: Greater than 30
[2024-09-30] MEDS: PANTOPRAZOLE 40 MG/10 ML VIAL IV SCH (12:00)
--- NOTE | 2024-09-30 12:48 | P.CRDCN ---
History of Present Illness Consult date: 09/30/24 Requesting physician: Donal Granado Reason for Consult (text): CHF history Chief complaint: shortness of breath History of present illness: This is a pleasant 79-year-old male patient of Dr. Wilson with past medical history of permanent atrial fibrillation, status post cardioversion, maintaining sinus mechanism heart failure, cardiomyopathy, COPD. He was recently hospitalized last month with heart failure was diuresed. NT proBNP was around 900 at that time. Following discharge she had been feeling fairly well at home until yesterday when he suddenly became more short of breath. He has had no chest discomfort or palpitations. He denies any orthopnea, PND or worsening edema. He has chronic right lower extremity edema that has been stable since discharge last time. He has had no dizziness, lightheadedness or syncope. Denies any bleeding. Diagnostics -EKG: Sinus rhythm with a first-degree AV block and right bundle branch block with occasional PVCs -Chest x-ray: No acute pulmonary process -Laboratory studies: White blood cell count on admission 19.96, up to 26.78, hemoglobin 14.8, INR 4.2 warfarin being dosed by pharmacy, BUN 52, creatinine 2.51, NT proBNP 1420 -Home cardiac medications: Warfarin, metoprolol 50 mg p.o. twice daily, magnesium, Lasix 40 mg p.o. twice daily and Lipitor 20 mg p.o. daily -Prior stress test: Unknown -Echocardiogram: 09/11/2024 moderately impaired LV systolic function with an ejection fraction of 40 to 45% moderate pulmonary hypertension, mild AAS, mild MR and mild TR -Cardiac catheterization: N/A Review Of Systems: At the time of my exam: CONSTITUTIONAL: Denies fever or chills. HEENT: Denies blurred vision, vision changes. CARDIOVASCULAR: Denies chest pain. Denies orthopnea. Denies PND. Denies palpitations, dizziness, or syncope. RESPIRATORY: Denies shortness of breath, wheezing, or cough. Denies hemoptysis. GASTROINTESTINAL: Denies abdominal pain. Denies nausea or vomiting. Denies bleeding. HEMATOLOGIC: Denies bleeding disorders. GENITOURINARY: Denies hematuria. SKIN: Denies puritis. Denies rash. PHYSICAL EXAMINATION: This is a 79-year-old male in no apparent distress at the time of my examination. VITAL SIGNS: Reviewed. HEENT: Head is atraumatic, normocephalic. Pupils are equal, round. Sclerae anicteric. Conjunctivae are clear. Mucous membranes of the mouth are moist. Neck is supple. There is no elevated jugular venous pressure. No carotid bruit is heard. CHEST EXAMINATION: Clear to auscultation bilaterally. No wheezes rales or rhonchi. Respirations even and nonlabored. HEART EXAMINATION: Heart regular, positive S1 and S2. No S3. No S4. Systolic ejection murmur. ABDOMEN: Soft, nontender. Bowel sounds are heard. No organomegaly noted. EXTREMITIES: 2+ peripheral pulses with evidence of mild right lower extremity edema and no calf tenderness noted. NEUROLOGIC EXAMINATION: Patient is awake, alert and oriented x3. Assessment: 1. HFrEF 2. Persistent atrial fibrillation, currently maintaining sinus mechanism, anticoagulated on warfarin 3. COPD 4. Pulmonary hypertension Plan: From cardiology's perspective we will add Farxiga. Patient's NT proBNP is not significantly elevated. Appreciate input from pulmonary. We will continue to follow the patient and provide further recommendations accordingly. Thank you kindly for this consultation. Nurse practitioner note has been reviewed, I agree with documented findings and plan of care. Patient was seen and examined. Past Medical History Past Medical History: Atrial Fibrillation, Cancer, COPD, Diabetes Mellitus, GERD/Reflux, Hyperlipidemia, Hypertension, Osteoarthritis (OA), Renal Disease Additional Past Medical History / Comment(s): KIDNEY DISEASE stage 3, GOUT, past hx PROBLEM SWALLOWING (not currently 09/11/2024), low Blood sugar admit 10/08/22 resp failure admit 09/24/22. skin cancer, restless leg syndrome, rash on rt leg for years. History of Any Multi-Drug Resistant Organisms: None Reported Past Surgical History: Hernia Repair Additional Past Surgical History / Comment(s): cataract kaila with lens implant, colonoscopy, inguinal hernia repair, skin cancer removed Past Anesthesia/Blood Transfusion Reactions: No Reported Reaction Past Psychological History: Anxiety Smoking Status: Former smoker Past Alcohol Use History: None Reported Past Drug Use History: None Reported - Past Family History Mother Family Medical History: No Reported History Medications and Allergies Home Medications Medication Instructions Recorded Confirmed Type allopurinoL [Zyloprim] 300 mg PO HS 11/27/15 09/29/24 History Atorvastatin [Lipitor] 20 mg PO HS 05/01/19 09/29/24 History calcitrioL 0.25 mcg PO MOWEFR 05/01/19 09/29/24 History Cholecalciferol [Vitamin D3 (25 25 mcg PO DAILY 11/12/22 09/29/24 History Mcg = 1000 Iu)] Ascorbic Acid [Vitamin C] 500 mg PO DAILY 09/11/24 09/29/24 History Escitalopram [Lexapro] 20 mg PO DAILY 09/11/24 09/29/24 History Famotidine [Pepcid] 20 mg PO DAILY 09/11/24 09/29/24 History Metoprolol Tartrate [Lopressor] 50 mg PO BID-W/MEALS 09/11/24 09/29/24 History Warfarin [Coumadin] 2.5 mg PO MOWETHSA 09/11/24 09/29/24 History Warfarin [Coumadin] 5 mg PO SUTUFR 09/11/24 09/29/24 History rOPINIRole HCL [Requip] 1 mg PO TID PRN 09/11/24 09/29/24 History sitaGLIPtin [Januvia] 50 mg PO DAILY 09/11/24 09/29/24 History Furosemide [Lasix] 40 mg PO BID@0900,1600 30 Days #60 09/14/24 09/29/24 Rx tab Magnesium Oxide [Magox 400] 400 mg PO HS 09/29/24 09/29/24 History hydrOXYzine HCL [Atarax] 10 mg PO DIRECTED 09/29/24 09/29/24 History Allergies Allergy/AdvReac Type Severity Reaction Status Date / Time Penicillins Allergy Unknown Verified 09/29/24 19:45 Physical Exam Vitals: Vital Signs Temp Pulse Pulse Resp BP BP Pulse Ox 09/30/24 09:47 88 16 09/30/24 09:39 88 16 09/30/24 07:00 98.0 F 62 17 119/68 95 09/30/24 01:27 98 F 60 17 129/63 95 09/29/24 20:58 97.8 F 55 L 18 142/71 98 09/29/24 19:28 66 09/29/24 19:18 57 L 18 132/70 98 09/29/24 19:17 61 09/29/24 18:27 96 09/29/24 18:19 22 09/29/24 18:15 97.5 F L 69 20 87 L Intake and Output 09/29/24 09/30/24 09/30/24 22:59 06:59 14:59 Output Total 500 Balance -500 Output: Urine 500 Other: Voiding Method External Catheter Weight 111.13 kg 109.5 kg Results 09/30/24 07:17 09/30/24 07:17 Cardiac Enzymes 09/29/24 09/29/24 09/30/24 Range/Units 18:25 18:25 07:17 AST 32 23 (17-59) U/L Troponin I 0.016 (0.000-0.034) ng/mL Coagulation 09/29/24 09/30/24 Range/Units 18:25 05:03 PT 37.0 H 41.8 H (10.0-12.5) sec APTT 36.9 H (22.0-30.0) sec CBC 09/29/24 09/30/24 Range/Units 18:25 07:17 WBC 19.96 H 26.78 H (4.50-10.00) 10*3/uL RBC 4.54 4.21 L (4.40-5.60) 10*6/uL Hgb 14.8 13.9 (13.0-17.0) g/dL Hct 45.0 42.6 (39.6-50.0) % Plt Count 234 238 (140-440) 10*3/uL Comprehensive Metabolic Panel 09/29/24 09/30/24 Range/Units 18:25 07:17 Sodium 140 138 (137-145) mmol/L Potassium 4.4 4.2 (3.5-5.1) mmol/L Chloride 99 98 (98-107) mmol/L Carbon Dioxide 33 H 33 H (22-30) mmol/L BUN 52 H 46 H (9-20) mg/dL Creatinine 2.51 H 2.31 H (0.66-1.25) mg/dL Glucose 180 H 203 H (74-99) mg/dL Calcium 9.6 9.2 (8.4-10.2) mg/dL AST 32 23 (17-59) U/L ALT 27 22 (4-49) U/L Alkaline Phosphatase 112 86 (38-126) U/L Total Protein 7.4 6.7 (6.3-8.2) g/dL Albumin 4.1 3.8 (3.5-5.0) g/dL Current Medications Generic Name Dose Route Start Last Admin Trade Name Freq PRN Reason Stop Dose Admin Acetaminophen 650 mg 09/29/24 19:53 Acetaminophen Tab 325 Mg Tab PO Q6HR PRN Mild Pain or Fever > 100.5 Hydrocodone Bitart/Acetaminophen 1 each 09/29/24 19:53 Hydrocodone/Apap 5-325mg 1 Each Tab PO Q4HR PRN Moderate Pain (Scale 4 to 6) Albuterol/Ipratropium 3 ml 09/29/24 20:08 Ipratropium-Albuterol 3 Ml Neb INHALATION RT-Q2H PRN Shortness Of Breath Or Wheezing Allopurinol 300 mg 09/29/24 21:00 09/29/24 20:37 Allopurinol 300 Mg Tab PO 300 mg HS RENÉE Administration Ascorbic Acid 500 mg 09/30/24 09:00 09/30/24 07:31 Ascorbic Acid 500 Mg Tab PO 500 mg DAILY RENÉE Administration Atorvastatin Calcium 20 mg 09/29/24 21:00 09/29/24 20:37 Atorvastatin 20 Mg Tab PO 20 mg HS RENÉE Administration Calcitriol 0.25 mcg 10/01/24 19:55 Calcitriol 0.25 Mcg Cap PO MOWEFR RENÉE Cholecalciferol 25 mcg 09/30/24 09:00 09/30/24 07:31 Cholecalciferol 25 Mcg (1000 Iu) Tablet PO 25 mcg DAILY RENÉE Administration Dextrose/Water 25 ml 09/30/24 08:38 Dextrose 50% Syringe 50 Ml IVP PER PROTOCOL PRN Hypoglycemia Protocol Dextrose/Water 50 ml 09/30/24 08:38 Dextrose 50% Syringe 50 Ml IVP PER PROTOCOL PRN Hypoglycemia Protocol Escitalopram Oxalate 20 mg 09/30/24 09:00 09/30/24 07:31 Escitalopram 20 Mg Tab PO 20 mg DAILY RENÉE Administration Famotidine 20 mg 09/30/24 09:00 09/30/24 07:32 Famotidine 20 Mg Tab PO 20 mg DAILY RENÉE Administration Furosemide 40 mg 09/30/24 09:00 09/30/24 07:31 Furosemide 40 Mg Tab PO 40 mg BID@0900,1600 RENÉE Administration Insulin Human Lispro 0 unit 09/30/24 12:30 09/30/24 11:56 Insulin Lispro (Humalog) 100 Unit/Ml 10 Ml Vl SQ 2 unit ACHS RENÉE Administration Protocol Linagliptin 5 mg 09/30/24 09:00 09/30/24 07:31 Linagliptin 5 Mg Tablet PO 5 mg DAILY RENÉE Administration Magnesium Oxide 400 mg 09/29/24 21:00 09/29/24 20:37 Magnesium Oxide 400 Mg Tab PO 400 mg HS RENÉE Administration Metoprolol Tartrate 50 mg 09/30/24 07:30 09/30/24 07:31 Metoprolol Tartrate 50 Mg Tab PO 50 mg BID-W/MEALS RENÉE Administration Miscellaneous Information 0 each 09/29/24 20:37 Warfarin Per Pharmacy MISCELLANE DIRECTED PRN INR Morphine Sulfate 4 mg 09/29/24 19:53 Morphine Sulfate 4 Mg/Ml Syringe IV Q4HR PRN Severe Pain (Scale 7 to 10) Naloxone HCl 0.2 mg 09/29/24 19:53 Naloxone 0.4 Mg/Ml 1 Ml Vial IV Q2M PRN Opioid Reversal Ondansetron HCl 4 mg 09/29/24 19:53 Ondansetron 4 Mg/2 Ml Vial IVP Q8HR PRN Nausea And Vomiting Pantoprazole Sodium 40 mg 09/30/24 09:00 Pantoprazole 40 Mg/10 Ml Vial IV DAILY RENÉE Ropinirole HCl 1 mg 09/29/24 20:00 Ropinirole Hcl 1 Mg Tab PO TID PRN restlessness Warfarin Sodium 0 mg 09/30/24 18:00 Warfarin 0.5 Mg Tab PO 09/30/24 18:01 ONCE@1800 ONE Intake and Output 09/29/24 09/30/24 09/30/24 22:59 06:59 14:59 Output Total 500 Balance -500 Output: Urine 500 Other: Voiding Method External Catheter Weight 111.13 kg 109.5 kg 09/30/24 07:17 09/30/24 07:17
[2024-09-30] MEDS: DAPAGLIFLOZIN PROPANEDIOL 10 MG TABLET PO SCH (13:53)
[2024-09-30 16:59] LABS: Glucose,Whole Blood 109 mg/dL (70-110)
[2024-09-30] MEDS: WARFARIN 0.5 MG TAB PO ONE (17:11)
[2024-09-30] MEDS ORDERED: WARFARIN 5 MG TAB PO SCH (19:57)
[2024-09-30 20:57] LABS: Glucose,Whole Blood 159 mg/dL (70-110)
[2024-09-30] MEDS: NYSTATIN 100,000 UNIT/GM POWD 15 GM TOPICAL SCH (22:58)
[2024-10-01 04:19] LABS: INR 3.5 (<1.2); Prothrombin Time 34.5 sec (10.0-12.5)
[2024-10-01 06:19] LABS: Glucose,Whole Blood 127 mg/dL (70-110)
[2024-10-01 08:51] LABS: BUN/Creat Ratio 17.87 Ratio (12.00-20.00); Blood Urea Nitrogen 41.1 mg/dL (9.0-27.0); Chloride 97 mmol/L (96-109); Glucose 113 mg/dL (70-110); Potassium 3.7 mmol/L (3.5-5.5); Sodium 138 mmol/L (135-145)
[2024-10-01 08:52] LABS: ALT 19 U/L (10-49); AST 32 U/L (14-35); Albumin 3.5 g/dL (3.8-4.9); Alkaline Phosphatase 77 U/L (41-126); Calcium 8.9 mg/dL (8.7-10.3); Carbon Dioxide 29.1 mmol/L (21.6-31.8); Globulin 2.5 g/dL (1.6-3.3); Total Bilirubin 0.6 mg/dL (0.3-1.2)
[2024-10-01 08:53] LABS: Basophils # (A) 0.03 X 10*3/uL (0.00-0.10); Basophils % (A) 0.2 %; Eosinophils # (A) 1.95 X 10*3/uL (0.04-0.35); Eosinophils % (A) 13.9 %; HCT 40.9 % (39.6-50.0); HGB 13.4 g/dL (13.0-17.0); Lymphocytes # (A) 2.23 X 10*3/uL (0.90-5.00); Lymphocytes % (A) 15.9 %; MCH 32.7 pg (27.0-32.0); MCHC 32.8 g/dL (32.0-37.0); MCV 99.8 FL (80.0-97.0); Mean Platelet Volume 10.2 FL (9.5-12.2); Monocytes # (A) 1.02 X 10*3/uL (0.20-1.00); Monocytes % (A) 7.3 %; NRBC Per 100 WBC 0 X 10*3/uL (0.00-0.01); Neutrophils # (A) 8.75 X 10*3/uL (1.80-7.70); Neutrophils % (A) 62.2 %; Platelet Count 228 X 10*3/uL (140-440); RDW 14.4 % (11.5-14.5); WBC 14.05 X 10*3/uL (4.50-10.00)
[2024-10-01 11:06] LABS: Glucose,Whole Blood 173 mg/dL (70-110)
--- NOTE | 2024-10-01 14:05 | P.PN ---
Subjective Progress Note Date: 10/01/24 This is a pleasant 79-year-old male patient with a known history of congestive heart failure, atrial fibrillation, diabetes mellitus, hypertension, hyperlipidemia, chronic kidney disease stage III, gout, remote former smoker. He was discharged from here last month for CHF exacerbation with an ejection fr action of 40 to 45% and had been doing well up until yesterday when he woke up quite short of breath. He presented here to the emergency room for the same. Chest x-ray reveals no acute pulmonary process. EKG reveals sinus mechanism. White count 26.7. Hemoglobin 13.9. Platelets 238. INR 4.2. Sodium 138. Potassium 4.2. Bicarb 33. BUN 46. Creatinine 2.31. Glucose 203. proBNP 1420. Procalcitonin negative at 0.05. Urinalysis clean. Viral screen negative. He is seen today in consultation on the regular medical floor. He is currently sitting up in bed. Awake and alert in no acute distress. States he is breathing better today compared to yesterday. He is maintaining O2 saturati ons in the 90s on 4 L/min per nasal cannula. He has been afebrile. Hemodynamically stable. The patient is seen today October 01, 2024 and follow-up on the regular medical floor. He is currently up in a chair at the bedside. Awake and alert in no acute distress. He is maintaining good O2 saturations in the 90s on room air. Hemodynamically stable. White count 14.0. Hemoglobin 13.4. Platelets 228. INR 3.5. Sodium 138. Potassium 3.7. Bicarb 29. BUN 41. Creatinine 2.3. Glucose 113. He is currently on oral diuretics. Anticoagulated with warfarin. Objective - Vital Signs Vital signs: Vital Signs Temp 97.9 F 10/01/24 07:47 Pulse 51 L 10/01/24 08:35 Resp 17 10/01/24 07:47 BP 124/66 10/01/24 07:47 Pulse Ox 96 10/01/24 10:44 FiO2 Intake & Output 09/30/24 10/01/24 10/01/24 18:59 06:59 18:59 Intake Total 600 Output Total 300 Balance -300 600 Weight 111 kg Intake: Oral 600 Output: Urine 300 Other: Voiding Method Urinal - Exam GENERAL EXAM: Alert, pleasant 79-year-old male, sitting up in a chair, on room air, comfortable in no apparent distress. HEAD: Normocephalic. EYES: Normal reaction of pupils, equal size. NOSE: Clear with pink turbinates. THROAT: No erythema or exudates. NECK: No masses, no JVD. CHEST: No chest wall deformity. LUNGS: Equal air entry with crackles in the posterior bases. CVS: S1 and S2 normal with no audible murmur, regular rhythm. ABDOMEN: No hepatosplenomegaly, normal bowel sounds, no guarding or rigidity. SPINE: No scoliosis or deformity SKIN: No rashes CENTRAL NERVOUS SYSTEM: No focal deficits, tone is normal in all 4 extremities. EXTREMITIES: There is 1+ peripheral edema. No clubbing, no cyanosis. Peripheral pulses are intact. - Labs CBC & Chem 7: 10/01/24 03:46 10/01/24 03:46 Labs: Abnormal Lab Results - Last 24 Hours (Table) 09/30/24 10/01/24 10/01/24 Range/Units 20:56 03:46 03:46 WBC 14.05 H (4.50-10.00) X 10*3/uL RBC 4.10 L (4.40-5.60) X 10*6/uL MCV 99.8 H (80.0-97.0) FL MCH 32.7 H (27.0-32.0) pg Immature Gran # 0.07 H (0.00-0.04) X 10*3/uL Neutrophils # 8.75 H (1.80-7.70) X 10*3/uL Monocytes # 1.02 H (0.20-1.00) X 10*3/uL Eosinophils # 1.95 H (0.04-0.35) X 10*3/uL PT (10.0-12.5) sec INR (<1.2) BUN (9.0-27.0) mg/dL Creatinine (0.6-1.5) mg/dL Est GFR (CKD-EPI) (>=60) Glucose (70-110) mg/dL POC Glucose (mg/dL) 159 H (70-110) mg/dL Hemoglobin A1c 7.7 H (<=6.0) % Total Protein (6.2-8.2) g/dL Albumin (3.8-4.9) g/dL Albumin/Globulin Ratio (1.60-3.17) Ratio 10/01/24 10/01/24 10/01/24 Range/Units 03:46 03:46 06:18 WBC (4.50-10.00) X 10*3/uL RBC (4.40-5.60) X 10*6/uL MCV (80.0-97.0) FL MCH (27.0-32.0) pg Immature Gran # (0.00-0.04) X 10*3/uL Neutrophils # (1.80-7.70) X 10*3/uL Monocytes # (0.20-1.00) X 10*3/uL Eosinophils # (0.04-0.35) X 10*3/uL PT 34.5 H (10.0-12.5) sec INR 3.5 H (<1.2) BUN 41.1 H (9.0-27.0) mg/dL Creatinine 2.3 H (0.6-1.5) mg/dL Est GFR (CKD-EPI) 28 L (>=60) Glucose 113 H (70-110) mg/dL POC Glucose (mg/dL) 127 H (70-110) mg/dL Hemoglobin A1c (<=6.0) % Total Protein 6.0 L (6.2-8.2) g/dL Albumin 3.5 L (3.8-4.9) g/dL Albumin/Globulin Ratio 1.40 L (1.60-3.17) Ratio 10/01/24 Range/Units 11:05 WBC (4.50-10.00) X 10*3/uL RBC (4.40-5.60) X 10*6/uL MCV (80.0-97.0) FL MCH (27.0-32.0) pg Immature Gran # (0.00-0.04) X 10*3/uL Neutrophils # (1.80-7.70) X 10*3/uL Monocytes # (0.20-1.00) X 10*3/uL Eosinophils # (0.04-0.35) X 10*3/uL PT (10.0-12.5) sec INR (<1.2) BUN (9.0-27.0) mg/dL Creatinine (0.6-1.5) mg/dL Est GFR (CKD-EPI) (>=60) Glucose (70-110) mg/dL POC Glucose (mg/dL) 173 H (70-110) mg/dL Hemoglobin A1c (<=6.0) % Total Protein (6.2-8.2) g/dL Albumin (3.8-4.9) g/dL Albumin/Globulin Ratio (1.60-3.17) Ratio Assessment and Plan Assessment: Acute hypoxic respiratory failure secondary to an acute exacerbation of chronic systolic congestive heart failure Leukocytosis suspect reactive, procalcitonin negative, urinalysis clean Atrial fibrillation anticoagulated with warfarin, currently in sinus mechanism History of congestive heart failure Acute on chronic kidney disease History of gout Hyperlipidemia Hypertension Diabetes mellitus, type II Remote smoking history Plan: The patient was seen and evaluated Labs and medications reviewed Stable on room air oxygen Continue diuretics Warfarin per pharmacy Increase his activity as tolerated Plan is for home with home care at discharge I have personally seen and examined the patient, performed the documentation and the assessment and plan as written. Number of minutes spent on the visit: 10 Dictation was produced using [employer] dictation software. Please excuse any grammatical, word or spelling errors.
--- NOTE | 2024-10-01 15:06 | P.PN ---
Subjective Progress Note Date: 10/01/24 This is a pleasant 79-year-old male patient of Dr. Wilson with past medical history of permanent atrial fibrillation, status post cardioversion, maintaining sinus mechanism heart failure, cardiomyopathy, COPD. He was recently hospitalized last month with heart failure was diuresed. NT proBNP was around 9 00 at that time. Following discharge she had been feeling fairly well at home until yesterday when he suddenly became more short of breath. He has had no chest discomfort or palpitations. He denies any orthopnea, PND or worsening edema. He has chronic right lower extremity edema that has been stable since discharge last time. He has had no dizziness, lightheadedness or syncope. Denies any bleeding. Diagnostics -EKG: Sinus rhythm with a first-degree AV block and right bundle branch block with occasional PVCs -Chest x-ray: No acute pulmonary process -Laboratory studies: White blood cell count on admission 19.96, up to 26.78, hemoglobin 14.8, INR 4.2 warfarin being dosed by pharmacy, BUN 52, creatinine 2.51, NT proBNP 1420 -Home cardiac medications: Warfarin, metoprolol 50 mg p.o. twice daily, magnesium, Lasix 40 mg p.o. twice daily and Lipitor 20 mg p.o. daily -Prior stress test: Unknown -Echocardiogram: 09/11/2024 moderately impaired LV systolic function with an ejection fraction of 40 to 45% moderate pulmonary hypertension, mild AAS, mild MR and mild TR -Cardiac catheterization: N/A Progress note BP 114/61, heart rate 60 bpm BUN 11, creatinine 2.3, Hb 15.9. INR was 3.5 Reports feeling better. Shortness of breath is improved PHYSICAL EXAMINATION: This is a 79-year-old male in no apparent distress at the time of my examination. VITAL SIGNS: Reviewed. HEENT: Head is atraumatic, normocephalic. Pupils are equal, round. Sclerae anicteric. Conjunctivae are clear. Mucous membranes of the mouth are moist. Neck is supple. There is no elevated jugular venous pressure. No carotid bruit is heard. CHEST EXAMINATION: Clear to auscultation bilaterally. No wheezes rales or rhonchi. Respirations even and nonlabored. HEART EXAMINATION: Heart regular, positive S1 and S2. No S3. No S4. Systolic ejection murmur. ABDOMEN: Soft, nontender. Bowel sounds are heard. No organomegaly noted. EXTREMITIES: 2+ peripheral pulses with evidence of mild right lower extremity edema and no calf tenderness noted. NEUROLOGIC EXAMINATION: Patient is awake, alert and oriented x3. Assessment: 1. HFrEF 2. Persistent atrial fibrillation, currently maintaining sinus mechanism, anticoagulated on warfarin 3. COPD 4. Pulmonary hypertension Plan: At this time patient is optimized on current regimen which includes Lipitor 20 mg, Farxiga 5 mg, Lasix 40 mg p.o. twice daily, metoprolol 50 mg twice daily and warfarin At this time patient is stable from cardiovascular standpoint Cardiology team will sign off. Please reconsult us in case of any question Recommend outpatient follow-up with primary shingle carrier Warfarin dosing with goal INR of 2.5-3.5 Objective - Vital Signs Vital signs: Vital Signs Temp 97.9 F 10/01/24 13:23 Pulse 60 10/01/24 13:23 Resp 18 10/01/24 13:23 BP 114/61 10/01/24 13:23 Pulse Ox 97 10/01/24 13:23 FiO2 Intake & Output 09/30/24 10/01/24 10/01/24 18:59 06:59 18:59 Intake Total 600 Output Total 300 Balance -300 600 Weight 111 kg Intake: Oral 600 Output: Urine 300 Other: Voiding Method Urinal - Labs CBC & Chem 7: 10/01/24 03:46 10/01/24 03:46 Labs: Abnormal Lab Results - Last 24 Hours (Table) 09/30/24 10/01/24 10/01/24 Range/Units 20:56 03:46 03:46 WBC 14.05 H (4.50-10.00) X 10*3/uL RBC 4.10 L (4.40-5.60) X 10*6/uL MCV 99.8 H (80.0-97.0) FL MCH 32.7 H (27.0-32.0) pg Immature Gran # 0.07 H (0.00-0.04) X 10*3/uL Neutrophils # 8.75 H (1.80-7.70) X 10*3/uL Monocytes # 1.02 H (0.20-1.00) X 10*3/uL Eosinophils # 1.95 H (0.04-0.35) X 10*3/uL PT (10.0-12.5) sec INR (<1.2) BUN (9.0-27.0) mg/dL Creatinine (0.6-1.5) mg/dL Est GFR (CKD-EPI) (>=60) Glucose (70-110) mg/dL POC Glucose (mg/dL) 159 H (70-110) mg/dL Hemoglobin A1c 7.7 H (<=6.0) % Total Protein (6.2-8.2) g/dL Albumin (3.8-4.9) g/dL Albumin/Globulin Ratio (1.60-3.17) Ratio 10/01/24 10/01/24 10/01/24 Range/Units 03:46 03:46 06:18 WBC (4.50-10.00) X 10*3/uL RBC (4.40-5.60) X 10*6/uL MCV (80.0-97.0) FL MCH (27.0-32.0) pg Immature Gran # (0.00-0.04) X 10*3/uL Neutrophils # (1.80-7.70) X 10*3/uL Monocytes # (0.20-1.00) X 10*3/uL Eosinophils # (0.04-0.35) X 10*3/uL PT 34.5 H (10.0-12.5) sec INR 3.5 H (<1.2) BUN 41.1 H (9.0-27.0) mg/dL Creatinine 2.3 H (0.6-1.5) mg/dL Est GFR (CKD-EPI) 28 L (>=60) Glucose 113 H (70-110) mg/dL POC Glucose (mg/dL) 127 H (70-110) mg/dL Hemoglobin A1c (<=6.0) % Total Protein 6.0 L (6.2-8.2) g/dL Albumin 3.5 L (3.8-4.9) g/dL Albumin/Globulin Ratio 1.40 L (1.60-3.17) Ratio 10/01/24 Range/Units 11:05 WBC (4.50-10.00) X 10*3/uL RBC (4.40-5.60) X 10*6/uL MCV (80.0-97.0) FL MCH (27.0-32.0) pg Immature Gran # (0.00-0.04) X 10*3/uL Neutrophils # (1.80-7.70) X 10*3/uL Monocytes # (0.20-1.00) X 10*3/uL Eosinophils # (0.04-0.35) X 10*3/uL PT (10.0-12.5) sec INR (<1.2) BUN (9.0-27.0) mg/dL Creatinine (0.6-1.5) mg/dL Est GFR (CKD-EPI) (>=60) Glucose (70-110) mg/dL POC Glucose (mg/dL) 173 H (70-110) mg/dL Hemoglobin A1c (<=6.0) % Total Protein (6.2-8.2) g/dL Albumin (3.8-4.9) g/dL Albumin/Globulin Ratio (1.60-3.17) Ratio
[2024-10-01 16:56] LABS: Glucose,Whole Blood 148 mg/dL (70-110)
[2024-10-01] MEDS: WARFARIN 0.5 MG TAB PO ONE (17:43)
--- NOTE | 2024-10-01 17:46 | P.PN ---
Subjective Progress Note Date: 10/01/24 Coy Buitrago is an 79-year-old male patient of Dr. Segura who presented to the ER with concerns of increased shortness of breath. Patient was recently here and treated for CHF exacerbation and was doing well at home up until a few days ago when he started to have increased shortness of breath and upper respiratory congestion. Patient has a past medical history of COPD, CHF, atrial fibrillation maintained on Coumadin, kidney disease, diabetes mellitus, hyperlipidemia, hypertension. Chest x-ray completed showing no acute pulmonary process. EKG completed showing sinus rhythm with first-degree AV block. Lab work completed showing a white blood cell count of 26.78, hemoglobin 13.9, creatinine 2.31 bun 46. UA negative influenza RSV and COVID-19 negative. BNP 1420. Vital signs temp 98.0, heart rate 62, respiratory rate 17, blood pressure 119/68 with a pulse ox of 95% on 4 L. INR supratherapeutic at 4.2. Pharmacy to dose Coumadin Coumadin currently on hold. At this time patient will be admitted. Cardiology and pulmonary services will be consulted procalcitonin level has been ordered. Repeat labs ordered. Patient reports improvement with overall shortness of breath. Patient denies chest pain. Patient denies nausea vomiting or diarrhea. Patient denies any urinary burning or frequency. On 10/01/2024 patient was seen and examined on the medical floor he is alert and oriented x 3 in no apparent distress there is no fever or chills no headache or dizziness no chest pain no shortness of breath no cough no nausea or vomiting no abdominal pain no diarrhea and no urinary symptoms. He states that his shortness of breath is improving, input from pulmonary and cardiology reviewed possible discharge to home in a.m. tomorrow Objective - Vital Signs Vital signs: Vital Signs Temp 97.9 F 10/01/24 13:23 Pulse 60 10/01/24 13:23 Resp 18 10/01/24 13:23 BP 114/61 10/01/24 13:23 Pulse Ox 97 10/01/24 13:23 FiO2 Intake & Output 09/30/24 10/01/24 10/01/24 18:59 06:59 18:59 Intake Total 600 Output Total 300 Balance -300 600 Weight 111 kg Intake: Oral 600 Output: Urine 300 Other: Voiding Method Urinal - Exam Head normocephalic Neck supple Lungs clear to auscultation bilaterally no wheezing or crackles Heart irregular known atrial fibrillation Abdomen is soft nontender nondistended positive bowel sounds no hepatosplenomegaly Extremities +1 lower extremity edema Neuro alert and orientated to 3 - Labs CBC & Chem 7: 10/01/24 03:46 10/01/24 03:46 Labs: Abnormal Lab Results - Last 24 Hours (Table) 09/30/24 10/01/24 10/01/24 Range/Units 20:56 03:46 03:46 WBC 14.05 H (4.50-10.00) X 10*3/uL RBC 4.10 L (4.40-5.60) X 10*6/uL MCV 99.8 H (80.0-97.0) FL MCH 32.7 H (27.0-32.0) pg Immature Gran # 0.07 H (0.00-0.04) X 10*3/uL Neutrophils # 8.75 H (1.80-7.70) X 10*3/uL Monocytes # 1.02 H (0.20-1.00) X 10*3/uL Eosinophils # 1.95 H (0.04-0.35) X 10*3/uL PT (10.0-12.5) sec INR (<1.2) BUN (9.0-27.0) mg/dL Creatinine (0.6-1.5) mg/dL Est GFR (CKD-EPI) (>=60) Glucose (70-110) mg/dL POC Glucose (mg/dL) 159 H (70-110) mg/dL Hemoglobin A1c 7.7 H (<=6.0) % Total Protein (6.2-8.2) g/dL Albumin (3.8-4.9) g/dL Albumin/Globulin Ratio (1.60-3.17) Ratio 10/01/24 10/01/24 10/01/24 Range/Units 03:46 03:46 06:18 WBC (4.50-10.00) X 10*3/uL RBC (4.40-5.60) X 10*6/uL MCV (80.0-97.0) FL MCH (27.0-32.0) pg Immature Gran # (0.00-0.04) X 10*3/uL Neutrophils # (1.80-7.70) X 10*3/uL Monocytes # (0.20-1.00) X 10*3/uL Eosinophils # (0.04-0.35) X 10*3/uL PT 34.5 H (10.0-12.5) sec INR 3.5 H (<1.2) BUN 41.1 H (9.0-27.0) mg/dL Creatinine 2.3 H (0.6-1.5) mg/dL Est GFR (CKD-EPI) 28 L (>=60) Glucose 113 H (70-110) mg/dL POC Glucose (mg/dL) 127 H (70-110) mg/dL Hemoglobin A1c (<=6.0) % Total Protein 6.0 L (6.2-8.2) g/dL Albumin 3.5 L (3.8-4.9) g/dL Albumin/Globulin Ratio 1.40 L (1.60-3.17) Ratio 10/01/24 10/01/24 Range/Units 11:05 16:48 WBC (4.50-10.00) X 10*3/uL RBC (4.40-5.60) X 10*6/uL MCV (80.0-97.0) FL MCH (27.0-32.0) pg Immature Gran # (0.00-0.04) X 10*3/uL Neutrophils # (1.80-7.70) X 10*3/uL Monocytes # (0.20-1.00) X 10*3/uL Eosinophils # (0.04-0.35) X 10*3/uL PT (10.0-12.5) sec INR (<1.2) BUN (9.0-27.0) mg/dL Creatinine (0.6-1.5) mg/dL Est GFR (CKD-EPI) (>=60) Glucose (70-110) mg/dL POC Glucose (mg/dL) 173 H 148 H (70-110) mg/dL Hemoglobin A1c (<=6.0) % Total Protein (6.2-8.2) g/dL Albumin (3.8-4.9) g/dL Albumin/Globulin Ratio (1.60-3.17) Ratio Assessment and Plan Assessment: 1. Acute hypoxic respiratory failure secondary to acute CHF and COPD exacerbation 2. Acute on chronic kidney disease 3. Supratherapeutic INR 4. Chronic diastolic congestive heart failure 5. History of chronic kidney disease stage III 6. Chronic atrial fibrillation maintained on Coumadin. Coumadin currently on hold pharmacy to dose due to supratherapeutic INR 7. History of diabetes mellitus type 2 8. History of hyperlipidemia 9. History of essential hypertension DVT prophylaxis Coumadin GI prophylaxis Protonix Pulmonary and cardiology services consulted Repeat labs ordered Procalcitonin level ordered
[2024-10-01 21:26] LABS: Glucose,Whole Blood 190 mg/dL (70-110)
[2024-10-02 04:08] LABS: INR 2.5 (<1.2); Prothrombin Time 24.9 sec (10.0-12.5)
[2024-10-02 05:12] VITALS: RESP 17
[2024-10-02 06:33] LABS: Glucose,Whole Blood 205 mg/dL (70-110)
[2024-10-02 08:43] VITALS: BP 100/62; PULSE 69; TEMP 97.7
[2024-10-02] MEDS: DAPAGLIFLOZIN PROPANEDIOL 5 MG TABLET PO SCH (10:33)
[2024-10-02] MEDS: FAMOTIDINE 20 MG TAB PO SCH (10:33)
[2024-10-02 11:15] LABS: Glucose,Whole Blood 184 mg/dL (70-110)
--- NOTE | 2024-10-02 12:11 | P.DS ---
Providers Date of admission: 09/29/24 19:53 Expected date of discharge: 10/02/24 Attending physician: Donal Granado Consults: 09/30/24 07:07 Consult Physician Routine Consulting Provider: Antonio Hudson Consult Reason/Comments: hypoxic Do you want consulting provider notified?: Yes 09/30/24 07:08 Consult Physician Routine Consulting Provider: Rita Garcia Consult Reason/Comments: chf history Do you want consulting provider notified?: Yes Primary care physician: Caroline Ballard Hospital Course: Discharge diagnosis 1. Acute hypoxic respiratory failure secondary to acute CHF and COPD exacerbation 2. Acute on chronic kidney disease 3. Supratherapeutic INR 4. Chronic diastolic congestive heart failure 5. History of chronic kidney disease stage III 6. Chronic atrial fibrillation maintained on Coumadin. Coumadin currently on hold pharmacy to dose due to supratherapeutic INR 7. History of diabetes mellitus type 2 8. History of hyperlipidemia 9. History of essential hypertension Hospital course Coy Buitrago is an 79-year-old male patient of Dr. Segura who presented to the ER with concerns of increased shortness of breath. Patient was recently here and treated for CHF exacerbation and was doing well at home up until a few days ago when he started to have increased shortness of breath and upper respiratory congestion. Patient has a past medical history of COPD, CHF, atrial fibrillation maintained on Coumadin, kidney disease, diabetes mellitus, hyperlipidemia, hypertension. Chest x-ray completed showing no acute pulmonary process. EKG completed showing sinus rhythm with first-degree AV block. Lab work completed showing a white blood cell count of 26.78, hemoglobin 13.9, creatinine 2.31 bun 46. UA negative influenza RSV and COVID-19 negative. BNP 1420. Vital signs temp 98.0, heart rate 62, respiratory rate 17, blood pressure 119/68 with a pulse ox of 95% on 4 L. INR supratherapeutic at 4.2. Pharmacy to dose Coumadin Coumadin currently on hold. At this time patient will be admitted. Cardiology and pulmonary services will be consulted procalcitonin level has been ordered. Repeat labs ordered. Patient reports improvement with overall shortness of breath. Patient denies chest pain. Patient denies nausea vomiting or diarrhea. Patient denies any urinary burning or frequency. On 10/01/2024 patient was seen and examined on the medical floor he is alert and oriented x 3 in no apparent distress there is no fever or chills no headache or dizziness no chest pain no shortness of breath no cough no nausea or vomiting no abdominal pain no diarrhea and no urinary symptoms. He states that his shortness of breath is improving, input from pulmonary and cardiology reviewed possible discharge to home in a.m. tomorrow On 10/02/2024 patient is alert and oriented x 3. Patient will be discharged home patient cleared by cardiology and pulmonary services. Patient started on Farxiga. Patient to follow-up with cardiology services outpatient INR today 2.5 patient denies chest pain or shortness of breath. Patient denies nausea vomiting or diarrhea. Patient denies any urinary burning or frequency Patient Condition at Discharge: Stable Plan - Discharge Summary Discharge Rx Participant: No New Discharge Prescriptions: New Dapagliflozin Propanediol [Farxiga] 5 mg PO DAILY 30 Days #30 tab Continue allopurinoL [Zyloprim] 300 mg PO HS Atorvastatin [Lipitor] 20 mg PO HS calcitrioL 0.25 mcg PO MOWEFR Escitalopram [Lexapro] 20 mg PO DAILY sitaGLIPtin [Januvia] 50 mg PO DAILY Famotidine [Pepcid] 20 mg PO DAILY rOPINIRole HCL [Requip] 1 mg PO TID PRN PRN Reason: restlessness Warfarin [Coumadin] 5 mg PO SUTUFR Cholecalciferol [Vitamin D3 (25 Mcg = 1000 Iu)] 25 mcg PO DAILY Ascorbic Acid [Vitamin C] 500 mg PO DAILY Metoprolol Tartrate [Lopressor] 50 mg PO BID-W/MEALS Warfarin [Coumadin] 2.5 mg PO MOWETHSA Furosemide [Lasix] 40 mg PO BID@0900,1600 30 Days #60 tab Magnesium Oxide [Magox 400] 400 mg PO HS Discontinued hydrOXYzine HCL [Atarax] 10 mg PO DIRECTED Discharge Medication List allopurinoL [Zyloprim] 300 mg PO HS 11/27/15 [History] Atorvastatin [Lipitor] 20 mg PO HS 05/01/19 [History] calcitrioL 0.25 mcg PO MOWEFR 05/01/19 [History] Cholecalciferol [Vitamin D3 (25 Mcg = 1000 Iu)] 25 mcg PO DAILY 11/12/22 [History] Ascorbic Acid [Vitamin C] 500 mg PO DAILY 09/11/24 [History] Escitalopram [Lexapro] 20 mg PO DAILY 09/11/24 [History] Famotidine [Pepcid] 20 mg PO DAILY 09/11/24 [History] Metoprolol Tartrate [Lopressor] 50 mg PO BID-W/MEALS 09/11/24 [History] Warfarin [Coumadin] 2.5 mg PO MOWETHSA 09/11/24 [History] Warfarin [Coumadin] 5 mg PO SUTUFR 09/11/24 [History] rOPINIRole HCL [Requip] 1 mg PO TID PRN 09/11/24 [History] sitaGLIPtin [Januvia] 50 mg PO DAILY 09/11/24 [History] Furosemide [Lasix] 40 mg PO BID@0900,1600 30 Days #60 tab 09/14/24 [Rx] Magnesium Oxide [Magox 400] 400 mg PO HS 09/29/24 [History] Dapagliflozin Propanediol [Farxiga] 5 mg PO DAILY 30 Days #30 tab 10/02/24 [Rx] Follow up Appointment(s)/Referral(s): Rita Garcia MD [STAFF PHYSICIAN] - 1 Week Caroline Ballard MD [Primary Care Provider] - 1-2 days [facility], [NON-STAFF] - As Needed ([facility] will call you to schedule your in home nursing, physical therapy, and occupational therapy. )
--- NOTE | 2024-10-02 12:30 | P.PN ---
Subjective Progress Note Date: 10/02/24 This is a pleasant 79-year-old male patient with a known history of congestive heart failure, atrial fibrillation, diabetes mellitus, hypertension, hyperlipidemia, chronic kidney disease stage III, gout, remote former smoker. He was discharged from here last month for CHF exacerbation with an ejection fr action of 40 to 45% and had been doing well up until yesterday when he woke up quite short of breath. He presented here to the emergency room for the same. Chest x-ray reveals no acute pulmonary process. EKG reveals sinus mechanism. White count 26.7. Hemoglobin 13.9. Platelets 238. INR 4.2. Sodium 138. Potassium 4.2. Bicarb 33. BUN 46. Creatinine 2.31. Glucose 203. proBNP 1420. Procalcitonin negative at 0.05. Urinalysis clean. Viral screen negative. He is seen today in consultation on the regular medical floor. He is currently sitting up in bed. Awake and alert in no acute distress. States he is breathing better today compared to yesterday. He is maintaining O2 saturati ons in the 90s on 4 L/min per nasal cannula. He has been afebrile. Hemodynamically stable. The patient is seen today October 01, 2024 and follow-up on the regular medical floor. He is currently up in a chair at the bedside. Awake and alert in no acute distress. He is maintaining good O2 saturations in the 90s on room air. Hemodynamically stable. White count 14.0. Hemoglobin 13.4. Platelets 228. INR 3.5. Sodium 138. Potassium 3.7. Bicarb 29. BUN 41. Creatinine 2.3. Glucose 113. He is currently on oral diuretics. Anticoagulated with warfarin. The patient is seen today October 02, 2024 in follow-up on the regular medical floor. He is awake and alert in no acute distress. He is maintaining O2 saturations in the 90s on room air. He is sitting up in a chair at the bedside. No IV fluids. INR 2.5. Glucose 184. He remains on oral diuretics. Anticoagulated with warfarin. Objective - Vital Signs Vital signs: Vital Signs Temp 97.7 F 10/02/24 07:22 Pulse 69 10/02/24 08:00 Resp 17 10/02/24 08:00 BP 100/62 10/02/24 07:22 Pulse Ox 95 10/02/24 07:22 FiO2 Intake & Output 10/01/24 10/02/24 10/02/24 18:59 06:59 18:59 Intake Total 950 1890 Balance 950 1890 Intake: Oral 950 1890 Other: Voiding Method Urinal Urinal Toilet Diaper # Voids 6 5 - Exam GENERAL EXAM: Alert, 79-year-old male, up in a chair, on room air, in no apparent distress. HEAD: Normocephalic. EYES: Normal reaction of pupils, equal size. NOSE: Clear with pink turbinates. THROAT: No erythema or exudates. NECK: No masses, no JVD. CHEST: No chest wall deformity. LUNGS: Equal air entry with crackles in the posterior bases. CVS: S1 and S2 normal with no audible murmur, regular rhythm. ABDOMEN: No hepatosplenomegaly, normal bowel sounds, no guarding or rigidity. SPINE: No scoliosis or deformity SKIN: No rashes CENTRAL NERVOUS SYSTEM: No focal deficits, tone is normal in all 4 extremities. EXTREMITIES: There is 1+ peripheral edema. No clubbing, no cyanosis. Peripheral pulses are intact. - Labs CBC & Chem 7: 10/01/24 03:46 10/01/24 03:46 Labs: Abnormal Lab Results - Last 24 Hours (Table) 10/01/24 10/01/24 10/02/24 Range/Units 16:48 21:25 03:13 PT 24.9 H (10.0-12.5) sec INR 2.5 H (<1.2) POC Glucose (mg/dL) 148 H 190 H (70-110) mg/dL 10/02/24 10/02/24 Range/Units 06:31 11:13 PT (10.0-12.5) sec INR (<1.2) POC Glucose (mg/dL) 205 H 184 H (70-110) mg/dL Assessment and Plan Assessment: Acute hypoxic respiratory failure secondary to an acute exacerbation of chronic systolic congestive heart failure Leukocytosis suspect reactive, procalcitonin negative, urinalysis clean Atrial fibrillation anticoagulated with warfarin, currently in sinus mechanism History of congestive heart failure Acute on chronic kidney disease History of gout Hyperlipidemia Hypertension Diabetes mellitus, type II Remote smoking history Plan: The patient was seen and evaluated Labs and medications reviewed Stable on room air oxygen Cleared for discharge Continue oral diuretics Anticoagulated with warfarin Plan of care discussed with the patient Plan is for home with home care I have personally seen and examined the patient, performed the documentation and the assessment and plan as written. Number of minutes spent on the visit: 10 Dictation was produced using [employer] dictation software. Please excuse any grammatical, word or spelling errors.
[2024-10-02] MEDS ORDERED: WARFARIN 3 MG TAB PO ONE (18:00)
== END 2024-10-02 14:00 | disposition home or self-care (01) ==
LOC: EC 18:12 → 4SSUR 19:53
PROVIDERS: ADMIT Internal Medicine; ATTEND Internal Medicine
DX: J96.01 Acute respiratory failure with hypoxia (principal); E78.5 Hyperlipidemia, unspecified; I48.21 Permanent atrial fibrillation; E11.22 Type 2 diabetes mellitus with diabetic chronic kidney disease; I13.0 Hypertensive heart and chronic kidney disease with heart failure and stage 1 through stage 4 chronic kidney disease, or unspecified chronic kidney disease; I50.43 Acute on chronic combined systolic (congestive) and diastolic (congestive) heart failure; N18.30 Chronic kidney disease, stage 3 unspecified; D72.829 Elevated white blood cell count, unspecified; M10.9 Gout, unspecified; I42.9 Cardiomyopathy, unspecified; J44.9 Chronic obstructive pulmonary disease, unspecified; I27.20 Pulmonary hypertension, unspecified; R79.1 Abnormal coagulation profile; F41.9 Anxiety disorder, unspecified; K21.9 Gastro-esophageal reflux disease without esophagitis; Z85.828 Personal history of other malignant neoplasm of skin; Z87.891 Personal history of nicotine dependence; Z79.01 Long term (current) use of anticoagulants; Z79.84 Long term (current) use of oral hypoglycemic drugs; Z79.899 Other long term (current) drug therapy; Z88.0 Allergy status to penicillin
CPT/HCPCS: 96376 ×2; 96375; 96374; 99285; 36415; 94640 ×2; 94760; 93005; 83880; 80053 ×3; 83605; 83735; 84484; 85025 ×3; 85610 ×4; 85730; 81001; 83036; 84145; 87636; 71046; G0378 ×4; J2470 ×3; J1938

== ENCOUNTER 2025-01-18 18:26 | Emergency (ER) | payer MEDICARE, OTHER ==
[2025-01-18 18:32] VITALS: RESP 18
--- NOTE | 2025-01-18 19:29 | ED ---
Wound/Laceration HPI - General Chief Complaint: Wound/Laceration Stated Complaint: head bump Time Seen by Provider: 01/18/25 19:23 Source: patient, RN notes reviewed Mode of arrival: wheelchair Limitations: no limitations - History of Present Illness Initial Comments: 79-year-old male presenting for bump to the top of his head x 2 weeks. Reports he has been noticing pustular drainage, swelling, and redness to the bump. Denies known head injury, cuts, or injuries that could have triggered this. States this morning he noticed he was having swelling in his cheeks however states this has subsided as the day went on. Denies fevers, chills, nausea, vomiting. He is on Coumadin for atrial fibrillation. Past medical history also includes chronic diastolic congestive heart failure, renal disease stage III, hypertension, hyperlipidemia, diabetes, COPD. States he lives at home alone. Denies chest pain, shortness of breath, leg swelling, difficulty breathing or swallowing. States he does have a history of skin cancer on the top of his head that was removed by Dr. Garcia - Related Data Home Medications Medication Instructions Recorded Confirmed allopurinoL [Zyloprim] 300 mg PO HS 11/27/15 09/29/24 Atorvastatin [Lipitor] 20 mg PO HS 05/01/19 09/29/24 calcitrioL 0.25 mcg PO MOWEFR 05/01/19 09/29/24 Cholecalciferol [Vitamin D3 (25 25 mcg PO DAILY 11/12/22 09/29/24 Mcg = 1000 Iu)] Ascorbic Acid [Vitamin C] 500 mg PO DAILY 09/11/24 09/29/24 Escitalopram [Lexapro] 20 mg PO DAILY 09/11/24 09/29/24 Famotidine [Pepcid] 20 mg PO DAILY 09/11/24 09/29/24 Metoprolol Tartrate [Lopressor] 50 mg PO BID-W/MEALS 09/11/24 09/29/24 Warfarin [Coumadin] 2.5 mg PO MOWETHSA 09/11/24 09/29/24 Warfarin [Coumadin] 5 mg PO SUTUFR 09/11/24 09/29/24 rOPINIRole HCL [Requip] 1 mg PO TID PRN 09/11/24 09/29/24 sitaGLIPtin [Januvia] 50 mg PO DAILY 09/11/24 09/29/24 Magnesium Oxide [Magox 400] 400 mg PO HS 09/29/24 09/29/24 Previous Rx's Medication Instructions Recorded Furosemide [Lasix] 40 mg PO BID@0900,1600 30 Days #60 09/14/24 tab Dapagliflozin Propanediol [Farxiga] 5 mg PO DAILY 30 Days #30 tab 10/02/24 Cephalexin [Keflex] 500 mg PO Q6HR #40 cap 01/18/25 Sulfamethox-Tmp 800-160Mg [Bactrim 1 each PO Q12HR #20 tab 01/18/25 Ds] Allergies Allergy/AdvReac Type Severity Reaction Status Date / Time Penicillins Allergy Unknown Verified 01/18/25 18:32 Review of Systems ROS Statement: Those systems with pertinent positive or pertinent negative responses have been documented in the HPI. ROS Other: All systems not noted in ROS Statement are negative. Past Medical History Past Medical History: Atrial Fibrillation, Cancer, COPD, Diabetes Mellitus, GERD/Reflux, Hyperlipidemia, Hypertension, Osteoarthritis (OA), Renal Disease Additional Past Medical History / Comment(s): KIDNEY DISEASE stage 3, GOUT, past hx PROBLEM SWALLOWING (not currently 09/11/2024), low Blood sugar admit 10/08/22 resp failure admit 09/24/22. skin cancer, restless leg syndrome, rash on rt leg for years. History of Any Multi-Drug Resistant Organisms: None Reported Past Surgical History: Hernia Repair Additional Past Surgical History / Comment(s): cataract kaila with lens implant, colonoscopy, inguinal hernia repair, skin cancer removed Past Anesthesia/Blood Transfusion Reactions: No Reported Reaction Past Psychological History: Anxiety Smoking Status: Former smoker Past Alcohol Use History: Occasional Past Drug Use History: None Reported - Past Family History Mother Family Medical History: No Reported History General Exam Limitations: no limitations General appearance: alert, in no apparent distress Head exam: Present: atraumatic, normocephalic. Absent: normal inspection (There is a ping-pong ball sized indurated erythematous mass on the superior aspect of the scalp with active pustular drainage. No fluctuance.) Eye exam: Present: normal appearance, PERRL, EOMI. Absent: scleral icterus, conjunctival injection, periorbital swelling ENT exam: Present: normal exam, mucous membranes moist Respiratory exam: Present: normal lung sounds bilaterally. Absent: respiratory distress, wheezes, rales, rhonchi, stridor Cardiovascular Exam: Present: regular rate, normal rhythm, normal heart sounds. Absent: systolic murmur, diastolic murmur, rubs, gallop, clicks Neurological exam: Present: alert, oriented X3 Psychiatric exam: Present: normal affect, normal mood Skin exam: Present: warm, dry, intact, normal color. Absent: rash Course Vital Signs 01/18/25 01/18/25 18:28 20:47 Temperature 97.8 F Pulse Rate 78 77 Respiratory 18 18 Rate Blood Pressure 149/89 121/89 O2 Sat by Pulse 100 95 Oximetry Medical Decision Making - Medical Decision Making Was pt. sent in by a medical professional or institution (, PA, [facility]CHANDISE SHOPPER, urgent care, hospital, or care home...) When possible be specific @ -No Did you speak to anyone other than the patient for history (EMS, parent, family, police, friend...)? What history was obtained from this source @ -No Did you review nursing and triage notes (agree or disagree)? Why? @ -I reviewed and agree with nursing and triage notes Were old charts reviewed (outside hosp., previous admission, EMS record, old EKG, old radiological studies, urgent care reports/EKG's, care home records)? Report findings @ -No old charts were reviewed Differential Diagnosis (chest pain, altered mental status, abdominal pain women, abdominal pain men, vaginal bleeding, weakness, fever, dyspnea, syncope, headache, dizziness, GI bleed, back pain, seizure, CVA, palpatations, mental health, musculoskeletal)? @ -Differential Musculoskeletal abscess, bursitis, cellulitis, tumor.... This is not meant to be in all inclusiv e list EKG interpreted by me (3pts min.). @ -None X-rays interpreted by me (1pt min.). @ -None done CT interpreted by me (1pt min.). @ -CT brain reveals no acute intracranial process, soft tissue thickening near left occipital vertex measuring 2.8 cm hematoma in the differential U/S interpreted by me (1pt. min.). @ -None done What testing was considered but not performed or refused? (CT, X-rays, U/S, labs)? Why? @ -None What meds were considered but not given or refused? Why? @ -None Did you discuss the management of the patient with other professionals (professionals i.e. DrShirley, PA, MERCHANDISE SHOPPER, lab, RT, psych nurse, psychiatric social worker supervisor, weld lay out worker, teacher, financial administration officer, binder caser)? Give summary @ -No Was smoking cessation discussed for >3mins.? @ -No Was critical care preformed (if so, how long)? @ -No Were there social determinants of health that impacted care today? How? (Homelessness, low income, unemployed, alcoholism, drug addiction, transportation, low edu. Level, literacy, decrease access to med. care, fpc, rehab)? @ -No Was there de-escalation of care discussed even if they declined (Discuss DNR or withdrawal of care, Hospice)? DNR status @ -No What co-morbidities impacted this encounter? (DM, HTN, Smoking, COPD, CAD, Cancer, CVA, ARF, Chemo, Hep., AIDS, mental health diagnosis, sleep apnea, morbid obesity)? @ -None Was patient admitted / discharged? Hospital course, mention meds given and route, prescriptions, significant lab abnormalities, going to OR and other pertinent info. @ - discharge. 79-year-old male presenting for bump to the top of his head x 2 weeks. Denies head injury. No systemic symptoms. Patient is afebrile, nontachycardic. Patient is well-appearing. There is a erythematous, indurated mass present on the top of the scalp with active purulent drainage. Wound culture and fungal culture taken. Lab work remarkable for white blood cell count of 16 however no left shift. Other lab work is at baseline. CT brain reveals no acute intracranial process, there is soft tissue thickening near left occipital vertex measuring 2.8 cm. Discussed results with patient. Discussed likely diagnosis of bacterial cellulitis. Will start patient on outpatient cou rse of antibiotics. Strict return parameters and close follow-up care discussed. Patient has a PCP appointment on Tuesday. Also instructed to follow- up with his vamper. Case was discussed with my ED attending Dr. Han. Undiagnosed new problem with uncertain prognosis? @ -No Drug Therapy requiring intensive monitoring for toxicity (Heparin, Nitro, Insulin, Cardizem)? @ -No Were any procedures done? @ -No Diagnosis/symptom? @ -Cellulitis of head Acute, or Chronic, or Acute on Chronic? @ -Acute Uncomplicated (without systemic symptoms) or Complicated (systemic symptoms)? @ -Uncomplicated Side effects of treatment? @ -No Exacerbation, Progression, or Severe Exacerbation? @ -No Poses a threat to life or bodily function? How? (Chest pain, [place], [place], pneumonia, PE, COPD, DKA, ARF, appy, cholecystitis, CVA, Diverticulitis, Homicidal, Suicidal, threat to staff... and all critical care pts) @ -Not at this time - Lab Data Result diagrams: 01/18/25 19:33 01/18/25 19:33 Lab Results 01/18/25 01/18/25 Range/Units 19:33 19:33 WBC 16.93 H (4.50-10.00) 10*3/uL RBC 4.16 L (4.40-5.60) 10*6/uL Hgb 14.2 (13.0-17.0) g/dL Hct 40.8 (39.6-50.0) % MCV 98.1 H (80.0-97.0) fL MCH 34.1 H (27.0-32.0) pg MCHC 34.8 (32.0-37.0) g/dL Plt Count 279 (140-440) 10*3/uL MPV 11.0 (9.5-12.2) fL Immature Gran % (Auto) 0.5 % Neutrophils % (Manual) 56 % Lymphocytes % (Manual) 16 % Monocytes % (Manual) 5 % Eosinophils % (Manual) 23 % Immature Gran # 0.08 H (0.00-0.04) 10*3/uL Neutrophils # (Manual) 9.48 H (1.3-7.7) k/uL Lymphocytes # (Manual) 2.71 (1.0-4.8) k/uL Monocytes # (Manual) 0.85 (0-1.0) k/uL Eosinophils # (Manual) 3.89 H (0-0.7) k/uL Nucleated RBCs 0 (0-0) /100 WBC Manual Slide Review Performed Large Platelets Present Polychromasia Present Sodium 137 (137-145) mmol/L Potassium 4.3 (3.5-5.1) mmol/L Chloride 104 (98-107) mmol/L Carbon Dioxide 22 (22-30) mmol/L Anion Gap 11 mmol/L BUN 37 H (9-20) mg/dL Creatinine 2.31 H (0.66-1.25) mg/dL Est GFR (CKD-EPI)AfAm 30 (>60 ml/min/1.73 sqM) Est GFR (CKD-EPI)NonAf 26 (>60 ml/min/1.73 sqM) Glucose 122 H (74-99) mg/dL Calcium 9.3 (8.4-10.2) mg/dL Total Bilirubin 0.7 (0.2-1.3) mg/dL AST 22 (17-59) U/L ALT 14 (4-49) U/L Alkaline Phosphatase 97 (38-126) U/L Total Protein 7.1 (6.3-8.2) g/dL Albumin 3.9 (3.5-5.0) g/dL Disposition Clinical Impression: Cellulitis of head or scalp Disposition: HOME SELF-CARE Condition: Stable Instructions (If sedation given, give patient instructions): Cellulitis (ED) Additional Instructions: Take Keflex and Bactrim as prescribed. Follow-up with your PCP on Tuesday. Follow-up with your vamper as well to exclude underlying cancer of the skin. Please return to the Emergency Department if symptoms worsen or any other concerns. Prescriptions: Sulfamethox-Tmp 800-160Mg [Bactrim Ds] 1 each PO Q12HR #20 tab Cephalexin [Keflex] 500 mg PO Q6HR #40 cap Is patient prescribed a controlled substance at d/c from ED?: No Referrals: None,Stated [REFERRING] - 1-2 days Time of Disposition: 21:52
--- NOTE | 2025-01-18 20:01 | CT ---
EXAMINATION TYPE: CT brain wo con DATE OF EXAM: 01/18/2025 7:55 PM COMPARISON: None. CLINICAL INDICATION: Male, 79 years old with history of head abscess, c/o of a bump to the top of his head with pustular drainage, redness and swelling to his face x a week. Pt denies recent falls or in jury to his head. TECHNIQUE: CT of the brain is performed utilizing 3 mm thick sections through the posterior fossa and 3 mm thick sections through the remaining calvarium. Study is performed within 24 hours of arrival to the hospital. Contrast used: mL of , (none if empty) CT DLP: 1170.4 mGycm, Automated exposure control for dose reduction was used. FINDINGS: There is prominent soft tissue swelling over the left occipital vertex. Underlying abscess could be w ithin the differential. Underlying calvarium is intact. No abnormal hyperdensity is present to suggest an acute intracranial hemorrhage. No mass lesion is evident. No acute infarcts are evident. Mild scattered periventricular white matter ischemic type changes are present Ventricles and sulci are mildly prominent for the patient age. Paranasal sinuses and mastoid air cells within the [id number] are clear. IMPRESSION: 1. No acute intracranial process. Follow up MRI can be performed as clinically indicated. 2. Soft tissue thickening near the left occipital vertex measuring 2.8 cm. abscess and hematoma could be within the differential. [facility], Workstation: [facility], 01/18/2025 7:59 PM
[2025-01-18 20:17] LABS: HCT 40.8 % (39.6-50.0); HGB 14.2 g/dL (13.0-17.0); MCH 34.1 pg (27.0-32.0); MCHC 34.8 g/dL (32.0-37.0); MCV 98.1 fL (80.0-97.0); Platelet Count 279 10*3/uL (140-440); RBC 4.16 10*6/uL (4.40-5.60); RDW 14.7 % (11.5-14.5); WBC 16.93 10*3/uL (4.50-10.00)
[2025-01-18 20:35] LABS: ALT 14 U/L (4-49); AST 22 U/L (17-59); African American GFR (CKD) 30 (>60 ml/min/1.73 sqM); Albumin 3.9 g/dL (3.5-5.0); Alkaline Phosphatase 97 U/L (38-126); Anion Gap 11 mmol/L; Blood Urea Nitrogen 37 mg/dL (9-20); Calcium 9.3 mg/dL (8.4-10.2); Carbon Dioxide 22 mmol/L (22-30); Chloride 104 mmol/L (98-107); Glucose 122 mg/dL (74-99); Non-African American GFR(CKD) 26 (>60 ml/min/1.73 sqM); Potassium 4.3 mmol/L (3.5-5.1); Sodium 137 mmol/L (137-145); Total Protein 7.1 g/dL (6.3-8.2)
[2025-01-18 20:49] VITALS: PULSE 77
[2025-01-18 21:05] LABS: Eosinophils # (M) 3.89 k/uL (0-0.7); Lymphocytes # (M) 2.71 k/uL (1.0-4.8); Monocytes # (M) 0.85 k/uL (0-1.0); Neutrophils # (M) 9.48 k/uL (1.3-7.7); Neutrophils % (M) 56 %; Polychromasia Present; Total Cells Counted 100
[2025-01-18] MEDS: CEPHALEXIN 500 MG CAP PO STA (22:00)
[2025-01-18] MEDS: SULFAMETHOX-TMP 800-160MG 1 EACH TAB PO STA (22:00)
[2025-01-18 22:32] VITALS: BP 151/97; TEMP 98.7
== END 2025-01-18 22:32 | disposition home or self-care (01) ==
LOC: EC 18:26
DX: L03.811 Cellulitis of head [any part, except face] (principal); Z87.891 Personal history of nicotine dependence; Z88.0 Allergy status to penicillin
CPT/HCPCS: 36415; 70450; 80053; 85025; 87070; 87102; 87205; 99283